=== PATIENT | female | born 1935 | race Caucasian/White ===

== ENCOUNTER 2016-06-26 05:07 | Inpatient (IN) | payer MEDICARE ==
[2016-06-26 06:31] LABS: ABSOLUTE LYMPHOCYTES (AUTO) 1.4 10^3/uL (0.5-4.7); ABSOLUTE MONOCYTES (AUTO) 0.6 10^3/uL (0.1-1.4); ABSOLUTE NEUT (AUTO) 7.1 10^3/uL (1.7-8.2); BASOPHILS % (AUTO) 0.3 % (0-2); EOSINOPHILS % (AUTO) 0.3 % (0-6); HEMATOCRIT 39.5 % (36.0-47.0); HEMOGLOBIN 13.4 g/dL (12.0-15.5); HGB HCT DIFFERENCE 0.7; LYMPHOCYTES % (AUTO) 15.4 % (13-45); MEAN CORPUSCULAR HEMOGLOBIN 29.6 pg (27.0-33.4); MEAN CORPUSCULAR HGB CONC 33.8 g/dL (32.0-36.0); MEAN CORPUSCULAR VOLUME 88 fl (80-97); MONOCYTES % (AUTO) 6.2 % (3-13); RED BLOOD COUNT 4.51 10^6/uL (3.72-5.28); RED CELL DISTRIBUTION WIDTH 13.2 % (11.5-14.0); SEGMENTED NEUTROPHILS % (AUTO) 77.8 % (42-78); WHITE BLOOD COUNT 9.1 10^3/uL (4.0-10.5)
[2016-06-26 06:38] LABS: PROTHROMBIN TIME 13.5 SEC (11.4-15.4)
[2016-06-26 06:50] LABS: ALANINE AMINOTRANSFERASE 193 U/L (9-52); ALBUMIN 4.3 g/dL (3.5-5.0); ALKALINE PHOSPHATASE 138 U/L (38-126); ANION GAP 11 (5-19); ASPARTATE AMINO TRANSFERASE 229 U/L (14-36); BLOOD UREA NITROGEN 19 mg/dL (7-20); CARBON DIOXIDE 26 mmol/L (22-30); CHLORIDE 101 mmol/L (98-107); CREATININE RESULT 0.78 mg/dL (0.52-1.25); GLUCOSE 117 mg/dL (75-110); POTASSIUM 4.9 mmol/L (3.6-5.0); SODIUM 137.5 mmol/L (137-145); TOTAL PROTEIN 7.9 g/dL (6.3-8.2)
--- NOTE | 2016-06-26 07:09 | ER Document Report ---
ED GI/ - General Stated Complaint: ABDOMINAL PAIN Time seen by provider: 07:09 Mode of Arrival: Ambulatory Information source: Patient Notes: 80-year-old female complaining of epigastric right upper quadrant abdominal pain since yesterday afternoon when she was sweeping the garage. Associated with increased number of bowel movements yesterday that were large but not diarrhea, nausea, and intense pain. Denies alcohol. She has had a hysterectomy and appendectomy. She still has her gallbladder. Her liver enzymes are elevated at this time. I'll order a lipase and a abdominal ultrasound. She has a history of LA in 1997 no CHF, cardiomegaly on chest x- ray this morning. White count is normal. She just got back from the bathroom urinalysis will be sent to the lab. TRAVEL OUTSIDE OF THE [place] IN LAST 30 DAYS: No - Related Data Allergies/Adverse Reactions: No Known Allergies Allergy (Unverified 09/20/14 12:59) Home Medications: Current Home Medications Aspirin [Aspirin EC] 81 mg PO DAILY 06/26/16 [History] Atenolol [Tenormin] 25 mg PO BID 06/26/16 [History] Enalapril Maleate [Vasotec 10 mg Tablet] 10 mg PO QAM 06/26/16 [History] Enalapril Maleate [Vasotec 10 mg Tablet] 20 mg PO QPM 06/26/16 [History] Past Medical History - General Information source: Patient - Social History Smoking Status: Never Smoker Frequency of alcohol use: None Drug Abuse: None Lives with: Alone Family History: Reviewed & Not Pertinent - Past Medical History Cardiac Medical History: Reports: Hx Heart Attack - 1997 Past Surgical History: Reports: Hx Appendectomy, Hx Hysterectomy Review of Systems - Review of Systems Constitutional: No symptoms reported EENT: No symptoms reported Cardiovascular: No symptoms reported Respiratory: No symptoms reported Gastrointestinal: See HPI Genitourinary: No symptoms reported Female Genitourinary: No symptoms reported Musculoskeletal: No symptoms reported Skin: No symptoms reported Hematologic/Lymphatic: No symptoms reported Neurological/Psychological: No symptoms reported Physical Exam - Vital signs Vitals: Resp Pulse Ox 15 96 06/26/16 05:30 06/26/16 05:30 Interpretation: Hypertensive - mild, Other - no temperature done in er yet, asked nurse to take it - General General appearance: Appears well, Alert In distress: Mild - HEENT Head: Normocephalic, Atraumatic Eyes: Normal Conjunctiva: Normal Pupils: PERRL Pharynx: Normal Neck: Supple. No: Lymphadenopathy - Respiratory Respiratory status: No respiratory distress Chest status: Nontender Breath sounds: Normal Chest palpation: Normal - Cardiovascular Rhythm: Regular Heart sounds: Normal auscultation Murmur: No - Abdominal Inspection: Normal Distension: No distension Bowel sounds: Normal Tenderness: Tender - epigastric, RUQ Organomegaly: No organomegaly. No: Hepatomegaly, Splenomegaly - Back Back: Normal, Nontender. No: CVA tenderness - Extremities General upper extremity: Normal inspection, Nontender, Normal color, Normal ROM , Normal temperature General lower extremity: Normal inspection, Nontender, Normal color, Normal ROM , Normal temperature, Normal weight bearing. No: Cheo's sign - Neurological Neuro grossly intact: Yes Cognition: Normal Orientation: AAOx4 Williams Coma Scale Eye Opening: Spontaneous [place] Coma Scale Verbal: Oriented [place] Coma Scale Motor: Obeys Commands Williams Coma Scale Total: 15 Speech: Normal Motor strength normal: LUE, RUE, LLE, RLE Sensory: Normal - Psychological Associated symptoms: Normal affect, Normal mood - Skin Skin Temperature: Warm Skin Moisture: Dry Skin Color: Normal Skin irregularity: negative: Rash Course - Re-evaluation Re-evalutation: 06/26/16 08:03 Urinalysis shows 2+ bacteria with 16 wbc's. I added Rocephin 1 g IV and urine culture is pending. 06/26/16 10:49 Ultrasound shows pericholecystic fluid with thickened gallbladder wall, LFTs or elevated lipase is normal. Dr. allan who I notified will come see the patient and consult with hospitalist due to her history of cardiomegaly and LA in 1997. She has not eaten since 2-6.am. 06/26/16 11:04 I have consulted with the supervisory physician per [facility] Guidelines, dr. kendrick. He recommends getting a CPK CPK MB and a troponin I redraw at this time. Dr. Allan is here to see the patient. The EKG showed normal sinus rhythm with abnormal inverted T waves in 1 aVL and V4 5 and 6. 06/26/16 11:29 dr garrett called, wants dr. renee to admit medical with surgical constult. speaking with him now. He will admit to surgical floor. - Vital Signs Vital signs: Temp Pulse Resp BP Pulse Ox 98.8 F 73 16 102/48 L 95 06/27/16 17:48 06/27/16 17:48 06/27/16 17:48 06/27/16 17:48 06/27/16 17:48 - Laboratory Result Diagrams: 06/27/16 07:33 06/27/16 07:33 Laboratory results interpreted by me: 06/26/16 06/26/16 06/26/16 06:10 07:15 11:20 VBG pH 7.29 L Glucose 117 H AST 229 H ALT 193 H Alkaline Phosphatase 138 H Urine Ketones TRACE H Urine Blood SMALL H Urine Nitrite POSITIVE H Ur Leukocyte Esterase MODERATE H Discharge - Discharge Clinical Impression: Cholecystitis Cholelithiasis Qualifiers: Cholelithiasis location: gallbladder Cholecystitis presence: with cholecystitis Cholecystitis acuity: acute Biliary obstruction: without biliary obstruction Qualified Code(s): K80.00 - Calculus of gallbladder with acute cholecystitis without obstruction Urinary tract infection Qualifiers: Urinary tract infection type: site unspecified Hematuria presence: without hematuria Qualified Code(s): N39.0 - Urinary tract infection, site not specified Abdominal pain Qualifiers: Abdominal location: right upper quadrant Qualified Code(s): R10.11 - Right upper quadrant pain Condition: Stable Disposition: ADMITTED INPATIENT Admitting Provider: Hospitalist Unit Admitted: Surgical Floor
[2016-06-26] MEDS ORDERED: NORMAL SALINE 1000 ML 500 ML IV ONE (07:27)
[2016-06-26] MEDS ORDERED: ONDANSETRON HCL INJ/PF 4 MG/2 ML SDV IV ONE (07:28)
[2016-06-26] MEDS ORDERED: MORPHINE SULFATE 10 MG/ML INJ IV ONE (07:28)
[2016-06-26 07:50] LABS: APPEARANCE,URINE SLIGHTLY-CLOUDY; BILIRUBIN,URINE NEGATIVE (NEGATIVE); GLUCOSE, URINE NEGATIVE (NEGATIVE); KETONES,URINE TRACE mg/dL (NEGATIVE); LEUKOCYTE ESTERASE,URINE MODERATE (NEGATIVE); NITRITE,URINE POSITIVE (NEGATIVE); PROTEIN,URINE NEGATIVE (NEGATIVE); URINE SPECIFIC GRAVITY 1.012; UROBILINOGEN,URINE NEGATIVE mg/dL (<2.0)
[2016-06-26] MEDS ORDERED: CEFTRIAXONE 1 GM/D5W RTU 50 ML IV ONE (08:02)
--- NOTE | 2016-06-26 08:03 | EKG REPORT ---
SEVERITY:- ABNORMAL ECG - SINUS RHYTHM ABNORMAL T, CONSIDER ISCHEMIA, ANT-LAT LEADS : Confirmed by: Tino Hughes MD 26-Jun-2016 08:02:39
[2016-06-26] MEDS ORDERED: NORMAL SALINE 1000 ML 1,000 ML IV ONE (10:50)
--- NOTE | 2016-06-26 11:22 | PDOC CONSULTATION ---
Consultation Consult Date: 06/26/16 Attending physician:: emergency Consult reason:: Acute abdominal pain History of Present Illness Admission Date/PCP: KASSIDY PAYTON History of Present Illness: FLORENTINO ZHANG is a 80 year old female who presents emergency department complaining of acute onset epigastric pain yesterday approximately 18 hours ago after eating a meal. Associated with gas, unrelieved by Rolaids or Tums. Last bowel movement was yesterday, loose but not diarrhea. She was seen in the emergency department where she was worked up and found by gallbladder ultrasonography to have gallstones, cystic fluid. There are elevated liver function studies, total bilirubin normal. Past Medical History Cardiac Medical History: Reports: Myocardial Infarction - 1997 Denies: Hypertension Pulmonary Medical History: Denies: Asthma Neurological Medical History: Denies: Seizures GI Medical History: Denies: Hepatitis, Hiatal Hernia Hematology: Denies: Anemia, Sickle Cell Disease Past Surgical History Past Surgical History: Reports: Appendectomy, Hysterectomy Denies: Amputation, Mastectomy, Pacemaker Social History Lives with: Alone Smoking Status: Unknown if Ever Smoked Family History Family History: Reviewed & Not Pertinent Parental Family History Reviewed: Yes Children Family History Reviewed: Yes Sibling(s) Family History Reviewed.: Yes Medication/Allergy Allergies/Adverse Reactions: No Known Allergies Allergy (Unverified 09/20/14 12:59) Physical Exam Vital Signs: Temp Pulse Resp BP Pulse Ox 98.3 F 14 144/65 H 98 06/26/16 07:53 06/26/16 10:02 06/26/16 10:02 06/26/16 10:02 General appearance: PRESENT: no acute distress, other - Patient received morphine earlier today Head exam: PRESENT: normocephalic Eye exam: PRESENT: EOMI Mouth exam: PRESENT: moist Neck exam: PRESENT: full ROM Respiratory exam: PRESENT: clear to auscultation jessy Pulses: PRESENT: normal carotid pulses, normal radial pulses GI/Abdominal exam: PRESENT: other - The abdomen is diffusely tender particularly right Rectal exam: PRESENT: deferred Extremities exam: PRESENT: full ROM Musculoskeletal exam: PRESENT: full ROM Results Laboratory Results: 06/26/16 06:10 06/26/16 06:10 06/26/16 06/26/16 06/26/16 06:10 06:10 06:10 WBC 9.1 RBC 4.51 Hgb 13.4 Hct 39.5 MCV 88 MCH 29.6 MCHC 33.8 RDW 13.2 Plt Count 239 Seg Neutrophils % 77.8 Lymphocytes % 15.4 Monocytes % 6.2 Eosinophils % 0.3 Basophils % 0.3 Absolute Neutrophils 7.1 Absolute Lymphocytes 1.4 Absolute Monocytes 0.6 Absolute Eosinophils 0.0 Absolute Basophils 0.0 Sodium 137.5 Potassium 4.9 Chloride 101 Carbon Dioxide 26 Anion Gap 11 BUN 19 Creatinine 0.78 Est GFR ( Amer) > 60 Est GFR (Non-Af Amer) > 60 Glucose 117 H Lactic Acid 1.2 Calcium 10.0 Total Bilirubin 1.0 AST 229 H ALT 193 H Alkaline Phosphatase 138 H Total Protein 7.9 Albumin 4.3 Lipase Urine Color Urine Appearance Urine pH Ur Specific [place] Urine Protein Urine Glucose (UA) Urine Ketones Urine Blood Urine Nitrite Ur Leukocyte Esterase Urine WBC (Auto) Urine RBC (Auto) 06/26/16 06/26/16 06:10 07:15 WBC RBC Hgb Hct MCV MCH MCHC RDW Plt Count Seg Neutrophils % Lymphocytes % Monocytes % Eosinophils % Basophils % Absolute Neutrophils Absolute Lymphocytes Absolute Monocytes Absolute Eosinophils Absolute Basophils Sodium Potassium Chloride Carbon Dioxide Anion Gap BUN Creatinine Est GFR ( Amer) Est GFR (Non-Af Amer) Glucose Lactic Acid Calcium Total Bilirubin AST ALT Alkaline Phosphatase Total Protein Albumin Lipase 169.3 Urine Color YELLOW Urine Appearance SLIGHTLY-CLOUDY Urine pH 5.0 Ur Specific [place] 1.012 Urine Protein NEGATIVE Urine Glucose (UA) NEGATIVE Urine Ketones TRACE H Urine Blood SMALL H Urine Nitrite POSITIVE H Ur Leukocyte Esterase MODERATE H Urine WBC (Auto) 16 Urine RBC (Auto) 2 Impressions: Chest X-Ray 06/26/16 05:12 IMPRESSION: HEART ENLARGED WITHOUT FAILURE. NO OTHER SIGNIFICANT RADIOGRAPHIC FINDING IN THE CHEST. Abdomen Ultrasound 06/26/16 08:03 IMPRESSION: Pericholecystic fluid, gallbladder wall thickening, positive sonographic Mcpherson's sign and multiple small gallstones. Findings worrisome for acute cholecystitis. Assessment & Plan - Diagnosis (1) Cholecystitis Plan: 1. Patient will be admitted Nothing by mouth and on IV fluids on the hospital service with surgery consulting. 2. I believe the patient suffering from acute cholecystitis cholelithiasis, and deserves interval laparoscopic, possible cholecystectomy. Ending operating room availability, this will be performed later today or tomorrow. 3. The patient has a history of myocardial infarction, 1997, with a history of cardiomyopathy. The details of this history are documented. 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 Her current EKG shows flipped T waves in the precordial leads. We will check her cardiac enzymes and have the records reviewed. Wire echocardiography preoperatively. - Time Time Spent: 30 to 50 Minutes - Inpatient Certification Medical Necessity: Need For IV Fluids, Need for IV Antibiotics, Need for Surgery
[2016-06-26 11:43] LABS: VENOUS BLOOD BASE EXCESS -0.1 mmol/L; VENOUS BLOOD HCO3 27.9 mmol/L (20-32); VENOUS BLOOD PCO2 59.8 mmHg (35-63); VENOUS BLOOD PH 7.29 (7.30-7.42)
[2016-06-26] MEDS ORDERED: CEFAZOLIN 1 GM/D5W RTU 50 ML IV SCH (12:00)
[2016-06-26 12:15] LABS: CREATINE KINASE MB 1.57 ng/mL (<4.55)
[2016-06-26 12:17] LABS: TROPONIN I < 0.012 ng/mL
[2016-06-26] MEDS ORDERED: NORMAL SALINE 1000 ML 1,000 ML IV PRN (12:59)
[2016-06-26] MEDS ORDERED: IPRATROPIUM/ALBUTEROL 0.5-2.5 MG/3 ML AMPUL NEB PRN (12:59)
[2016-06-26] MEDS ORDERED: ONDANSETRON HCL INJ/PF 4 MG/2 ML SDV IV PRN (12:59)
--- NOTE | 2016-06-26 13:38 | PDOC CONSULTATION ---
Consultation Consult Date: 06/26/16 Attending physician:: BREA NEWELL Consult reason:: Pre-op clearance History of Present Illness Admission Date/PCP: 06/26/16 11:37 KASSIDY PAYTON Patient complains of: Abdominal pain History of Present Illness: FLORENTINO ZHANG is a 80 year old female who presents emergency department complaining of acute onset epigastric pain yesterday approximately 18 hours ago after eating a meal. Associated with gas, unrelieved by Rolaids or Tums. Last bowel movement was yesterday, loose but not diarrhea. She was seen in the emergency department where she was worked up and found by gallbladder ultrasonography to have gallstones, cystic fluid. There are elevated liver function studies, total bilirubin normal. Patient on questioning describes history of remote myocardial infarction more than 10 years ago. At that time no stents were placed or no balloon angioplasty was performed. Patient claims that she has been in good health without any chest pain, shortness of breath, PND, orthopnea. Patient claims to be physically active. Twelve-lead EKG showed sinus rhythm, some nonspecific ST-T wave changes, most consistent with LVH. No prior EKG available for review. One set of cardiac enzymes is negative. Chest x-ray negative for CHF. Past Medical History Cardiac Medical History: Reports: Myocardial Infarction - 1997 Denies: Hypertension Pulmonary Medical History: Denies: Asthma Neurological Medical History: Denies: Seizures GI Medical History: Denies: Hepatitis, Hiatal Hernia Hematology: Denies: Anemia, Sickle Cell Disease Past Surgical History Past Surgical History: Reports: Appendectomy, Hysterectomy Denies: Amputation, Mastectomy, Pacemaker Social History Information Source: Patient Lives with: Alone Smoking Status: Unknown if Ever Smoked - Advance Directive Resuscitation Status: Full Code Surrogate healthcare decision maker:: Callie Diaz, elder sister Family History Family History: Reviewed & Not Pertinent Parental Family History Reviewed: Yes Children Family History Reviewed: Yes Sibling(s) Family History Reviewed.: Yes - Negative for premature coronary artery disease or sudden cardiac in the family amongst first degree relatives. Medication/Allergy Home Medications: Aspirin [Aspirin EC] 81 mg PO DAILY 06/26/16 Atenolol [Tenormin] 25 mg PO BID 06/26/16 Enalapril Maleate [Vasotec 10 mg Tablet] 10 mg PO QAM 06/26/16 Enalapril Maleate [Vasotec 10 mg Tablet] 20 mg PO QPM 06/26/16 Allergies/Adverse Reactions: No Known Allergies Allergy (Unverified 09/20/14 12:59) Physical Exam Vital Signs: Temp Pulse Resp BP Pulse Ox 98.3 F 14 142/68 H 100 06/26/16 07:53 06/26/16 13:01 06/26/16 13:00 06/26/16 13:01 Exam: GENERAL: well-nourished and in no acute distress. Alert and oriented x3 HEAD: Atraumatic, normocephalic. EYES: Pupils equal round and reactive to light, extraocular movements intact, sclera anicteric, conjunctiva are normal. ENT: TMs normal, nares patent, oropharynx clear without exudates. Moist mucous membranes. No oral ulcerations or bleeding gums noted NECK: supple without lymphadenopathy. Trachea is central. No cervical or axillary lymphadenopathy noted. Carotids are 2+, JVD WNL LUNGS: Respiration seems nonlabored, no significant accessory muscle action noted. Breath sounds clear to auscultation bilaterally and equal. No wheezes rales or rhonchi. No significant dullness noted on percussion. CHEST: Palpation of the chest wall shows no significant chest wall tenderness or abnormalities. HEART: [place] DRILL BIT SHARPENER, No PSH, 1/6 BILL aortic area, 1/6 pearson systolic murmur mitral area, no rubs, no gallops. ABDOMEN: Soft, epigastric significant tenderness appreciated, normoactive bowel sounds. No guarding, no rebound. No rigidity noted . No masses appreciated. EXTREMITIES: Pedal pulses are 1-2+, no calf tenderness noted. No clubbing or cyanosis.trace to 1+ pedal edema noted NEUROLOGICAL: Focused neurological exam showed no significant neurologic deficit. Normal speech, no focal weakness appreciated. PSYCH: Normal mood, normal affect. Judgment and insight within normal limits. SKIN: No significant ecchymosis, rash, ulcerations or signs of pruritus noted. MUSCULOSKELETAL EXAM: No significant joint swelling noted. Results EKG Comments: Sinus rhythm, LVH with secondary ST-T wave changes Impressions: Chest X-Ray 06/26/16 05:12 IMPRESSION: HEART ENLARGED WITHOUT FAILURE. NO OTHER SIGNIFICANT RADIOGRAPHIC FINDING IN THE CHEST. Abdomen Ultrasound 06/26/16 08:03 IMPRESSION: Pericholecystic fluid, gallbladder wall thickening, positive sonographic Mcpherson's sign and multiple small gallstones. Findings worrisome for acute cholecystitis. Assessment & Plan - Diagnosis (1) Coronary artery disease Qualifiers: Coronary Disease-Associated Artery/Lesion type: agdaag[place] artery Associated angina: angina presence unspecified Is this a current diagnosis for this admission?: Yes (2) Abdominal pain Qualifiers: Abdominal location: right upper quadrant Qualified Code(s): R10.11 - Right upper quadrant pain Is this a current diagnosis for this admission?: Yes (3) Cholecystitis Is this a current diagnosis for this admission?: Yes (4) Hypertension Qualifiers: Hypertension type: essential hypertension Qualified Code(s): I10 - Essential (primary) hypertension Is this a current diagnosis for this admission?: Yes - Notes Notes: Preop cardiovascular evaluation: Patient in sinus rhythm. Patient has had no angina or angina equivalent symptoms. Patient not in clinical CHF. Patient cleared for surgery. We'll be happy to take care of any cardiac problem as it arises. Patient felt to be at acceptable risk for her age. CAD: Patient has CAD. Currently stable without any angina or angina equivalent symptoms. Discussed symptoms associated with unstable angina, acute coronary syndrome, myocardial infarction etc. Hypertension Blood pressure goal in this patient is 140/90 or less. This was discussed with the patient. Currently blood pressure under reasonable control. Cholecystitis with cholelithiasis: Agree that patient needs cholecystectomy. Patient cleared for such a surgery. - Time Time Spent: 30 to 50 Minutes - CODE STATUS was discussed, patient remains full code. Surrogate decision-maker unchanged. Multiple medical problems were addressed.More than 50% of the time spent coordinating care, discussing management plans with involved caregivers. Management plans discussed with involved personnels. Medical decision making was of moderate complexity. Medications reviewed and adjusted accordingly: Yes
[2016-06-26] MEDS ORDERED: MORPHINE SULFATE 10 MG/ML INJ ONE (15:01)
[2016-06-26] MEDS ORDERED: METRONIDAZOLE 500 MG/NS RTU 100 ML IV ONE (16:00)
--- NOTE | 2016-06-26 17:42 | PDOC H&P ---
History of Present Illness Admission Date/PCP: 06/26/16 12:59 KASSIDY Jazlyn PAYTON Patient complains of: Epigastric pain and bloating History of Present Illness: Patient reports to the emergency department with increasing epigastric pain that started on Saturday as bloating and quickly developed sharp stabbing pain that radiates throughout the abdomen. She got no relief from aoco-rro-kzcnobv antacids. It began to affect her sleep and she started regurgitating foul tasting bile. She reports 4 stools over the course of the last 24 hours which is an increase for her but denies any change in the character or color of stools. She never had anything quite like this before. She describes the pain as sharp stabbing and radiating throughout the abdomen, worse with eating, improved with narcotics and no associated symptoms of fever, chills, chest pain , palpitations, headache or dizziness. Evaluation in the emergency department including an imaging shows signs and symptoms suggestive of an acute cholecystitis. We were asked to admit the patient due to multiple medical problems, surgery has already Evaluated and anticipates intervention later today. The patient has a prior history of PA with catheter in 1997 and has unusual changes on her EKG with T-wave inversions in V4 through 6. Cardiology is already evaluated and cleared for general anesthesia. Past Medical History Cardiac Medical History: Reports: Myocardial Infarction - 1997 Denies: Hypertension Pulmonary Medical History: Denies: Asthma Neurological Medical History: Denies: Seizures GI Medical History: Denies: Hepatitis, Hiatal Hernia Hematology: Denies: Anemia, Sickle Cell Disease Past Surgical History Past Surgical History: Reports: Appendectomy, Hysterectomy Denies: Amputation, Mastectomy, Pacemaker Social History Lives with: Alone Smoking Status: Unknown if Ever Smoked - Advance Directive Resuscitation Status: Full Code Family History Family History: Reviewed & Not Pertinent Parental Family History Reviewed: Yes Children Family History Reviewed: Yes Sibling(s) Family History Reviewed.: Yes Medication/Allergy Home Medications: Aspirin [Aspirin EC] 81 mg PO DAILY 06/26/16 Atenolol [Tenormin] 25 mg PO BID 06/26/16 Enalapril Maleate [Vasotec 10 mg Tablet] 10 mg PO QAM 06/26/16 Enalapril Maleate [Vasotec 10 mg Tablet] 20 mg PO QPM 06/26/16 Allergies/Adverse Reactions: No Known Allergies Allergy (Unverified 09/20/14 12:59) Review of Systems Constitutional: ABSENT: chills, fever(s), headache(s), weight gain, weight loss Eyes: ABSENT: visual disturbances Ears: ABSENT: hearing changes Cardiovascular: ABSENT: chest pain, dyspnea on exertion, edema, orthropnea, palpitations Respiratory: ABSENT: cough, hemoptysis Gastrointestinal: PRESENT: as per HPI, abdominal pain. ABSENT: constipation, diarrhea, hematemesis, hematochezia, nausea, vomiting Genitourinary: ABSENT: dysuria, hematuria Musculoskeletal: ABSENT: joint swelling Integumentary: ABSENT: rash, wounds Neurological: ABSENT: abnormal gait, abnormal speech, confusion, dizziness, focal weakness, syncope Psychiatric: ABSENT: anxiety, depression, homidical ideation, suicidal ideation Endocrine: ABSENT: cold intolerance, heat intolerance, polydipsia, polyuria Hematologic/Lymphatic: ABSENT: easy bleeding, easy bruising Physical Exam Vital Signs: Temp Pulse Resp BP Pulse Ox 98.3 F 14 142/68 H 100 06/26/16 07:53 06/26/16 13:01 06/26/16 13:00 06/26/16 13:01 PHYSICAL EXAM GENERAL: NAD; well developed, well nourished; no obese; alert and oriented to person, place, time, situation HEENT: normocephalic, atraumatic; EOMI, PERRLA, no conjunctival injection, no scleral icterus; oral mucosa moist, normal dentition; neck supple, no LAD, normal ROM RESPIRATORY: no accessory muscle use, no increased WOB, good air entry bilaterally; no wheezes, rales, rhonchi; no inspiratory crackles CARDIO: no JVD; RRR; no systolic murmur; no tachycardia VASCULAR: no carotid bruit; no abdominal bruit; no pallor; 2+ radial, DP pulse ; normal capillary refill GI: soft; nondistended; normal bowel sounds; no hepato spleno megaly; no rebound, rigidity, guarding; sharp pain to palpation of the epigastrium into the right upper quadrant : normal external genitalia; rectal deferred NEURO: normal patella reflexes; normal sensation; normal motor function; no gait abnls; no dysarthria; no nystagmus; tongue protrudes midline; normal finger to nose; able to cross midline with finger to ear MSK: 5/5 strength; normal ROM hips; ambulatory without assistance; no tenderness EXTREMITIES: no calf tender; no palpable cords in calf; no clubbing, cyanosis , pedal edema PSYCH: normal affect, normal mood SKIN: warm; moist; no petechiae; no telengectasias; no jaundice; no rash Results Laboratory Results: Labs reviewed, her CBC and chemistries are unremarkable aside from elevation of her LFTs with AST and ALT 4 times upper limit of normal and alkaline phosphatase 2 times upper limit of normal. Her initial cardiac enzymes are negative. Her lipase is normal. Interestingly her urinalysis shows trace ketones, small amount of blood, positive nitrite, moderate leukocyte esterase and 2+ bacteria though she is asymptomatic. Blood and urine cultures are pending. Impressions: Chest X-Ray 06/26/16 05:12 IMPRESSION: HEART ENLARGED WITHOUT FAILURE. NO OTHER SIGNIFICANT RADIOGRAPHIC FINDING IN THE CHEST. Abdomen Ultrasound 06/26/16 08:03 IMPRESSION: Pericholecystic fluid, gallbladder wall thickening, positive sonographic Mcpherson's sign and multiple small gallstones. Findings worrisome for acute cholecystitis. Status: Image reviewed by me Assessment & Plan - Diagnosis (1) Acute cholecystitis Is this a current diagnosis for this admission?: YesPlan: Start Cipro and Flagyl anticipating surgical intervention later today. (2) Coronary artery disease Qualifiers: Coronary Disease-Associated Artery/Lesion type: [place] artery Associated angina: angina presence unspecified Is this a current diagnosis for this admission?: YesPlan: Coronary disease is stable, cardiology cleared for general anesthesia. Continue perioperative beta zoe but hold antiplatelet therapy until after surgery. (3) Hypertension Qualifiers: Hypertension type: essential hypertension Qualified Code(s): I10 - Essential (primary) hypertension Is this a current diagnosis for this admission?: YesPlan: Target blood pressure less than 140/90. Hold LUIS inhibitor for now, trend renal function postop. (4) Urinary tract infection Qualifiers: Urinary tract infection type: site unspecified Hematuria presence: without hematuria Qualified Code(s): N39.0 - Urinary tract infection, site not specified Is this a current diagnosis for this admission?: YesPlan: Asymptomatic bacteriuria. Also will be covered by the Cipro until urine culture is available. - Time Time Spent: Greater than 70 Minutes Anticipated discharge: Home Within: within 48 hours - Inpatient Certification Medical Necessity: Need For IV Fluids, Need for IV Antibiotics, Need for Surgery
[2016-06-26] MEDS ORDERED: (PENDING PHARMACY ID) (Atenolol [Tenormin] 25 MG) PO SCH (18:00)
--- NOTE | 2016-06-26 18:56 | XCELERA REPORT ---
[address] [address] Transthoracic Echocardiogram Report Name: FLORENTINO ZHANG Age: 80 yrs Gender: Female : 1935 Patient Status: Inpatient Patient Location: [id number] Study Date: 06/26/2016 03:22 PM Procedure: A complete two-dimensional transthoracic echocardiogram was performed (2D, M-mode, spectral and color flow Doppler). The study was technically adequate with some images being suboptimal in quality. Reason For Study: CAD, Pre op Ordering Physician: PARAM MARK Performed By: Vicky Klein Interpretation Summary The Ejection Fraction estimate is 45-50% Left ventricular systolic function is mildly reduced. There is borderline concentric left ventricular hypertrophy. The left ventricle is grossly normal size. Doppler measurements suggest pseudonormalized left ventricular relaxation, which is associated with grade II/IV or mild to moderate diastolic dysfunction There is basal inferior wall akinesis The right ventricular systolic function is normal. The left atrium is moderately dilated. The right atrium is normal in size There is a mild amount of mitral regurgitation There is no mitral valve stenosis. There is no aortic valve stenosis No aortic regurgitation is present. There is a trace or physiologic amount of tricuspid regurgitation Tricuspid regurgitation jet envelope not well defined to measure RV systolic pressure accurately. The aortic root is not well visualized but is probably normal size. The inferior vena cava appeared normal and decreased > 50% with respiration (RAP 5-10 mmHg) There is no pericardial effusion. MMode/2D Measurements \T\ Calculations RVDd: 2.9 cm LVIDd: 6.4 cm FS: 11.8 % Ao root diam: 2.6 cm IVSd: 1.2 cm LVIDs: 5.6 cm EDV(Teich): 208.0 ml Ao root area: 5.5 cm2 LVPWd: 0.77 cm ESV(Teich): 156.0 ml LA dimension: 4.3 cm EF(Teich): 25.0 % Doppler Measurements \T\ Calculations MV E max von: MV P1/2t max von: Ao V2 max: LV V1 max P.6 cm/sec 146.6 cm/sec 193.1 cm/sec 3.2 mmHg MV A max von: MV P1/2t: 56.3 msec Ao max PG: LV V1 max: 133.3 cm/sec MVA(P1/2t): 3.9 cm2 14.9 mmHg 89.8 cm/sec MV E/A: 1.1 MV dec slope: 763.2 cm/sec2 MV dec time: 0.18 sec PA V2 max: TR max von: 89.3 cm/sec 279.1 cm/sec PA max P.2 mmHgTR max P.2 mmHg Left Ventricle The left ventricle is grossly normal size. There is borderline concentric left ventricular hypertrophy. Left ventricular systolic function is mildly reduced. The Ejection Fraction estimate is 45-50%. Doppler measurements suggest pseudonormalized left ventricular relaxation, which is associated with grade II/IV or mild to moderate diastolic dysfunction. There is basal inferior wall akinesis. Right Ventricle The right ventricle is normal in size, thickness and function. There is normal right ventricular wall thickness. The right ventricular systolic function is normal. Atria The right atrium is normal in size. The left atrium is moderately dilated. Interarterial septum not well visualized and not well dopplered. Cannot comment on ASD/PFO presence. Mitral Valve There is mild mitral leaflet calcification. There is mild mitral annular calcification. There is no mitral valve stenosis. There is a mild amount of mitral regurgitation. Aortic Valve The aortic valve is mildly calcified. There is no aortic valve stenosis. No aortic regurgitation is present. Tricuspid Valve The tricuspid valve is not well visualized, but is grossly normal. There is no tricuspid stenosis. There is a trace or physiologic amount of tricuspid regurgitation. Tricuspid regurgitation jet envelope not well defined to measure RV systolic pressure accurately. Pulmonic Valve The pulmonic valve is not well visualized. Great Vessels The aortic root is not well visualized but is probably normal size. The inferior vena cava appeared normal and decreased > 50% with respiration (RAP 5-10 mmHg). Effusions There is no pericardial effusion. : PARAM MARK > Param Mark
[2016-06-26] MEDS ORDERED: CEFAZOLIN SODIUM 1 GM in DEXTROSE 5%-WATER 50 ML IV ONE (19:00)
[2016-06-26] MEDS: CIPROFLOXACIN 400 MG/D5W RTU 400 MG/200 ML RTUPB IV SCH (20:55)
[2016-06-26] MEDS: METRONIDAZOLE 500 MG/NS RTU 100 ML IV SCH (20:56)
[2016-06-26] MEDS: FAMOTIDINE INJ/PF 20 MG/2 ML SDV IV SCH (21:07)
[2016-06-26] MEDS: ATENOLOL 50 MG TABLET PO SCH (21:08)
[2016-06-27] MEDS: CEFAZOLIN SODIUM 1 GM in DEXTROSE 5%-WATER 50 ML IV SCH ×2 (00:51→05:28)
[2016-06-27] MEDS: METRONIDAZOLE 500 MG/NS RTU 100 ML IV SCH ×4 (02:22→20:25)
[2016-06-27] MEDS ORDERED: LIDOCAINE 1% INJ-PF (10 MG/ML) 30 ML SDV ONE (07:45)
[2016-06-27] MEDS ORDERED: BUPIVACAINE HCL 0.25% /EPINEPHRINE INJ/PF 30 ML SDV ONE (07:46)
[2016-06-27 08:02] LABS: ABSOLUTE BASOPHILS # (AUTO) 0.1 10^3/uL (0.0-0.2); ABSOLUTE LYMPHOCYTES (AUTO) 1.4 10^3/uL (0.5-4.7); ABSOLUTE MONOCYTES (AUTO) 1.3 10^3/uL (0.1-1.4); ABSOLUTE NEUT (AUTO) 7.1 10^3/uL (1.7-8.2); BASOPHILS % (AUTO) 1.2 % (0-2); EOSINOPHILS % (AUTO) 0.1 % (0-6); HEMATOCRIT 37.1 % (36.0-47.0); HEMOGLOBIN 12.4 g/dL (12.0-15.5); HGB HCT DIFFERENCE 0.1; LYMPHOCYTES % (AUTO) 14.2 % (13-45); MEAN CORPUSCULAR HEMOGLOBIN 29.8 pg (27.0-33.4); MEAN CORPUSCULAR HGB CONC 33.5 g/dL (32.0-36.0); MEAN CORPUSCULAR VOLUME 89 fl (80-97); MONOCYTES % (AUTO) 13.1 % (3-13); RED BLOOD COUNT 4.17 10^6/uL (3.72-5.28); RED CELL DISTRIBUTION WIDTH 13.2 % (11.5-14.0); SEGMENTED NEUTROPHILS % (AUTO) 71.4 % (42-78)
[2016-06-27 08:22] LABS: ALANINE AMINOTRANSFERASE 222 U/L (9-52); ALBUMIN 3.1 g/dL (3.5-5.0); ALKALINE PHOSPHATASE 196 U/L (38-126); ANION GAP 9 (5-19); ASPARTATE AMINO TRANSFERASE 294 U/L (14-36); BILIRUBIN,TOTAL 0.9 mg/dL (0.2-1.3); BLOOD UREA NITROGEN 17 mg/dL (7-20); CALCIUM 8.9 mg/dL (8.4-10.2); CARBON DIOXIDE 26 mmol/L (22-30); CHLORIDE 104 mmol/L (98-107); GLUCOSE 96 mg/dL (75-110); POTASSIUM 4.8 mmol/L (3.6-5.0); SODIUM 138.5 mmol/L (137-145); TOTAL PROTEIN 6.8 g/dL (6.3-8.2)
[2016-06-27] MEDS ORDERED: HYDROMORPHONE HCL INJ/PF 2 MG/ML AMPULE ONE (08:39)
[2016-06-27] MEDS ORDERED: PROPOFOL INJ 200 MG/20 ML VIAL IV ONE (08:40)
--- NOTE | 2016-06-27 10:01 | PDOC PROGRESS REPORT ---
Subjective Subjective:: no vomiting. still with RUQ and epigastric pain to palp. no fevers/chills. Physical Exam Vital Signs: Temp Pulse Resp BP Pulse Ox 98.3 F 71 16 112/49 L 95 06/27/16 08:38 06/27/16 08:38 06/27/16 08:38 06/27/16 08:38 06/27/16 08:38 Intake & Output 06/26/16 06/27/16 06/28/16 06:59 06:59 06:59 Intake Total 1300 Balance 1300 Weight 77.2 kg General appearance: PRESENT: no acute distress Head exam: PRESENT: normocephalic Eye exam: PRESENT: EOMI Respiratory exam: PRESENT: clear to auscultation jessy Cardiovascular exam: PRESENT: RRR GI/Abdominal exam: PRESENT: soft, tenderness - RUQ and epigas. ABSENT: distended, guarding, rebound Musculoskeletal exam: PRESENT: ambulatory Neurological exam: PRESENT: alert, oriented to situation Psychiatric exam: PRESENT: appropriate affect, normal mood Skin exam: ABSENT: jaundice Results Laboratory Results: 06/27/16 07:33 06/27/16 07:33 06/27/16 06/27/16 07:33 07:33 WBC 10.0 RBC 4.17 Hgb 12.4 Hct 37.1 MCV 89 MCH 29.8 MCHC 33.5 RDW 13.2 Plt Count 213 Seg Neutrophils % 71.4 Lymphocytes % 14.2 Monocytes % 13.1 H Eosinophils % 0.1 Basophils % 1.2 Absolute Neutrophils 7.1 Absolute Lymphocytes 1.4 Absolute Monocytes 1.3 Absolute Eosinophils 0.0 Absolute Basophils 0.1 Sodium 138.5 Potassium 4.8 Chloride 104 Carbon Dioxide 26 Anion Gap 9 BUN 17 Creatinine 1.00 Est GFR ( Amer) > 60 Est GFR (Non-Af Amer) 53 L Glucose 96 Calcium 8.9 Total Bilirubin 0.9 AST 294 H ALT 222 H Alkaline Phosphatase 196 H Total Protein 6.8 Albumin 3.1 L Impressions: Chest X-Ray 06/26/16 05:12 IMPRESSION: HEART ENLARGED WITHOUT FAILURE. NO OTHER SIGNIFICANT RADIOGRAPHIC FINDING IN THE CHEST. Abdomen Ultrasound 06/26/16 08:03 IMPRESSION: Pericholecystic fluid, gallbladder wall thickening, positive sonographic Mcpherson's sign and multiple small gallstones. Findings worrisome for acute cholecystitis. Assessment & Plan - Diagnosis (1) Acute cholecystitis Is this a current diagnosis for this admission?: YesPlan: We discussed surgery versus a strict no fat diet. We discussed laparoscopic cholecystectomy with cholangiogram in detail. Questions were answered. We discussed the risks, benefits and alternatives including , heart attack, stroke, blood clots in the legs, blood clots in lungs, pneumonia, bleeding, infection, hernia, bile leak, failure of symptoms to resolve, long-term diarrhea , damage to surrounding structures such as bladder, bowels, blood vessels or bile duct resulting in serious long-term health issues. We discussed the possibility of retained stone with need for further procedure such as ERCP. Understands and wishes to proceed. (2) Cholelithiasis Qualifiers: Cholelithiasis location: gallbladder Cholecystitis presence: with cholecystitis Cholecystitis acuity: acute Biliary obstruction: without biliary obstruction Qualified Code(s): K80.00 - Calculus of gallbladder with acute cholecystitis without obstruction (3) Coronary artery disease Qualifiers: Coronary Disease-Associated Artery/Lesion type: [place] artery Associated angina: angina presence unspecified Is this a current diagnosis for this admission?: Yes
[2016-06-27] MEDS: CIPROFLOXACIN 400 MG/D5W RTU 400 MG/200 ML RTUPB IV SCH ×2 (10:07→20:23)
[2016-06-27] MEDS ORDERED: FENTANYL CITRATE INJ/PF 100 MCG/2 ML AMPUL IV PRN ×2 (10:28)
[2016-06-27] MEDS ORDERED: DIPHENHYDRAMINE HCL 50 MG/ML VIAL IV PRN (10:28)
[2016-06-27] MEDS ORDERED: MORPHINE SULFATE 10 MG/ML INJ IV PRN (10:28)
[2016-06-27] MEDS ORDERED: MEPERIDINE HCL/PF INJ 25 MG/1 ML DISP.SYRIN IV PRN (10:28)
--- NOTE | 2016-06-27 12:05 | Operative Report ---
Operative Report DATE OF SURGERY: 06/27/16 PREOPERATIVE DIAGNOSIS: Acute cholecystitis with cholelithiasis POSTOPERATIVE DIAGNOSIS: 1. Acute gangrenous cholecystitis with cholelithiasis. 2. Choledocholithiasis. OPERATION: Laparoscopic cholecystectomy with cholangiogram SURGEON: COLIN LAWLER ANESTHESIA: GA TISSUE REMOVED OR ALTERED: Gallbladder and stones COMPLICATIONS: None noted ESTIMATED BLOOD LOSS: 30 mL INTRAOPERATIVE FINDINGS: Choledocholithiasis with a filling defect noted in the distal common duct on cholangiogram. PROCEDURE: The patient was brought to the operative suite and placed supine on the OR table. Timeout was performed. Antibiotics were administered. Padding and positioning was appropriate. The patient was induced, intubated and maintained on general endotracheal anesthesia throughout the procedure. Patient was prepped and draped in the normal sterile fashion. The skin above the umbilicus was infiltrated with local anesthetic. A 5 mm incision was made. There was some suspicion of intra-abdominal adhesions due to her multiple previous abdominal surgeries. Therefore when the Veress needle was placed, although satisfactory water drop test was performed, the needle did not have mobility after piercing the peritoneum, and adhesions were suspected. A Visiport with camera was carefully advanced through the abdominal wall layers and into a clear space in the perineum. Low flow insufflation was connected and yielded low opening pressure. Insufflation was advanced to high flow and pneumoperitoneum of 15 mmHg was obtained and maintained with procedure. Adhesions inferior to the umbilicus were confirmed, but they've his port advanced through spot superior to the umbilicus without adhesions. Next the 11 mm epigastric and the two 5 mm right subcostal trochars were placed in the normal location and fashion under direct visualization, after infiltration with local anesthetic. Instruments were introduced. The abdominal cavity was surveyed and appeared normal except for the gallbladder. The gallbladder was distended and discolored. There were suppurative fluid pockets and there were no purulent exudate layering and surrounding the gallbladder. There were adhesions to the gallbladder which were carefully taken down with a combination of electrocautery and blunt dissection. The pockets of murky fluid surrounding the gallbladder and over the liver edge were suctioned free of the abdominal cavity. The fundus of the gallbladder was elevated over the liver edge. The gallbladder, which had a poor appearance with discoloration and mottling, immediately broke apart when grasped. Bile and stones were suctioned free of the abdominal cavity and removed with the Semm stone grasper. The dissection the gallbladder began on the lateral aspect. Dissection continued down to the triangle of [place]ot. The cystic artery and the cystic duct were dissected out and seen to be clearly entering the gallbladder with no obscuration. The cystic artery was obscuring the approach to the cystic duct, and was taken first to facilitate exposure to the cystic duct. The artery was clipped twice proximally and once distally against the gallbladder and divided with scissors. Attention was turned to the cystic duct. The cystic duct had obvious stones. The duct was clipped adjacent to the gallbladder. A ductotomy was made and multiple stones were milked out of the cystic duct. A cholangiocatheter was inserted. A cholangiogram was performed showing distal obstruction of the common bile duct. Injectable saline was pushed, but the filling defect did not resolve. A small trace of contrast slowly leaked by the filling defect. The cholangiocatheter was removed. The cystic duct was clipped 3 times proximally and divided between clips. The gallbladder was removed from the gallbladder fossa with hook electrocautery. The gallbladder wall was friable and broke apart. Bile and stones were removed with combination of aspiration and stone grasper. The the operative field was irrigated copiously with 1.5 L of fluid, which was administered in aliquots until clear and suctioned free. Once removed , the gallbladder was placed in an Endo Catch bag and removed through the epigastric trocar site. It was sent to pathology for further analysis. The field was intact with no leakage of bile or blood. Clips were in place. The abdominal cavity was surveyed and and the lower abdominal adhesions were noted inferior to the umbilical trocar. Some additional fluid was irrigated from the pelvis. Trocar sites were infiltrated with more local anesthetic. The epigastric trocar site was closed at the level of the fascia with 0 Vicryl suture using the Endo Close needle. Pneumoperitoneum was released. Trochars were removed. Incisions were closed at the level of the skin with 4-0 Monocryl. The closed incisions were dressed with benzoin tincture, Steri- Strips and Band-Aids. All lap needle sponge counts were correct. The patient tolerated procedure well and was taken recovery in stable condition. I spoke with Dr. Ulloa the rat culturist about the choledocholithiasis. His plan is to conduct an ERCP tomorrow.
[2016-06-27] MEDS ORDERED: DEXAMETHASONE SOD PHOSPHATE INJ 4 MG/1 ML VIAL ONE (12:11)
[2016-06-27] MEDS ORDERED: PHENYLEPHRINE HCL INJ/PF 10 MG/1 ML SDV ONE (12:11)
[2016-06-27] MEDS ORDERED: NEOSTIGMINE METHYLSULFATE 10 MG/10 ML VIAL ONE (12:11)
[2016-06-27] MEDS ORDERED: SUCCINYLCHOLINE CHLORIDE INJ 200 MG/10 ML VIAL ONE (12:11)
[2016-06-27] MEDS ORDERED: VECURONIUM BROMIDE INJ 10 MG VIAL IV ONE (12:11)
[2016-06-27] MEDS ORDERED: ONDANSETRON HCL INJ/PF 4 MG/2 ML SDV ONE (12:11)
[2016-06-27] MEDS ORDERED: GLYCOPYRROLATE INJ 0.4 MG/2 ML VIAL ONE (12:11)
[2016-06-27] MEDS ORDERED: LIDOCAINE 2% INJ-PF (20 MG/ML) 10 ML AMPUL ONE (12:11)
[2016-06-27] MEDS: ATENOLOL 50 MG TABLET PO SCH ×2 (15:55→21:17)
[2016-06-27] MEDS: FAMOTIDINE INJ/PF 20 MG/2 ML SDV IV SCH ×2 (15:55→21:17)
--- NOTE | 2016-06-27 17:18 | PDOC PROGRESS REPORT ---
Subjective Progress Note for:: 06/27/16 Subjective:: History of present illness: Patient reports to the emergency department with increasing epigastric pain that started on Saturday as bloating and quickly developed sharp stabbing pain that radiates throughout the abdomen. She got no relief from [id number] antacids. It began to affect her sleep and she started regurgitating foul tasting bile. She reports 4 stools over the course of the last 24 hours which is an increase for her but denies any change in the character or color of stools. She never had anything quite like this before. She describes the pain as sharp stabbing and radiating throughout the abdomen, worse with eating, improved with narcotics and no associated symptoms of fever, chills, chest pain , palpitations, headache or dizziness. Evaluation in the emergency department including an imaging shows signs and symptoms suggestive of an acute cholecystitis. We were asked to admit the patient due to multiple medical problems, surgery has already Evaluated and anticipates intervention later today. The patient has a prior history of [place] with catheter in 1997 and has unusual changes on her EKG with T-wave inversions in V4 through 6. Cardiology is already evaluated and cleared for general anesthesia. The patient underwent laparoscopic cholecystectomy this morning with intraoperative cholangiogram suggestive of choledocholithiasis. Reason for visit: Follow-up acute cholecystitis. Subjective: The patient has returned from surgery and remains very lethargic as she knew she would, told me early on that she requires a prolonged period of time to awakened from general anesthesia. She is currently too sedated to participate in her exam or provider review of systems. Family is at the bedside. Physical Exam Vital Signs: Temp Pulse Resp BP Pulse Ox 98.7 F 74 16 127/59 H 96 06/27/16 12:30 06/27/16 15:50 06/27/16 15:50 06/27/16 12:30 06/27/16 15:50 Intake & Output 06/26/16 06/27/16 06/28/16 06:59 06:59 06:59 Intake Total 1300 2400 Output Total 1205 Balance 1300 1195 Weight 77.2 kg PHYSICAL EXAM GENERAL: NAD; well developed, well nourished; no obese; lethargic HEENT: normocephalic, atraumatic; EOMI, PERRLA, no conjunctival injection, no scleral icterus; oral mucosa moist, RESPIRATORY: no accessory muscle use, no increased WOB, good air entry bilaterally; no wheezes, rales, rhonchi; no inspiratory crackles; on 2 L of oxygen her saturation is 98% for me at the bedside CARDIO: no JVD; RRR; no systolic murmur; no tachycardia VASCULAR: no carotid bruit; no pallor; 2+ radial, DP pulse; normal capillary refill GI: soft; nondistended; diminished bowel sounds; no rebound, rigidity, guarding ; no grimace to palpation over the epigastrium. Steri-Strips in place over laparoscopic incisions, clean dry and intact NEURO: normal patella reflexes EXTREMITIES:; no palpable cords in calf; no clubbing, cyanosis, pedal edema PSYCH: Sedated SKIN: warm; moist; no petechiae; no telengectasias; no jaundice; no rash Results Laboratory Results: 06/27/16 07:33 06/27/16 07:33 06/27/16 06/27/16 07:33 07:33 WBC 10.0 RBC 4.17 Hgb 12.4 Hct 37.1 MCV 89 MCH 29.8 MCHC 33.5 RDW 13.2 Plt Count 213 Seg Neutrophils % 71.4 Lymphocytes % 14.2 Monocytes % 13.1 H Eosinophils % 0.1 Basophils % 1.2 Absolute Neutrophils 7.1 Absolute Lymphocytes 1.4 Absolute Monocytes 1.3 Absolute Eosinophils 0.0 Absolute Basophils 0.1 Sodium 138.5 Potassium 4.8 Chloride 104 Carbon Dioxide 26 Anion Gap 9 BUN 17 Creatinine 1.00 Est GFR ( Amer) > 60 Est GFR (Non-Af Amer) 53 L Glucose 96 Calcium 8.9 Total Bilirubin 0.9 AST 294 H ALT 222 H Alkaline Phosphatase 196 H Total Protein 6.8 Albumin 3.1 L Labs reviewed. LFTs remain unchanged. CBC unremarkable. Impressions: Chest X-Ray 06/26/16 05:12 IMPRESSION: HEART ENLARGED WITHOUT FAILURE. NO OTHER SIGNIFICANT RADIOGRAPHIC FINDING IN THE CHEST. Abdomen Ultrasound 06/26/16 08:03 IMPRESSION: Pericholecystic fluid, gallbladder wall thickening, positive sonographic Mcpherson's sign and multiple small gallstones. Findings worrisome for acute cholecystitis. Cholangiogram 06/27/16 00:00 IMPRESSION: INTRAOPERATIVE CHOLANGIOGRAM. Status: Imported from PACS - Her ports reviewed Assessment & Plan - Diagnosis (1) Acute cholecystitis Is this a current diagnosis for this admission?: YesPlan: Status post laparoscopic cholecystectomy. Continue Cipro and Flagyl. (2) Coronary artery disease Qualifiers: Coronary Disease-Associated Artery/Lesion type: [place] artery Associated angina: angina presence unspecified Is this a current diagnosis for this admission?: YesPlan: Coronary disease is stable, cardiology cleared for general anesthesia. Continue perioperative beta zoe but hold antiplatelet therapy until after surgery. (3) Hypertension Qualifiers: Hypertension type: essential hypertension Qualified Code(s): I10 - Essential (primary) hypertension Is this a current diagnosis for this admission?: YesPlan: Target blood pressure less than 140/90. Hold LUIS inhibitor for now, trend renal function postop. (4) Urinary tract infection Qualifiers: Urinary tract infection type: site unspecified Hematuria presence: without hematuria Qualified Code(s): N39.0 - Urinary tract infection, site not specified Is this a current diagnosis for this admission?: YesPlan: Asymptomatic bacteriuria. Also will be covered by the Cipro until urine culture is available. Initial urine culture shows gram-negative esperanza of up to 50 ,000 colony-forming units. Awaiting final culture results. (5) Choledocholithiasis Is this a current diagnosis for this admission?: YesPlan: Per radiology, negative cholangiogram. - Time Time Spent with patient: 25-34 minutes
--- NOTE | 2016-06-27 19:56 | PDOC PROGRESS REPORT ---
Subjective Progress Note for:: 06/27/16 Subjective:: Patient seems to be doing better but with continued intermittent upper abdominal discomfort. Pt is denying any chest arm or neck discomfort. Patient denying any PND, orthopnea. Patient denied any sustained palpitations, dizziness, syncope, near syncope. Patient denying any fever chills. Patient denying any other significant discomfort. Patient is maintaining sinus rhythm. Review of systems: Rest review of systems negative. Medications: Medications have been reviewed. Physical Exam Vital Signs: Temp Pulse Resp BP Pulse Ox 98.3 F 71 16 112/49 L 95 06/27/16 08:38 06/27/16 08:38 06/27/16 08:38 06/27/16 08:38 06/27/16 08:38 Intake & Output 06/26/16 06/27/16 06/28/16 06:59 06:59 06:59 Intake Total 1300 0 Balance 1300 0 Weight 77.2 kg Exam: GENERAL: well-nourished and in no acute distress. Alert and oriented x3 HEAD: Atraumatic, normocephalic. EYES: Pupils equal round and reactive to light, extraocular movements intact, sclera anicteric, conjunctiva are normal. ENT: TMs normal, nares patent, oropharynx clear without exudates. Moist mucous membranes. No oral ulcerations or bleeding gums noted NECK: supple without lymphadenopathy. Trachea is central. No cervical or axillary lymphadenopathy noted. Carotids are 2+, JVD WNL LUNGS: Respiration seems nonlabored, no significant accessory muscle action noted. Breath sounds clear to auscultation bilaterally and equal. No wheezes rales or rhonchi. No significant dullness noted on percussion. CHEST: Palpation of the chest wall shows no significant chest wall tenderness or abnormalities. HEART: [place] [employer], No PSH, 1/6 BILL aortic area, 1/6 pearson systolic murmur mitral area, no rubs, no gallops. ABDOMEN: Soft, epigastric and right upper quadrant significant tenderness appreciated, normoactive bowel sounds. No guarding, no rebound. No rigidity noted . No masses appreciated. EXTREMITIES: Pedal pulses are 1-2+, no calf tenderness noted. No clubbing or cyanosis.trace to 1+ pedal edema noted NEUROLOGICAL: Focused neurological exam showed no significant neurologic deficit. Normal speech, no focal weakness appreciated. PSYCH: Normal mood, normal affect. Judgment and insight within normal limits. SKIN: No significant ecchymosis, rash, ulcerations or signs of pruritus noted. MUSCULOSKELETAL EXAM: No significant joint swelling noted. Results Laboratory Results: 06/27/16 07:33 06/27/16 07:33 06/27/16 06/27/16 07:33 07:33 WBC 10.0 RBC 4.17 Hgb 12.4 Hct 37.1 MCV 89 MCH 29.8 MCHC 33.5 RDW 13.2 Plt Count 213 Seg Neutrophils % 71.4 Lymphocytes % 14.2 Monocytes % 13.1 H Eosinophils % 0.1 Basophils % 1.2 Absolute Neutrophils 7.1 Absolute Lymphocytes 1.4 Absolute Monocytes 1.3 Absolute Eosinophils 0.0 Absolute Basophils 0.1 Sodium 138.5 Potassium 4.8 Chloride 104 Carbon Dioxide 26 Anion Gap 9 BUN 17 Creatinine 1.00 Est GFR ( Amer) > 60 Est GFR (Non-Af Amer) 53 L Glucose 96 Calcium 8.9 Total Bilirubin 0.9 AST 294 H ALT 222 H Alkaline Phosphatase 196 H Total Protein 6.8 Albumin 3.1 L Impressions: Chest X-Ray 06/26/16 05:12 IMPRESSION: HEART ENLARGED WITHOUT FAILURE. NO OTHER SIGNIFICANT RADIOGRAPHIC FINDING IN THE CHEST. Abdomen Ultrasound 06/26/16 08:03 IMPRESSION: Pericholecystic fluid, gallbladder wall thickening, positive sonographic Mcpherson's sign and multiple small gallstones. Findings worrisome for acute cholecystitis. Assessment & Plan - Diagnosis (1) Coronary artery disease Qualifiers: Coronary Disease-Associated Artery/Lesion type: [place] artery Associated angina: angina presence unspecified Is this a current diagnosis for this admission?: Yes (2) Abdominal pain Qualifiers: Abdominal location: right upper quadrant Qualified Code(s): R10.11 - Right upper quadrant pain Is this a current diagnosis for this admission?: Yes (3) Cholecystitis Is this a current diagnosis for this admission?: Yes (4) Hypertension Qualifiers: Hypertension type: essential hypertension Qualified Code(s): I10 - Essential (primary) hypertension Is this a current diagnosis for this admission?: Yes - Notes Notes: Patient was seen prior to going to the OR. She seems stable from cardiac standpoint without any chest pain or any shortness of breath. She was noted to be in sinus rhythm. 2-D echocardiogram results showed mildly depressed LVEF, no significant valvular abnormalities noted. It is felt that patient will benefit from cholecystectomy and she was cleared for such a procedure. Her blood pressure remains well controlled. At this point will follow patient postop. Will continue to follow patient with you. - Time Time with patient: 15-25 minutes - CODE STATUS was discussed, patient remains full code. Surrogate decision-maker unchanged. Multiple medical problems were addressed.
[2016-06-28] MEDS: RINGERS SOLUTION,LACTATED 1,000 ML IV PRN ×2 (00:14→18:39)
[2016-06-28] MEDS: METRONIDAZOLE 500 MG/NS RTU 100 ML IV SCH ×4 (03:46→21:49)
[2016-06-28 06:34] LABS: HEMATOCRIT 32.6 % (36.0-47.0); HEMOGLOBIN 10.8 g/dL (12.0-15.5); HGB HCT DIFFERENCE -0.2; MEAN CORPUSCULAR HEMOGLOBIN 29.6 pg (27.0-33.4); MEAN CORPUSCULAR VOLUME 90 fl (80-97); RED BLOOD COUNT 3.64 10^6/uL (3.72-5.28); RED CELL DISTRIBUTION WIDTH 13.6 % (11.5-14.0); WHITE BLOOD COUNT 13.1 10^3/uL (4.0-10.5)
[2016-06-28 06:50] LABS: ALANINE AMINOTRANSFERASE 132 U/L (9-52); ALBUMIN 2.9 g/dL (3.5-5.0); ALKALINE PHOSPHATASE 160 U/L (38-126); ANION GAP 11 (5-19); ASPARTATE AMINO TRANSFERASE 131 U/L (14-36); BILIRUBIN,TOTAL 0.6 mg/dL (0.2-1.3); BLOOD UREA NITROGEN 16 mg/dL (7-20); CALCIUM 8.6 mg/dL (8.4-10.2); CARBON DIOXIDE 24 mmol/L (22-30); CHLORIDE 109 mmol/L (98-107); GLUCOSE 107 mg/dL (75-110); POTASSIUM 3.9 mmol/L (3.6-5.0); TOTAL PROTEIN 6.5 g/dL (6.3-8.2)
[2016-06-28] MEDS: CIPROFLOXACIN 400 MG/D5W RTU 400 MG/200 ML RTUPB IV SCH ×2 (08:21→21:49)
--- NOTE | 2016-06-28 09:21 | PDOC PROGRESS REPORT ---
Subjective Progress Note for:: 06/28/16 Subjective:: Feels much better. Physical Exam Vital Signs: Temp Pulse Resp BP Pulse Ox 98.4 F 69 17 108/48 L 99 06/28/16 05:27 06/28/16 07:00 06/28/16 05:27 06/28/16 05:27 06/28/16 05:27 Intake & Output 06/27/16 06/28/16 06/29/16 06:59 06:59 06:59 Intake Total 1300 4450 Output Total 1335 Balance 1300 3115 Weight 77.2 kg 78.2 kg General appearance: PRESENT: no acute distress Respiratory exam: PRESENT: clear to auscultation jessy Cardiovascular exam: PRESENT: RRR GI/Abdominal exam: PRESENT: other - Soft, nondistended, tender in the right upper quadrant but no peritoneal signs. Extremities exam: PRESENT: other - No swelling and no tenderness Results Laboratory Results: 06/28/16 05:54 06/28/16 05:54 06/28/16 06/28/16 05:54 05:54 WBC 13.1 H RBC 3.64 L Hgb 10.8 L Hct 32.6 L MCV 90 MCH 29.6 MCHC 33.0 RDW 13.6 Plt Count 183 Sodium 144.0 Potassium 3.9 Chloride 109 H Carbon Dioxide 24 Anion Gap 11 BUN 16 Creatinine 0.80 Est GFR ( Amer) > 60 Est GFR (Non-Af Amer) > 60 Glucose 107 Calcium 8.6 Total Bilirubin 0.6 AST 131 H ALT 132 H Alkaline Phosphatase 160 H Total Protein 6.5 Albumin 2.9 L Impressions: Chest X-Ray 06/26/16 05:12 IMPRESSION: HEART ENLARGED WITHOUT FAILURE. NO OTHER SIGNIFICANT RADIOGRAPHIC FINDING IN THE CHEST. Abdomen Ultrasound 06/26/16 08:03 IMPRESSION: Pericholecystic fluid, gallbladder wall thickening, positive sonographic Mcpherson's sign and multiple small gallstones. Findings worrisome for acute cholecystitis. Cholangiogram 06/27/16 00:00 IMPRESSION: INTRAOPERATIVE CHOLANGIOGRAM. Assessment & Plan - Diagnosis (1) Cholecystitis Is this a current diagnosis for this admission?: YesPlan: Status post laparoscopic cholecystectomy. Patient has responded well with surgery. Intraoperative cholangiogram suggestive of the common bile duct stone therefore pending GI evaluation for possible ERCP.
[2016-06-28] MEDS: ATENOLOL 50 MG TABLET PO SCH ×2 (09:49→21:49)
[2016-06-28] MEDS: FAMOTIDINE INJ/PF 20 MG/2 ML SDV IV SCH ×2 (09:49→21:49)
--- NOTE | 2016-06-28 10:04 | Physician Advisory Note ---
Physician Advisor ProgressNote .: Pursuant to the plan for [facility], I have reviewed the medical record for this patient. Physician Advisor Statement: Nicely documented overall. All this reviewer could consider asking is whether there is any chance of " Acute Blood Loss Anemia, possibly due to ", given Hgb 13.4 -> 10.8 over 2 days without signif accompanying change in BUN/Cr or documented dehydration/ rehydration. Coders, since the hx so far doesn't indicate a high likelihood of this dx, I wouldn't query for it if attending doesn't document it in this case. CK
[2016-06-28] MEDS ORDERED: LIDOCAINE 0.5% INJ-PF (5 MG/ML) 50 ML SDV ONE (14:40)
--- NOTE | 2016-06-28 16:37 | PDOC PROGRESS REPORT ---
Subjective Progress Note for:: 06/28/16 Subjective:: History of present illness: Patient reports to the emergency department with increasing epigastric pain that started on Saturday as bloating and quickly developed sharp stabbing pain that radiates throughout the abdomen. She got no relief from [id number] antacids. It began to affect her sleep and she started regurgitating foul tasting bile. She reports 4 stools over the course of the last 24 hours which is an increase for her but denies any change in the character or color of stools. She never had anything quite like this before. She describes the pain as sharp stabbing and radiating throughout the abdomen, worse with eating, improved with narcotics and no associated symptoms of fever, chills, chest pain , palpitations, headache or dizziness. Evaluation in the emergency department including an imaging shows signs and symptoms suggestive of an acute cholecystitis. We were asked to admit the patient due to multiple medical problems, surgery has already Evaluated and anticipates intervention later today. The patient has a prior history of [place] with catheter in 1997 and has unusual changes on her EKG with T-wave inversions in V4 through 6. Cardiology is already evaluated and cleared for general anesthesia. The patient underwent laparoscopic cholecystectomy with intraoperative cholangiogram suggestive of choledocholithiasis, scheduled for ERCP. Reason for visit: Follow-up acute cholecystitis and choledocholithiasis. Subjective: She reports no epigastric pain or discomfort, nausea, vomiting, diarrhea or constipation. Overall she feels well and was hopeful she can go home today, a little disappointed to hear she needs an ERCP. She denies chest pain, palpitations, dyspnea, headache, dizziness, syncope or presyncope. ROS: per HPI plus a total of 10 systems reviewed, pertinent positives and negatives noted above, remaining systems negative. Physical Exam Vital Signs: Temp Pulse Resp BP Pulse Ox 97.8 F 63 20 127/69 H 99 06/28/16 16:00 06/28/16 16:00 06/28/16 16:00 06/28/16 16:00 06/28/16 16:00 Intake & Output 06/27/16 06/28/16 06/29/16 06:59 06:59 06:59 Intake Total 1300 4450 Output Total 1335 Balance 1300 3115 Weight 77.2 kg 78.2 kg PHYSICAL EXAM GENERAL: NAD; well developed, well nourished; no obese; alert and oriented to person place and time HEENT: normocephalic, atraumatic; EOMI, PERRLA, no conjunctival injection, no scleral icterus; oral mucosa moist, RESPIRATORY: no accessory muscle use, no increased WOB, good air entry bilaterally; no wheezes, rales, rhonchi; no inspiratory crackles; oxygenating well on room air CARDIO: no JVD; RRR; no systolic murmur; no tachycardia VASCULAR: no carotid bruit; no pallor; 2+ radial, DP pulse; normal capillary refill GI: soft; nondistended; diminished bowel sounds; no rebound, rigidity, guarding ; no grimace to palpation over the epigastrium. Steri-Strips in place over laparoscopic incisions, clean dry and intact NEURO: normal patella reflexes EXTREMITIES:; no palpable cords in calf; no clubbing, cyanosis, pedal edema PSYCH: Sedated SKIN: warm; moist; no petechiae; no telengectasias; no jaundice; no rash Results Laboratory Results: 06/28/16 05:54 06/28/16 05:54 06/28/16 06/28/16 05:54 05:54 WBC 13.1 H RBC 3.64 L Hgb 10.8 L Hct 32.6 L MCV 90 MCH 29.6 MCHC 33.0 RDW 13.6 Plt Count 183 Sodium 144.0 Potassium 3.9 Chloride 109 H Carbon Dioxide 24 Anion Gap 11 BUN 16 Creatinine 0.80 Est GFR ( Amer) > 60 Est GFR (Non-Af Amer) > 60 Glucose 107 Calcium 8.6 Total Bilirubin 0.6 AST 131 H ALT 132 H Alkaline Phosphatase 160 H Total Protein 6.5 Albumin 2.9 L Labs reviewed, downward trend in hemoglobin likely dilutional as there is no evidence for acute blood loss. Flexion lites and renal function stable Assessment & Plan - Diagnosis (1) Acute cholecystitis Is this a current diagnosis for this admission?: YesPlan: Status post laparoscopic cholecystectomy with probable choledocholithiasis. Continue Cipro and Flagyl. Anticipate ERCP this evening, maintain nothing by mouth status. (2) Coronary artery disease Qualifiers: Coronary Disease-Associated Artery/Lesion type: [place] artery Associated angina: angina presence unspecified Is this a current diagnosis for this admission?: YesPlan: Coronary disease is stable, cardiology cleared for general anesthesia. Continue perioperative beta zoe but hold antiplatelet therapy until after all procedures complete. (3) Hypertension Qualifiers: Hypertension type: essential hypertension Qualified Code(s): I10 - Essential (primary) hypertension Is this a current diagnosis for this admission?: YesPlan: Well-controlled. Target blood pressure less than 140/90. Hold LUIS inhibitor for now, trend renal function postop. (4) Urinary tract infection Qualifiers: Urinary tract infection type: site unspecified Hematuria presence: without hematuria Qualified Code(s): N39.0 - Urinary tract infection, site not specified Is this a current diagnosis for this admission?: YesPlan: Asymptomatic bacteriuria, bilateral criteria. Urine culture demonstrates greater than 100,000 colony-forming units of pansensitive Escherichia coli. Continue antibiotics for the above. (5) Choledocholithiasis Is this a current diagnosis for this admission?: YesPlan: As above. - Time Time Spent with patient: 25-34 minutes - Plan Summary Plan Summary: Anticipate discharge home in the morning assuming she tolerates the ERCP without difficulty and then a diet thereafter.
[2016-06-28] MEDS ORDERED: NALOXONE HCL INJ/PF 0.4 MG/1 ML SDV ONE (16:45)
[2016-06-28] MEDS ORDERED: PROMETHAZINE HCL INJ 25 MG/1 ML VIAL ONE (16:45)
[2016-06-28] MEDS ORDERED: MIDAZOLAM 2 MG/2 ML INJ ONE (16:46)
[2016-06-28] MEDS ORDERED: FENTANYL CITRATE INJ/PF 100 MCG/2 ML AMPUL ONE ×2 (16:46→16:47)
[2016-06-28] MEDS ORDERED: GLUCAGON,HUMAN RECOMB 1 MG INJ ONE (16:47)
[2016-06-28] MEDS ORDERED: EPINEPHRINE INJ 1 MG/10 ML DISP.SYRIN ONE (16:47)
[2016-06-28] MEDS ORDERED: FLUMAZENIL INJ 0.5 MG/5 ML VIAL IV ONE (16:47)
[2016-06-28] MEDS: MIDAZOLAM 2 MG/2 ML INJ ONE ×2 (19:00→19:04)
[2016-06-28] MEDS: FENTANYL CITRATE INJ/PF 100 MCG/2 ML AMPUL ONE ×2 (19:02→19:06)
--- NOTE | 2016-06-28 19:34 | PDOC CONSULTATION ---
Consultation Consult Date: 06/27/16 History of Present Illness Admission Date/PCP: 06/26/16 12:59 KASSIDY PAYTON History of Present Illness: This is an 80-year-old patient who was admitted on 06/26/2016 with epigastric pain, gallstones on ultrasound and cholecystitis on ultrasound. She had a laparoscopic cholecystectomy on 06/27/2016 and the intraoperative cholangiogram suggested a distal common bile duct stone. Currently patient is doing fairly well. Her transaminases and alkaline phosphatase were elevated on admission and they remain elevated on the day of surgery. Lipase was normal Past Medical History Cardiac Medical History: Reports: Myocardial Infarction - 1997 Denies: Hypertension Pulmonary Medical History: Denies: Asthma Neurological Medical History: Denies: Seizures GI Medical History: Denies: Hepatitis, Hiatal Hernia Psychiatric Medical History: Denies: Depression Hematology: Denies: Anemia, Sickle Cell Disease Past Surgical History Past Surgical History: Reports: Appendectomy, Hysterectomy Denies: Amputation, Mastectomy, Pacemaker Social History Lives with: Alone Smoking Status: Never Smoker Frequency of Alcohol Use: None Hx Recreational Drug Use: No Drugs: None Hx Prescription Drug Abuse: No - Advance Directive Resuscitation Status: Full Code Family History Family History: Reviewed & Not Pertinent Parental Family History Reviewed: No Children Family History Reviewed: NA Sibling(s) Family History Reviewed.: NA Medication/Allergy Home Medications: Aspirin [Aspirin EC] 81 mg PO DAILY 06/26/16 Atenolol [Tenormin] 25 mg PO BID 06/26/16 Enalapril Maleate [Vasotec 10 mg Tablet] 10 mg PO QAM 06/26/16 Enalapril Maleate [Vasotec 10 mg Tablet] 20 mg PO QPM 06/26/16 Allergies/Adverse Reactions: No Known Allergies Allergy (Unverified 09/20/14 12:59) Review of Systems All systems: reviewed and no additional remarkable complaints except as stated Physical Exam Vital Signs: Temp Pulse Resp BP Pulse Ox 97.8 F 63 20 127/69 H 99 06/28/16 16:08 06/28/16 16:08 06/28/16 16:08 06/28/16 16:08 06/28/16 16:08 Intake & Output 06/27/16 06/28/16 06/29/16 06:59 06:59 06:59 Intake Total 1300 4450 105 Output Total 1335 Balance 1300 3115 105 Weight 77.2 kg 78.2 kg Exam: General: Patient is alert and looks well. She is obese HEENT: There is no pallor or jaundice. PERRLA. Oropharynx normal Respiratory: No chest deformity. No respiratory distress. Chest wall palpitation was unremarkable. Breath sounds were normal Cardiovascular: Heart sounds 1 and 2 normal with no murmurs. Abdominal: Not distended. Soft and mildly tender in the epigastrium probably related to her recent surgery. Liver and spleen not palpable. No ascites demonstrated. Bowel sounds active. Rectal examination was deferred. Extremities: No edema Neurological: Alert and oriented x4. Grossly nonfocal. Normal speech Skin: No significant rash Psychological: Normal affect Results Laboratory Results: 06/28/16 05:54 06/28/16 05:54 06/28/16 06/28/16 05:54 05:54 WBC 13.1 H RBC 3.64 L Hgb 10.8 L Hct 32.6 L MCV 90 MCH 29.6 MCHC 33.0 RDW 13.6 Plt Count 183 Sodium 144.0 Potassium 3.9 Chloride 109 H Carbon Dioxide 24 Anion Gap 11 BUN 16 Creatinine 0.80 Est GFR ( Amer) > 60 Est GFR (Non-Af Amer) > 60 Glucose 107 Calcium 8.6 Total Bilirubin 0.6 AST 131 H ALT 132 H Alkaline Phosphatase 160 H Total Protein 6.5 Albumin 2.9 L Impressions: Chest X-Ray 06/26/16 05:12 IMPRESSION: HEART ENLARGED WITHOUT FAILURE. NO OTHER SIGNIFICANT RADIOGRAPHIC FINDING IN THE CHEST. Abdomen Ultrasound 06/26/16 08:03 IMPRESSION: Pericholecystic fluid, gallbladder wall thickening, positive sonographic Mcpherson's sign and multiple small gallstones. Findings worrisome for acute cholecystitis. Cholangiogram 06/27/16 00:00 IMPRESSION: INTRAOPERATIVE CHOLANGIOGRAM. Assessment & Plan - Diagnosis (1) Abnormal findings on imaging of biliary tract Is this a current diagnosis for this admission?: YesPlan: Her intraoperative cholangiogram does suggest choledocholithiasis. The need for an ERCP was explained to the patient including the risks and benefits and she is in agreement (2) Cholecystitis Is this a current diagnosis for this admission?: Yes (3) Cholelithiasis Qualifiers: Cholelithiasis location: gallbladder Cholecystitis presence: with cholecystitis Cholecystitis acuity: acute Biliary obstruction: without biliary obstruction Qualified Code(s): K80.00 - Calculus of gallbladder with acute cholecystitis without obstruction
--- NOTE | 2016-06-28 19:37 | Operative Report ---
Operative Report DATE OF SURGERY: 06/28/16 Operative Report: Pre-op diagnosis: Gallstones, cholecystitis, and abnormal LFTs Post-op diagnosis: Common bile duct sludge Surgery: ERCP with sphincterotomy and sludge extraction Medications: Versed 2mg Fentanyl 100mcg IV push Tissue removed: None Procedure: After informed consent obtained from patient, the throat was sprayed with Hurricane and conscious sedation was achieved. The ERCP endoscope was then inserted into the esophagus blindly and advanced into the stomach. The duodenum was entered and the ampulla was identified. Using the triple-lumen sphincterotomy catheter the common bile duct was freely cannulated. A cholangiogram was obtained which showed possible filling defect in the distal common bile duct. The common bile duct and intrahepatic ducts did not appear dilated. A good sized sphincterotomy was then performed using the endocut mode. There was small amount of sludge removed after sphincterotomy. Before I could insert the balloon catheter patient became hypoxic and the procedure was terminated. She responded immediately to Narcan and Romazicon. The pancreatic duct was intentionally not cannulated. Patient tolerated procedure well. Findings Common bile duct: Small amount of sludge Intrahepatic ducts: Normal Pancreatic duct: Not cannulated Plan: Follow-up LFTs OPERATION: .
--- NOTE | 2016-06-28 20:43 | PDOC PROGRESS REPORT ---
Subjective Progress Note for:: 06/28/16 Subjective:: Patient seems to be doing better, patient denied any upper abdominal discomfort. Pt is denying any chest arm or neck discomfort. Patient denying any PND, orthopnea. Patient denied any sustained palpitations, dizziness, syncope, near syncope. Patient denying any fever chills. Patient denying any other significant discomfort. Patient is maintaining sinus rhythm. Review of systems: Rest review of systems negative. Medications: Medications have been reviewed. Physical Exam Vital Signs: Temp Pulse Resp BP Pulse Ox 97.8 F 85 16 132/64 H 99 06/28/16 16:08 06/28/16 20:05 06/28/16 20:05 06/28/16 20:05 06/28/16 20:05 Intake & Output 06/27/16 06/28/16 06/29/16 06:59 06:59 06:59 Intake Total 1300 4450 1505 Output Total 1335 Balance 1300 3115 1505 Weight 77.2 kg 78.2 kg Exam: GENERAL: well-nourished and in no acute distress. Alert and oriented x3 HEAD: Atraumatic, normocephalic. EYES: Pupils equal round and reactive to light, extraocular movements intact, sclera anicteric, conjunctiva are normal. ENT: TMs normal, nares patent, oropharynx clear without exudates. Moist mucous membranes. No oral ulcerations or bleeding gums noted NECK: supple without lymphadenopathy. Trachea is central. No cervical or axillary lymphadenopathy noted. Carotids are 2+, JVD WNL LUNGS: Respiration seems nonlabored, no significant accessory muscle action noted. Breath sounds clear to auscultation bilaterally and equal. No wheezes rales or rhonchi. No significant dullness noted on percussion. CHEST: Palpation of the chest wall shows no significant chest wall tenderness or abnormalities. 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 ABDOMEN: Soft, mild surgical site tenderness appreciated, normoactive bowel sounds. No guarding, no rebound. No rigidity noted . No masses appreciated. EXTREMITIES: Pedal pulses are 1-2+, no calf tenderness noted. No clubbing or cyanosis.trace to 1+ pedal edema noted NEUROLOGICAL: Focused neurological exam showed no significant neurologic deficit. Normal speech, no focal weakness appreciated. PSYCH: Normal mood, normal affect. Judgment and insight within normal limits. SKIN: No significant ecchymosis, rash, ulcerations or signs of pruritus noted. MUSCULOSKELETAL EXAM: No significant joint swelling noted. Results Laboratory Results: 06/28/16 05:54 06/28/16 05:54 06/28/16 06/28/16 05:54 05:54 WBC 13.1 H RBC 3.64 L Hgb 10.8 L Hct 32.6 L MCV 90 MCH 29.6 MCHC 33.0 RDW 13.6 Plt Count 183 Sodium 144.0 Potassium 3.9 Chloride 109 H Carbon Dioxide 24 Anion Gap 11 BUN 16 Creatinine 0.80 Est GFR ( Amer) > 60 Est GFR (Non-Af Amer) > 60 Glucose 107 Calcium 8.6 Total Bilirubin 0.6 AST 131 H ALT 132 H Alkaline Phosphatase 160 H Total Protein 6.5 Albumin 2.9 L Impressions: Chest X-Ray 06/26/16 05:12 IMPRESSION: HEART ENLARGED WITHOUT FAILURE. NO OTHER SIGNIFICANT RADIOGRAPHIC FINDING IN THE CHEST. Abdomen Ultrasound 06/26/16 08:03 IMPRESSION: Pericholecystic fluid, gallbladder wall thickening, positive sonographic Mcpherson's sign and multiple small gallstones. Findings worrisome for acute cholecystitis. Cholangiogram 06/27/16 00:00 IMPRESSION: INTRAOPERATIVE CHOLANGIOGRAM. Assessment & Plan - Diagnosis (1) Coronary artery disease Qualifiers: Coronary Disease-Associated Artery/Lesion type: eek artery Associated angina: angina presence unspecified Is this a current diagnosis for this admission?: Yes (2) Abdominal pain Qualifiers: Abdominal location: right upper quadrant Qualified Code(s): R10.11 - Right upper quadrant pain Is this a current diagnosis for this admission?: Yes (3) Cholecystitis Is this a current diagnosis for this admission?: Yes (4) Hypertension Qualifiers: Hypertension type: essential hypertension Qualified Code(s): I10 - Essential (primary) hypertension Is this a current diagnosis for this admission?: Yes - Notes Notes: Patient was seen earlier in the day, she had done well with gallbladder surgery and cholecystectomy. She is due to undergo ERCP. As regards hypertension blood pressure is well controlled. As regards coronary artery disease, patient is stable. Will continue to follow patient tomorrow post ERCP and possible sphincterotomy and gallstone extraction. - Time Time with patient: 15-25 minutes - CODE STATUS was discussed, patient remains full code. Surrogate decision-maker unchanged. Multiple medical problems were addressed.More than 50% of the time spent coordinating care, discussing management plans with involved caregivers. Management plans discussed with involved personnels. Medical decision making was of moderate complexity.
[2016-06-28] MEDS ORDERED: ZOLPIDEM TARTRATE 5 MG TABLET PO ONE (22:30)
[2016-06-29] MEDS: METRONIDAZOLE 500 MG/NS RTU 100 ML IV SCH (02:19)
[2016-06-29 03:26] LABS: ARTERIAL BLOOD BASE EXCESS -6.8 mmol/L; ARTERIAL BLOOD O2 SATURATION 96.2 % (94-98)
[2016-06-29 04:10] LABS: HEMATOCRIT 34.2 % (36.0-47.0); HEMOGLOBIN 11.5 g/dL (12.0-15.5); HGB HCT DIFFERENCE 0.3; MEAN CORPUSCULAR HEMOGLOBIN 30.4 pg (27.0-33.4); MEAN CORPUSCULAR HGB CONC 33.6 g/dL (32.0-36.0); MEAN CORPUSCULAR VOLUME 90 fl (80-97); RED BLOOD COUNT 3.78 10^6/uL (3.72-5.28); RED CELL DISTRIBUTION WIDTH 13.8 % (11.5-14.0); WHITE BLOOD COUNT 17.5 10^3/uL (4.0-10.5)
[2016-06-29] MEDS ORDERED: PROPOFOL 100 ML IV ONE (04:12)
[2016-06-29] MEDS ORDERED: PHARMACY COMMUNICATION ORDER MC NR (04:15)
[2016-06-29] MEDS ORDERED: PROPOFOL INJ 200 MG/20 ML VIAL IV ONE (04:27)
[2016-06-29 05:22] LABS: ALANINE AMINOTRANSFERASE 99 U/L (9-52); ALKALINE PHOSPHATASE 136 U/L (38-126); ANION GAP 8 (5-19); ASPARTATE AMINO TRANSFERASE 70 U/L (14-36); BILIRUBIN,TOTAL 0.7 mg/dL (0.2-1.3); BLOOD UREA NITROGEN 17 mg/dL (7-20); CALCIUM 8.5 mg/dL (8.4-10.2); CARBON DIOXIDE 23 mmol/L (22-30); CHLORIDE 110 mmol/L (98-107); CREATINE KINASE 140 U/L (30-135); CREATININE RESULT 0.92 mg/dL (0.52-1.25); GLUCOSE 148 mg/dL (75-110); POTASSIUM 3.8 mmol/L (3.6-5.0); SODIUM 141.3 mmol/L (137-145)
[2016-06-29] MEDS ORDERED: VANCOMYCIN HCL 0 MG in DEXTROSE 5%-WATER 250 ML IV NR (05:30)
[2016-06-29 05:34] LABS: CREATINE KINASE MB 3.16 ng/mL (<4.55)
[2016-06-29 05:36] LABS: TROPONIN I 0.08 ng/mL
[2016-06-29 05:44] LABS: ARTERIAL BLOOD BASE EXCESS -4.4 mmol/L; ARTERIAL BLOOD O2 SATURATION 91.8 % (94-98)
[2016-06-29] MEDS ORDERED: POTASSI CL 20 MEQ/NS 1L 1,000 ML IV ONE (05:50)
[2016-06-29] MEDS ORDERED: CIPROFLOXACIN 400 MG/D5W RTU 400 MG/200 ML RTUPB IV SCH (06:00)
[2016-06-29 06:09] LABS: BAND NEUTROPHILS % (MANUAL) 1 % (3-5); BASOPHILS % (MANUAL) 1 % (0-2); EOSINOPHILS % (MANUAL) 0 % (0-6); LYMPHOCYTES % (MANUAL) 10 % (13-45); TOTAL CELLS COUNTED 100
[2016-06-29 06:11] LABS: RBC MORPHOLOGY COMMENT NORMO-CYTIC/CHROMIC; TOXIC GRANULATION SLIGHT
[2016-06-29] MEDS ORDERED: NORMAL SALINE 500 ML IV ONE (07:00)
[2016-06-29] MEDS ORDERED: POTASSI CL 20 MEQ/NS 1L 1000 ML IV PRN (07:01)
[2016-06-29] MEDS: PROPOFOL 100 ML IV PRN ×4 (07:39→21:06)
--- NOTE | 2016-06-29 08:19 | EKG REPORT ---
SEVERITY:- ABNORMAL ECG - SINUS TACHYCARDIA NONSPECIFIC T ABNORMALITIES, LATERAL LEADS : Confirmed by: Tino Hughes MD 29-Jun-2016 08:18:11
[2016-06-29] MEDS ORDERED: SUCCINYLCHOLINE CHLORIDE INJ 200 MG/10 ML VIAL ONE (08:53)
[2016-06-29] MEDS ORDERED: ENOXAPARIN SODIUM INJ 40 MG/0.4 ML DISP.SYRIN SUBCUT ONE (09:00)
--- NOTE | 2016-06-29 09:20 | PDOC PROGRESS REPORT ---
Physical Exam Vital Signs: Temp Pulse Resp BP Pulse Ox 99.3 F 67 14 94/48 L 100 06/29/16 08:00 06/29/16 08:00 06/29/16 08:00 06/29/16 08:00 06/29/16 08:00 Intake & Output 06/28/16 06/29/16 06/30/16 06:59 06:59 06:59 Intake Total 4450 2055 Output Total 1335 350 Balance 3115 2055 -350 Weight 78.2 kg 80.1 kg GI/Abdominal exam: PRESENT: ascites, diminished bowel sounds - Abdomen - soft non tender, distended, firm, guarding, hernia, hyperactive bowel sounds, hypoactive bowel sounds, mass, Mcpherson's sign, normal bowel sounds, organolmegaly , rebound, rigid, soft, tenderness, other Results Laboratory Results: 06/29/16 04:00 06/29/16 04:53 06/29/16 06/29/16 06/29/16 03:10 04:00 04:00 WBC 17.5 H RBC 3.78 Hgb 11.5 L Hct 34.2 L MCV 90 MCH 30.4 MCHC 33.6 RDW 13.8 Plt Count 313 Seg Neutrophils % Not Reportable Lymphocytes % Not Reportable Monocytes % Not Reportable Eosinophils % Not Reportable Basophils % Not Reportable Absolute Neutrophils Not Reportable Absolute Lymphocytes Not Reportable Absolute Monocytes Not Reportable Absolute Eosinophils Not Reportable Absolute Basophils Not Reportable Carbonic Acid 2.35 H HCO3/H2CO3 Ratio 10:1 ABG pH 7.11 L* ABG pCO2 78.2 H* ABG pO2 111.8 H ABG HCO3 24.2 ABG O2 Saturation 96.2 ABG Base Excess -6.8 FiO2 100% Sodium Cancelled Potassium Cancelled Chloride Cancelled Carbon Dioxide Cancelled Anion Gap Cancelled BUN Cancelled Creatinine Cancelled Est GFR ( Amer) Cancelled Est GFR (Non-Af Amer) Cancelled Glucose Cancelled Calcium Cancelled Magnesium Total Bilirubin Cancelled AST Cancelled ALT Cancelled Alkaline Phosphatase Cancelled Total Protein Cancelled Albumin Cancelled 06/29/16 06/29/16 06/29/16 04:53 04:53 05:23 WBC RBC Hgb Hct MCV MCH MCHC RDW Plt Count Seg Neutrophils % Lymphocytes % Monocytes % Eosinophils % Basophils % Absolute Neutrophils Absolute Lymphocytes Absolute Monocytes Absolute Eosinophils Absolute Basophils Carbonic Acid 1.52 H HCO3/H2CO3 Ratio 14:1 ABG pH 7.27 L ABG pCO2 50.5 H ABG pO2 70.6 L ABG HCO3 22.7 ABG O2 Saturation 91.8 L ABG Base Excess -4.4 FiO2 50% Sodium 141.3 Cancelled Potassium 3.8 Cancelled Chloride 110 H Cancelled Carbon Dioxide 23 Cancelled Anion Gap 8 Cancelled BUN 17 Cancelled Creatinine 0.92 Cancelled Est GFR ( Amer) > 60 Cancelled Est GFR (Non-Af Amer) 59 L Cancelled Glucose 148 H Cancelled Calcium 8.5 Cancelled Magnesium 1.5 L Total Bilirubin 0.7 Cancelled AST 70 H Cancelled ALT 99 H Cancelled Alkaline Phosphatase 136 H Cancelled Total Protein 6.0 L Cancelled Albumin 3.0 L Cancelled 06/29/16 06/29/16 06/29/16 04:00 04:00 04:53 Creatine Kinase Cancelled CK-MB (CK-2) Cancelled 3.16 Troponin I Cancelled 0.080 NT-Pro-B Natriuret Pep 06/29/16 06/29/16 04:53 04:53 Creatine Kinase 140 H CK-MB (CK-2) Troponin I NT-Pro-B Natriuret Pep 4530 H Impressions: Abdomen Ultrasound 06/26/16 08:03 IMPRESSION: Pericholecystic fluid, gallbladder wall thickening, positive sonographic Mcpherson's sign and multiple small gallstones. Findings worrisome for acute cholecystitis. Cholangiogram 06/27/16 00:00 IMPRESSION: INTRAOPERATIVE CHOLANGIOGRAM. Catheter Placement 06/28/16 00:00 IMPRESSION: IMAGE(S) OBTAINED DURING PROCEDURE. Chest X-Ray 06/29/16 03:11 IMPRESSION: INTERVAL DEVELOPMENT OF PATCHY MULTIFOCAL AIRSPACE DISEASE INVOLVING THE RIGHT GREATER THAN LEFT LUNG. DIFFERENTIAL INCLUDES MULTIFOCAL PNEUMONIA, ARDS, AND ASYMMETRIC PULMONARY EDEMA. Assessment & Plan - Plan Summary Plan Summary: Continue Respiratory care No Acute surgical issue.
[2016-06-29] MEDS: PIPERACILLIN SODIUM/TAZOBACTAM 4.5 GM in NORMAL SALINE 100 ML IV SCH ×2 (11:29→17:53)
[2016-06-29] MEDS: CIPROFLOXACIN 400 MG/D5W RTU 400 MG/200 ML RTUPB IV SCH ×2 (11:32→22:02)
[2016-06-29] MEDS: FAMOTIDINE INJ/PF 20 MG/2 ML SDV IV SCH ×2 (11:34→22:02)
[2016-06-29] MEDS: MAGNESIUM SULFATE/D5W 100 ML IV SCH ×2 (11:36→12:49)
[2016-06-29] MEDS: VANCOMYCIN HCL 500 MG in DEXTROSE 5%-WATER 100 ML IV SCH ×2 (11:36→22:32)
--- NOTE | 2016-06-29 12:13 | OPERATIVE REPORT E ---
Operative Report NAME: FLORENTINO ZHANG : 1935 AGE: 80Y DATE OF SURGERY: 06/29/2016 ROOM: [facility] PREOPERATIVE DIAGNOSIS: Patient is an 80-year-old female. Patient with a history of pancreatitis, status post ERCP, in respiratory failure, poor IV access. Seen for central venous access. She is in the intensive care. POSTOPERATIVE DIAGNOSIS: Patient is an 80-year-old female. Patient with a history of pancreatitis, status post ERCP, in respiratory failure, poor IV access. Seen for central venous access. She is in the intensive care. OPERATION: Insertion of central venous catheter through the right side subclavian vein. SURGEON: STEPHEN SIMONS M.D. PROCEDURE DESCRIPTION: The procedure was done at the bedside after informed consent obtained from the family after explaining the risks, benefits, and complications including, but not limited to pneumothorax or infection. This procedure was done at the bedside. The patient was placed in the Trendelenburg position. The neck and anterior chest wall cleaned with povidone iodine and then the draped with sterile a field. Initially, the right subclavian vein was accessed by using the Seldinger technique and then through the needle a guidewire was inserted into the superior vena cava without any assistance. The track was dilated and then over the guidewire a triple lumen central venous catheter inserted into the superior vena cava with excellent venous flow, which were all flushed with heparinized solution. catheter secured in place. Patient was stable throughout the procedure. DICTATING PHYSICIAN: STEPHEN SIMONS M.D. [id number] [facility]#: [id number] ID: [id number] JOB#: [id number] ACCT: [id number] cc:STEPHEN SIMONS M.D. > MTDD
--- NOTE | 2016-06-29 12:35 | PDOC PROGRESS REPORT ---
Subjective Progress Note for:: 06/29/16 Subjective:: History of present illness: Patient reports to the emergency department with increasing epigastric pain that started on Saturday as bloating and quickly developed sharp stabbing pain that radiates throughout the abdomen. She got no relief from [id number] antacids. It began to affect her sleep and she started regurgitating foul tasting bile. She reports 4 stools over the course of the last 24 hours which is an increase for her but denies any change in the character or color of stools. She never had anything quite like this before. She describes the pain as sharp stabbing and radiating throughout the abdomen, worse with eating, improved with narcotics and no associated symptoms of fever, chills, chest pain , palpitations, headache or dizziness. Evaluation in the emergency department including an imaging shows signs and symptoms suggestive of an acute cholecystitis. We were asked to admit the patient due to multiple medical problems, surgery has already Evaluated and anticipates intervention later today. The patient has a prior history of DE with catheter in 1997 and has unusual changes on her EKG with T-wave inversions in V4 through 6. Cardiology is already evaluated and cleared for general anesthesia. The patient underwent laparoscopic cholecystectomy with intraoperative cholangiogram suggestive of choledocholithiasis on 06/27/2016 and ERCP on 2016. The ERCP was stopped early due to the development of hypoxia, however he was able to perform sphincterotomy and liberate small amount of biliary sludge. Unfortunately within hours of the procedure she rapidly decompensated becoming more hypoxic and less responsive. 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 Follow-up chest x-ray shows bilateral fluffy airspace disease suggestive of a developing pneumonia. Antibiotics were broadened to include Zosyn and vancomycin in addition to the Cipro for presumed HCAP. Reason for visit: Follow-up acute cholecystitis and choledocholithiasis, acute mixed hypercapnic and hypoxic respiratory failure, hospital-acquired pneumonia. Subjective: She is sedated and intubated on mechanical ventilation and unable to provide a review of systems are participate in her exam at this time. ROS: Unobtainable. Physical Exam Vital Signs: Temp Pulse Resp BP Pulse Ox 99.3 F 67 14 120/60 100 06/29/16 08:00 06/29/16 08:00 06/29/16 09:46 06/29/16 09:46 06/29/16 09:46 Intake & Output 06/28/16 06/29/16 06/30/16 06:59 06:59 06:59 Intake Total 4450 2054 Output Total 1335 350 Balance 3115 2054 -350 Weight 78.2 kg 80.1 kg PHYSICAL EXAM GENERAL: NAD; well developed, well nourished; no obese; sedated HEENT: normocephalic, atraumatic; EOMI, PERRLA, no conjunctival injection, no scleral icterus; oral mucosa moist, ETT in good position, trachea midline RESPIRATORY: no accessory muscle use, no increased WOB, good air entry bilaterally; no wheezes but bilateral rales and rhonchi; currently on a PRVC of 14 with a tidal volume of 500, pressure support of 10, PEEP of 5, FiO2 45% CARDIO: no JVD; RRR; no systolic murmur; no tachycardia VASCULAR: no carotid bruit; no pallor; 2+ radial, DP pulse; normal capillary refill GI: soft; nondistended; diminished bowel sounds; no rigidity, involuntary guarding; no grimace to palpation over the epigastrium. Steri-Strips in place over laparoscopic incisions, clean dry and intact NEURO: normal patella reflexes EXTREMITIES:; no palpable cords in calf; no clubbing, cyanosis, pedal edema PSYCH: Sedated SKIN: warm; moist; no petechiae; no telengectasias; no jaundice; no rash Results Laboratory Results: 06/29/16 04:00 06/29/16 04:53 06/29/16 06/29/16 06/29/16 03:10 04:00 04:00 WBC 17.5 H RBC 3.78 Hgb 11.5 L Hct 34.2 L MCV 90 MCH 30.4 MCHC 33.6 RDW 13.8 Plt Count 313 Seg Neutrophils % Not Reportable Lymphocytes % Not Reportable Monocytes % Not Reportable Eosinophils % Not Reportable Basophils % Not Reportable Absolute Neutrophils Not Reportable Absolute Lymphocytes Not Reportable Absolute Monocytes Not Reportable Absolute Eosinophils Not Reportable Absolute Basophils Not Reportable Carbonic Acid 2.35 H HCO3/H2CO3 Ratio 10:1 ABG pH 7.11 L* ABG pCO2 78.2 H* ABG pO2 111.8 H ABG HCO3 24.2 ABG O2 Saturation 96.2 ABG Base Excess -6.8 FiO2 100% Sodium Cancelled Potassium Cancelled Chloride Cancelled Carbon Dioxide Cancelled Anion Gap Cancelled BUN Cancelled Creatinine Cancelled Est GFR ( Amer) Cancelled Est GFR (Non-Af Amer) Cancelled Glucose Cancelled Calcium Cancelled Magnesium Total Bilirubin Cancelled AST Cancelled ALT Cancelled Alkaline Phosphatase Cancelled Total Protein Cancelled Albumin Cancelled 06/29/16 06/29/16 06/29/16 04:53 04:53 05:23 WBC RBC Hgb Hct MCV MCH MCHC RDW Plt Count Seg Neutrophils % Lymphocytes % Monocytes % Eosinophils % Basophils % Absolute Neutrophils Absolute Lymphocytes Absolute Monocytes Absolute Eosinophils Absolute Basophils Carbonic Acid 1.52 H HCO3/H2CO3 Ratio 14:1 ABG pH 7.27 L ABG pCO2 50.5 H ABG pO2 70.6 L ABG HCO3 22.7 ABG O2 Saturation 91.8 L ABG Base Excess -4.4 FiO2 50% Sodium 141.3 Cancelled Potassium 3.8 Cancelled Chloride 110 H Cancelled Carbon Dioxide 23 Cancelled Anion Gap 8 Cancelled BUN 17 Cancelled Creatinine 0.92 Cancelled Est GFR ( Amer) > 60 Cancelled Est GFR (Non-Af Amer) 59 L Cancelled Glucose 148 H Cancelled Calcium 8.5 Cancelled Magnesium 1.5 L Total Bilirubin 0.7 Cancelled AST 70 H Cancelled ALT 99 H Cancelled Alkaline Phosphatase 136 H Cancelled Total Protein 6.0 L Cancelled Albumin 3.0 L Cancelled 06/29/16 06/29/16 06/29/16 04:00 04:00 04:53 Creatine Kinase Cancelled CK-MB (CK-2) Cancelled 3.16 Troponin I Cancelled 0.080 NT-Pro-B Natriuret Pep 06/29/16 06/29/16 04:53 04:53 Creatine Kinase 140 H CK-MB (CK-2) Troponin I NT-Pro-B Natriuret Pep 4530 H Labs reviewed, ABG shows hypercapnic respiratory failure with respiratory acidosis, CBC shows worsening leukocytosis, left lites are all within normal limits including renal function and her LFTs are relatively unchanged. BNP is elevated. Impressions: Abdomen Ultrasound 06/26/16 08:03 IMPRESSION: Pericholecystic fluid, gallbladder wall thickening, positive sonographic Mcpherson's sign and multiple small gallstones. Findings worrisome for acute cholecystitis. Cholangiogram 06/27/16 00:00 IMPRESSION: INTRAOPERATIVE CHOLANGIOGRAM. Catheter Placement 06/28/16 00:00 IMPRESSION: IMAGE(S) OBTAINED DURING PROCEDURE. Chest X-Ray 06/29/16 10:37 IMPRESSION: Improvement in pulmonary edema pattern Trace right pleural effusion Left retrocardiac consolidation Tubes and lines in good positioning Status: Image reviewed by me - Today's chest x-ray shows interval development of significant airspace disease bilaterally right greater than left with fluffy alveolar infiltrates just above pneumonia and engorgement of the pulmonary vascular suggestive of early heart failure and possible component of pulmonary edema Assessment & Plan - Diagnosis (1) Acute respiratory failure with hypoxia and hypercapnia Is this a current diagnosis for this admission?: YesPlan: No prior history of lung disease or significant tobacco use. Continue mechanical ventilation and adjust settings to compensate for the respiratory acidosis. Daily weaning trial. (2) Acute cholecystitis Is this a current diagnosis for this admission?: YesPlan: Status post laparoscopic cholecystectomy with possible choledocholithiasis status post ERCP with sphincterotomy but no stone identified. (3) Urinary tract infection Qualifiers: Urinary tract infection type: site unspecified Hematuria presence: without hematuria Qualified Code(s): N39.0 - Urinary tract infection, site not specified Is this a current diagnosis for this admission?: YesPlan: Asymptomatic bacteriuria, bilateral criteria. Urine culture demonstrates greater than 100,000 colony-forming units of pansensitive Escherichia coli. Continue antibiotics for the above. (4) Choledocholithiasis Is this a current diagnosis for this admission?: Yes (5) Acute encephalopathy Is this a current diagnosis for this admission?: YesPlan: Secondary to hypoxia and developing sepsis. Continue sedation for now while treating the underlying source. (6) Pneumonia Qualifiers: Pneumonia type: due to unspecified organism Laterality: bilateral Lung location: unspecified part of lung Qualified Code(s): J18.9 - Pneumonia, unspecified organism Is this a current diagnosis for this admission?: YesPlan: Agree with change to broaden antibiotic coverage. Send tracheal aspirate for culture. Screening for influenza. (7) Coronary artery disease Qualifiers: Coronary Disease-Associated Artery/Lesion type: gambell artery Associated angina: angina presence unspecified Is this a current diagnosis for this admission?: YesPlan: Cardiology following, postoperative troponin within normal limits and EKG shows no ischemic changes. (8) Hypertension Qualifiers: Hypertension type: essential hypertension Qualified Code(s): I10 - Essential (primary) hypertension Is this a current diagnosis for this admission?: YesPlan: Well-controlled prior to this acute event, we'll need to trend based on her response to treatment of her new insult. Target blood pressure less than 140/ 90. Holding LUIS inhibitor since admission. (9) Ischemic cardiomyopathy Is this a current diagnosis for this admission?: YesPlan: Chronic. (10) Acute systolic heart failure Is this a current diagnosis for this admission?: YesPlan: There is likely a component of systolic heart failure, getting her respiratory status, however her hematologic status remains rather tenuous will hold on diuretics at this time and lower the dose of IV fluids being given currently. Monitor her volume status carefully. Cardiology following available as needed. Trend BNP. - Time Time Spent with patient: 35 or more minutes Critical Time spent with patient: Less than 15 minutes - Managing the ventilator Medications reviewed and adjusted accordingly: Yes - Plan Summary Plan Summary: Once we get her stabilized today we'll need to consider nutrition, surgery and previously cleared her for diet so preference would be for enteral feedings perhaps early as tomorrow.
[2016-06-29 12:43] LABS: ARTERIAL BLOOD BASE EXCESS -1.9 mmol/L; ARTERIAL BLOOD O2 SATURATION 84.9 % (94-98)
[2016-06-29] MEDS: POTASSI CL 20 MEQ/NS 1L 1,000 ML IV PRN (17:05)
[2016-06-29 17:11] LABS: ARTERIAL BLOOD O2 SATURATION 95.8 % (94-98)
--- NOTE | 2016-06-29 20:21 | PDOC PROGRESS REPORT ---
Subjective Progress Note for:: 06/29/16 Subjective:: The patient underwent laparoscopic cholecystectomy with intraoperative cholangiogram suggestive of choledocholithiasis on 06/27/2016 and ERCP on 2016 with papillotomy. The ERCP was stopped early due to the development of hypoxia, however he was able to perform sphincterotomy and liberate small amount of biliary sludge. Unfortunately within hours of the procedure she rapidly decompensated becoming more hypoxic and less responsive. She was urgently transferred to the ICU, intubated by AIRCRAFT DELIVERY CHECKER and now resides on mechanical ventilation. Follow-up chest x-ray shows bilateral fluffy airspace disease suggestive of a developing pneumonia. Antibiotics were broadened to include Zosyn and vancomycin in addition to the Cipro for presumed HCAP. Patient currently is sedated and intubated on mechanical ventilation and unable to provide a review of systems are participate in her exam at this time. Patient is maintaining sinus rhythm. Review of systems: Rest review of systems negative. Medications: Medications have been reviewed. Physical Exam Vital Signs: Temp Pulse Resp BP Pulse Ox 98.2 F 56 L 15 107/61 100 06/29/16 19:57 06/29/16 19:57 06/29/16 19:57 06/29/16 19:57 06/29/16 19:57 Intake & Output 06/28/16 06/29/16 06/30/16 06:59 06:59 06:59 Intake Total 4450 2055 1727 Output Total 1335 685 Balance 3115 2055 1042 Weight 78.2 kg 80.1 kg Exam: GENERAL: well-nourished and in no acute distress. Patient is intubated and sedated. Orientation cannot be checked HEAD: Atraumatic, normocephalic. EYES: Pupils equal round and reactive to light, extraocular movements could not be checked, sclera anicteric, conjunctiva are normal. ENT: TMs normal, nares patent, oropharynx clear without exudates. Moist mucous membranes. No oral ulcerations or bleeding gums noted NECK: supple without lymphadenopathy or JVD. Trachea is central. No cervical or axillary lymphadenopathy noted. Carotids are 2+ LUNGS: Breath sounds mostly clear to auscultation patient is noted to have bibasal crackles at the extreme bases. Right midzone crackles noted CHEST: Palpation of the chest wall shows no significant chest wall tenderness or abnormalities. 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 ABDOMEN: Soft, no significant tenderness appreciated, normoactive bowel sounds. No guarding, no rebound. No rigidity noted . No masses appreciated. EXTREMITIES: Pedal pulses are 1-2+, no calf tenderness noted, 1+ pedal edema noted. No clubbing or cyanosis. NEUROLOGICAL: The patient cannot participate in the neurological exam but no facial asymmetry noted. Extremities slightly hypotonic PSYCH: This cannot be evaluated. Patient cannot participate. SKIN: No significant ecchymosis, rash, or signs of pruritus noted. MUSCULOSKELETAL EXAM: No significant joint swelling noted. Patient cannot participate in musculoskeletal exam Results Laboratory Results: 06/29/16 04:00 06/29/16 04:53 06/29/16 06/29/16 06/29/16 03:10 04:00 04:00 WBC 17.5 H RBC 3.78 Hgb 11.5 L Hct 34.2 L MCV 90 MCH 30.4 MCHC 33.6 RDW 13.8 Plt Count 313 Seg Neutrophils % Not Reportable Lymphocytes % Not Reportable Monocytes % Not Reportable Eosinophils % Not Reportable Basophils % Not Reportable Absolute Neutrophils Not Reportable Absolute Lymphocytes Not Reportable Absolute Monocytes Not Reportable Absolute Eosinophils Not Reportable Absolute Basophils Not Reportable Carbonic Acid 2.35 H HCO3/H2CO3 Ratio 10:1 ABG pH 7.11 L* ABG pCO2 78.2 H* ABG pO2 111.8 H ABG HCO3 24.2 ABG O2 Saturation 96.2 ABG Base Excess -6.8 FiO2 100% Sodium Cancelled Potassium Cancelled Chloride Cancelled Carbon Dioxide Cancelled Anion Gap Cancelled BUN Cancelled Creatinine Cancelled Est GFR ( Amer) Cancelled Est GFR (Non-Af Amer) Cancelled Glucose Cancelled Calcium Cancelled Magnesium Total Bilirubin Cancelled AST Cancelled ALT Cancelled Alkaline Phosphatase Cancelled Total Protein Cancelled Albumin Cancelled 06/29/16 06/29/16 06/29/16 04:53 04:53 05:23 WBC RBC Hgb Hct MCV MCH MCHC RDW Plt Count Seg Neutrophils % Lymphocytes % Monocytes % Eosinophils % Basophils % Absolute Neutrophils Absolute Lymphocytes Absolute Monocytes Absolute Eosinophils Absolute Basophils Carbonic Acid 1.52 H HCO3/H2CO3 Ratio 14:1 ABG pH 7.27 L ABG pCO2 50.5 H ABG pO2 70.6 L ABG HCO3 22.7 ABG O2 Saturation 91.8 L ABG Base Excess -4.4 FiO2 50% Sodium 141.3 Cancelled Potassium 3.8 Cancelled Chloride 110 H Cancelled Carbon Dioxide 23 Cancelled Anion Gap 8 Cancelled BUN 17 Cancelled Creatinine 0.92 Cancelled Est GFR ( Amer) > 60 Cancelled Est GFR (Non-Af Amer) 59 L Cancelled Glucose 148 H Cancelled Calcium 8.5 Cancelled Magnesium 1.5 L Total Bilirubin 0.7 Cancelled AST 70 H Cancelled ALT 99 H Cancelled Alkaline Phosphatase 136 H Cancelled Total Protein 6.0 L Cancelled Albumin 3.0 L Cancelled 06/29/16 06/29/16 12:17 16:53 WBC RBC Hgb Hct MCV MCH MCHC RDW Plt Count Seg Neutrophils % Lymphocytes % Monocytes % Eosinophils % Basophils % Absolute Neutrophils Absolute Lymphocytes Absolute Monocytes Absolute Eosinophils Absolute Basophils Carbonic Acid 0.86 L 1.06 HCO3/H2CO3 Ratio 24:1 21:1 ABG pH 7.48 H 7.43 ABG pCO2 28.7 L 35.2 ABG pO2 45.0 L 76.7 L ABG HCO3 20.8 22.9 ABG O2 Saturation 84.9 L 95.8 ABG Base Excess -1.9 -1.0 FiO2 45% 40% Sodium Potassium Chloride Carbon Dioxide Anion Gap BUN Creatinine Est GFR ( Amer) Est GFR (Non-Af Amer) Glucose Calcium Magnesium Total Bilirubin AST ALT Alkaline Phosphatase Total Protein Albumin 06/29/16 06/29/16 06/29/16 04:00 04:00 04:53 Creatine Kinase Cancelled CK-MB (CK-2) Cancelled 3.16 Troponin I Cancelled 0.080 NT-Pro-B Natriuret Pep 06/29/16 06/29/16 04:53 04:53 Creatine Kinase 140 H CK-MB (CK-2) Troponin I NT-Pro-B Natriuret Pep 4530 H Impressions: Abdomen Ultrasound 06/26/16 08:03 IMPRESSION: Pericholecystic fluid, gallbladder wall thickening, positive sonographic Mcpherson's sign and multiple small gallstones. Findings worrisome for acute cholecystitis. Cholangiogram 06/27/16 00:00 IMPRESSION: INTRAOPERATIVE CHOLANGIOGRAM. Catheter Placement 06/28/16 00:00 IMPRESSION: IMAGE(S) OBTAINED DURING PROCEDURE. Chest X-Ray 06/29/16 10:37 IMPRESSION: Improvement in pulmonary edema pattern Trace right pleural effusion Left retrocardiac consolidation Tubes and lines in good positioning Assessment & Plan - Diagnosis (1) Coronary artery disease Qualifiers: Coronary Disease-Associated Artery/Lesion type: [place] artery Associated angina: angina presence unspecified Is this a current diagnosis for this admission?: Yes (2) Abdominal pain Qualifiers: Abdominal location: right upper quadrant Qualified Code(s): R10.11 - Right upper quadrant pain Is this a current diagnosis for this admission?: Yes (3) Cholecystitis Is this a current diagnosis for this admission?: Yes (4) Hypertension Qualifiers: Hypertension type: essential hypertension Qualified Code(s): I10 - Essential (primary) hypertension Is this a current diagnosis for this admission?: Yes - Notes Notes: Patient developed acute respiratory failure most likely related to aspiration pneumonia. Possibility of asymmetric pulmonary edema exist but chest x-ray more in favor of aspiration pneumonia. At this point agree with broad-spectrum antibiotic and maintenance of oxygenation and ventilation. Coronary artery disease: Twelve-lead EKG obtained showed sinus tachycardia without any acute ST-T wave changes. Acute cholecystitis: Patient status post removal of gallbladder. Patient may have residual gallstone in the bile duct but currently no evidence of cholangitis. Hypertension: blood pressure on the low side. Continue to observe. Pulmonary edema: Acute. Most likely infectious but in view of history of depressed LVEF, may consider a small dose of IV Lasix intermittently. Discussed with Dr. Ramirez. - Time Time with patient: Greater than 35 minutes - CODE STATUS was discussed, patient remains full code. Surrogate decision-maker unchanged. Multiple medical problems were addressed.More than 50% of the time spent coordinating care, discussing management plans with involved caregivers. Management plans discussed with involved personnels. Medical decision making was of moderate complexity.
[2016-06-30] MEDS: PIPERACILLIN SODIUM/TAZOBACTAM 4.5 GM in NORMAL SALINE 100 ML IV SCH ×4 (00:23→17:13)
[2016-06-30] MEDS: PROPOFOL 100 ML IV PRN ×4 (01:38→23:43)
--- NOTE | 2016-06-30 03:55 | Progress Note ---
Provider Note Provider Note: 06/29/2016: In the supervisor dock hours, I was contacted by the patient's floor nurse. Nurse stated the patient was quite agitated, which was a sharp departure from her previous behavior. Quite confused, trying to get out of bed, and was becoming hypoxic with increasing respiratory distress. Rapid response was called. I went to the bedside shortly thereafter and patient appeared to be in [id number] respiratory distress which was lessened somewhat with application of BiPAP. Mildly coarse breath sounds. Requiring increased oxygen. She gradually became less agitated, but at the same time appeared to be coming more and more fatigued, particularly from a respiratory standpoint. Decision was made that time to proceed with endotracheal intubation. Patient was transported down to the intensive care unit, and was intubated shortly thereafter by the ORTHOTIC AND PROSTHETIC TECHNICIAN. Attempts were made to contact patient's sister, Callie. Telephone contact was eventually made postintubation. I spoke with her by phone at 4:40 AM, postintubation. Discussed in layperson's terms various reasons for patient's rather rapid worsening in her overall status, including pneumonia versus possible myocardial infarction. She was naturally quite concerned and was appreciative of our efforts. 55 minutes of critical care time spent in evaluation and management of patient, including direct patient evaluation, multiple discussions with nursing and respiratory support services rep, visualization of her postintubation chest x-ray along with reviewing the radiology report, and entering of multiple orders into the electronic health record. Patient was discussed in detail subsequently with the daytime hospitalist team.
[2016-06-30] MEDS ORDERED: NORMAL SALINE 1000 ML 500 ML IV ONE (05:00)
[2016-06-30 05:32] LABS: ABSOLUTE LYMPHOCYTES (AUTO) 1.1 10^3/uL (0.5-4.7); ABSOLUTE NEUT (AUTO) 8.5 10^3/uL (1.7-8.2); BASOPHILS % (AUTO) 0.3 % (0-2); EOSINOPHILS % (AUTO) 0.2 % (0-6); HEMATOCRIT 29.7 % (36.0-47.0); HEMOGLOBIN 9.9 g/dL (12.0-15.5); MEAN CORPUSCULAR HEMOGLOBIN 29.9 pg (27.0-33.4); MEAN CORPUSCULAR HGB CONC 33.4 g/dL (32.0-36.0); MEAN CORPUSCULAR VOLUME 90 fl (80-97); MONOCYTES % (AUTO) 9.4 % (3-13); RED BLOOD COUNT 3.32 10^6/uL (3.72-5.28); RED CELL DISTRIBUTION WIDTH 13.5 % (11.5-14.0); SEGMENTED NEUTROPHILS % (AUTO) 80.1 % (42-78); WHITE BLOOD COUNT 10.6 10^3/uL (4.0-10.5)
[2016-06-30 05:34] LABS: ARTERIAL BLOOD BASE EXCESS -3.5 mmol/L
[2016-06-30] MEDS: POTASSI CL 20 MEQ/NS 1L 1,000 ML IV PRN ×2 (05:40→23:41)
[2016-06-30 05:56] LABS: ALANINE AMINOTRANSFERASE 73 U/L (9-52); ALBUMIN 2.4 g/dL (3.5-5.0); ALKALINE PHOSPHATASE 111 U/L (38-126); ANION GAP 8 (5-19); ASPARTATE AMINO TRANSFERASE 38 U/L (14-36); BILIRUBIN,TOTAL 0.6 mg/dL (0.2-1.3); BLOOD UREA NITROGEN 12 mg/dL (7-20); CALCIUM 7.9 mg/dL (8.4-10.2); CARBON DIOXIDE 21 mmol/L (22-30); CHLORIDE 112 mmol/L (98-107); CREATININE RESULT 0.73 mg/dL (0.52-1.25); GLUCOSE 106 mg/dL (75-110); PHOSPHORUS 2.3 mg/dL (2.5-4.5); POTASSIUM 3.7 mmol/L (3.6-5.0); TOTAL PROTEIN 5.2 g/dL (6.3-8.2); TRIGLYCERIDES 89 mg/dL (<150)
[2016-06-30] MEDS: ENOXAPARIN SODIUM INJ 40 MG/0.4 ML DISP.SYRIN SUBCUT SCH (08:57)
[2016-06-30] MEDS: CIPROFLOXACIN 400 MG/D5W RTU 400 MG/200 ML RTUPB IV SCH ×2 (09:00→22:27)
[2016-06-30] MEDS: FAMOTIDINE INJ/PF 20 MG/2 ML SDV IV SCH ×2 (09:00→22:27)
[2016-06-30] MEDS: VANCOMYCIN HCL 500 MG in DEXTROSE 5%-WATER 100 ML IV SCH ×2 (10:32→23:40)
--- NOTE | 2016-06-30 11:26 | PDOC PROGRESS REPORT ---
Subjective Progress Note for:: 06/30/16 Subjective:: History of present illness: Patient reports to the emergency department with increasing epigastric pain that started on Saturday as bloating and quickly developed sharp stabbing pain that radiates throughout the abdomen. She got no relief from uqwg-ghm-chzrbop antacids. It began to affect her sleep and she started regurgitating foul tasting bile. She reports 4 stools over the course of the last 24 hours which is an increase for her but denies any change in the character or color of stools. She never had anything quite like this before. She describes the pain as sharp stabbing and radiating throughout the abdomen, worse with eating, improved with narcotics and no associated symptoms of fever, chills, chest pain , palpitations, headache or dizziness. Evaluation in the emergency department including an imaging shows signs and symptoms suggestive of an acute cholecystitis. We were asked to admit the patient due to multiple medical problems, surgery has already Evaluated and anticipates intervention later today. The patient has a prior history of AK with catheter in 1997 and has unusual changes on her EKG with T-wave inversions in V4 through 6. Cardiology is already evaluated and cleared for general anesthesia. The patient underwent laparoscopic cholecystectomy with intraoperative cholangiogram suggestive of choledocholithiasis on 06/27/2016 and ERCP on 2016. The ERCP was stopped early due to the development of hypoxia, however he was able to perform sphincterotomy and liberate small amount of biliary sludge. Unfortunately within hours of the procedure she rapidly decompensated becoming more hypoxic, agitated and then rapidly less responsive. She was urgently transferred to the ICU, intubated by DISHWASHER BUSSER and now resides on mechanical ventilation. Follow-up chest x-ray shows bilateral fluffy airspace disease suggestive of a developing pneumonia. Antibiotics were broadened to include Zosyn and vancomycin in addition to the Cipro for presumed HCAP. Reason for visit: Follow-up acute cholecystitis and choledocholithiasis, acute mixed hypercapnic and hypoxic respiratory failure, hospital-acquired pneumonia. Subjective: She is sedated and intubated on mechanical ventilation and unable to provide a review of systems are participate in her exam at this time. ROS: Unobtainable. Physical Exam Vital Signs: Temp Pulse Resp BP Pulse Ox 99.0 F 59 L 15 122/58 L 100 06/30/16 05:58 06/30/16 08:00 06/30/16 10:45 06/30/16 10:39 06/30/16 10:45 Intake & Output 06/29/16 06/30/16 07/01/16 06:59 06:59 06:59 Intake Total 2054 3975 Output Total 1275 220 Balance 2054 2700 -220 Weight 80.1 kg 84.1 kg PHYSICAL EXAM GENERAL: NAD; well developed, well nourished; no obese; sedated and seems to be tolerating the vent without difficulty HEENT: normocephalic, atraumatic; PERRLA, no conjunctival injection, no scleral icterus; oral mucosa moist, ETT in good position, trachea midline RESPIRATORY: no accessory muscle use, no increased WOB seems to be tolerating weaning trial so far this morning of at least 1 hour, good air entry bilaterally ; no wheezes but bilateral rales and no rhonchi; CARDIO: no JVD; RRR; no systolic murmur; no tachycardia VASCULAR: no carotid bruit; no pallor; 2+ radial, DP pulse; normal capillary refill GI: soft; nondistended; diminished bowel sounds; no rigidity, involuntary guarding; no grimace to palpation over the epigastrium. Steri-Strips in place over laparoscopic incisions, clean dry and intact; tube feeds running NEURO: normal patella reflexes EXTREMITIES: no palpable cords in calf; no clubbing, cyanosis, pedal edema PSYCH: Sedated, some agitation with attempts to wean sedation SKIN: warm; moist; no petechiae; no telengectasias; no jaundice; no rash Results Laboratory Results: 06/30/16 05:13 06/30/16 05:13 06/29/16 06/29/16 06/30/16 12:17 16:53 05:13 WBC 10.6 H RBC 3.32 L Hgb 9.9 L Hct 29.7 L MCV 90 MCH 29.9 MCHC 33.4 RDW 13.5 Plt Count 174 Seg Neutrophils % 80.1 H Lymphocytes % 10.0 L Monocytes % 9.4 Eosinophils % 0.2 Basophils % 0.3 Absolute Neutrophils 8.5 H Absolute Lymphocytes 1.1 Absolute Monocytes 1.0 Absolute Eosinophils 0.0 Absolute Basophils 0.0 Carbonic Acid 0.86 L 1.06 HCO3/H2CO3 Ratio 24:1 21:1 ABG pH 7.48 H 7.43 ABG pCO2 28.7 L 35.2 ABG pO2 45.0 L 76.7 L ABG HCO3 20.8 22.9 ABG O2 Saturation 84.9 L 95.8 ABG Base Excess -1.9 -1.0 FiO2 45% 40% Sodium Potassium Chloride Carbon Dioxide Anion Gap BUN Creatinine Est GFR ( Amer) Est GFR (Non-Af Amer) Glucose Calcium Phosphorus Magnesium Total Bilirubin AST ALT Alkaline Phosphatase Total Protein Albumin Triglycerides 06/30/16 06/30/16 05:13 05:13 WBC RBC Hgb Hct MCV MCH MCHC RDW Plt Count Seg Neutrophils % Lymphocytes % Monocytes % Eosinophils % Basophils % Absolute Neutrophils Absolute Lymphocytes Absolute Monocytes Absolute Eosinophils Absolute Basophils Carbonic Acid 1.06 HCO3/H2CO3 Ratio 19:1 ABG pH 7.39 ABG pCO2 35.1 ABG pO2 81.0 ABG HCO3 20.8 ABG O2 Saturation 96.0 ABG Base Excess -3.5 FiO2 40% Sodium 141.0 Potassium 3.7 Chloride 112 H Carbon Dioxide 21 L Anion Gap 8 BUN 12 Creatinine 0.73 Est GFR ( Amer) > 60 Est GFR (Non-Af Amer) > 60 Glucose 106 Calcium 7.9 L Phosphorus 2.3 L Magnesium 2.0 Total Bilirubin 0.6 AST 38 H ALT 73 H Alkaline Phosphatase 111 Total Protein 5.2 L Albumin 2.4 L Triglycerides 89 06/29/16 06/29/16 06/29/16 04:00 04:00 04:53 Creatine Kinase Cancelled CK-MB (CK-2) Cancelled 3.16 Troponin I Cancelled 0.080 NT-Pro-B Natriuret Pep 06/29/16 06/29/16 06/30/16 04:53 04:53 05:13 Creatine Kinase 140 H CK-MB (CK-2) Troponin I NT-Pro-B Natriuret Pep 4530 H 2570 H Labs reviewed, BNP shows improving trend, mild elevation of the LFTs, lateral lites otherwise unremarkable, arterial blood gas shows good response to the current ventilator settings, CBC shows stability Impressions: Abdomen Ultrasound 06/26/16 08:03 IMPRESSION: Pericholecystic fluid, gallbladder wall thickening, positive sonographic Mcphersno's sign and multiple small gallstones. Findings worrisome for acute cholecystitis. Cholangiogram 06/27/16 00:00 IMPRESSION: INTRAOPERATIVE CHOLANGIOGRAM. Catheter Placement 06/28/16 00:00 IMPRESSION: IMAGE(S) OBTAINED DURING PROCEDURE. Chest X-Ray 06/30/16 06:00 IMPRESSION: 1. Support tubes and lines as above. 2. Persistent retrocardiac opacity likely representing pneumonia versus atelectasis. Pulmonary vascular congestion and interstitial thickening slightly improved in comparison the prior study. Status: Image reviewed by ky - Chest x-ray reviewed and shows improving airspace disease. Assessment & Plan - Diagnosis (1) Acute respiratory failure with hypoxia and hypercapnia Is this a current diagnosis for this admission?: YesPlan: No prior history of lung disease or significant tobacco use. Continue mechanical ventilation and continue daily weaning trial, she is showing good improvement and will likely extubate in the next 24 hours. (2) Acute cholecystitis Is this a current diagnosis for this admission?: YesPlan: Status post laparoscopic cholecystectomy with possible choledocholithiasis status post ERCP with sphincterotomy but no stone identified. (3) Urinary tract infection Qualifiers: Urinary tract infection type: site unspecified Hematuria presence: without hematuria Qualified Code(s): N39.0 - Urinary tract infection, site not specified Is this a current diagnosis for this admission?: YesPlan: Asymptomatic bacteriuria, by lab criteria. Urine culture demonstrates greater than 100,000 colony-forming units of pansensitive Escherichia coli. Continue antibiotics for the above. (4) Choledocholithiasis Is this a current diagnosis for this admission?: Yes (5) Acute encephalopathy Is this a current diagnosis for this admission?: YesPlan: Secondary to hypoxia and developing sepsis. Continue sedation for now while treating the underlying source. (6) Pneumonia Qualifiers: Pneumonia type: due to unspecified organism Laterality: bilateral Lung location: unspecified part of lung Qualified Code(s): J18.9 - Pneumonia, unspecified organism Is this a current diagnosis for this admission?: YesPlan: Continue broad antibiotic coverage. tracheal aspirate for culture shows no growth including no normal respiratory hood. (7) Coronary artery disease Qualifiers: Coronary Disease-Associated Artery/Lesion type: [place] artery Associated angina: angina presence unspecified Is this a current diagnosis for this admission?: Yes (8) Hypertension Qualifiers: Hypertension type: essential hypertension Qualified Code(s): I10 - Essential (primary) hypertension Is this a current diagnosis for this admission?: Yes (9) Ischemic cardiomyopathy Is this a current diagnosis for this admission?: YesPlan: Chronic. (10) Acute systolic heart failure Is this a current diagnosis for this admission?: YesPlan: There is likely a component of systolic heart failure, complicating her respiratory status, however her hemodynamic status remains rather tenuous so will hold on diuretics at this time and titrate the dose of IV fluids attempting to maintain euvolemia. Monitor her volume status carefully. Cardiology following available as needed. Trend BNP. (11) Nutrition disorder Is this a current diagnosis for this admission?: YesPlan: Continue tube feeds while intubated - Time Time Spent with patient: 25-34 minutes
--- NOTE | 2016-06-30 15:44 | PDOC PROGRESS REPORT ---
Subjective Progress Note for:: 06/30/16 Subjective:: Patient about the same and has made very little progress. There is no significant change in general condition. Patient remains intubated, sedated, patient however looks comfortable and in acute distress. Medications reviewed. Chest x-ray shows improvement. Patient is maintaining sinus rhythm. One set of cardiac enzyme was negative for VT. BNP level has come down. Review of systems: Rest review of systems negative. Medications: Medications have been reviewed. Physical Exam Vital Signs: Temp Pulse Resp BP Pulse Ox 99.0 F 59 L 14 117/82 100 06/30/16 05:58 06/30/16 08:00 06/30/16 14:00 06/30/16 13:39 06/30/16 14:00 Intake & Output 06/29/16 06/30/16 07/01/16 06:59 06:59 06:59 Intake Total 2055 3975 Output Total 1275 880 Balance 5 2700 -880 Weight 80.1 kg 84.1 kg Exam: GENERAL: well-nourished and in no acute distress. Patient is intubated and sedated. Orientation cannot be checked HEAD: Atraumatic, normocephalic. EYES: Pupils equal round and reactive to light, extraocular movements could not be checked, sclera anicteric, conjunctiva are normal. ENT: TMs normal, nares patent, oropharynx clear without exudates. Moist mucous membranes. No oral ulcerations or bleeding gums noted NECK: supple without lymphadenopathy or JVD. Trachea is central. No cervical or axillary lymphadenopathy noted. Carotids are 2+ LUNGS: Breath sounds mostly clear to auscultation patient is noted to have bibasal crackles at the extreme bases CHEST: Palpation of the chest wall shows no significant chest wall tenderness or abnormalities. HEART: [employer], No PSH, 2/6 BILL aortic area, 1/6 pearson systolic murmur mitral area , no rubs or gallops. ABDOMEN: Soft, no significant tenderness appreciated, normoactive bowel sounds. No guarding, no rebound. No rigidity noted . No masses appreciated. EXTREMITIES: Pedal pulses are 1-2+, no calf tenderness noted, 1+ pedal edema noted. No clubbing or cyanosis. NEUROLOGICAL: The patient cannot participate in the neurological exam but no facial asymmetry noted. Extremities slightly hypotonic PSYCH: This cannot be evaluated. Patient cannot participate. SKIN: No significant ecchymosis, rash, or signs of pruritus noted. MUSCULOSKELETAL EXAM: No significant joint swelling noted. Patient cannot participate in musculoskeletal exam Results Laboratory Results: 06/30/16 05:13 06/30/16 05:13 06/29/16 06/30/16 06/30/16 16:53 05:13 05:13 WBC 10.6 H RBC 3.32 L Hgb 9.9 L Hct 29.7 L MCV 90 MCH 29.9 MCHC 33.4 RDW 13.5 Plt Count 174 Seg Neutrophils % 80.1 H Lymphocytes % 10.0 L Monocytes % 9.4 Eosinophils % 0.2 Basophils % 0.3 Absolute Neutrophils 8.5 H Absolute Lymphocytes 1.1 Absolute Monocytes 1.0 Absolute Eosinophils 0.0 Absolute Basophils 0.0 Carbonic Acid 1.06 HCO3/H2CO3 Ratio 21:1 ABG pH 7.43 ABG pCO2 35.2 ABG pO2 76.7 L ABG HCO3 22.9 ABG O2 Saturation 95.8 ABG Base Excess -1.0 FiO2 40% Sodium 141.0 Potassium 3.7 Chloride 112 H Carbon Dioxide 21 L Anion Gap 8 BUN 12 Creatinine 0.73 Est GFR ( Amer) > 60 Est GFR (Non-Af Amer) > 60 Glucose 106 Calcium 7.9 L Phosphorus 2.3 L Magnesium 2.0 Total Bilirubin 0.6 AST 38 H ALT 73 H Alkaline Phosphatase 111 Total Protein 5.2 L Albumin 2.4 L Triglycerides 89 06/30/16 05:13 WBC RBC Hgb Hct MCV MCH MCHC RDW Plt Count Seg Neutrophils % Lymphocytes % Monocytes % Eosinophils % Basophils % Absolute Neutrophils Absolute Lymphocytes Absolute Monocytes Absolute Eosinophils Absolute Basophils Carbonic Acid 1.06 HCO3/H2CO3 Ratio 19:1 ABG pH 7.39 ABG pCO2 35.1 ABG pO2 81.0 ABG HCO3 20.8 ABG O2 Saturation 96.0 ABG Base Excess -3.5 FiO2 40% Sodium Potassium Chloride Carbon Dioxide Anion Gap BUN Creatinine Est GFR ( Amer) Est GFR (Non-Af Amer) Glucose Calcium Phosphorus Magnesium Total Bilirubin AST ALT Alkaline Phosphatase Total Protein Albumin Triglycerides 06/29/16 06/29/16 06/29/16 04:00 04:00 04:53 Creatine Kinase Cancelled CK-MB (CK-2) Cancelled 3.16 Troponin I Cancelled 0.080 NT-Pro-B Natriuret Pep 06/29/16 06/29/16 06/30/16 04:53 04:53 05:13 Creatine Kinase 140 H CK-MB (CK-2) Troponin I NT-Pro-B Natriuret Pep 4530 H 2570 H Impressions: Abdomen Ultrasound 06/26/16 08:03 IMPRESSION: Pericholecystic fluid, gallbladder wall thickening, positive sonographic Mcpherson's sign and multiple small gallstones. Findings worrisome for acute cholecystitis. Cholangiogram 06/27/16 00:00 IMPRESSION: INTRAOPERATIVE CHOLANGIOGRAM. Catheter Placement 06/28/16 00:00 IMPRESSION: IMAGE(S) OBTAINED DURING PROCEDURE. Chest X-Ray 06/30/16 06:00 IMPRESSION: 1. Support tubes and lines as above. 2. Persistent retrocardiac opacity likely representing pneumonia versus atelectasis. Pulmonary vascular congestion and interstitial thickening slightly improved in comparison the prior study. Assessment & Plan - Diagnosis (1) Coronary artery disease Qualifiers: Coronary Disease-Associated Artery/Lesion type: [place] artery Associated angina: angina presence unspecified Is this a current diagnosis for this admission?: YesPlan: Currently stable. (2) Abdominal pain Qualifiers: Abdominal location: right upper quadrant Qualified Code(s): R10.11 - Right upper quadrant pain Is this a current diagnosis for this admission?: YesPlan: Resolved (3) Cholecystitis Is this a current diagnosis for this admission?: YesPlan: Status post cholecystectomy (4) Hypertension Qualifiers: Hypertension type: essential hypertension Qualified Code(s): I10 - Essential (primary) hypertension Is this a current diagnosis for this admission?: YesPlan: Currently not on any antihypertensive. Blood pressure being on the low side. (5) Pulmonary edema Qualifiers: Chronicity: acute Qualified Code(s): J81.0 - Acute pulmonary edema Is this a current diagnosis for this admission?: YesPlan: It is felt to be combination of both CHF and aspiration pneumonitis. Patient currently improved based on chest x-ray reviewed. Patient however still needing ventilation and oxygenation. (6) CHF (congestive heart failure) Qualifiers: Congestive heart failure type: combined Congestive heart failure chronicity: acute on chronic Qualified Code(s): I50.43 - Acute on chronic combined systolic (congestive) and diastolic (congestive) heart failure Is this a current diagnosis for this admission?: YesPlan: Patient is noted to have depressed LVEF. Believe CHF related to acute on chronic systolic plus diastolic dysfunction. BNP is coming down. Clinically patient seems euvolemic.. However at this point not on diuretics, will assess need for diuretics on a daily basis. (7) Acute respiratory failure with hypoxia and hypercapnia Is this a current diagnosis for this admission?: YesPlan: Most likely related to aspiration pneumonia, CHF but stabilized. Continue with ventilation and oxygenation. (8) Hypotension (arterial) Qualifiers: Hypotension type: unspecified hypotension type Qualified Code(s): I95.9 - Hypotension, unspecified Is this a current diagnosis for this admission?: YesPlan: Patient noted to have intermittently low blood pressure. Nurse tell me they think it's most likely due to sedation. At this point we are holding off on any antihypertensives and diuretics. Hopefully this will normalize once patient off sedation and extubated. - Notes Notes: CODE STATUS was discussed, patient remains full code. Surrogate decision-maker elevation sister. Multiple medical problems were addressed. - Time Time with patient: Greater than 35 minutes - More than 50% of the time spent coordinating care, discussing management plans with involved caregivers. Management plans discussed with involved personnels. Medical decision making was of high complexity.
--- NOTE | 2016-06-30 15:54 | PDOC PROGRESS REPORT ---
Physical Exam Vital Signs: Temp Pulse Resp BP Pulse Ox 99.0 F 59 L 14 117/82 100 06/30/16 05:58 06/30/16 08:00 06/30/16 14:00 06/30/16 13:39 06/30/16 14:00 Intake & Output 06/29/16 06/30/16 07/01/16 06:59 06:59 06:59 Intake Total 5 3975 Output Total 1275 880 Balance 2054 2700 -880 Weight 80.1 kg 84.1 kg GI/Abdominal exam: PRESENT: ascites, diminished bowel sounds - Abdomen - soft , nontender., distended, firm, guarding, hernia, hyperactive bowel sounds, hypoactive bowel sounds, mass, Mcpherson's sign, normal bowel sounds, organolmegaly , rebound, rigid, soft, tenderness, other Results Laboratory Results: 06/30/16 05:13 06/30/16 05:13 06/29/16 06/30/16 06/30/16 16:53 05:13 05:13 WBC 10.6 H RBC 3.32 L Hgb 9.9 L Hct 29.7 L MCV 90 MCH 29.9 MCHC 33.4 RDW 13.5 Plt Count 174 Seg Neutrophils % 80.1 H Lymphocytes % 10.0 L Monocytes % 9.4 Eosinophils % 0.2 Basophils % 0.3 Absolute Neutrophils 8.5 H Absolute Lymphocytes 1.1 Absolute Monocytes 1.0 Absolute Eosinophils 0.0 Absolute Basophils 0.0 Carbonic Acid 1.06 HCO3/H2CO3 Ratio 21:1 ABG pH 7.43 ABG pCO2 35.2 ABG pO2 76.7 L ABG HCO3 22.9 ABG O2 Saturation 95.8 ABG Base Excess -1.0 FiO2 40% Sodium 141.0 Potassium 3.7 Chloride 112 H Carbon Dioxide 21 L Anion Gap 8 BUN 12 Creatinine 0.73 Est GFR ( Amer) > 60 Est GFR (Non-Af Amer) > 60 Glucose 106 Calcium 7.9 L Phosphorus 2.3 L Magnesium 2.0 Total Bilirubin 0.6 AST 38 H ALT 73 H Alkaline Phosphatase 111 Total Protein 5.2 L Albumin 2.4 L Triglycerides 89 06/30/16 05:13 WBC RBC Hgb Hct MCV MCH MCHC RDW Plt Count Seg Neutrophils % Lymphocytes % Monocytes % Eosinophils % Basophils % Absolute Neutrophils Absolute Lymphocytes Absolute Monocytes Absolute Eosinophils Absolute Basophils Carbonic Acid 1.06 HCO3/H2CO3 Ratio 19:1 ABG pH 7.39 ABG pCO2 35.1 ABG pO2 81.0 ABG HCO3 20.8 ABG O2 Saturation 96.0 ABG Base Excess -3.5 FiO2 40% Sodium Potassium Chloride Carbon Dioxide Anion Gap BUN Creatinine Est GFR ( Amer) Est GFR (Non-Af Amer) Glucose Calcium Phosphorus Magnesium Total Bilirubin AST ALT Alkaline Phosphatase Total Protein Albumin Triglycerides 06/29/16 06/29/16 06/29/16 04:00 04:00 04:53 Creatine Kinase Cancelled CK-MB (CK-2) Cancelled 3.16 Troponin I Cancelled 0.080 NT-Pro-B Natriuret Pep 06/29/16 06/29/16 06/30/16 04:53 04:53 05:13 Creatine Kinase 140 H CK-MB (CK-2) Troponin I NT-Pro-B Natriuret Pep 4530 H 2570 H Impressions: Abdomen Ultrasound 06/26/16 08:03 IMPRESSION: Pericholecystic fluid, gallbladder wall thickening, positive sonographic Mcpherson's sign and multiple small gallstones. Findings worrisome for acute cholecystitis. Cholangiogram 06/27/16 00:00 IMPRESSION: INTRAOPERATIVE CHOLANGIOGRAM. Catheter Placement 06/28/16 00:00 IMPRESSION: IMAGE(S) OBTAINED DURING PROCEDURE. Chest X-Ray 06/30/16 06:00 IMPRESSION: 1. Support tubes and lines as above. 2. Persistent retrocardiac opacity likely representing pneumonia versus atelectasis. Pulmonary vascular congestion and interstitial thickening slightly improved in comparison the prior study. Assessment & Plan - Plan Summary Plan Summary: On vent No surgical issue Ventilatory care
[2016-07-01] MEDS: PIPERACILLIN SODIUM/TAZOBACTAM 4.5 GM in NORMAL SALINE 100 ML IV SCH ×4 (00:20→17:01)
[2016-07-01 05:37] LABS: ABSOLUTE EOSINOPHILS # (AUTO) 0.1 10^3/uL (0.0-0.6); ABSOLUTE LYMPHOCYTES (AUTO) 1.4 10^3/uL (0.5-4.7); ABSOLUTE MONOCYTES (AUTO) 0.8 10^3/uL (0.1-1.4); BASOPHILS % (AUTO) 0.4 % (0-2); EOSINOPHILS % (AUTO) 1.7 % (0-6); HEMATOCRIT 30.6 % (36.0-47.0); HEMOGLOBIN 10.2 g/dL (12.0-15.5); LYMPHOCYTES % (AUTO) 16.6 % (13-45); MEAN CORPUSCULAR HEMOGLOBIN 29.8 pg (27.0-33.4); MEAN CORPUSCULAR HGB CONC 33.3 g/dL (32.0-36.0); MEAN CORPUSCULAR VOLUME 90 fl (80-97); MONOCYTES % (AUTO) 9.8 % (3-13); RED BLOOD COUNT 3.42 10^6/uL (3.72-5.28); RED CELL DISTRIBUTION WIDTH 13.7 % (11.5-14.0); SEGMENTED NEUTROPHILS % (AUTO) 71.5 % (42-78); WHITE BLOOD COUNT 8.4 10^3/uL (4.0-10.5)
[2016-07-01 05:58] LABS: ALANINE AMINOTRANSFERASE 55 U/L (9-52); ALKALINE PHOSPHATASE 102 U/L (38-126); ANION GAP 7 (5-19); ASPARTATE AMINO TRANSFERASE 26 U/L (14-36); BILIRUBIN,TOTAL 0.4 mg/dL (0.2-1.3); BLOOD UREA NITROGEN 10 mg/dL (7-20); CALCIUM 7.9 mg/dL (8.4-10.2); CARBON DIOXIDE 23 mmol/L (22-30); CHLORIDE 114 mmol/L (98-107); CREATININE RESULT 0.73 mg/dL (0.52-1.25); GLUCOSE 104 mg/dL (75-110); MAGNESIUM 1.9 mg/dL (1.6-2.3); PHOSPHORUS 2.1 mg/dL (2.5-4.5); POTASSIUM 3.7 mmol/L (3.6-5.0); SODIUM 143.6 mmol/L (137-145); TOTAL PROTEIN 5.2 g/dL (6.3-8.2)
[2016-07-01] MEDS: PROPOFOL 100 ML IV PRN (08:07)
[2016-07-01] MEDS: ENOXAPARIN SODIUM INJ 40 MG/0.4 ML DISP.SYRIN SUBCUT SCH (09:23)
[2016-07-01] MEDS: CIPROFLOXACIN 400 MG/D5W RTU 400 MG/200 ML RTUPB IV SCH ×2 (09:24→21:23)
[2016-07-01] MEDS: FAMOTIDINE INJ/PF 20 MG/2 ML SDV IV SCH ×2 (09:24→21:24)
--- NOTE | 2016-07-01 10:24 | PDOC PROGRESS REPORT ---
Subjective Progress Note for:: 07/01/16 Subjective:: History of present illness: Patient reports to the emergency department with increasing epigastric pain that started on Saturday as bloating and quickly developed sharp stabbing pain that radiates throughout the abdomen. She got no relief from [id number] antacids. It began to affect her sleep and she started regurgitating foul tasting bile. She reports 4 stools over the course of the last 24 hours which is an increase for her but denies any change in the character or color of stools. She never had anything quite like this before. She describes the pain as sharp stabbing and radiating throughout the abdomen, worse with eating, improved with narcotics and no associated symptoms of fever, chills, chest pain , palpitations, headache or dizziness. Evaluation in the emergency department including an imaging shows signs and symptoms suggestive of an acute cholecystitis. We were asked to admit the patient due to multiple medical problems, surgery has already Evaluated and anticipates intervention later today. The patient has a prior history of MD with catheter in 1997 and has unusual changes on her EKG with T-wave inversions in V4 through 6. Cardiology is already evaluated and cleared for general anesthesia. The patient underwent laparoscopic cholecystectomy with intraoperative cholangiogram suggestive of choledocholithiasis on 06/27/2016 and ERCP on 2016. The ERCP was stopped early due to the development of hypoxia, however he was able to perform sphincterotomy and liberate small amount of biliary sludge. Unfortunately within hours of the procedure she rapidly decompensated becoming more hypoxic, agitated and then rapidly less responsive. She was urgently transferred to the ICU, intubated by GE[employer] SET UP OPERATOR and now resides on mechanical ventilation. Follow-up chest x-ray shows bilateral fluffy airspace disease suggestive of a developing pneumonia. Antibiotics were broadened to include Zosyn and vancomycin in addition to the Cipro for presumed HCAP. She underwent weaning trial yesterday and lasted a few hours before becoming too tachypneic to tolerate further. Reason for visit: Follow-up acute cholecystitis and choledocholithiasis, acute mixed hypercapnic and hypoxic respiratory failure, hospital-acquired pneumonia. Subjective: She is sedated and intubated on mechanical ventilation and unable to provide a review of systems are participate in her exam at this time. Nursing reports no new events overnight. ROS: Unobtainable. Physical Exam Vital Signs: Temp Pulse Resp BP Pulse Ox 98.2 F 66 14 128/70 H 97 07/01/16 04:00 06/30/16 20:00 07/01/16 09:00 07/01/16 08:40 07/01/16 09:00 Intake & Output 06/30/16 07/01/16 07/02/16 06:59 06:59 06:59 Intake Total 3975 2793 Output Total 1275 1755 175 Balance 2700 1038 -175 Weight 84.1 kg 86.5 kg PHYSICAL EXAM GENERAL: NAD; well developed, well nourished; no obese; sedated and seems to be tolerating the vent without difficulty HEENT: normocephalic, atraumatic; PERRLA, no conjunctival injection, no scleral icterus; oral mucosa moist, ETT in good position, trachea midline, OG tube in place tolerating tube feeds RESPIRATORY: no accessory muscle use, no increased WOB seems to be tolerating weaning trial so far this morning of less than 1 hour so far, good air entry bilaterally; no wheezes but bilateral rales and no rhonchi, improved; CARDIO: no JVD; RRR; no systolic murmur; no tachycardia VASCULAR: no carotid bruit; no pallor; 2+ radial, DP pulse; normal capillary refill GI: soft; nondistended; diminished bowel sounds; no rigidity, involuntary guarding; no grimace to palpation over the epigastrium. Steri-Strips in place over laparoscopic incisions, clean dry and intact; tube feeds running at goal NEURO: normal patella reflexes EXTREMITIES: no palpable cords in calf; no clubbing, cyanosis, pedal edema PSYCH: Sedated, some agitation again with attempts to wean sedation SKIN: warm; moist; no petechiae; no telengectasias; no jaundice; no rash Results Laboratory Results: 07/01/16 05:25 07/01/16 05:25 07/01/16 07/01/16 05:25 05:25 WBC 8.4 RBC 3.42 L Hgb 10.2 L Hct 30.6 L MCV 90 MCH 29.8 MCHC 33.3 RDW 13.7 Plt Count 201 Seg Neutrophils % 71.5 Lymphocytes % 16.6 Monocytes % 9.8 Eosinophils % 1.7 Basophils % 0.4 Absolute Neutrophils 6.0 Absolute Lymphocytes 1.4 Absolute Monocytes 0.8 Absolute Eosinophils 0.1 Absolute Basophils 0.0 Sodium 143.6 Potassium 3.7 Chloride 114 H Carbon Dioxide 23 Anion Gap 7 BUN 10 Creatinine 0.73 Est GFR ( Amer) > 60 Est GFR (Non-Af Amer) > 60 Glucose 104 Calcium 7.9 L Phosphorus 2.1 L Magnesium 1.9 Total Bilirubin 0.4 AST 26 ALT 55 H Alkaline Phosphatase 102 Total Protein 5.2 L Albumin 2.0 L 06/29/16 06/29/16 06/29/16 04:00 04:00 04:53 Creatine Kinase Cancelled CK-MB (CK-2) Cancelled 3.16 Troponin I Cancelled 0.080 NT-Pro-B Natriuret Pep 06/29/16 06/29/16 06/30/16 04:53 04:53 05:13 Creatine Kinase 140 H CK-MB (CK-2) Troponin I NT-Pro-B Natriuret Pep 4530 H 2570 H 07/01/16 05:25 Creatine Kinase CK-MB (CK-2) Troponin I NT-Pro-B Natriuret Pep 2570 H Labs reviewed, CBC electrolytes all reassuring, LFTs including bilirubin reassuring, BNP unchanged Impressions: Abdomen Ultrasound 06/26/16 08:03 IMPRESSION: Pericholecystic fluid, gallbladder wall thickening, positive sonographic Mcpherson's sign and multiple small gallstones. Findings worrisome for acute cholecystitis. Cholangiogram 06/27/16 00:00 IMPRESSION: INTRAOPERATIVE CHOLANGIOGRAM. Catheter Placement 06/28/16 00:00 IMPRESSION: IMAGE(S) OBTAINED DURING PROCEDURE. Chest X-Ray 06/30/16 06:00 IMPRESSION: 1. Support tubes and lines as above. 2. Persistent retrocardiac opacity likely representing pneumonia versus atelectasis. Pulmonary vascular congestion and interstitial thickening slightly improved in comparison the prior study. Assessment & Plan - Diagnosis (1) Acute respiratory failure with hypoxia and hypercapnia Is this a current diagnosis for this admission?: YesPlan: No prior history of lung disease or significant tobacco use. Continue attempts to wean mechanical ventilation, hoping to extubate this afternoon. (2) Acute cholecystitis Is this a current diagnosis for this admission?: YesPlan: Stable. Status post laparoscopic cholecystectomy with possible choledocholithiasis status post ERCP with sphincterotomy but no stone identified. (3) Urinary tract infection Qualifiers: Urinary tract infection type: site unspecified Hematuria presence: without hematuria Qualified Code(s): N39.0 - Urinary tract infection, site not specified Is this a current diagnosis for this admission?: YesPlan: Asymptomatic bacteriuria, by lab criteria. Urine culture demonstrates greater than 100,000 colony-forming units of pansensitive Escherichia coli. Continue antibiotics for the above. (4) Choledocholithiasis Is this a current diagnosis for this admission?: YesPlan: As above. No change (5) Acute encephalopathy Is this a current diagnosis for this admission?: YesPlan: Multifactorial, Secondary to hypoxia and developing sepsis. Continue sedation for now while treating the underlying source, at least until extubation. (6) Pneumonia Qualifiers: Pneumonia type: due to unspecified organism Laterality: bilateral Lung location: unspecified part of lung Qualified Code(s): J18.9 - Pneumonia, unspecified organism Is this a current diagnosis for this admission?: YesPlan: Continue broad antibiotic coverage. tracheal aspirate for culture shows no growth including no normal respiratory hood. (7) Acute systolic heart failure Is this a current diagnosis for this admission?: YesPlan: There is likely a component of systolic heart failure, complicating her respiratory status, however appears euvolemic this morning. Monitor her volume status carefully. Cardiology following available as needed. Trend BNP. (8) Coronary artery disease Qualifiers: Coronary Disease-Associated Artery/Lesion type: [place] artery Associated angina: angina presence unspecified Is this a current diagnosis for this admission?: Yes (9) Hypertension Qualifiers: Hypertension type: essential hypertension Qualified Code(s): I10 - Essential (primary) hypertension Is this a current diagnosis for this admission?: Yes (10) Ischemic cardiomyopathy Is this a current diagnosis for this admission?: Yes (11) Nutrition disorder Is this a current diagnosis for this admission?: YesPlan: Continue tube feeds while intubated - Time Time Spent with patient: 35 or more minutes - Plan Summary Plan Summary: Anticipated patient later today she seems to be doing very well.
[2016-07-01] MEDS: VANCOMYCIN HCL 500 MG in DEXTROSE 5%-WATER 100 ML IV SCH (12:34)
[2016-07-01] MEDS ORDERED: FUROSEMIDE INJ/PF 40 MG/4 ML SDV IV ONE (13:00)
[2016-07-01] MEDS: LORAZEPAM INJ 2 MG/1 ML VIAL IV PRN (13:41)
--- NOTE | 2016-07-01 13:59 | PDOC PROGRESS REPORT ---
Subjective Subjective:: minimal pain Physical Exam Vital Signs: Temp Pulse Resp BP Pulse Ox 98.2 F 103 H 20 137/60 H 96 07/01/16 04:00 07/01/16 12:17 07/01/16 11:00 07/01/16 10:40 07/01/16 11:00 Intake & Output 06/30/16 07/01/16 07/02/16 06:59 06:59 06:59 Intake Total 3975 2793 Output Total 1275 1755 1610 Balance 2700 1038 -1610 Weight 84.1 kg 86.5 kg GI/Abdominal exam: PRESENT: ascites, diminished bowel sounds - Abdomen - soft, non tender, distended, firm, guarding, hernia, hyperactive bowel sounds, hypoactive bowel sounds, mass, Mcpherson's sign, normal bowel sounds, organolmegaly , rebound, rigid, soft, tenderness, other Results Laboratory Results: 07/01/16 05:25 07/01/16 05:25 07/01/16 07/01/16 05:25 05:25 WBC 8.4 RBC 3.42 L Hgb 10.2 L Hct 30.6 L MCV 90 MCH 29.8 MCHC 33.3 RDW 13.7 Plt Count 201 Seg Neutrophils % 71.5 Lymphocytes % 16.6 Monocytes % 9.8 Eosinophils % 1.7 Basophils % 0.4 Absolute Neutrophils 6.0 Absolute Lymphocytes 1.4 Absolute Monocytes 0.8 Absolute Eosinophils 0.1 Absolute Basophils 0.0 Sodium 143.6 Potassium 3.7 Chloride 114 H Carbon Dioxide 23 Anion Gap 7 BUN 10 Creatinine 0.73 Est GFR ( Amer) > 60 Est GFR (Non-Af Amer) > 60 Glucose 104 Calcium 7.9 L Phosphorus 2.1 L Magnesium 1.9 Total Bilirubin 0.4 AST 26 ALT 55 H Alkaline Phosphatase 102 Total Protein 5.2 L Albumin 2.0 L 06/29/16 06:51 Tracheal Aspirate Gram Stain - Final 06/29/16 06:51 Tracheal Aspirate Sputum Culture - Final GREATLY REDUCED NORMAL GLADYS 06/29/16 06/29/16 06/29/16 04:00 04:00 04:53 Creatine Kinase Cancelled CK-MB (CK-2) Cancelled 3.16 Troponin I Cancelled 0.080 NT-Pro-B Natriuret Pep 06/29/16 06/29/16 06/30/16 04:53 04:53 05:13 Creatine Kinase 140 H CK-MB (CK-2) Troponin I NT-Pro-B Natriuret Pep 4530 H 2570 H 07/01/16 05:25 Creatine Kinase CK-MB (CK-2) Troponin I NT-Pro-B Natriuret Pep 2570 H Impressions: Abdomen Ultrasound 06/26/16 08:03 IMPRESSION: Pericholecystic fluid, gallbladder wall thickening, positive sonographic Mcpherson's sign and multiple small gallstones. Findings worrisome for acute cholecystitis. Cholangiogram 06/27/16 00:00 IMPRESSION: INTRAOPERATIVE CHOLANGIOGRAM. Catheter Placement 06/28/16 00:00 IMPRESSION: IMAGE(S) OBTAINED DURING PROCEDURE. Chest X-Ray 06/30/16 06:00 IMPRESSION: 1. Support tubes and lines as above. 2. Persistent retrocardiac opacity likely representing pneumonia versus atelectasis. Pulmonary vascular congestion and interstitial thickening slightly improved in comparison the prior study. Assessment & Plan - Plan Summary Plan Summary: Diet as tolerated Will follow as needed PRN
--- NOTE | 2016-07-01 14:10 | PDOC PROGRESS REPORT ---
Subjective Progress Note for:: 07/01/16 Subjective:: Patient extubated today. Patient now noted to be in mild respiratory distress with increased respiratory rate and also somewhat tachycardic. Patient being closely observed in the unit. There is no other significant change in general condition. Medications reviewed. Patient is maintaining sinus rhythm with sinus tachycardia. Review of systems: Rest review of systems negative. Medications: Medications have been reviewed. Physical Exam Vital Signs: Temp Pulse Resp BP Pulse Ox 98.2 F 103 H 20 137/60 H 96 07/01/16 04:00 07/01/16 12:17 07/01/16 11:00 07/01/16 10:40 07/01/16 11:00 Intake & Output 06/30/16 07/01/16 07/02/16 06:59 06:59 06:59 Intake Total 3975 2793 Output Total 1275 1755 1610 Balance 2700 1038 -1610 Weight 84.1 kg 86.5 kg Exam: GENERAL: well-nourished and in no acute distress. Patient is alert but not oriented to place time or person. HEAD: Atraumatic, normocephalic. EYES: Pupils equal round and reactive to light, extraocular movements intact, sclera anicteric, conjunctiva are normal. ENT: TMs normal, nares patent, oropharynx clear without exudates. Moist mucous membranes. No oral ulcerations or bleeding gums noted NECK: supple without lymphadenopathy or JVD. Trachea is central. No cervical or axillary lymphadenopathy noted. Carotids are 2+ LUNGS: Mild tachypnea noted Breath sounds bibasilar fine crackles at bases. No significant dullness noted. CHEST: Palpation of chest wall shows no significant chest wall tenderness. 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 ABDOMEN: Soft, no significant tenderness appreciated, normoactive bowel sounds. No guarding, no rebound. No rigidity noted . No masses appreciated. EXTREMITIES: Pedal pulses are 1-2+, no calf tenderness noted, Trace + pedal edema noted. No clubbing or cyanosis. NEUROLOGICAL: Patient is alert but is not able to participate in neurological exam because of patient's current mental status PSYCH: Patient cannot participate in a neurologic and psych exam because of the patient's current mental status SKIN: No significant ecchymosis, rash, ulcerations or signs of pruritus noted. MUSCULOSKELETAL EXAM: No significant joint swelling noted. Results Laboratory Results: 07/01/16 05:25 07/01/16 05:25 07/01/16 07/01/16 05:25 05:25 WBC 8.4 RBC 3.42 L Hgb 10.2 L Hct 30.6 L MCV 90 MCH 29.8 MCHC 33.3 RDW 13.7 Plt Count 201 Seg Neutrophils % 71.5 Lymphocytes % 16.6 Monocytes % 9.8 Eosinophils % 1.7 Basophils % 0.4 Absolute Neutrophils 6.0 Absolute Lymphocytes 1.4 Absolute Monocytes 0.8 Absolute Eosinophils 0.1 Absolute Basophils 0.0 Sodium 143.6 Potassium 3.7 Chloride 114 H Carbon Dioxide 23 Anion Gap 7 BUN 10 Creatinine 0.73 Est GFR ( Amer) > 60 Est GFR (Non-Af Amer) > 60 Glucose 104 Calcium 7.9 L Phosphorus 2.1 L Magnesium 1.9 Total Bilirubin 0.4 AST 26 ALT 55 H Alkaline Phosphatase 102 Total Protein 5.2 L Albumin 2.0 L 06/29/16 06:51 Tracheal Aspirate Gram Stain - Final 06/29/16 06:51 Tracheal Aspirate Sputum Culture - Final GREATLY REDUCED NORMAL GLADYS 06/29/16 06/29/16 06/29/16 04:00 04:00 04:53 Creatine Kinase Cancelled CK-MB (CK-2) Cancelled 3.16 Troponin I Cancelled 0.080 NT-Pro-B Natriuret Pep 06/29/16 06/29/16 06/30/16 04:53 04:53 05:13 Creatine Kinase 140 H CK-MB (CK-2) Troponin I NT-Pro-B Natriuret Pep 4530 H 2570 H 07/01/16 05:25 Creatine Kinase CK-MB (CK-2) Troponin I NT-Pro-B Natriuret Pep 2570 H Impressions: Abdomen Ultrasound 06/26/16 08:03 IMPRESSION: Pericholecystic fluid, gallbladder wall thickening, positive sonographic Mcpherson's sign and multiple small gallstones. Findings worrisome for acute cholecystitis. Cholangiogram 06/27/16 00:00 IMPRESSION: INTRAOPERATIVE CHOLANGIOGRAM. Catheter Placement 06/28/16 00:00 IMPRESSION: IMAGE(S) OBTAINED DURING PROCEDURE. Chest X-Ray 06/30/16 06:00 IMPRESSION: 1. Support tubes and lines as above. 2. Persistent retrocardiac opacity likely representing pneumonia versus atelectasis. Pulmonary vascular congestion and interstitial thickening slightly improved in comparison the prior study. Assessment & Plan - Diagnosis (1) Coronary artery disease Qualifiers: Coronary Disease-Associated Artery/Lesion type: [place] artery Associated angina: angina presence unspecified Is this a current diagnosis for this admission?: Yes (2) Abdominal pain Qualifiers: Abdominal location: right upper quadrant Qualified Code(s): R10.11 - Right upper quadrant pain Is this a current diagnosis for this admission?: Yes (3) Cholecystitis Is this a current diagnosis for this admission?: Yes (4) Hypertension Qualifiers: Hypertension type: essential hypertension Qualified Code(s): I10 - Essential (primary) hypertension Is this a current diagnosis for this admission?: Yes (5) Pulmonary edema Qualifiers: Chronicity: acute Qualified Code(s): J81.0 - Acute pulmonary edema Is this a current diagnosis for this admission?: Yes (6) CHF (congestive heart failure) Qualifiers: Congestive heart failure type: combined Congestive heart failure chronicity: acute on chronic Qualified Code(s): I50.43 - Acute on chronic combined systolic (congestive) and diastolic (congestive) heart failure Is this a current diagnosis for this admission?: Yes (7) Acute respiratory failure with hypoxia and hypercapnia Is this a current diagnosis for this admission?: Yes (8) Hypotension (arterial) Qualifiers: Hypotension type: unspecified hypotension type Qualified Code(s): I95.9 - Hypotension, unspecified Is this a current diagnosis for this admission?: Yes - Notes Notes: Acute respiratory failure: Patient currently extubated. She still needing oxygen supplementation. Patient noted to be slightly tachycardic and tachypneic. Patient given IV Lasix. Hopefully this will improve patient's situation. Patient being monitored very closely to make sure that her respiratory status is taken care of. Congestive heart failure: Clinically seems to be somewhat worse. Have added IV Lasix. Status post cholecystectomy for acute cholecystitis: Currently stable. Patient may have residual common bile duct stone. May need further follow-up testing. Coronary artery disease: No evidence of ongoing ischemia. Hypotension: Blood pressure now towards higher side. Will gradually add beta blockers and niki inhibitors as tolerated. Overall prognosis is guarded. Patient remains critically ill. - Time Time with patient: Greater than 35 minutes - CODE STATUS was discussed, patient remains full code. Surrogate decision-maker unchanged. Multiple medical problems were addressed.More than 50% of the time spent coordinating care, discussing management plans with involved caregivers. Management plans discussed with involved personnels. Medical decision making was of high complexity.
[2016-07-01] MEDS: MORPHINE SULFATE 10 MG/ML INJ IV PRN (14:46)
[2016-07-01] MEDS: POTASSI CL 20 MEQ/NS 1L 1,000 ML IV PRN (17:01)
[2016-07-01] MEDS: VANCOMYCIN HCL 1,250 MG in DEXTROSE 5%-WATER 250 ML IV SCH (21:24)
[2016-07-02] MEDS: PIPERACILLIN SODIUM/TAZOBACTAM 4.5 GM in NORMAL SALINE 100 ML IV SCH ×4 (00:47→17:13)
[2016-07-02] MEDS: MORPHINE SULFATE 10 MG/ML INJ IV PRN (00:48)
[2016-07-02] MEDS: LORAZEPAM INJ 2 MG/1 ML VIAL IV PRN ×2 (00:48→05:58)
[2016-07-02 06:19] LABS: ABSOLUTE EOSINOPHILS # (AUTO) 0.2 10^3/uL (0.0-0.6); ABSOLUTE LYMPHOCYTES (AUTO) 1.4 10^3/uL (0.5-4.7); ABSOLUTE MONOCYTES (AUTO) 1.1 10^3/uL (0.1-1.4); ABSOLUTE NEUT (AUTO) 8.3 10^3/uL (1.7-8.2); BASOPHILS % (AUTO) 0.3 % (0-2); EOSINOPHILS % (AUTO) 1.9 % (0-6); HEMATOCRIT 32.2 % (36.0-47.0); HGB HCT DIFFERENCE 0.8; LYMPHOCYTES % (AUTO) 12.8 % (13-45); MEAN CORPUSCULAR HEMOGLOBIN 30.2 pg (27.0-33.4); MEAN CORPUSCULAR HGB CONC 34.1 g/dL (32.0-36.0); MEAN CORPUSCULAR VOLUME 89 fl (80-97); MONOCYTES % (AUTO) 9.8 % (3-13); RED BLOOD COUNT 3.63 10^6/uL (3.72-5.28); RED CELL DISTRIBUTION WIDTH 13.5 % (11.5-14.0); SEGMENTED NEUTROPHILS % (AUTO) 75.2 % (42-78)
[2016-07-02 06:38] LABS: ALANINE AMINOTRANSFERASE 52 U/L (9-52); ALBUMIN 2.9 g/dL (3.5-5.0); ALKALINE PHOSPHATASE 102 U/L (38-126); ANION GAP 8 (5-19); ASPARTATE AMINO TRANSFERASE 32 U/L (14-36); BILIRUBIN,TOTAL 0.8 mg/dL (0.2-1.3); BLOOD UREA NITROGEN 9 mg/dL (7-20); CALCIUM 8.5 mg/dL (8.4-10.2); CARBON DIOXIDE 26 mmol/L (22-30); CHLORIDE 110 mmol/L (98-107); CREATININE RESULT 0.66 mg/dL (0.52-1.25); GLUCOSE 106 mg/dL (75-110); MAGNESIUM 1.7 mg/dL (1.6-2.3); PHOSPHORUS 3.4 mg/dL (2.5-4.5); POTASSIUM 3.8 mmol/L (3.6-5.0); SODIUM 143.7 mmol/L (137-145)
[2016-07-02 07:14] LABS: BILIRUBIN,URINE NEGATIVE (NEGATIVE); GLUCOSE, URINE NEGATIVE (NEGATIVE); KETONES,URINE 100 mg/dL (NEGATIVE); LEUKOCYTE ESTERASE,URINE NEGATIVE (NEGATIVE); NITRITE,URINE NEGATIVE (NEGATIVE); PROTEIN,URINE NEGATIVE (NEGATIVE); UROBILINOGEN,URINE NEGATIVE mg/dL (<2.0)
[2016-07-02 07:17] LABS: APPEARANCE,URINE CLEAR; URINE SPECIFIC GRAVITY 1.016
--- NOTE | 2016-07-02 08:21 | EKG REPORT ---
SEVERITY:- ABNORMAL ECG - SINUS TACHYCARDIA NONSPECIFIC T ABNORMALITIES, LATERAL LEADS BORDERLINE PROLONGED QT INTERVAL : Confirmed by: Param Alberto 02-Jul-2016 08:20:42
[2016-07-02] MEDS: ENOXAPARIN SODIUM INJ 40 MG/0.4 ML DISP.SYRIN SUBCUT SCH (08:31)
[2016-07-02] MEDS: FAMOTIDINE INJ/PF 20 MG/2 ML SDV IV SCH ×2 (09:21→22:32)
[2016-07-02] MEDS: VANCOMYCIN HCL 1,250 MG in DEXTROSE 5%-WATER 250 ML IV SCH ×2 (09:22→22:30)
[2016-07-02] MEDS: CIPROFLOXACIN 400 MG/D5W RTU 400 MG/200 ML RTUPB IV SCH ×2 (09:22→22:31)
[2016-07-02] MEDS: LACTOBACILLUS ACIDOPHILUS 250 MG TAB PO SCH ×2 (09:23→17:13)
[2016-07-02] MEDS: ATENOLOL 50 MG TABLET PO SCH (09:23)
[2016-07-02] MEDS ORDERED: FUROSEMIDE INJ/PF 20 MG/2 ML SDV IV ONE (09:30)
--- NOTE | 2016-07-02 11:53 | PDOC PROGRESS REPORT ---
Subjective Progress Note for:: 07/02/16 Subjective:: Reason for visit: Follow-up acute cholecystitis and choledocholithiasis, acute mixed hypercapnic and hypoxic respiratory failure, hospital-acquired pneumonia. Hospital course: Patient reported to the emergency department with increasing epigastric pain that started on Saturday as bloating and quickly developed sharp stabbing pain that radiates throughout the abdomen. She got no relief from [id number] antacids. It began to affect her sleep and she started regurgitating foul tasting bile. She reports 4 stools over the course of the last 24 hours which is an increase for her but denies any change in the character or color of stools. She never had anything quite like this before. She describes the pain as sharp stabbing and radiating throughout the abdomen, worse with eating, improved with narcotics and no associated symptoms of fever, chills, chest pain, palpitations, headache or dizziness. Evaluation in the emergency department including imaging shows signs and symptoms suggestive of an acute cholecystitis. We were asked to admit the patient due to multiple medical problems, surgery has already Evaluated and anticipates intervention later today. The patient has a prior history of MN with catheter in 1997 and has unusual changes on her EKG with T-wave inversions in V4 through 6. Cardiology is already evaluated and cleared for general anesthesia. The patient underwent laparoscopic cholecystectomy with intraoperative cholangiogram suggestive of choledocholithiasis on 06/27/2016 and ERCP on 2016. The ERCP was stopped early due to the development of hypoxia, however he was able to perform sphincterotomy and liberate small amount of biliary sludge. Unfortunately within hours of the procedure she rapidly decompensated becoming more hypoxic, agitated and then rapidly less responsive. She was urgently transferred to the ICU, intubated by [employer] and spent the next couple days on mechanical ventilation until successful extubation on 07/01/2016. chest x-ray showed bilateral fluffy airspace disease suggestive of a developing pneumonia. Antibiotics were broadened to include Zosyn and vancomycin, in addition to the Cipro, for presumed HCAP. She remains intermittently confused and easily agitated with high anxiety requiring soft restraints to prevent her from pulling out lifelines and interventions as well as as needed dosing of Ativan to keep her calm, heart rate and respiratory rate down. Subjective: She is sedated after dose of Ativan this morning and is minimally cooperative with my exam, I cannot keep her awake long enough for review of systems either. She is currently hemodynamically stable, sleeping and snoring with her mouth open, nasal cannula at 2 L/m but oxygen saturations greater than 97% which is encouraging. Nursing reports a difficult night with anxiety and confusion requiring a dose of Ativan and reinitiation of soft wrist restraints. ROS: Unobtainable. Physical Exam Vital Signs: Temp Pulse Resp BP Pulse Ox 97.7 F 109 H 13 146/88 H 99 07/02/16 08:00 07/02/16 08:00 07/02/16 10:40 07/02/16 10:40 07/02/16 10:40 Intake & Output 07/01/16 07/02/16 07/03/16 06:59 06:59 06:59 Intake Total 2793 1373 Output Total 1755 5260 45 Balance 1038 -3887 -45 Weight 86.5 kg 84.1 kg PHYSICAL EXAM GENERAL: NAD, in fact lethargic and difficult to keep awake for long; well developed, well nourished; no obese; sedated HEENT: normocephalic, atraumatic; no conjunctival injection, no scleral icterus ; oral mucosa moist, supplemental O2 in place RESPIRATORY: no accessory muscle use, no increased WOB, snoring, good air entry bilaterally; no wheezes but bilateral rales particularly at the bases and no rhonchi CARDIO: no JVD; RRR; no systolic murmur; mild sinus tachycardia on the monitor VASCULAR: no carotid bruit; no pallor; 2+ radial, DP pulse; normal capillary refill GI: soft; nondistended; diminished bowel sounds; no rigidity or involuntary guarding; no grimace to palpation over the epigastrium. Steri-Strips in place over laparoscopic incisions, clean dry and intact; NEURO: normal patella reflexes EXTREMITIES: no palpable cords in calf; no clubbing, cyanosis, pedal edema PSYCH: Sedated, lethargic SKIN: warm; moist; no petechiae; no telengectasias; no jaundice; no rash Results Laboratory Results: 07/02/16 06:03 07/02/16 06:03 07/02/16 07/02/16 07/02/16 06:03 06:03 06:52 WBC 11.0 H RBC 3.63 L Hgb 11.0 L Hct 32.2 L MCV 89 MCH 30.2 MCHC 34.1 RDW 13.5 Plt Count 248 Seg Neutrophils % 75.2 Lymphocytes % 12.8 L Monocytes % 9.8 Eosinophils % 1.9 Basophils % 0.3 Absolute Neutrophils 8.3 H Absolute Lymphocytes 1.4 Absolute Monocytes 1.1 Absolute Eosinophils 0.2 Absolute Basophils 0.0 Sodium 143.7 Potassium 3.8 Chloride 110 H Carbon Dioxide 26 Anion Gap 8 BUN 9 Creatinine 0.66 Est GFR ( Amer) > 60 Est GFR (Non-Af Amer) > 60 Glucose 106 Calcium 8.5 Phosphorus 3.4 Magnesium 1.7 Total Bilirubin 0.8 AST 32 ALT 52 Alkaline Phosphatase 102 Total Protein 6.0 L Albumin 2.9 L Urine Color STRAW Urine Appearance CLEAR Urine pH 5.0 Ur Specific [place] 1.016 Urine Protein NEGATIVE Urine Glucose (UA) NEGATIVE Urine Ketones 100 H Urine Blood SMALL H Urine Nitrite NEGATIVE Ur Leukocyte Esterase NEGATIVE Urine WBC (Auto) 1 Urine RBC (Auto) 3 06/29/16 06:51 Tracheal Aspirate Gram Stain - Final 06/29/16 06:51 Tracheal Aspirate Sputum Culture - Final GREATLY REDUCED NORMAL HOOD 06/29/16 06/29/16 06/29/16 04:00 04:00 04:53 Creatine Kinase Cancelled CK-MB (CK-2) Cancelled 3.16 Troponin I Cancelled 0.080 NT-Pro-B Natriuret Pep 06/29/16 06/29/16 06/30/16 04:53 04:53 05:13 Creatine Kinase 140 H CK-MB (CK-2) Troponin I NT-Pro-B Natriuret Pep 4530 H 2570 H 07/01/16 07/02/16 05:25 06:03 Creatine Kinase CK-MB (CK-2) Troponin I NT-Pro-B Natriuret Pep 2570 H 5080 H Labs reviewed, CBC shows a fluctuating leukocytosis, stable H&H and platelet count; unfortunately her BNP is increasing, urine culture shows pansensitive Escherichia coli. Impressions: Chest X-Ray 07/01/16 00:00 IMPRESSION: Stable chest status post extubation. Assessment & Plan - Diagnosis (1) Acute respiratory failure with hypoxia and hypercapnia Is this a current diagnosis for this admission?: YesPlan: Continue supplemental O2, nebulized therapy. Successfully extubated on 2016. No prior history of lung disease or significant tobacco use. (2) Acute cholecystitis Is this a current diagnosis for this admission?: YesPlan: Stable. Status post laparoscopic cholecystectomy with possible choledocholithiasis status post ERCP with sphincterotomy but no stone identified. (3) Urinary tract infection Qualifiers: Urinary tract infection type: site unspecified Hematuria presence: without hematuria Qualified Code(s): N39.0 - Urinary tract infection, site not specified Is this a current diagnosis for this admission?: YesPlan: Asymptomatic bacteriuria, by lab criteria. Urine culture demonstrates greater than 100,000 colony-forming units of pansensitive Escherichia coli. Continue antibiotics for the above. (4) Choledocholithiasis Is this a current diagnosis for this admission?: YesPlan: As above. No change (5) Acute encephalopathy Is this a current diagnosis for this admission?: YesPlan: Multifactorial, Secondary to hypoxia and developing sepsis with a waxing and waning course. Try to wean centrally acting agents as possible. Soft wrist restraints as needed for her own protection. (6) Pneumonia Qualifiers: Pneumonia type: due to unspecified organism Laterality: bilateral Lung location: unspecified part of lung Qualified Code(s): J18.9 - Pneumonia, unspecified organism Is this a current diagnosis for this admission?: YesPlan: Continue broad antibiotic coverage for HCAP. tracheal aspirate for culture shows no growth including no normal respiratory hood. (7) Acute systolic heart failure Is this a current diagnosis for this admission?: YesPlan: There is likely a component of systolic heart failure, complicating her respiratory status, daily dosing of diuretics. Monitor her volume status carefully. Cardiology following available as needed. Trend BNP. (8) Coronary artery disease Qualifiers: Coronary Disease-Associated Artery/Lesion type: [place] artery Associated angina: angina presence unspecified Is this a current diagnosis for this admission?: YesPlan: Cardiology following, postoperative troponin within normal limits and EKG shows no ischemic changes. (9) Hypertension Qualifiers: Hypertension type: essential hypertension Qualified Code(s): I10 - Essential (primary) hypertension Is this a current diagnosis for this admission?: YesPlan: Well-controlled prior to this acute event, we'll need to trend based on her response to treatment of her new insult. Target blood pressure less than 140/ 90. Holding LUIS inhibitor since admission. (10) Ischemic cardiomyopathy Is this a current diagnosis for this admission?: YesPlan: Chronic. (11) Nutrition disorder Is this a current diagnosis for this admission?: YesPlan: Tolerated tube feeds while intubated, advance diet as tolerated now that she is extubated. - Time Time Spent with patient: 25-34 minutes Anticipated discharge: Home Within: within 72 hours - Plan Summary Plan Summary: Anticipate she will need at least a couple of more days in the hospital given the degree of encephalopathy and her waxing and waning course. The pneumonia is an unfortunate turn of events and will need an appropriate course of antibiotics.
--- NOTE | 2016-07-02 19:22 | PDOC PROGRESS REPORT ---
Subjective Progress Note for:: 07/02/16 Subjective:: Patient extubated yesterday. She has remained stable as regards respiratory status. In fact today looks much less short of breath. She is maintaining sinus rhythm. Tachycardia is less. Respirations easier. There is no other significant change in general condition. Patient however remains intermittently agitated and confused. Medications reviewed. Patient is maintaining sinus rhythm. Review of systems: Rest review of systems negative. Medications: Medications have been reviewed. Physical Exam Vital Signs: Temp Pulse Resp BP Pulse Ox 98.8 F 93 16 129/66 H 99 07/02/16 15:20 07/02/16 15:20 07/02/16 15:20 07/02/16 15:20 07/02/16 16:10 Intake & Output 07/01/16 07/02/16 07/03/16 06:59 06:59 06:59 Intake Total 2793 1373 208 Output Total 1755 5260 1999 Balance 2768 -7220 -1229 Weight 86.5 kg 84.1 kg 83.3 kg Exam: GENERAL: well-nourished and in no acute distress. Patient is alert but not oriented to place time or person. HEAD: Atraumatic, normocephalic. EYES: Pupils equal round and reactive to light, extraocular movements intact, sclera anicteric, conjunctiva are normal. ENT: TMs normal, nares patent, oropharynx clear without exudates. Moist mucous membranes. No oral ulcerations or bleeding gums noted NECK: supple without lymphadenopathy or JVD. Trachea is central. No cervical or axillary lymphadenopathy noted. Carotids are 2+ LUNGS: Breath sounds bibasilar fine crackles at bases. No significant dullness noted. CHEST: Palpation of chest wall shows no significant chest wall tenderness. 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 ABDOMEN: Soft, no significant tenderness appreciated, normoactive bowel sounds. No guarding, no rebound. No rigidity noted . No masses appreciated. EXTREMITIES: Pedal pulses are 1-2+, no calf tenderness noted, Trace + pedal edema noted. No clubbing or cyanosis. NEUROLOGICAL: Patient is alert but is not able to participate in neurological exam because of patient's current mental status PSYCH: Patient cannot participate in a neurologic and psych exam because of the patient's current mental status SKIN: No significant ecchymosis, rash, ulcerations or signs of pruritus noted. MUSCULOSKELETAL EXAM: No significant joint swelling noted. Results Laboratory Results: 07/02/16 06:03 07/02/16 06:03 07/02/16 07/02/16 07/02/16 06:03 06:03 06:52 WBC 11.0 H RBC 3.63 L Hgb 11.0 L Hct 32.2 L MCV 89 MCH 30.2 MCHC 34.1 RDW 13.5 Plt Count 248 Seg Neutrophils % 75.2 Lymphocytes % 12.8 L Monocytes % 9.8 Eosinophils % 1.9 Basophils % 0.3 Absolute Neutrophils 8.3 H Absolute Lymphocytes 1.4 Absolute Monocytes 1.1 Absolute Eosinophils 0.2 Absolute Basophils 0.0 Sodium 143.7 Potassium 3.8 Chloride 110 H Carbon Dioxide 26 Anion Gap 8 BUN 9 Creatinine 0.66 Est GFR ( Amer) > 60 Est GFR (Non-Af Amer) > 60 Glucose 106 Calcium 8.5 Phosphorus 3.4 Magnesium 1.7 Total Bilirubin 0.8 AST 32 ALT 52 Alkaline Phosphatase 102 Total Protein 6.0 L Albumin 2.9 L Urine Color STRAW Urine Appearance CLEAR Urine pH 5.0 Ur Specific [place] 1.016 Urine Protein NEGATIVE Urine Glucose (UA) NEGATIVE Urine Ketones 100 H Urine Blood SMALL H Urine Nitrite NEGATIVE Ur Leukocyte Esterase NEGATIVE Urine WBC (Auto) 1 Urine RBC (Auto) 3 06/29/16 06/29/16 06/29/16 04:00 04:00 04:53 Creatine Kinase Cancelled CK-MB (CK-2) Cancelled 3.16 Troponin I Cancelled 0.080 NT-Pro-B Natriuret Pep 06/29/16 06/29/16 06/30/16 04:53 04:53 05:13 Creatine Kinase 140 H CK-MB (CK-2) Troponin I NT-Pro-B Natriuret Pep 4530 H 2570 H 07/01/16 07/02/16 05:25 06:03 Creatine Kinase CK-MB (CK-2) Troponin I NT-Pro-B Natriuret Pep 2570 H 5080 H Impressions: Abdomen Ultrasound 06/26/16 08:03 IMPRESSION: Pericholecystic fluid, gallbladder wall thickening, positive sonographic Mcpherson's sign and multiple small gallstones. Findings worrisome for acute cholecystitis. Cholangiogram 06/27/16 00:00 IMPRESSION: INTRAOPERATIVE CHOLANGIOGRAM. Catheter Placement 06/28/16 00:00 IMPRESSION: IMAGE(S) OBTAINED DURING PROCEDURE. Chest X-Ray 07/01/16 00:00 IMPRESSION: Stable chest status post extubation. Assessment & Plan - Diagnosis (1) Coronary artery disease Qualifiers: Coronary Disease-Associated Artery/Lesion type: [place] artery Associated angina: angina presence unspecified Is this a current diagnosis for this admission?: Yes (2) Abdominal pain Qualifiers: Abdominal location: right upper quadrant Qualified Code(s): R10.11 - Right upper quadrant pain Is this a current diagnosis for this admission?: Yes (3) Cholecystitis Is this a current diagnosis for this admission?: Yes (4) Hypertension Qualifiers: Hypertension type: essential hypertension Qualified Code(s): I10 - Essential (primary) hypertension Is this a current diagnosis for this admission?: Yes (5) Pulmonary edema Qualifiers: Chronicity: acute Qualified Code(s): J81.0 - Acute pulmonary edema Is this a current diagnosis for this admission?: Yes (6) CHF (congestive heart failure) Qualifiers: Congestive heart failure type: combined Congestive heart failure chronicity: acute on chronic Qualified Code(s): I50.43 - Acute on chronic combined systolic (congestive) and diastolic (congestive) heart failure Is this a current diagnosis for this admission?: Yes (7) Acute respiratory failure with hypoxia and hypercapnia Is this a current diagnosis for this admission?: Yes (8) Hypotension (arterial) Qualifiers: Hypotension type: unspecified hypotension type Qualified Code(s): I95.9 - Hypotension, unspecified Is this a current diagnosis for this admission?: Yes - Notes Notes: Acute respiratory failure: Patient currently maintaining good respiration and oxygenation. She still needing oxygen supplementation. Patient noted to be Patient being monitored very closely to make sure that her respiratory status is taken care of. Congestive heart failure: Clinically seems to be stable. Recommend maintenance diuretic therapy. Status post cholecystectomy for acute cholecystitis: Currently stable. Patient may have residual common bile duct stone. May need further follow-up testing. Coronary artery disease: No evidence of ongoing ischemia. Hypotension: Blood pressure now stable. Will gradually add beta blockers and niki inhibitors as tolerated. Overall prognosis is guarded. General condition improved and is being transferred out of the unit. - Time Time with patient: 15-25 minutes - CODE STATUS was discussed, patient remains full code. Surrogate decision-maker unchanged. Multiple medical problems were addressed.More than 50% of the time spent coordinating care, discussing management plans with involved caregivers. Management plans discussed with involved personnels. Medical decision making was of moderate complexity.
[2016-07-03] MEDS: ATENOLOL 50 MG TABLET PO SCH ×3 (00:42→22:59)
[2016-07-03] MEDS: PIPERACILLIN SODIUM/TAZOBACTAM 4.5 GM in NORMAL SALINE 100 ML IV SCH ×4 (00:49→17:49)
[2016-07-03] MEDS: LORAZEPAM INJ 2 MG/1 ML VIAL IV PRN (04:01)
[2016-07-03 06:42] LABS: ALANINE AMINOTRANSFERASE 58 U/L (9-52); ALBUMIN 3.2 g/dL (3.5-5.0); ALKALINE PHOSPHATASE 101 U/L (38-126); ANION GAP 9 (5-19); ASPARTATE AMINO TRANSFERASE 45 U/L (14-36); BILIRUBIN,TOTAL 0.9 mg/dL (0.2-1.3); BLOOD UREA NITROGEN 10 mg/dL (7-20); CALCIUM 9.1 mg/dL (8.4-10.2); CARBON DIOXIDE 31 mmol/L (22-30); CHLORIDE 102 mmol/L (98-107); CREATININE RESULT 0.66 mg/dL (0.52-1.25); GLUCOSE 96 mg/dL (75-110); POTASSIUM 3.7 mmol/L (3.6-5.0); SODIUM 142.3 mmol/L (137-145); TOTAL PROTEIN 6.4 g/dL (6.3-8.2); TRIGLYCERIDES 136 mg/dL (<150)
[2016-07-03] MEDS ORDERED: FUROSEMIDE 40 MG TABLET PO SCH (10:00)
[2016-07-03 10:53] LABS: CREATININE RESULT 0.67 mg/dL (0.52-1.25)
[2016-07-03] MEDS: LACTOBACILLUS ACIDOPHILUS 250 MG TAB PO SCH ×2 (11:10→17:57)
[2016-07-03] MEDS: CIPROFLOXACIN 400 MG/D5W RTU 400 MG/200 ML RTUPB IV SCH ×2 (11:12→22:59)
[2016-07-03] MEDS: FAMOTIDINE INJ/PF 20 MG/2 ML SDV IV SCH ×2 (11:12→22:59)
[2016-07-03] MEDS: ENOXAPARIN SODIUM INJ 40 MG/0.4 ML DISP.SYRIN SUBCUT SCH (11:15)
[2016-07-03] MEDS ORDERED: RISPERIDONE 0.5 MG TAB.RAPDIS PO ONE (12:00)
--- NOTE | 2016-07-03 15:17 | PDOC PROGRESS REPORT ---
Subjective Progress Note for:: 07/03/16 Subjective:: improved SOB , but very confused delirium started yesterday with agitation , confusion no fever or chills family at bedside Physical Exam Vital Signs: Temp Pulse Resp BP Pulse Ox 98.5 F 112 H 20 147/96 H 100 07/03/16 07:58 07/03/16 07:58 07/03/16 07:58 07/03/16 07:58 07/03/16 07:58 Intake & Output 07/02/16 07/03/16 07/04/16 00:59 00:59 00:59 Intake Total 2776 362 840 Output Total 4685 3925 1625 Balance -1909 -3563 -785 Weight 86.5 kg 83.3 kg 81 kg General appearance: PRESENT: mild distress, thin Head exam: PRESENT: atraumatic, normocephalic Eye exam: PRESENT: conjunctiva pink, EOMI, PERRLA. ABSENT: scleral icterus Neck exam: ABSENT: carotid bruit, JVD, lymphadenopathy, thyromegaly Respiratory exam: PRESENT: clear to auscultation jessy. ABSENT: rales, rhonchi, wheezes Cardiovascular exam: PRESENT: RRR. ABSENT: diastolic murmur, rubs, systolic murmur GI/Abdominal exam: PRESENT: normal bowel sounds, soft. ABSENT: distended, guarding, mass, organolmegaly, rebound, tenderness Extremities exam: PRESENT: calf tenderness Neurological exam: PRESENT: altered, other - confused Psychiatric exam: PRESENT: anxious Results Laboratory Results: 07/02/16 06:03 07/03/16 10:20 07/03/16 07/03/16 05:15 10:20 Sodium 142.3 Potassium 3.7 Chloride 102 Carbon Dioxide 31 H Anion Gap 9 BUN 10 Creatinine 0.66 0.67 Est GFR ( Amer) > 60 > 60 Est GFR (Non-Af Amer) > 60 > 60 Glucose 96 Calcium 9.1 Total Bilirubin 0.9 AST 45 H ALT 58 H Alkaline Phosphatase 101 Total Protein 6.4 Albumin 3.2 L Triglycerides 136 06/29/16 06/29/16 06/29/16 04:00 04:00 04:53 Creatine Kinase Cancelled CK-MB (CK-2) Cancelled 3.16 Troponin I Cancelled 0.080 NT-Pro-B Natriuret Pep 06/29/16 06/29/16 06/30/16 04:53 04:53 05:13 Creatine Kinase 140 H CK-MB (CK-2) Troponin I NT-Pro-B Natriuret Pep 4530 H 2570 H 07/01/16 07/02/16 07/03/16 05:25 06:03 05:15 Creatine Kinase CK-MB (CK-2) Troponin I NT-Pro-B Natriuret Pep 2570 H 5080 H 6320 H Impressions: Abdomen Ultrasound 06/26/16 08:03 IMPRESSION: Pericholecystic fluid, gallbladder wall thickening, positive sonographic Mcpherson's sign and multiple small gallstones. Findings worrisome for acute cholecystitis. Cholangiogram 06/27/16 00:00 IMPRESSION: INTRAOPERATIVE CHOLANGIOGRAM. Catheter Placement 06/28/16 00:00 IMPRESSION: IMAGE(S) OBTAINED DURING PROCEDURE. Chest X-Ray 07/03/16 06:00 IMPRESSION: Improved aeration left lower lobe. Assessment & Plan - Diagnosis (1) Acute encephalopathy Is this a current diagnosis for this admission?: YesPlan: will start risperdal sitter was requested (2) Acute respiratory failure with hypoxia and hypercapnia Is this a current diagnosis for this admission?: YesPlan: improved continue nasal O2 (3) Acute cholecystitis Is this a current diagnosis for this admission?: Yes (4) CHF (congestive heart failure) Qualifiers: Congestive heart failure type: combined Congestive heart failure chronicity: acute on chronic Qualified Code(s): I50.43 - Acute on chronic combined systolic (congestive) and diastolic (congestive) heart failure Is this a current diagnosis for this admission?: YesPlan: continue present management - Time Time Spent with patient: patient passed swallow eval will initiate diet PT evaluation may be transfered to medical unit in am if remains stable Time Spent with patient: 15-24 minutes
[2016-07-03] MEDS ORDERED: RISPERIDONE 0.5 MG TAB.RAPDIS PO SCH (22:00)
--- NOTE | 2016-07-03 22:38 | PDOC PROGRESS REPORT ---
Subjective Progress Note for:: 07/03/16 Subjective:: Patient extubated yesterday. She has remained stable as regards respiratory status. In fact today looks much less short of breath. She is maintaining sinus rhythm. Tachycardia is less. Respirations easier. There is no other significant change in general condition. Patient however remains intermittently agitated and confused. Patient is more verbal today but is confused. Medications reviewed. Patient is maintaining sinus rhythm. Review of systems: Rest review of systems negative. Medications: Medications have been reviewed. Physical Exam Vital Signs: Temp Pulse Resp BP Pulse Ox 97.5 F 88 17 132/70 H 100 07/03/16 16:19 07/03/16 16:19 07/03/16 16:19 07/03/16 16:19 07/03/16 18:26 Intake & Output 07/02/16 07/03/16 07/04/16 06:59 06:59 06:59 Intake Total 1373 928 790 Output Total 5260 3925 1500 Balance -3887 -2997 -710 Weight 84.1 kg 81 kg Exam: GENERAL: well-nourished and in no acute distress. Alert and oriented 1 HEAD: Atraumatic, normocephalic. EYES: Pupils equal round and reactive to light, extraocular movements intact, sclera anicteric, conjunctiva are normal. ENT: TMs normal, nares patent, oropharynx clear without exudates. Moist mucous membranes. No oral ulcerations or bleeding gums noted NECK: supple without lymphadenopathy. Trachea is central. No cervical or axillary lymphadenopathy noted. Carotids are 2+, JVD WNL LUNGS: Respiration seems nonlabored, no significant accessory muscle action noted. Bibasal a fine crackles are noted. No significant dullness noted on percussion. CHEST: Palpation of the chest wall shows no significant chest wall tenderness. No other significant abnormalities noted. HEART: [place] [employer], No PSH, 1/6 BILL aortic area, 1/6 pearson systolic murmur mitral area, no rubs, no gallops. ABDOMEN: Soft, no significant tenderness appreciated, normoactive bowel sounds. No guarding, no rebound. No rigidity noted . No masses appreciated. EXTREMITIES: Pedal pulses are 1-2+, no calf tenderness noted. No clubbing or cyanosis.trace to 1+ pedal edema noted NEUROLOGICAL: Focused neurological exam showed no significant neurologic deficit. Normal speech, no focal weakness appreciated. Patient is however confused and has agitation PSYCH: This could not be evaluated because of infusion.. SKIN: No significant ecchymosis, rash, ulcerations or signs of pruritus noted. MUSCULOSKELETAL EXAM: No significant joint swelling noted. Results Laboratory Results: 07/02/16 06:03 07/03/16 10:20 07/03/16 07/03/16 05:15 10:20 Sodium 142.3 Potassium 3.7 Chloride 102 Carbon Dioxide 31 H Anion Gap 9 BUN 10 Creatinine 0.66 0.67 Est GFR ( Amer) > 60 > 60 Est GFR (Non-Af Amer) > 60 > 60 Glucose 96 Calcium 9.1 Total Bilirubin 0.9 AST 45 H ALT 58 H Alkaline Phosphatase 101 Total Protein 6.4 Albumin 3.2 L Triglycerides 136 06/29/16 06/29/16 06/29/16 04:00 04:00 04:53 Creatine Kinase Cancelled CK-MB (CK-2) Cancelled 3.16 Troponin I Cancelled 0.080 NT-Pro-B Natriuret Pep 06/29/16 06/29/16 06/30/16 04:53 04:53 05:13 Creatine Kinase 140 H CK-MB (CK-2) Troponin I NT-Pro-B Natriuret Pep 4530 H 2570 H 07/01/16 07/02/16 07/03/16 05:25 06:03 05:15 Creatine Kinase CK-MB (CK-2) Troponin I NT-Pro-B Natriuret Pep 2570 H 5080 H 6320 H Impressions: Abdomen Ultrasound 06/26/16 08:03 IMPRESSION: Pericholecystic fluid, gallbladder wall thickening, positive sonographic Mcpherson's sign and multiple small gallstones. Findings worrisome for acute cholecystitis. Cholangiogram 06/27/16 00:00 IMPRESSION: INTRAOPERATIVE CHOLANGIOGRAM. Catheter Placement 06/28/16 00:00 IMPRESSION: IMAGE(S) OBTAINED DURING PROCEDURE. Chest X-Ray 07/03/16 06:00 IMPRESSION: Improved aeration left lower lobe. Assessment & Plan - Diagnosis (1) Coronary artery disease Qualifiers: Coronary Disease-Associated Artery/Lesion type: [place] artery Associated angina: angina presence unspecified Is this a current diagnosis for this admission?: Yes (2) Abdominal pain Qualifiers: Abdominal location: right upper quadrant Qualified Code(s): R10.11 - Right upper quadrant pain Is this a current diagnosis for this admission?: Yes (3) Cholecystitis Is this a current diagnosis for this admission?: Yes (4) Hypertension Qualifiers: Hypertension type: essential hypertension Qualified Code(s): I10 - Essential (primary) hypertension Is this a current diagnosis for this admission?: Yes (5) Pulmonary edema Qualifiers: Chronicity: acute Qualified Code(s): J81.0 - Acute pulmonary edema Is this a current diagnosis for this admission?: Yes (6) CHF (congestive heart failure) Qualifiers: Congestive heart failure type: combined Congestive heart failure chronicity: acute on chronic Qualified Code(s): I50.43 - Acute on chronic combined systolic (congestive) and diastolic (congestive) heart failure Is this a current diagnosis for this admission?: Yes (7) Acute respiratory failure with hypoxia and hypercapnia Is this a current diagnosis for this admission?: Yes (8) Hypotension (arterial) Qualifiers: Hypotension type: unspecified hypotension type Qualified Code(s): I95.9 - Hypotension, unspecified Is this a current diagnosis for this admission?: Yes - Notes Notes: Acute respiratory failure: Resolved. Hypotension: Resolved. CHF: Seems compensated clinically. Pulmonary edema: Resolved based on chest x-ray. Hypertension: Relatively well controlled. Status post cholecystectomy: There is question of residual common bile duct stone. CAD: Patient stable. Telemetry strips shows sinus rhythm. At this point will sign off. Patient has been stable. Please reconsult if needed. - Time Time with patient: 15-25 minutes - CODE STATUS was discussed, patient remains full code. Surrogate decision-maker unchanged. Multiple medical problems were addressed.More than 50% of the time spent coordinating care, discussing management plans with involved caregivers. Management plans discussed with involved personnels. Medical decision making was of moderate complexity.
[2016-07-04] MEDS: PIPERACILLIN SODIUM/TAZOBACTAM 4.5 GM in NORMAL SALINE 100 ML IV SCH ×2 (00:36→05:27)
[2016-07-04 05:53] LABS: APPEARANCE,URINE CLEAR; BILIRUBIN,URINE NEGATIVE (NEGATIVE); GLUCOSE, URINE NEGATIVE (NEGATIVE); KETONES,URINE 20 mg/dL (NEGATIVE); LEUKOCYTE ESTERASE,URINE TRACE (NEGATIVE); NITRITE,URINE NEGATIVE (NEGATIVE); PROTEIN,URINE 30 mg/dL (NEGATIVE); URINE SPECIFIC GRAVITY 1.014; UROBILINOGEN,URINE NEGATIVE mg/dL (<2.0)
[2016-07-04 06:10] LABS: HEMOGLOBIN 11.4 g/dL (12.0-15.5); HGB HCT DIFFERENCE 0.2; MEAN CORPUSCULAR HEMOGLOBIN 29.2 pg (27.0-33.4); MEAN CORPUSCULAR HGB CONC 33.4 g/dL (32.0-36.0); MEAN CORPUSCULAR VOLUME 88 fl (80-97); RED BLOOD COUNT 3.88 10^6/uL (3.72-5.28); RED CELL DISTRIBUTION WIDTH 12.7 % (11.5-14.0); WHITE BLOOD COUNT 11.8 10^3/uL (4.0-10.5)
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
[2016-07-04] MEDS: FAMOTIDINE INJ/PF 20 MG/2 ML SDV IV SCH ×2 (09:30→22:03)
[2016-07-04] MEDS: ATENOLOL 50 MG TABLET PO SCH ×2 (09:31→22:01)
[2016-07-04] MEDS: ENOXAPARIN SODIUM INJ 40 MG/0.4 ML DISP.SYRIN SUBCUT SCH (09:33)
[2016-07-04] MEDS: LACTOBACILLUS ACIDOPHILUS 250 MG TAB PO SCH ×2 (09:43→17:28)
[2016-07-04] MEDS ORDERED: RISPERIDONE 0.5 MG TAB.RAPDIS PO SCH ×2 (10:00→22:30)
[2016-07-04] MEDS ORDERED: FUROSEMIDE INJ/PF 20 MG/2 ML SDV IV ONE (10:00)
[2016-07-04] MEDS: CIPROFLOXACIN HCL 500 MG TABLET PO SCH ×2 (11:54→22:01)
[2016-07-04] MEDS: POTASSIUM CHLORIDE 20 MEQ/15 ML UDCUP PO SCH (11:55)
[2016-07-04] MEDS: LISINOPRIL 10 MG TABLET PO SCH (11:55)
[2016-07-04] MEDS ORDERED: RISPERIDONE 1 MG TAB.RAPDIS PO SCH (22:00)
[2016-07-05] MEDS ORDERED: LORAZEPAM INJ 2 MG/1 ML VIAL IV ONE (02:09)
[2016-07-05 06:46] LABS: ANION GAP 7 (5-19); BLOOD UREA NITROGEN 27 mg/dL (7-20); CALCIUM 8.7 mg/dL (8.4-10.2); CARBON DIOXIDE 36 mmol/L (22-30); CHLORIDE 100 mmol/L (98-107); CREATININE RESULT 1.13 mg/dL (0.52-1.25); GLUCOSE 114 mg/dL (75-110); POTASSIUM 3.4 mmol/L (3.6-5.0)
[2016-07-05] MEDS ORDERED: HALOPERIDOL LACTATE INJ 5 MG/1 ML VIAL ONE (13:15)
[2016-07-05] MEDS ORDERED: HALOPERIDOL LACTATE INJ 5 MG/1 ML VIAL IV ONE (13:20)
--- NOTE | 2016-07-05 13:21 | PDOC PROGRESS REPORT ---
Subjective Progress Note for:: 07/05/16 Subjective:: Patient is clinically stable but still extremely confused in the evening with "sundowning " had to be sedated last night and soft restraints had to be applied Sister is at bedside , wants to sign patient AMA Patient navigator was called to facilitate We feel strongly that patient cannot be discharged home as she is confused and debilitated Physical Exam Vital Signs: Temp Pulse Resp BP Pulse Ox 98.5 F 77 19 126/71 H 92 07/05/16 11:51 07/05/16 11:51 07/05/16 11:51 07/05/16 11:51 07/05/16 11:51 Intake & Output 07/04/16 07/05/16 07/06/16 00:59 00:59 00:59 Intake Total 1660 851 290 Output Total 4225 2295 325 Balance -2565 -1444 -35 Weight 81 kg 77.4 kg 77.1 kg General appearance: PRESENT: mild distress, thin, other - pale Respiratory exam: PRESENT: clear to auscultation jessy. ABSENT: rales, rhonchi, wheezes Cardiovascular exam: PRESENT: RRR. ABSENT: diastolic murmur, rubs, systolic murmur GI/Abdominal exam: PRESENT: normal bowel sounds, soft. ABSENT: distended, guarding, mass, organolmegaly, rebound, tenderness Neurological exam: PRESENT: awake, CN II-XII grossly intact Psychiatric exam: PRESENT: agitated Results Laboratory Results: 07/04/16 05:35 07/05/16 05:50 07/05/16 07/05/16 07/05/16 05:50 05:50 05:50 Sodium 143.0 Potassium 3.4 L Chloride 100 Carbon Dioxide 36 H Anion Gap 7 BUN 27 H Creatinine 1.13 Est GFR ( Amer) 56 L Est GFR (Non-Af Amer) 46 L Glucose 114 H Calcium 8.7 Vitamin B12 801.0 TSH 2.54 06/29/16 06:51 Tracheal Aspirate Gram Stain - Final 06/29/16 06:51 Tracheal Aspirate Sputum Culture - Final GREATLY REDUCED NORMAL GLADYS 06/29/16 08:25 Blood Blood Culture - Final NO GROWTH IN 5 DAYS 06/29/16 06/29/16 06/29/16 04:00 04:00 04:53 Creatine Kinase Cancelled CK-MB (CK-2) Cancelled 3.16 Troponin I Cancelled 0.080 NT-Pro-B Natriuret Pep 06/29/16 06/29/16 06/30/16 04:53 04:53 05:13 Creatine Kinase 140 H CK-MB (CK-2) Troponin I NT-Pro-B Natriuret Pep 4530 H 2570 H 07/01/16 07/02/16 07/03/16 05:25 06:03 05:15 Creatine Kinase CK-MB (CK-2) Troponin I NT-Pro-B Natriuret Pep 2570 H 5080 H 6320 H Impressions: Abdomen Ultrasound 06/26/16 08:03 IMPRESSION: Pericholecystic fluid, gallbladder wall thickening, positive sonographic Mcpherson's sign and multiple small gallstones. Findings worrisome for acute cholecystitis. Cholangiogram 06/27/16 00:00 IMPRESSION: INTRAOPERATIVE CHOLANGIOGRAM. Catheter Placement 06/28/16 00:00 IMPRESSION: IMAGE(S) OBTAINED DURING PROCEDURE. Chest X-Ray 07/03/16 06:00 IMPRESSION: Improved aeration left lower lobe. Head CT 07/05/16 08:41 IMPRESSION: No acute findings. Limited study. Motion artifact. Assessment & Plan - Diagnosis (1) Acute encephalopathy Is this a current diagnosis for this admission?: YesPlan: not improving yet patient's condition is worse in the evening will start Zyprexa q12 CT head was negative vitamin B12, TSH normal (2) Acute respiratory failure with hypoxia and hypercapnia Is this a current diagnosis for this admission?: YesPlan: improved resolved (3) Acute cholecystitis Is this a current diagnosis for this admission?: YesPlan: S/P surgery no fever or leukocytosis (4) CHF (congestive heart failure) Qualifiers: Congestive heart failure type: combined Congestive heart failure chronicity: acute on chronic Qualified Code(s): I50.43 - Acute on chronic combined systolic (congestive) and diastolic (congestive) heart failure Is this a current diagnosis for this admission?: Yes - Time Time Spent with patient: Delirium is unfortunately still persistent ; the patient is not very much improved Patient will be treated today was Haldol IV ; we will initiate Zyprexa IM every 12 hours Patient will be transferred to medical unit The patient's sister did realize that she could not take home when she witnessed her aggressive behavior Time Spent with patient: 15-24 minutes
[2016-07-05] MEDS ORDERED: OLANZAPINE 5 MG TABLET PO ONE (14:00)
[2016-07-05] MEDS: CIPROFLOXACIN HCL 500 MG TABLET PO SCH ×2 (15:10→21:57)
[2016-07-05] MEDS: FUROSEMIDE 40 MG TABLET PO SCH (15:10)
[2016-07-05] MEDS: ENOXAPARIN SODIUM INJ 40 MG/0.4 ML DISP.SYRIN SUBCUT SCH (15:10)
[2016-07-05] MEDS: FAMOTIDINE INJ/PF 20 MG/2 ML SDV IV SCH ×2 (15:10→22:05)
[2016-07-05] MEDS: LISINOPRIL 10 MG TABLET PO SCH (15:10)
[2016-07-05] MEDS: LACTOBACILLUS ACIDOPHILUS 250 MG TAB PO SCH ×2 (15:10→18:00)
[2016-07-05] MEDS: ATENOLOL 50 MG TABLET PO SCH ×2 (15:10→22:05)
[2016-07-05] MEDS: POTASSIUM CHLORIDE 20 MEQ/15 ML UDCUP PO SCH (15:10)
[2016-07-05] MEDS ORDERED: OLANZAPINE 5 MG TABLET PO SCH (22:00)
[2016-07-05] MEDS: OLANZAPINE INJ/PF 10 MG SDV IM SCH (22:06)
[2016-07-06 08:29] LABS: ANION GAP 7 (5-19); BLOOD UREA NITROGEN 31 mg/dL (7-20); CALCIUM 9.1 mg/dL (8.4-10.2); CARBON DIOXIDE 34 mmol/L (22-30); CHLORIDE 103 mmol/L (98-107); CREATININE RESULT 1.05 mg/dL (0.52-1.25); GLUCOSE 92 mg/dL (75-110); POTASSIUM 3.6 mmol/L (3.6-5.0); TRIGLYCERIDES 126 mg/dL (<150)
[2016-07-06 08:41] LABS: HEMATOCRIT 34.4 % (36.0-47.0); HEMOGLOBIN 11.4 g/dL (12.0-15.5); HGB HCT DIFFERENCE -0.2; MEAN CORPUSCULAR HEMOGLOBIN 29.1 pg (27.0-33.4); MEAN CORPUSCULAR HGB CONC 33.3 g/dL (32.0-36.0); MEAN CORPUSCULAR VOLUME 88 fl (80-97); RED BLOOD COUNT 3.93 10^6/uL (3.72-5.28); RED CELL DISTRIBUTION WIDTH 13.2 % (11.5-14.0); WHITE BLOOD COUNT 14.2 10^3/uL (4.0-10.5)
[2016-07-06] MEDS: FUROSEMIDE 40 MG TABLET PO SCH (09:21)
[2016-07-06] MEDS: FAMOTIDINE INJ/PF 20 MG/2 ML SDV IV SCH ×2 (09:21→21:53)
[2016-07-06] MEDS: LISINOPRIL 10 MG TABLET PO SCH (09:22)
[2016-07-06] MEDS: ATENOLOL 50 MG TABLET PO SCH (09:22)
[2016-07-06] MEDS: LACTOBACILLUS ACIDOPHILUS 250 MG TAB PO SCH ×2 (09:22→16:29)
[2016-07-06] MEDS: CIPROFLOXACIN HCL 500 MG TABLET PO SCH (09:22)
[2016-07-06] MEDS: POTASSIUM CHLORIDE 20 MEQ/15 ML UDCUP PO SCH (09:23)
[2016-07-06] MEDS: ENOXAPARIN SODIUM INJ 40 MG/0.4 ML DISP.SYRIN SUBCUT SCH (09:27)
[2016-07-06] MEDS ORDERED: OLANZAPINE 5 MG TABLET PO SCH (10:00)
[2016-07-06] MEDS ORDERED: OLANZAPINE 2.5 MG TABLET PO SCH (10:00)
--- NOTE | 2016-07-06 11:28 | PDOC PROGRESS REPORT ---
Subjective Progress Note for:: 07/06/16 Subjective:: Patient is less agitated this morning, off restrains alert awake answering some questions appropriately sitter at bedside Physical Exam Vital Signs: Temp Pulse Resp BP Pulse Ox 98.7 F 87 16 130/62 H 91 L 07/06/16 07:41 07/06/16 07:41 07/06/16 07:41 07/06/16 07:41 07/06/16 07:41 Intake & Output 07/05/16 07/06/16 07/07/16 00:59 00:59 00:59 Intake Total 851 587 140 Output Total 2295 800 450 Balance -1444 -213 -310 Weight 77.4 kg 77.1 kg 77.4 kg General appearance: PRESENT: other - looks ill Head exam: PRESENT: atraumatic, normocephalic Eye exam: PRESENT: conjunctiva pink, EOMI, PERRLA. ABSENT: scleral icterus Ear exam: PRESENT: normal external ear exam Mouth exam: PRESENT: moist, tongue midline Neck exam: ABSENT: carotid bruit, JVD, lymphadenopathy, thyromegaly Respiratory exam: PRESENT: clear to auscultation jessy. ABSENT: rales, rhonchi, wheezes Cardiovascular exam: PRESENT: RRR. ABSENT: diastolic murmur, rubs, systolic murmur Pulses: PRESENT: normal dorsalis pedis pul Vascular exam: PRESENT: normal capillary refill GI/Abdominal exam: PRESENT: normal bowel sounds, soft. ABSENT: distended, guarding, mass, organolmegaly, rebound, tenderness Rectal exam: PRESENT: deferred Extremities exam: PRESENT: full ROM. ABSENT: calf tenderness, clubbing, pedal edema Neurological exam: PRESENT: awake, CN II-XII grossly intact. ABSENT: motor sensory deficit Psychiatric exam: PRESENT: flat affect Skin exam: PRESENT: dry, intact, warm. ABSENT: cyanosis, rash Results Laboratory Results: 07/06/16 06:55 07/06/16 06:55 07/06/16 07/06/16 06:55 06:55 WBC 14.2 H RBC 3.93 Hgb 11.4 L Hct 34.4 L MCV 88 MCH 29.1 MCHC 33.3 RDW 13.2 Plt Count 319 Sodium 144.0 Potassium 3.6 Chloride 103 Carbon Dioxide 34 H Anion Gap 7 BUN 31 H Creatinine 1.05 Est GFR ( Amer) > 60 Est GFR (Non-Af Amer) 50 L Glucose 92 Calcium 9.1 Triglycerides 126 06/29/16 06/29/16 06/29/16 04:00 04:00 04:53 Creatine Kinase Cancelled CK-MB (CK-2) Cancelled 3.16 Troponin I Cancelled 0.080 NT-Pro-B Natriuret Pep 06/29/16 06/29/16 06/30/16 04:53 04:53 05:13 Creatine Kinase 140 H CK-MB (CK-2) Troponin I NT-Pro-B Natriuret Pep 4530 H 2570 H 07/01/16 07/02/16 07/03/16 05:25 06:03 05:15 Creatine Kinase CK-MB (CK-2) Troponin I NT-Pro-B Natriuret Pep 2570 H 5080 H 6320 H 07/06/16 06:55 Creatine Kinase CK-MB (CK-2) Troponin I NT-Pro-B Natriuret Pep 2020 H Impressions: Abdomen Ultrasound 06/26/16 08:03 IMPRESSION: Pericholecystic fluid, gallbladder wall thickening, positive sonographic Mcpherson's sign and multiple small gallstones. Findings worrisome for acute cholecystitis. Cholangiogram 06/27/16 00:00 IMPRESSION: INTRAOPERATIVE CHOLANGIOGRAM. Catheter Placement 06/28/16 00:00 IMPRESSION: IMAGE(S) OBTAINED DURING PROCEDURE. Chest X-Ray 07/03/16 06:00 IMPRESSION: Improved aeration left lower lobe. Head CT 07/05/16 08:41 IMPRESSION: No acute findings. Limited study. Motion artifact. Assessment & Plan - Diagnosis (1) Acute encephalopathy Is this a current diagnosis for this admission?: YesPlan: still persistent will continue small doses of zyprexa transfer to SNF next week when clinically stable (2) Acute respiratory failure with hypoxia and hypercapnia Is this a current diagnosis for this admission?: Yes (3) Acute cholecystitis Is this a current diagnosis for this admission?: Yes (4) CHF (congestive heart failure) Qualifiers: Congestive heart failure type: combined Congestive heart failure chronicity: acute on chronic Qualified Code(s): I50.43 - Acute on chronic combined systolic (congestive) and diastolic (congestive) heart failure Is this a current diagnosis for this admission?: Yes - Time Time Spent with patient: noted leukocytosis 14.000 no fever or vomiting will repeat labs in am Time Spent with patient: 25-34 minutes
[2016-07-06 13:59] LABS: APPEARANCE,URINE CLEAR; BILIRUBIN,URINE NEGATIVE (NEGATIVE); GLUCOSE, URINE NEGATIVE (NEGATIVE); KETONES,URINE 20 mg/dL (NEGATIVE); LEUKOCYTE ESTERASE,URINE NEGATIVE (NEGATIVE); NITRITE,URINE NEGATIVE (NEGATIVE); PROTEIN,URINE NEGATIVE (NEGATIVE); URINE SPECIFIC GRAVITY 1.016; UROBILINOGEN,URINE NEGATIVE mg/dL (<2.0)
[2016-07-06] MEDS: OLANZAPINE INJ/PF 10 MG SDV IM SCH ×2 (14:28→21:41)
[2016-07-07] MEDS: ATENOLOL 50 MG TABLET PO SCH ×3 (00:03→21:05)
[2016-07-07 06:37] LABS: ABSOLUTE BASOPHILS # (AUTO) 0.1 10^3/uL (0.0-0.2); ABSOLUTE EOSINOPHILS # (AUTO) 0.5 10^3/uL (0.0-0.6); ABSOLUTE LYMPHOCYTES (AUTO) 1.8 10^3/uL (0.5-4.7); ABSOLUTE MONOCYTES (AUTO) 1.3 10^3/uL (0.1-1.4); ABSOLUTE NEUT (AUTO) 8.3 10^3/uL (1.7-8.2); BASOPHILS % (AUTO) 0.6 % (0-2); EOSINOPHILS % (AUTO) 3.9 % (0-6); HEMATOCRIT 35.7 % (36.0-47.0); HEMOGLOBIN 11.8 g/dL (12.0-15.5); HGB HCT DIFFERENCE -0.3; LYMPHOCYTES % (AUTO) 15.4 % (13-45); MEAN CORPUSCULAR HGB CONC 33.1 g/dL (32.0-36.0); MEAN CORPUSCULAR VOLUME 88 fl (80-97); MONOCYTES % (AUTO) 10.8 % (3-13); RED BLOOD COUNT 4.07 10^6/uL (3.72-5.28); RED CELL DISTRIBUTION WIDTH 13.2 % (11.5-14.0); SEGMENTED NEUTROPHILS % (AUTO) 69.3 % (42-78)
[2016-07-07 06:56] LABS: ALANINE AMINOTRANSFERASE 41 U/L (9-52); ALBUMIN 3.4 g/dL (3.5-5.0); ALKALINE PHOSPHATASE 90 U/L (38-126); ANION GAP 11 (5-19); ASPARTATE AMINO TRANSFERASE 28 U/L (14-36); BILIRUBIN,TOTAL 0.7 mg/dL (0.2-1.3); BLOOD UREA NITROGEN 32 mg/dL (7-20); CALCIUM 9.2 mg/dL (8.4-10.2); CARBON DIOXIDE 30 mmol/L (22-30); CHLORIDE 103 mmol/L (98-107); CREATININE RESULT 1.38 mg/dL (0.52-1.25); GLUCOSE 114 mg/dL (75-110); POTASSIUM 3.7 mmol/L (3.6-5.0); SODIUM 144.3 mmol/L (137-145); TOTAL PROTEIN 6.5 g/dL (6.3-8.2)
[2016-07-07] MEDS ORDERED: LORAZEPAM INJ 2 MG/1 ML VIAL IV ONE (08:24)
[2016-07-07] MEDS ORDERED: HALOPERIDOL LACTATE INJ 5 MG/1 ML VIAL IV ONE (08:24)
[2016-07-07] MEDS: ENOXAPARIN SODIUM INJ 40 MG/0.4 ML DISP.SYRIN SUBCUT SCH (08:47)
[2016-07-07] MEDS: OLANZAPINE INJ/PF 10 MG SDV IM SCH (09:22)
[2016-07-07] MEDS: FAMOTIDINE INJ/PF 20 MG/2 ML SDV IV SCH ×2 (10:09→21:10)
[2016-07-07] MEDS: FUROSEMIDE 40 MG TABLET PO SCH (10:36)
[2016-07-07] MEDS: POTASSIUM CHLORIDE 20 MEQ/15 ML UDCUP PO SCH (10:36)
[2016-07-07] MEDS: LACTOBACILLUS ACIDOPHILUS 250 MG TAB PO SCH ×2 (10:36→17:06)
[2016-07-07] MEDS: LISINOPRIL 10 MG TABLET PO SCH (10:36)
[2016-07-07] MEDS ORDERED: NORMAL SALINE 1000 ML 1,000 ML IV PRN (14:42)
--- NOTE | 2016-07-07 15:56 | PDOC PROGRESS REPORT ---
Subjective Progress Note for:: 07/07/16 Subjective:: Still extremely confused and combative in the evening and during the night She sedated now She appears ill dehydrated No respiratory distress Physical Exam Vital Signs: Temp Pulse Resp BP Pulse Ox 97.7 F 67 20 117/62 96 07/07/16 11:22 07/07/16 11:22 07/07/16 11:22 07/07/16 11:22 07/07/16 11:22 Intake & Output 07/06/16 07/07/16 07/08/16 00:59 00:59 00:59 Intake Total 587 1100 220 Output Total 800 1300 400 Balance -213 -200 -180 Weight 77.1 kg 77.4 kg 77.6 kg General appearance: PRESENT: mild distress, thin, other - Looks ill Head exam: PRESENT: atraumatic, normocephalic Eye exam: PRESENT: conjunctiva pink, EOMI, PERRLA. ABSENT: scleral icterus Mouth exam: PRESENT: dry mucosa Neck exam: ABSENT: carotid bruit, JVD, lymphadenopathy, thyromegaly Respiratory exam: PRESENT: clear to auscultation jessy. ABSENT: rales, rhonchi, wheezes Pulses: PRESENT: normal dorsalis pedis pul GI/Abdominal exam: PRESENT: normal bowel sounds, soft. ABSENT: distended, guarding, mass, organolmegaly, rebound, tenderness Neurological exam: PRESENT: altered Results Laboratory Results: 07/07/16 06:00 07/07/16 06:00 07/07/16 07/07/16 07/07/16 01:41 06:00 06:00 WBC 12.0 H RBC 4.07 Hgb 11.8 L Hct 35.7 L MCV 88 MCH 29.0 MCHC 33.1 RDW 13.2 Plt Count 341 Seg Neutrophils % 69.3 Lymphocytes % 15.4 Monocytes % 10.8 Eosinophils % 3.9 Basophils % 0.6 Absolute Neutrophils 8.3 H Absolute Lymphocytes 1.8 Absolute Monocytes 1.3 Absolute Eosinophils 0.5 Absolute Basophils 0.1 Sodium 144.3 Potassium 3.7 Chloride 103 Carbon Dioxide 30 Anion Gap 11 BUN 32 H Creatinine 1.38 H Est GFR ( Amer) 44 L Est GFR (Non-Af Amer) 37 L Glucose 114 H Calcium 9.2 Total Bilirubin 0.7 AST 28 ALT 41 Alkaline Phosphatase 90 Total Protein 6.5 Albumin 3.4 L Stool Occult Blood NEGATIVE 06/29/16 06/29/16 06/29/16 04:00 04:00 04:53 Creatine Kinase Cancelled CK-MB (CK-2) Cancelled 3.16 Troponin I Cancelled 0.080 NT-Pro-B Natriuret Pep 06/29/16 06/29/16 06/30/16 04:53 04:53 05:13 Creatine Kinase 140 H CK-MB (CK-2) Troponin I NT-Pro-B Natriuret Pep 4530 H 2570 H 07/01/16 07/02/16 07/03/16 05:25 06:03 05:15 Creatine Kinase CK-MB (CK-2) Troponin I NT-Pro-B Natriuret Pep 2570 H 5080 H 6320 H 07/06/16 06:55 Creatine Kinase CK-MB (CK-2) Troponin I NT-Pro-B Natriuret Pep 2020 H Impressions: Abdomen Ultrasound 06/26/16 08:03 IMPRESSION: Pericholecystic fluid, gallbladder wall thickening, positive sonographic Mcpherson's sign and multiple small gallstones. Findings worrisome for acute cholecystitis. Cholangiogram 06/27/16 00:00 IMPRESSION: INTRAOPERATIVE CHOLANGIOGRAM. Catheter Placement 06/28/16 00:00 IMPRESSION: IMAGE(S) OBTAINED DURING PROCEDURE. Chest X-Ray 07/03/16 06:00 IMPRESSION: Improved aeration left lower lobe. Head CT 07/05/16 08:41 IMPRESSION: No acute findings. Limited study. Motion artifact. Assessment & Plan - Diagnosis (1) Acute encephalopathy Is this a current diagnosis for this admission?: YesPlan: Is persistent We will continue Zyprexa Patient has no focus of infection at this time LFTs were normal yesterday CT of the head vitamin B-12 TSH are normal (2) Acute respiratory failure with hypoxia and hypercapnia Is this a current diagnosis for this admission?: YesPlan: Has resolved patient's oxygenation is adequate (3) Acute cholecystitis Is this a current diagnosis for this admission?: YesPlan: Resolved (4) CHF (congestive heart failure) Qualifiers: Congestive heart failure type: combined Congestive heart failure chronicity: acute on chronic Qualified Code(s): I50.43 - Acute on chronic combined systolic (congestive) and diastolic (congestive) heart failure Is this a current diagnosis for this admission?: YesPlan: Well compensated - Time Time Spent with patient: Continue present management Initiated IV fluids as the patient dry and her creatinine did rise to 1.3 Increase Zyprexa to 5 mg every 12 Reevaluate in a.m. Time Spent with patient: 25-34 minutes
[2016-07-07] MEDS ORDERED: HALOPERIDOL LACTATE INJ 5 MG/1 ML VIAL ONE (18:16)
[2016-07-07] MEDS ORDERED: LORAZEPAM INJ 2 MG/1 ML VIAL ONE (18:17)
[2016-07-07] MEDS: OLANZAPINE 5 MG TABLET PO SCH (21:05)
[2016-07-07] MEDS: HALOPERIDOL LACTATE INJ 5 MG/1 ML VIAL IV PRN (23:28)
[2016-07-07] MEDS: LORAZEPAM INJ 2 MG/1 ML VIAL IV PRN (23:28)
[2016-07-08] MEDS: FAMOTIDINE INJ/PF 20 MG/2 ML SDV IV SCH ×2 (09:13→22:00)
[2016-07-08] MEDS: LACTOBACILLUS ACIDOPHILUS 250 MG TAB PO SCH ×2 (09:13→18:04)
[2016-07-08] MEDS: POTASSIUM CHLORIDE 20 MEQ/15 ML UDCUP PO SCH (09:14)
[2016-07-08] MEDS: LISINOPRIL 10 MG TABLET PO SCH (09:14)
[2016-07-08] MEDS: OLANZAPINE 5 MG TABLET PO SCH ×2 (09:14→21:59)
[2016-07-08] MEDS: ATENOLOL 50 MG TABLET PO SCH ×2 (09:14→21:59)
[2016-07-08] MEDS: ENOXAPARIN SODIUM INJ 40 MG/0.4 ML DISP.SYRIN SUBCUT SCH (09:15)
[2016-07-08] MEDS: NORMAL SALINE 1000 ML 1,000 ML IV PRN (12:24)
--- NOTE | 2016-07-08 17:11 | PDOC PROGRESS REPORT ---
Subjective Progress Note for:: 07/08/16 Subjective:: was still agitated last night no fever no chills resting comfortably now Physical Exam Vital Signs: Temp Pulse Resp BP Pulse Ox 98.5 F 72 16 114/53 L 99 07/08/16 15:40 07/08/16 15:40 07/08/16 15:40 07/08/16 15:40 07/08/16 15:40 Intake & Output 07/07/16 07/08/16 07/09/16 00:59 00:59 00:59 Intake Total 6916 358 1514 Output Total 1300 1400 1300 Balance -200 -430 1959 Weight 77.4 kg 77.6 kg 75.7 kg General appearance: PRESENT: no acute distress, well-nourished Head exam: PRESENT: atraumatic, normocephalic Eye exam: PRESENT: conjunctiva pink, EOMI, PERRLA. ABSENT: scleral icterus Ear exam: PRESENT: normal external ear exam Mouth exam: PRESENT: moist, tongue midline Neck exam: ABSENT: carotid bruit, JVD, lymphadenopathy, thyromegaly Respiratory exam: PRESENT: decreased breath sounds. ABSENT: rales, rhonchi, wheezes Cardiovascular exam: PRESENT: RRR. ABSENT: diastolic murmur, rubs, systolic murmur Pulses: PRESENT: normal dorsalis pedis pul Vascular exam: PRESENT: normal capillary refill GI/Abdominal exam: PRESENT: normal bowel sounds, soft. ABSENT: distended, guarding, mass, organolmegaly, rebound, tenderness Rectal exam: PRESENT: deferred Extremities exam: PRESENT: full ROM. ABSENT: calf tenderness, clubbing, pedal edema Skin exam: PRESENT: dry, intact, warm. ABSENT: cyanosis, rash Results Laboratory Results: 07/07/16 06:00 07/07/16 06:00 06/29/16 06/29/16 06/29/16 04:00 04:00 04:53 Creatine Kinase Cancelled CK-MB (CK-2) Cancelled 3.16 Troponin I Cancelled 0.080 NT-Pro-B Natriuret Pep 06/29/16 06/29/16 06/30/16 04:53 04:53 05:13 Creatine Kinase 140 H CK-MB (CK-2) Troponin I NT-Pro-B Natriuret Pep 4530 H 2570 H 07/01/16 07/02/16 07/03/16 05:25 06:03 05:15 Creatine Kinase CK-MB (CK-2) Troponin I NT-Pro-B Natriuret Pep 2570 H 5080 H 6320 H 07/06/16 06:55 Creatine Kinase CK-MB (CK-2) Troponin I NT-Pro-B Natriuret Pep 2020 H Impressions: Abdomen Ultrasound 06/26/16 08:03 IMPRESSION: Pericholecystic fluid, gallbladder wall thickening, positive sonographic Mcpherson's sign and multiple small gallstones. Findings worrisome for acute cholecystitis. Cholangiogram 06/27/16 00:00 IMPRESSION: INTRAOPERATIVE CHOLANGIOGRAM. Catheter Placement 06/28/16 00:00 IMPRESSION: IMAGE(S) OBTAINED DURING PROCEDURE. Chest X-Ray 07/03/16 06:00 IMPRESSION: Improved aeration left lower lobe. Head CT 07/05/16 08:41 IMPRESSION: No acute findings. Limited study. Motion artifact. Assessment & Plan - Diagnosis (1) Acute encephalopathy Is this a current diagnosis for this admission?: Yes (2) Acute respiratory failure with hypoxia and hypercapnia Is this a current diagnosis for this admission?: Yes (3) Acute cholecystitis Is this a current diagnosis for this admission?: Yes (4) CHF (congestive heart failure) Qualifiers: Congestive heart failure type: combined Congestive heart failure chronicity: acute on chronic Qualified Code(s): I50.43 - Acute on chronic combined systolic (congestive) and diastolic (congestive) heart failure Is this a current diagnosis for this admission?: Yes - Time Time Spent with patient: encephalopathy still persistent continue sedation as needed will repeat labs in am continue iV fluids Time Spent with patient: 25-34 minutes
[2016-07-08] MEDS: LORAZEPAM INJ 2 MG/1 ML VIAL IV PRN (23:17)
[2016-07-09] MEDS: HALOPERIDOL LACTATE INJ 5 MG/1 ML VIAL IV PRN ×2 (00:09→08:00)
[2016-07-09] MEDS ORDERED: RISPERIDONE 0.25 MG TABLET PO PRN (03:32)
[2016-07-09] MEDS ORDERED: RISPERIDONE 0.25 MG TABLET PO ONE (04:00)
[2016-07-09] MEDS ORDERED: RISPERIDONE 0.5 MG TAB.RAPDIS ONE (04:45)
[2016-07-09 06:31] LABS: HEMATOCRIT 33.4 % (36.0-47.0); HEMOGLOBIN 10.8 g/dL (12.0-15.5); MEAN CORPUSCULAR HEMOGLOBIN 28.7 pg (27.0-33.4); MEAN CORPUSCULAR HGB CONC 32.3 g/dL (32.0-36.0); MEAN CORPUSCULAR VOLUME 89 fl (80-97); RED BLOOD COUNT 3.76 10^6/uL (3.72-5.28); RED CELL DISTRIBUTION WIDTH 13.2 % (11.5-14.0)
[2016-07-09 06:42] LABS: ANION GAP 10 (5-19); BLOOD UREA NITROGEN 19 mg/dL (7-20); CALCIUM 9.1 mg/dL (8.4-10.2); CARBON DIOXIDE 25 mmol/L (22-30); CHLORIDE 110 mmol/L (98-107); CREATININE RESULT 1.01 mg/dL (0.52-1.25); GLUCOSE 113 mg/dL (75-110); POTASSIUM 3.8 mmol/L (3.6-5.0); SODIUM 144.9 mmol/L (137-145); TRIGLYCERIDES 94 mg/dL (<150)
[2016-07-09] MEDS: LORAZEPAM INJ 2 MG/1 ML VIAL IV PRN (07:26)
--- NOTE | 2016-07-09 08:52 | PDOC PROGRESS REPORT ---
Subjective Progress Note for:: 07/09/16 Subjective:: 80 yo female who had a complicated course after she suffered from acute cholecystitis, sepsis, respiratory failure Patient recovered from sepsis, mentation has been altered since then She suffers from delirium; she has uncontrollable agitation, aggressive behavior , disorientation These episodes recur in the evening with severe sundowning She has been maintained on Zyprexa and small doses of Ativan without much improvement Patient still has a white blood count of 12,000 without any source of infection Physical Exam Vital Signs: Temp Pulse Resp BP Pulse Ox 98.5 F 75 21 H 142/67 H 100 07/08/16 20:24 07/08/16 20:24 07/08/16 20:24 07/08/16 20:24 07/08/16 20:24 Intake & Output 07/08/16 07/09/16 07/10/16 00:59 00:59 00:59 Intake Total 970 3504 2860 Output Total 1400 1300 900 Balance -430 2204 1960 Weight 77.6 kg 75.7 kg 73.4 kg General appearance: PRESENT: mild distress Head exam: PRESENT: atraumatic, normocephalic Eye exam: PRESENT: conjunctiva pink, EOMI, PERRLA. ABSENT: scleral icterus Respiratory exam: PRESENT: clear to auscultation jessy. ABSENT: rales, rhonchi, wheezes Cardiovascular exam: PRESENT: RRR. ABSENT: diastolic murmur, rubs, systolic murmur GI/Abdominal exam: PRESENT: normal bowel sounds, soft. ABSENT: distended, guarding, mass, organolmegaly, rebound, tenderness Extremities exam: PRESENT: full ROM. ABSENT: calf tenderness, clubbing, pedal edema Results Laboratory Results: 07/09/16 06:00 07/09/16 06:00 07/09/16 07/09/16 06:00 06:00 WBC 12.0 H RBC 3.76 Hgb 10.8 L Hct 33.4 L MCV 89 MCH 28.7 MCHC 32.3 RDW 13.2 Plt Count 312 Sodium 144.9 Potassium 3.8 Chloride 110 H Carbon Dioxide 25 Anion Gap 10 BUN 19 Creatinine 1.01 Est GFR ( Amer) > 60 Est GFR (Non-Af Amer) 53 L Glucose 113 H Calcium 9.1 Triglycerides 94 06/29/16 06/29/1606/29/17 04:00 04:00 04:53 Creatine Kinase Cancelled CK-MB (CK-2) Cancelled 3.16 Troponin I Cancelled 0.080 NT-Pro-B Natriuret Pep 06/29/16 06/29/16 06/30/16 04:53 04:53 05:13 Creatine Kinase 140 H CK-MB (CK-2) Troponin I NT-Pro-B Natriuret Pep 4530 H 2570 H 07/01/16 07/02/16 07/03/16 05:25 06:03 05:15 Creatine Kinase CK-MB (CK-2) Troponin I NT-Pro-B Natriuret Pep 2570 H 5080 H 6320 H 07/06/16 06:55 Creatine Kinase CK-MB (CK-2) Troponin I NT-Pro-B Natriuret Pep 2020 H EKG Comments: SINUS TACHYCARDIA [T1LA] . NONSPECIFIC T ABNORMALITIES, LATERAL LEADS [LQTB] . BORDERLINE PROLONGED QT INTERVAL Impressions: Abdomen Ultrasound 06/26/16 08:03 IMPRESSION: Pericholecystic fluid, gallbladder wall thickening, positive sonographic Mcpherson's sign and multiple small gallstones. Findings worrisome for acute cholecystitis. Cholangiogram 06/27/16 00:00 IMPRESSION: INTRAOPERATIVE CHOLANGIOGRAM. Catheter Placement 06/28/16 00:00 IMPRESSION: IMAGE(S) OBTAINED DURING PROCEDURE. Chest X-Ray 07/03/16 06:00 IMPRESSION: Improved aeration left lower lobe. Head CT 07/05/16 08:41 IMPRESSION: No acute findings. Limited study. Motion artifact. Assessment & Plan - Diagnosis (1) Acute encephalopathy Is this a current diagnosis for this admission?: YesPlan: Still persistent Extremely difficult to control We will ask Dr. Lee to consult and advise medications (2) Acute respiratory failure with hypoxia and hypercapnia Is this a current diagnosis for this admission?: YesPlan: Respiratory status has been stable (3) Acute cholecystitis Is this a current diagnosis for this admission?: Yes (4) CHF (congestive heart failure) Qualifiers: Congestive heart failure type: combined Congestive heart failure chronicity: acute on chronic Qualified Code(s): I50.43 - Acute on chronic combined systolic (congestive) and diastolic (congestive) heart failure Is this a current diagnosis for this admission?: YesPlan: Is compensated at this time Repeat chest x-ray will be ordered and BNP added We also will repeat an EKG and cardiac enzymes (5) Leukocytosis Qualifiers: Leukocytosis type: unspecified Qualified Code(s): D72.829 - Elevated white blood cell count, unspecified Is this a current diagnosis for this admission?: YesPlan: Persistent leukocytosis Etiology is unclear ? The patient had still a focus of infection that would trigger the delirium We will obtain blood cultures urine culture CT abdomen and pelvis was contrast looking for an occult abscess - Time Time Spent with patient: 35 or more minutes
[2016-07-09] MEDS ORDERED: LORAZEPAM INJ 2 MG/1 ML VIAL ONE (09:54)
[2016-07-09 10:07] LABS: TROPONIN I 0.319 ng/mL
[2016-07-09] MEDS: NORMAL SALINE 1000 ML 1,000 ML IV PRN (12:20)
[2016-07-09] MEDS: POTASSIUM CHLORIDE 20 MEQ/15 ML UDCUP PO SCH (12:52)
[2016-07-09] MEDS: LISINOPRIL 10 MG TABLET PO SCH (12:52)
[2016-07-09] MEDS: OLANZAPINE 5 MG TABLET PO SCH ×2 (12:52→21:44)
[2016-07-09] MEDS: ENOXAPARIN SODIUM INJ 40 MG/0.4 ML DISP.SYRIN SUBCUT SCH (12:52)
[2016-07-09] MEDS: LACTOBACILLUS ACIDOPHILUS 250 MG TAB PO SCH ×2 (12:52→17:49)
[2016-07-09] MEDS: ATENOLOL 50 MG TABLET PO SCH ×2 (12:52→21:44)
[2016-07-09] MEDS: FAMOTIDINE INJ/PF 20 MG/2 ML SDV IV SCH ×2 (12:52→21:44)
--- NOTE | 2016-07-09 18:01 | Progress Note ---
Provider Note Provider Note: 07/09 1800 07/09/16 07/09/16 06:00 09:20 WBC 12.0 H Hgb 10.8 L Hct 33.4 L Troponin I 0.319 NT-Pro-B Natriuret Pep 6090 H SINUS RHYTHM [VPC] . VENTRICULAR PREMATURE COMPLEX [IMI3] . BORDERLINE INFERIOR Q WAVES [T0LA] . BORDERLINE T ABNORMALITIES, LATERAL LEADS Chest x-ray suggests bilateral pleural effusion and infiltrates CT abdomen and pelvis no significant abnormalities 2 blood cultures are pending Impression: 1 hospital-acquired pneumonia We will initiate treatment with Zosyn and linezolid 2 elevated troponins Patient may have an acute non-STEMI; we will reevaluate meds, and add aspirin suppository, Lipitor if patient's mental status permits She is not a candidate for full anticoagulation 3 elevated BNP Echocardiogram on 06/26 showed reduced left ventricular function; we will diurese Overall patient's condition is guarded because of her advanced age and comorbidities
[2016-07-09] MEDS ORDERED: NORMAL SALINE 1000 ML 1,000 ML IV PRN (18:03)
--- NOTE | 2016-07-09 20:03 | EKG REPORT ---
SEVERITY:- BORDERLINE ECG - SINUS RHYTHM VENTRICULAR PREMATURE COMPLEX BORDERLINE INFERIOR Q WAVES BORDERLINE T ABNORMALITIES, LATERAL LEADS : Confirmed by: Param Alberto 09-Jul-2016 20:02:55
[2016-07-09] MEDS ORDERED: FUROSEMIDE INJ/PF 20 MG/2 ML SDV IV ONE (21:30)
[2016-07-09] MEDS ORDERED: ASPIRIN 325 MG TABLET, ENT COATED PO ONE (21:30)
[2016-07-09] MEDS: LINEZOLID 300 ML IV SCH (22:50)
[2016-07-09] MEDS: ATORVASTATIN CALCIUM 20 MG TABLET PO SCH (22:51)
[2016-07-10] MEDS: PIPERACILLIN SODIUM/TAZOBACTAM 3.375 GM in NORMAL SALINE 100 ML IV SCH ×5 (00:01→23:31)
[2016-07-10] MEDS: LORAZEPAM INJ 2 MG/1 ML VIAL IV PRN (01:56)
[2016-07-10] MEDS: FUROSEMIDE INJ/PF 20 MG/2 ML SDV IV SCH ×2 (05:17→18:52)
[2016-07-10 06:48] LABS: ABSOLUTE EOSINOPHILS # (AUTO) 0.2 10^3/uL (0.0-0.6); ABSOLUTE MONOCYTES (AUTO) 0.9 10^3/uL (0.1-1.4); ABSOLUTE NEUT (AUTO) 11.1 10^3/uL (1.7-8.2); BASOPHILS % (AUTO) 0.1 % (0-2); EOSINOPHILS % (AUTO) 1.4 % (0-6); HEMATOCRIT 31.9 % (36.0-47.0); HEMOGLOBIN 10.4 g/dL (12.0-15.5); HGB HCT DIFFERENCE -0.7; LYMPHOCYTES % (AUTO) 7.9 % (13-45); MEAN CORPUSCULAR HEMOGLOBIN 29.4 pg (27.0-33.4); MEAN CORPUSCULAR HGB CONC 32.8 g/dL (32.0-36.0); MEAN CORPUSCULAR VOLUME 90 fl (80-97); MONOCYTES % (AUTO) 7.1 % (3-13); RED BLOOD COUNT 3.56 10^6/uL (3.72-5.28); RED CELL DISTRIBUTION WIDTH 13.4 % (11.5-14.0); SEGMENTED NEUTROPHILS % (AUTO) 83.5 % (42-78); WHITE BLOOD COUNT 13.2 10^3/uL (4.0-10.5)
[2016-07-10 07:02] LABS: ALANINE AMINOTRANSFERASE 32 U/L (9-52); ALBUMIN 2.5 g/dL (3.5-5.0); ALKALINE PHOSPHATASE 75 U/L (38-126); ANION GAP 9 (5-19); ASPARTATE AMINO TRANSFERASE 23 U/L (14-36); BILIRUBIN,TOTAL 0.7 mg/dL (0.2-1.3); BLOOD UREA NITROGEN 17 mg/dL (7-20); CALCIUM 8.9 mg/dL (8.4-10.2); CARBON DIOXIDE 28 mmol/L (22-30); CHLORIDE 106 mmol/L (98-107); GLUCOSE 104 mg/dL (75-110); POTASSIUM 4.1 mmol/L (3.6-5.0); SODIUM 143.3 mmol/L (137-145); TOTAL PROTEIN 6.2 g/dL (6.3-8.2)
[2016-07-10] MEDS ORDERED: BISACODYL 5 MG TABEC PO PRN (11:16)
[2016-07-10] MEDS: LINEZOLID 300 ML IV SCH ×2 (11:31→22:25)
[2016-07-10] MEDS: DOCUSATE SODIUM 100 MG CAPSULE PO SCH (11:38)
[2016-07-10] MEDS: ATENOLOL 50 MG TABLET PO SCH ×2 (11:38→22:25)
[2016-07-10] MEDS: POTASSIUM CHLORIDE 20 MEQ/15 ML UDCUP PO SCH (11:38)
[2016-07-10] MEDS: LACTOBACILLUS ACIDOPHILUS 250 MG TAB PO SCH ×2 (11:39→18:52)
[2016-07-10] MEDS: LISINOPRIL 10 MG TABLET PO SCH (11:40)
[2016-07-10] MEDS: ASPIRIN 325 MG TABLET, ENT COATED PO SCH (11:40)
[2016-07-10] MEDS: FAMOTIDINE INJ/PF 20 MG/2 ML SDV IV SCH ×2 (11:40→22:26)
[2016-07-10] MEDS: ENOXAPARIN SODIUM INJ 40 MG/0.4 ML DISP.SYRIN SUBCUT SCH (11:40)
--- NOTE | 2016-07-10 17:45 | PDOC PROGRESS REPORT ---
Subjective Progress Note for:: 07/10/16 Subjective:: Reason for visit: Follow-up pneumonia, encephalopathy, acute cholecystitis Hospital course:: Patient reported to the emergency department with increasing epigastric pain that started on Saturday as bloating and quickly developed sharp stabbing pain that radiates throughout the abdomen. She got no relief from [id number] antacids. It began to affect her sleep and she started regurgitating foul tasting bile. She reports 4 stools over the course of the last 24 hours which is an increase for her but denies any change in the character or color of stools. She never had anything quite like this before. She describes the pain as sharp stabbing and radiating throughout the abdomen, worse with eating, improved with narcotics and no associated symptoms of fever, chills, chest pain, palpitations, headache or dizziness. Evaluation in the emergency department including imaging shows signs and symptoms suggestive of an acute cholecystitis. We were asked to admit the patient due to multiple medical problems, surgery has already Evaluated and anticipates intervention later today. The patient has a prior history of [place] with catheter in 1997 and has unusual changes on her EKG with T-wave inversions in V4 through 6. Cardiology is already evaluated and cleared for general anesthesia. The patient underwent laparoscopic cholecystectomy with intraoperative cholangiogram suggestive of choledocholithiasis on 06/27/2016 and ERCP on 2016. The ERCP was stopped early due to the development of hypoxia, however he was able to perform sphincterotomy and liberate small amount of biliary sludge. Unfortunately within hours of the procedure she rapidly decompensated becoming more hypoxic, agitated and then rapidly less responsive. She was urgently transferred to the ICU, intubated by [facility] and spent the next couple days on mechanical ventilation until successful extubation on 07/01/2016. chest x-ray showed bilateral fluffy airspace disease suggestive of a developing pneumonia. Antibiotics were broadened to include Zosyn and vancomycin, in addition to the Cipro, for presumed HCAP. Her course has been further complicated by what appears to be a recurrent pneumonia, pulmonary edema from acute systolic heart failure, persistent hypoxic respiratory failure and persistent delirium. The family reports she cleared somewhat this past Saturday but by that evening was aggressive and violent with staff requiring pharmaceutical and physical restraints and she has not cleared since. Subjective: She remains in soft wrist restraints, received a dose of Ativan earlier this morning and is now too lethargic to participate in her exam. ROS: Unobtainable due to mental state Physical Exam Vital Signs: Temp Pulse Resp BP Pulse Ox 97.7 F 74 18 123/66 100 07/10/16 15:40 07/10/16 15:40 07/10/16 15:40 07/10/16 15:40 07/10/16 15:40 Intake & Output 07/09/16 07/10/16 07/11/16 06:59 06:59 06:59 Intake Total 4185 1000 150 Output Total 1600 2125 2200 Balance 540 Weight 73.4 kg 78.8 kg EXAM GENERAL: NAD; well developed, well nourished; no obese; lethargic, minimally responsive HEENT: normocephalic, atraumatic; no conjunctival injection, no scleral icterus ; oral mucosa moist; RESPIRATORY: no accessory muscle use, no increased WOB, good air entry bilaterally; no wheezes, rales, rhonchi; bibasilar right greater than left inspiratory crackles CARDIO: no JVD; RRR; no systolic murmur; no tachycardia GI: soft; nondistended; normal bowel sounds; no hepato spleno megaly; no rebound, rigidity, guarding; no grimace to palpation VASCULAR: no carotid bruit; no abdominal bruit; no pallor; 2+ radial, DP pulse ; normal capillary refill EXTREMITIES: no calf tender; no palpable cords in calf; no clubbing, cyanosis , trace bilateral pedal edema PSYCH: obtunded SKIN: warm; moist; no petechiae; no telengectasias; no jaundice; no rash Results Laboratory Results: 07/10/16 05:55 07/10/16 05:55 07/10/16 07/10/16 05:55 05:55 WBC 13.2 H RBC 3.56 L Hgb 10.4 L Hct 31.9 L MCV 90 MCH 29.4 MCHC 32.8 RDW 13.4 Plt Count 319 Seg Neutrophils % 83.5 H Lymphocytes % 7.9 L Monocytes % 7.1 Eosinophils % 1.4 Basophils % 0.1 Absolute Neutrophils 11.1 H Absolute Lymphocytes 1.0 Absolute Monocytes 0.9 Absolute Eosinophils 0.2 Absolute Basophils 0.0 Sodium 143.3 Potassium 4.1 Chloride 106 Carbon Dioxide 28 Anion Gap 9 BUN 17 Creatinine 1.00 Est GFR ( Amer) > 60 Est GFR (Non-Af Amer) 53 L Glucose 104 Calcium 8.9 Total Bilirubin 0.7 AST 23 ALT 32 Alkaline Phosphatase 75 Total Protein 6.2 L Albumin 2.5 L 07/09/16 20:00 Catheterized Urine Urine Culture - Final C.albicans/C.dubliniensis 06/29/16 06/29/16 06/29/16 04:00 04:00 04:53 Creatine Kinase Cancelled CK-MB (CK-2) Cancelled 3.16 Troponin I Cancelled 0.080 NT-Pro-B Natriuret Pep 06/29/16 06/29/16 06/30/16 04:53 04:53 05:13 Creatine Kinase 140 H CK-MB (CK-2) Troponin I NT-Pro-B Natriuret Pep 4530 H 2570 H 07/01/16 07/02/16 07/03/16 05:25 06:03 05:15 Creatine Kinase CK-MB (CK-2) Troponin I NT-Pro-B Natriuret Pep 2570 H 5080 H 6320 H 07/06/16 07/09/16 06:55 09:20 Creatine Kinase CK-MB (CK-2) Troponin I 0.319 NT-Pro-B Natriuret Pep 2020 H 6090 H Labs reviewed, catheterized urine showed Jennie, leukocytosis unchanged, BNP shows worrisome trend upward Impressions: Abdomen Ultrasound 06/26/16 08:03 IMPRESSION: Pericholecystic fluid, gallbladder wall thickening, positive sonographic Mcpherson's sign and multiple small gallstones. Findings worrisome for acute cholecystitis. Cholangiogram 06/27/16 00:00 IMPRESSION: INTRAOPERATIVE CHOLANGIOGRAM. Catheter Placement 06/28/16 00:00 IMPRESSION: IMAGE(S) OBTAINED DURING PROCEDURE. Head CT 07/05/16 08:41 IMPRESSION: No acute findings. Limited study. Motion artifact. Abdomen/Pelvis CT 07/09/16 08:54 IMPRESSION: NO SIGNIFICANT OR ACUTE FINDING IN THE ABDOMEN OR PELVIS ON CT SCAN WITH IV CONTRAST. Ryan catheter is identified in the bladder and there is air in the bladder presumably related to the bladder catheter. Other findings as noted above Chest X-Ray 07/09/16 08:54 IMPRESSION: Increasing bilateral airspace disease most likely vascular congestion. Status: Imported from PACS - Report reviewed Assessment & Plan - Diagnosis (1) Acute respiratory failure with hypoxia and hypercapnia Is this a current diagnosis for this admission?: YesPlan: Remains O2 dependent, imaging shows bilateral pleural effusions with compressive atelectasis and likely airspace disease. Continue to wean O2 as tolerated. Continue treatment of the underlying presumed pneumonia. (2) Pneumonia Qualifiers: Pneumonia type: due to unspecified organism Laterality: bilateral Lung location: unspecified part of lung Qualified Code(s): J18.9 - Pneumonia, unspecified organism Is this a current diagnosis for this admission?: YesPlan: Seems to be a recurrent problem for her complicated by the likely sympathetic, possibly parapneumonic bilateral pleural effusions. Zosyn and Zyvox started on 07/09/2016, will continue a typical five-day course and then wean antibiotics quickly as I fear they may be contributing to some of her encephalopathy. Continue C. difficile prophylaxis with lactobacillus. (3) Urinary tract infection Qualifiers: Urinary tract infection type: site unspecified Hematuria presence: without hematuria Qualified Code(s): N39.0 - Urinary tract infection, site not specified Is this a current diagnosis for this admission?: YesPlan: Now secondary to Jennie. Remove her Ryan catheter as the tubing is likely now colonized. Start empiric Diflucan. (4) Acute encephalopathy Is this a current diagnosis for this admission?: YesPlan: Multifactorial, Secondary to hypoxia, sepsis, sedative effect, possible ICU psychosis with a waxing and waning course. Try to wean centrally acting agents as possible. Soft wrist restraints as needed for her own protection. Change Zyprexa to daily at bedtime only. Instructed staff to try to minimize the use of centrally acting agents as they have a prolonged effect in this patient. (5) Acute systolic heart failure Is this a current diagnosis for this admission?: YesPlan: There is likely a component of systolic heart failure, complicating her respiratory status, continue diuretics. Monitor her volume status carefully. Cardiology following available as needed. Trend BNP. Stop IV fluids. Adjust diuretics daily especially in light of little to no oral intake. (6) Coronary artery disease Qualifiers: Coronary Disease-Associated Artery/Lesion type: [place] artery Associated angina: angina presence unspecified Is this a current diagnosis for this admission?: YesPlan: Trend troponin again morning. The patient was seen by cardiology prior to surgery, may need to reenlist their assistance. (7) Hypertension Qualifiers: Hypertension type: essential hypertension Qualified Code(s): I10 - Essential (primary) hypertension Is this a current diagnosis for this admission?: YesPlan: Titrate to effect (8) Ischemic cardiomyopathy Is this a current diagnosis for this admission?: YesPlan: As above (9) Nutrition disorder Is this a current diagnosis for this admission?: YesPlan: Advance diet as her encephalopathy will allow. (10) Acute cholecystitis Is this a current diagnosis for this admission?: YesPlan: Status post cholecystectomy and ERCP with sphincterotomy for choledocholithiasis. Repeat CT scan of the abdomen and pelvis shows no intra- abdominal source for persistent leukocytosis and encephalopathy. (11) Choledocholithiasis Is this a current diagnosis for this admission?: YesPlan: As above - Time Time Spent with patient: 35 or more minutes Medications reviewed and adjusted accordingly: Yes Anticipated discharge: Acute Rehab Within: Other - Plan Summary Plan Summary: Case was discussed with the patient's sisters at the bedside for over 40 minutes attempting to review her clinical course, answering their questions to the best of my ability. They stated grave concern for her survival of this event and expressed doubt as to culpability, wondering if something went wrong during her surgery or ERCP or during her time on the ventilator in the ICU.
[2016-07-10] MEDS: FLUCONAZOLE 200 MG/NS RTU 100 ML IV SCH (19:59)
[2016-07-10] MEDS: OLANZAPINE 5 MG TABLET PO SCH (22:25)
[2016-07-10] MEDS: ATORVASTATIN CALCIUM 20 MG TABLET PO SCH (22:25)
[2016-07-11] MEDS: LORAZEPAM INJ 2 MG/1 ML VIAL IV PRN ×2 (02:12→15:15)
[2016-07-11] MEDS: FUROSEMIDE INJ/PF 20 MG/2 ML SDV IV SCH (05:35)
[2016-07-11] MEDS: PIPERACILLIN SODIUM/TAZOBACTAM 3.375 GM in NORMAL SALINE 100 ML IV SCH ×3 (05:35→18:24)
[2016-07-11 06:12] LABS: HEMATOCRIT 34.3 % (36.0-47.0); HEMOGLOBIN 11.4 g/dL (12.0-15.5); HGB HCT DIFFERENCE -0.1; MEAN CORPUSCULAR HEMOGLOBIN 29.2 pg (27.0-33.4); MEAN CORPUSCULAR HGB CONC 33.3 g/dL (32.0-36.0); MEAN CORPUSCULAR VOLUME 88 fl (80-97); RED BLOOD COUNT 3.92 10^6/uL (3.72-5.28); RED CELL DISTRIBUTION WIDTH 13.1 % (11.5-14.0); WHITE BLOOD COUNT 13.1 10^3/uL (4.0-10.5)
[2016-07-11 06:37] LABS: ANION GAP 10 (5-19); BLOOD UREA NITROGEN 16 mg/dL (7-20); CALCIUM 9.4 mg/dL (8.4-10.2); CARBON DIOXIDE 31 mmol/L (22-30); CHLORIDE 102 mmol/L (98-107); CREATININE RESULT 1.11 mg/dL (0.52-1.25); GLUCOSE 115 mg/dL (75-110); MAGNESIUM 1.7 mg/dL (1.6-2.3); PHOSPHORUS 3.6 mg/dL (2.5-4.5); SODIUM 143.3 mmol/L (137-145)
[2016-07-11 06:38] LABS: POTASSIUM 3.4 mmol/L (3.6-5.0)
[2016-07-11 07:32] LABS: TROPONIN I 0.202 ng/mL
[2016-07-11] MEDS: ENOXAPARIN SODIUM INJ 40 MG/0.4 ML DISP.SYRIN SUBCUT SCH (11:04)
[2016-07-11] MEDS: LACTOBACILLUS ACIDOPHILUS 250 MG TAB PO SCH ×2 (11:05→18:24)
[2016-07-11] MEDS: POTASSIUM CHLORIDE 20 MEQ/15 ML UDCUP PO SCH (11:05)
[2016-07-11] MEDS: ATENOLOL 50 MG TABLET PO SCH ×2 (11:06→21:45)
[2016-07-11] MEDS: FAMOTIDINE INJ/PF 20 MG/2 ML SDV IV SCH ×2 (11:07→21:45)
[2016-07-11] MEDS: ASPIRIN 325 MG TABLET, ENT COATED PO SCH (11:07)
[2016-07-11] MEDS: LISINOPRIL 10 MG TABLET PO SCH (11:07)
[2016-07-11] MEDS: LINEZOLID 300 ML IV SCH (11:09)
[2016-07-11] MEDS: DOCUSATE SODIUM 100 MG CAPSULE PO SCH (14:22)
[2016-07-11] MEDS: ACETAMINOPHEN 325 MG TABLET PO PRN (14:34)
--- NOTE | 2016-07-11 14:52 | PDOC PROGRESS REPORT ---
Subjective Progress Note for:: 07/11/16 Subjective:: Reason for visit: Follow-up pneumonia, encephalopathy, acute cholecystitis Hospital course:: Patient reported to the emergency department with increasing epigastric pain that started on Saturday as bloating and quickly developed sharp stabbing pain that radiates throughout the abdomen. She got no relief from [id number] antacids. It began to affect her sleep and she started regurgitating foul tasting bile. She reports 4 stools over the course of the last 24 hours which is an increase for her but denies any change in the character or color of stools. She never had anything quite like this before. She describes the pain as sharp stabbing and radiating throughout the abdomen, worse with eating, improved with narcotics and no associated symptoms of fever, chills, chest pain, palpitations, headache or dizziness. Evaluation in the emergency department including imaging shows signs and symptoms suggestive of an acute cholecystitis. We were asked to admit the patient due to multiple medical problems, surgery has already Evaluated and anticipates intervention later today. The patient has a prior history of [place] with catheter in 1997 and has unusual changes on her EKG with T-wave inversions in V4 through 6. Cardiology is already evaluated and cleared for general anesthesia. The patient underwent laparoscopic cholecystectomy with intraoperative cholangiogram suggestive of choledocholithiasis on 06/27/2016 and ERCP on 2016. The ERCP was stopped early due to the development of hypoxia, however he was able to perform sphincterotomy and liberate small amount of biliary sludge. Unfortunately within hours of the procedure she rapidly decompensated becoming more hypoxic, agitated and then rapidly less responsive. She was urgently transferred to the ICU, intubated by RICE DRIER OPERATOR and spent the next couple days on mechanical ventilation until successful extubation on 07/01/2016. chest x-ray showed bilateral fluffy airspace disease suggestive of a developing pneumonia. Antibiotics were broadened to include Zosyn and vancomycin, in addition to the Cipro, for presumed HCAP. Her course has been further complicated by what appears to be a recurrent pneumonia, pulmonary edema from acute systolic heart failure, persistent hypoxic respiratory failure and persistent delirium. The family reports she cleared somewhat this past Saturday but by that evening was aggressive and violent with staff requiring pharmaceutical and physical restraints and she has not cleared since. Subjective: This morning she is more awake and interactive with me, she claims to recognize me as her physician from before and she knows she is in the hospital because "problem with my stomach that required surgery" but she is a little fuzzy on the details. She received a one-time dose of Ativan during the night and has not required any since. Ryan catheter was removed on 07/10/2016 and nursing reports she is incontinent of urine. Mental state continues to wax and wane nursing reports intermittent periods of confusion and hallucinations. ROS: Unreliable due to mental state Physical Exam Vital Signs: Temp Pulse Resp BP Pulse Ox 98.1 F 79 16 107/51 L 100 07/11/16 11:54 07/11/16 11:54 07/11/16 11:54 07/11/16 11:54 07/11/16 11:54 Intake & Output 07/10/16 07/11/16 07/12/16 06:59 06:59 06:59 Intake Total 1000 1370 Output Total 2125 2200 Balance -1125 -830 Weight 78.8 kg 78.6 kg EXAM GENERAL: NAD; well developed, well nourished; no obese; awake and alert, will follow commands, speech is a bit thickened about her oral mucosa is extremely dry HEENT: normocephalic, atraumatic; no conjunctival injection, no scleral icterus ; RESPIRATORY: no accessory muscle use, no increased WOB, good air entry bilaterally; no wheezes, rales, rhonchi; persistent bibasilar right greater than left inspiratory crackles CARDIO: no JVD; RRR; no systolic murmur; no tachycardia GI: soft; nondistended; normal bowel sounds; no hepato spleno megaly; no rebound, rigidity, guarding; no grimace to palpation VASCULAR: no carotid bruit; no abdominal bruit; no pallor; 2+ radial, DP pulse ; normal capillary refill EXTREMITIES: no calf tender; no palpable cords in calf; no clubbing, cyanosis , trace bilateral pedal edema PSYCH: Calm and cooperative at present SKIN: warm; moist; no petechiae; no telengectasias; no jaundice; no rash Results Laboratory Results: 07/11/16 05:30 07/11/16 05:30 07/11/16 07/11/16 07/11/16 05:30 05:30 05:30 WBC 13.1 H RBC 3.92 Hgb 11.4 L Hct 34.3 L MCV 88 MCH 29.2 MCHC 33.3 RDW 13.1 Plt Count 365 Sodium 143.3 Potassium 3.4 L Chloride 102 Carbon Dioxide 31 H Anion Gap 10 BUN 16 Creatinine 1.11 Est GFR ( Amer) 57 L Est GFR (Non-Af Amer) 47 L Glucose 115 H Calcium 9.4 Phosphorus 3.6 Magnesium 1.7 Ammonia < 8.7 L 07/09/16 20:00 Catheterized Urine Urine Culture - Final C.albicans/C.dubliniensis 06/29/16 06/29/16 06/29/16 04:00 04:00 04:53 Creatine Kinase Cancelled CK-MB (CK-2) Cancelled 3.16 Troponin I Cancelled 0.080 NT-Pro-B Natriuret Pep 06/29/16 06/29/16 06/30/16 04:53 04:53 05:13 Creatine Kinase 140 H CK-MB (CK-2) Troponin I NT-Pro-B Natriuret Pep 4530 H 2570 H 07/01/16 07/02/16 07/03/16 05:25 06:03 05:15 Creatine Kinase CK-MB (CK-2) Troponin I NT-Pro-B Natriuret Pep 2570 H 5080 H 6320 H 07/06/16 07/09/16 07/11/16 06:55 09:20 05:30 Creatine Kinase CK-MB (CK-2) Troponin I 0.319 0.202 NT-Pro-B Natriuret Pep 2020 H 6090 H 3660 H Labs reviewed in troponin trending down, leukocytosis persist, H&H stable, Assessment & Plan - Diagnosis (1) Acute respiratory failure with hypoxia and hypercapnia Is this a current diagnosis for this admission?: YesPlan: Remains O2 dependent, imaging shows bilateral pleural effusions with compressive atelectasis and likely airspace disease. Continue to wean O2 as tolerated. Continue treatment of the underlying presumed pneumonia for 5d then off and allow any residual infectious process to more clearly identify itself. (2) Pneumonia Qualifiers: Pneumonia type: due to unspecified organism Laterality: bilateral Lung location: unspecified part of lung Qualified Code(s): J18.9 - Pneumonia, unspecified organism Is this a current diagnosis for this admission?: YesPlan: Seems to be a recurrent problem for her complicated by the likely sympathetic, possibly parapneumonic bilateral pleural effusions. Zosyn and Zyvox started on 07/09/2016, will continue a typical five-day course and then wean antibiotics quickly as I fear they may be contributing to some of her encephalopathy. Continue C. difficile prophylaxis with lactobacillus. (3) Urinary tract infection Qualifiers: Urinary tract infection type: site unspecified Hematuria presence: without hematuria Qualified Code(s): N39.0 - Urinary tract infection, site not specified Is this a current diagnosis for this admission?: YesPlan: Now secondary to Jennie. Removed her Ryan catheter as the tubing is likely now colonized. Started empiric Diflucan 07/10/2016. (4) Acute encephalopathy Is this a current diagnosis for this admission?: YesPlan: Multifactorial, Secondary to hypoxia, sepsis, sedative effect, possible ICU psychosis with a waxing and waning course. Try to wean centrally acting agents as possible. Soft wrist restraints as needed for her own protection. Changed Zyprexa to daily at bedtime only. Instructed staff to try to minimize the use of centrally acting agents as they have a prolonged effect in this patient. (5) Acute systolic heart failure Is this a current diagnosis for this admission?: YesPlan: There is likely a component of systolic heart failure, complicating her respiratory status, continue diuretics. Monitor her volume status carefully. Cardiology following available as needed. Trend BNP. Stop IV fluids. Adjust diuretics daily especially in light of little to no oral intake and now she seems a bit on the dry side. (6) Coronary artery disease Qualifiers: Coronary Disease-Associated Artery/Lesion type: samish artery Associated angina: angina presence unspecified Is this a current diagnosis for this admission?: YesPlan: Probable mild type II NSTEMI related to demand ischemia from the above. troponin trending down, continue medical management only at this point. The patient was seen by cardiology prior to surgery, may need to reenlist their assistance. (7) Hypertension Qualifiers: Hypertension type: essential hypertension Qualified Code(s): I10 - Essential (primary) hypertension Is this a current diagnosis for this admission?: YesPlan: Good control. Titrate to effect (8) Ischemic cardiomyopathy Is this a current diagnosis for this admission?: Yes (9) Nutrition disorder Is this a current diagnosis for this admission?: Yes (10) Acute cholecystitis Is this a current diagnosis for this admission?: Yes (11) Choledocholithiasis Is this a current diagnosis for this admission?: Yes - Time Time Spent with patient: 25-34 minutes - Plan Summary Plan Summary: Her greatest stomach block to recovery at this point appears to be the persistent delirium, however given his multifactorial cause difficult to get her clear. Continue current level of care and treatment for infectious processes hoping to wean medications over the next several days in an effort to clear her mentation. Given the prolonged nature of her hospitalization and poor nutrition during this time she will likely need placement in a rehabilitation facility for short course before attempting to return to independent living at home.
[2016-07-11] MEDS: FLUCONAZOLE 200 MG/NS RTU 100 ML IV SCH (20:35)
[2016-07-11] MEDS: OLANZAPINE 5 MG TABLET PO SCH (21:45)
[2016-07-11] MEDS: LINEZOLID 600 MG TABLET PO SCH (21:45)
[2016-07-11] MEDS: ATORVASTATIN CALCIUM 20 MG TABLET PO SCH (21:45)
[2016-07-12] MEDS: LORAZEPAM INJ 2 MG/1 ML VIAL IV PRN (02:07)
[2016-07-12] MEDS: PIPERACILLIN SODIUM/TAZOBACTAM 3.375 GM in NORMAL SALINE 100 ML IV SCH ×5 (05:08→18:11)
[2016-07-12] MEDS: ENOXAPARIN SODIUM INJ 40 MG/0.4 ML DISP.SYRIN SUBCUT SCH (10:30)
[2016-07-12] MEDS: LACTOBACILLUS ACIDOPHILUS 250 MG TAB PO SCH ×2 (10:33→18:19)
[2016-07-12] MEDS: ATENOLOL 50 MG TABLET PO SCH ×2 (10:33→21:20)
[2016-07-12] MEDS: POTASSIUM CHLORIDE 20 MEQ/15 ML UDCUP PO SCH (10:35)
[2016-07-12] MEDS: LISINOPRIL 10 MG TABLET PO SCH (10:35)
[2016-07-12] MEDS: FAMOTIDINE INJ/PF 20 MG/2 ML SDV IV SCH ×2 (10:35→21:21)
[2016-07-12] MEDS: ASPIRIN 325 MG TABLET, ENT COATED PO SCH (10:35)
[2016-07-12] MEDS: LINEZOLID 600 MG TABLET PO SCH ×2 (10:37→21:21)
[2016-07-12] MEDS: DOCUSATE SODIUM 100 MG CAPSULE PO SCH (15:06)
--- NOTE | 2016-07-12 17:44 | PDOC PROGRESS REPORT ---
Subjective Progress Note for:: 07/12/16 Subjective:: Reason for visit: Follow-up pneumonia, encephalopathy, acute cholecystitis Hospital course:: Patient reported to the emergency department with increasing epigastric pain that started on Saturday as bloating and quickly developed sharp stabbing pain that radiates throughout the abdomen. She got no relief from [id number] antacids. It began to affect her sleep and she started regurgitating foul tasting bile. She reports 4 stools over the course of the last 24 hours which is an increase for her but denies any change in the character or color of stools. She never had anything quite like this before. She describes the pain as sharp stabbing and radiating throughout the abdomen, worse with eating, improved with narcotics and no associated symptoms of fever, chills, chest pain, palpitations, headache or dizziness. Evaluation in the emergency department including imaging shows signs and symptoms suggestive of an acute cholecystitis. We were asked to admit the patient due to multiple medical problems, surgery has already Evaluated and anticipates intervention later today. The patient has a prior history of [place] with catheter in 1997 and has unusual changes on her EKG with T-wave inversions in V4 through 6. Cardiology is already evaluated and cleared for general anesthesia. The patient underwent laparoscopic cholecystectomy with intraoperative cholangiogram suggestive of choledocholithiasis on 06/27/2016 and ERCP on 2016. The ERCP was stopped early due to the development of hypoxia, however he was able to perform sphincterotomy and liberate small amount of biliary sludge. Unfortunately within hours of the procedure she rapidly decompensated becoming more hypoxic, agitated and then rapidly less responsive. She was urgently transferred to the ICU, intubated by AUTOMOTIVE SERVICE PROFESSIONAL and spent the next couple days on mechanical ventilation until successful extubation on 07/01/2016. chest x-ray showed bilateral fluffy airspace disease suggestive of a developing pneumonia. Antibiotics were broadened to include Zosyn and vancomycin, in addition to the Cipro, for presumed HCAP. Her course has been further complicated by what appears to be a recurrent pneumonia, pulmonary edema from acute systolic heart failure, persistent hypoxic respiratory failure and persistent delirium. The family reports she cleared somewhat this past Saturday but by that evening was aggressive and violent with staff requiring pharmaceutical and physical restraints and she has not cleared since. Subjective: Mental state continues to wax and wane nursing reports intermittent periods of confusion and hallucinations. ROS: Unreliable due to mental state Physical Exam Vital Signs: Temp Pulse Resp BP Pulse Ox 98.0 F 71 16 100/50 L 100 07/12/16 16:00 07/12/16 16:00 07/12/16 16:00 07/12/16 16:00 07/12/16 16:00 Intake & Output 07/11/16 07/12/16 07/13/16 06:59 06:59 06:59 Intake Total 1370 1130 100 Output Total 2200 Balance -830 1130 100 Weight 78.6 kg 80.2 kg EXAM GENERAL: NAD, lethargic; well developed, well nourished; no obese; will not follow commands, speech is a bit thickened about her oral mucosa is extremely dry HEENT: normocephalic, atraumatic; no conjunctival injection, no scleral icterus ; RESPIRATORY: no accessory muscle use, no increased WOB, good air entry bilaterally; no wheezes, rales, rhonchi; persistent bibasilar right greater than left inspiratory crackles CARDIO: no JVD; RRR; no systolic murmur; no tachycardia GI: soft; nondistended; normal bowel sounds; no hepato spleno megaly; no rebound, rigidity, guarding; no grimace to palpation VASCULAR: no carotid bruit; no abdominal bruit; no pallor; 2+ radial, pulse; normal capillary refill EXTREMITIES: no calf tender; no palpable cords in calf; no clubbing, cyanosis , trace bilateral pedal edema PSYCH: Obtunded SKIN: warm; moist; no petechiae; no telengectasias; no jaundice; no rash Assessment & Plan - Diagnosis (1) Acute respiratory failure with hypoxia and hypercapnia Is this a current diagnosis for this admission?: YesPlan: Remains O2 dependent, imaging shows bilateral pleural effusions with compressive atelectasis and likely airspace disease. Continue to wean O2 as tolerated. Continue treatment of the underlying presumed pneumonia for 5d then off and allow any residual infectious process to more clearly identify itself. (2) Pneumonia Qualifiers: Pneumonia type: due to unspecified organism Laterality: bilateral Lung location: unspecified part of lung Qualified Code(s): J18.9 - Pneumonia, unspecified organism Is this a current diagnosis for this admission?: YesPlan: Seems to be a recurrent problem for her complicated by the likely sympathetic, possibly parapneumonic bilateral pleural effusions. Zosyn and Zyvox started on 07/09/2016, will continue a typical five-day course and then wean antibiotics quickly as I fear they may be contributing to some of her encephalopathy. Continue C. difficile prophylaxis with lactobacillus. (3) Urinary tract infection Qualifiers: Urinary tract infection type: site unspecified Hematuria presence: without hematuria Qualified Code(s): N39.0 - Urinary tract infection, site not specified Is this a current diagnosis for this admission?: Yes (4) Acute encephalopathy Is this a current diagnosis for this admission?: YesPlan: Multifactorial, Secondary to hypoxia, sepsis, sedative effect, possible ICU psychosis with a waxing and waning course. Try to wean centrally acting agents as possible. Soft wrist restraints as needed for her own protection. Changed Zyprexa to daily at bedtime only. Instructed staff to try to minimize the use of centrally acting agents as they have a prolonged effect in this patient. (5) Acute systolic heart failure Is this a current diagnosis for this admission?: YesPlan: There is likely a component of systolic heart failure, complicating her respiratory status, continue diuretics. Monitor her volume status carefully. Cardiology following available as needed. Trend BNP. Stop IV fluids. Adjust diuretics daily especially in light of little to no oral intake and now she seems a bit on the dry side. (6) Coronary artery disease Qualifiers: Coronary Disease-Associated Artery/Lesion type: [place] artery Associated angina: angina presence unspecified Is this a current diagnosis for this admission?: Yes (7) Hypertension Qualifiers: Hypertension type: essential hypertension Qualified Code(s): I10 - Essential (primary) hypertension Is this a current diagnosis for this admission?: Yes (8) Ischemic cardiomyopathy Is this a current diagnosis for this admission?: YesPlan: As above (9) Nutrition disorder Is this a current diagnosis for this admission?: Yes (10) Acute cholecystitis Is this a current diagnosis for this admission?: Yes (11) Choledocholithiasis Is this a current diagnosis for this admission?: Yes - Time Time Spent with patient: 25-34 minutes Medications reviewed and adjusted accordingly: Yes - Plan Summary Plan Summary: Her encephalopathy remains a serious barrier to her recovery and discharge and disposition
[2016-07-12] MEDS ORDERED: FLUCONAZOLE 100 MG TABLET PO SCH (18:00)
[2016-07-12] MEDS: OLANZAPINE 5 MG TABLET PO SCH (21:21)
[2016-07-12] MEDS: ATORVASTATIN CALCIUM 20 MG TABLET PO SCH (21:21)
[2016-07-13] MEDS: PIPERACILLIN SODIUM/TAZOBACTAM 3.375 GM in NORMAL SALINE 100 ML IV SCH ×3 (00:22→10:41)
[2016-07-13] MEDS: LORAZEPAM INJ 2 MG/1 ML VIAL IV PRN (01:08)
[2016-07-13] MEDS: LISINOPRIL 10 MG TABLET PO SCH (10:39)
[2016-07-13] MEDS: POTASSIUM CHLORIDE 20 MEQ/15 ML UDCUP PO SCH (10:39)
[2016-07-13] MEDS: ATENOLOL 50 MG TABLET PO SCH ×2 (10:39→23:48)
[2016-07-13] MEDS: LACTOBACILLUS ACIDOPHILUS 250 MG TAB PO SCH ×2 (10:39→18:38)
[2016-07-13] MEDS: ASPIRIN 325 MG TABLET, ENT COATED PO SCH (10:39)
[2016-07-13] MEDS: ENOXAPARIN SODIUM INJ 40 MG/0.4 ML DISP.SYRIN SUBCUT SCH (10:40)
[2016-07-13] MEDS: FAMOTIDINE INJ/PF 20 MG/2 ML SDV IV SCH ×2 (10:43→23:48)
[2016-07-13] MEDS: DOCUSATE SODIUM 100 MG CAPSULE PO SCH (14:25)
[2016-07-13] MEDS: LINEZOLID 600 MG TABLET PO SCH (14:25)
--- NOTE | 2016-07-13 16:19 | PDOC PROGRESS REPORT ---
Subjective Progress Note for:: 07/13/16 Subjective:: Reason for visit: Follow-up pneumonia, encephalopathy, acute cholecystitis Hospital course:: Patient reported to the emergency department with increasing epigastric pain that started on Saturday as bloating and quickly developed sharp stabbing pain that radiates throughout the abdomen. She got no relief from [id number] antacids. It began to affect her sleep and she started regurgitating foul tasting bile. She reports 4 stools over the course of the last 24 hours which is an increase for her but denies any change in the character or color of stools. She never had anything quite like this before. She describes the pain as sharp stabbing and radiating throughout the abdomen, worse with eating, improved with narcotics and no associated symptoms of fever, chills, chest pain, palpitations, headache or dizziness. Evaluation in the emergency department including imaging shows signs and symptoms suggestive of an acute cholecystitis. We were asked to admit the patient due to multiple medical problems, surgery has already Evaluated and anticipates intervention later today. The patient has a prior history of ND with catheter in 1997 and has unusual changes on her EKG with T-wave inversions in V4 through 6. Cardiology is already evaluated and cleared for general anesthesia. The patient underwent laparoscopic cholecystectomy with intraoperative cholangiogram suggestive of choledocholithiasis on 06/27/2016 and ERCP on 2016. The ERCP was stopped early due to the development of hypoxia, however he was able to perform sphincterotomy and liberate small amount of biliary sludge. Unfortunately within hours of the procedure she rapidly decompensated becoming more hypoxic, agitated and then rapidly less responsive. She was urgently transferred to the ICU, intubated by [facility] and spent the next couple days on mechanical ventilation until successful extubation on 07/01/2016. chest x-ray showed bilateral fluffy airspace disease suggestive of a developing pneumonia. Antibiotics were broadened to include Zosyn and vancomycin, in addition to the Cipro, for presumed HCAP. Her course has been further complicated by what appears to be a recurrent pneumonia, pulmonary edema from acute systolic heart failure, persistent hypoxic respiratory failure and persistent delirium. The family reports she cleared somewhat this past Saturday but by that evening was aggressive and violent with staff requiring pharmaceutical and physical restraints and she has not cleared since. Subjective: Mental state continues to wax and wane nursing reports intermittent periods of confusion, paranoia and hallucinations. Overall she seems a bit more improved to me this morning and seems to remember me but can't quite put it all together and make it makes sense. ROS: Unreliable due to mental state Physical Exam Vital Signs: Temp Pulse Resp BP Pulse Ox 97.6 F 72 18 139/55 H 100 07/13/16 11:09 07/13/16 11:09 07/13/16 11:09 07/13/16 11:09 07/13/16 11:09 Intake & Output 07/12/16 07/13/16 07/14/16 06:59 06:59 06:59 Intake Total 1130 820 400 Balance 1130 820 400 Weight 80.2 kg 81.4 kg EXAM GENERAL: NAD, lethargic; well developed, no obese; will follow commands, speech is a bit thickened but her oral mucosa remains extremely dry; nursing reports very poor oral intake HEENT: normocephalic, atraumatic; no conjunctival injection, no scleral icterus ; RESPIRATORY: no accessory muscle use, no increased WOB, good air entry bilaterally; no wheezes, rales, rhonchi; persistent bibasilar right greater than left inspiratory crackles but improved CARDIO: no JVD; RRR; no systolic murmur; no tachycardia GI: soft; nondistended; normal bowel sounds; no rebound, rigidity, guarding; no grimace to palpation VASCULAR: no carotid bruit; no abdominal bruit; no pallor; 2+ radial, pulse; normal capillary refill EXTREMITIES: no calf tender; no palpable cords in calf; no clubbing, cyanosis , no pedal edema PSYCH: Calm and cooperative at present however sitter reports intermittent agitation and paranoia persist SKIN: warm; moist; no petechiae; no telengectasias; no jaundice; no rash Assessment & Plan - Diagnosis (1) Acute respiratory failure with hypoxia and hypercapnia Is this a current diagnosis for this admission?: YesPlan: Unchanged, Remains O2 dependent, imaging previously shows bilateral pleural effusions with compressive atelectasis and likely airspace disease. Continue to wean O2 as tolerated. It's time to stop the antibiotics and monitor for recurrence. (2) Pneumonia Qualifiers: Pneumonia type: due to unspecified organism Laterality: bilateral Lung location: unspecified part of lung Qualified Code(s): J18.9 - Pneumonia, unspecified organism Is this a current diagnosis for this admission?: YesPlan: Seems to be a recurrent problem for her complicated by the likely sympathetic, possibly parapneumonic bilateral pleural effusions. Zosyn and Zyvox started on 07/09/2016, will continue a typical five-day course which ends today so we'll discontinue antibiotics as I fear they may be contributing to some of her encephalopathy. Continue C. difficile prophylaxis with lactobacillus. (3) Urinary tract infection Qualifiers: Urinary tract infection type: site unspecified Hematuria presence: without hematuria Qualified Code(s): N39.0 - Urinary tract infection, site not specified Is this a current diagnosis for this admission?: YesPlan: Now secondary to [place]ie. Removed her Ryan catheter as the tubing is likely now colonized. Started empiric Diflucan 07/10/2016. And we'll discontinue today, monitoring for recurrence (4) Acute encephalopathy Is this a current diagnosis for this admission?: YesPlan: Multifactorial, Secondary to hypoxia, sepsis, sedative effect, possible ICU psychosis with a waxing and waning course. Try to wean centrally acting agents as possible. Soft wrist restraints as needed for her own protection. Changed Zyprexa to daily at bedtime only and we'll decrease the dose again this evening hoping to eliminate altogether by with the weekend. Instructed staff to try to minimize the use of centrally acting agents as they have a prolonged effect in this patient. (5) Acute systolic heart failure Is this a current diagnosis for this admission?: YesPlan: There is likely a component of systolic heart failure, complicating her respiratory status, diuretics currently on hold. Monitor her volume status carefully. Cardiology following available as needed. Trend BNP. Stopped IV fluids. (6) Coronary artery disease Qualifiers: Coronary Disease-Associated Artery/Lesion type: [place] artery Associated angina: angina presence unspecified Is this a current diagnosis for this admission?: YesPlan: Probable mild type II NSTEMI related to demand ischemia from the above. troponin trending down, continue medical management only at this point. The patient was seen by cardiology prior to surgery, may need to reenlist their assistance if she decompensates. (7) Hypertension Qualifiers: Hypertension type: essential hypertension Qualified Code(s): I10 - Essential (primary) hypertension Is this a current diagnosis for this admission?: YesPlan: Good control. Titrate to effect (8) Ischemic cardiomyopathy Is this a current diagnosis for this admission?: Yes (9) Nutrition disorder Is this a current diagnosis for this admission?: Yes (10) Acute cholecystitis Is this a current diagnosis for this admission?: Yes (11) Choledocholithiasis Is this a current diagnosis for this admission?: Yes - Time Time Spent with patient: 25-34 minutes - Plan Summary Plan Summary: Disposition decisions on hold pending resolution of her delirium
[2016-07-13] MEDS ORDERED: OLANZAPINE 5 MG TABLET PO SCH (22:00)
[2016-07-13] MEDS: ATORVASTATIN CALCIUM 20 MG TABLET PO SCH (23:49)
[2016-07-13] MEDS: ACETAMINOPHEN 325 MG TABLET PO PRN (23:57)
[2016-07-14] MEDS: ENOXAPARIN SODIUM INJ 40 MG/0.4 ML DISP.SYRIN SUBCUT SCH (08:59)
[2016-07-14 09:26] LABS: ABSOLUTE LYMPHOCYTES (AUTO) 1.6 10^3/uL (0.5-4.7); ABSOLUTE MONOCYTES (AUTO) 1.1 10^3/uL (0.1-1.4); ABSOLUTE NEUT (AUTO) 8.9 10^3/uL (1.7-8.2); BASOPHILS % (AUTO) 0.3 % (0-2); EOSINOPHILS % (AUTO) 0.4 % (0-6); HEMATOCRIT 31.8 % (36.0-47.0); HEMOGLOBIN 10.6 g/dL (12.0-15.5); LYMPHOCYTES % (AUTO) 13.5 % (13-45); MEAN CORPUSCULAR HEMOGLOBIN 29.5 pg (27.0-33.4); MEAN CORPUSCULAR HGB CONC 33.4 g/dL (32.0-36.0); MEAN CORPUSCULAR VOLUME 88 fl (80-97); MONOCYTES % (AUTO) 9.2 % (3-13); SEGMENTED NEUTROPHILS % (AUTO) 76.6 % (42-78); WHITE BLOOD COUNT 11.6 10^3/uL (4.0-10.5)
[2016-07-14 09:49] LABS: ALANINE AMINOTRANSFERASE 54 U/L (9-52); ALBUMIN 3.2 g/dL (3.5-5.0); ALKALINE PHOSPHATASE 74 U/L (38-126); ANION GAP 10 (5-19); ASPARTATE AMINO TRANSFERASE 63 U/L (14-36); BILIRUBIN,TOTAL 0.5 mg/dL (0.2-1.3); BLOOD UREA NITROGEN 16 mg/dL (7-20); CALCIUM 9.1 mg/dL (8.4-10.2); CARBON DIOXIDE 31 mmol/L (22-30); CHLORIDE 103 mmol/L (98-107); CREATININE RESULT 0.98 mg/dL (0.52-1.25); GLUCOSE 100 mg/dL (75-110); MAGNESIUM 1.9 mg/dL (1.6-2.3); POTASSIUM 3.7 mmol/L (3.6-5.0); SODIUM 144.2 mmol/L (137-145); TOTAL PROTEIN 6.9 g/dL (6.3-8.2)
[2016-07-14] MEDS: FAMOTIDINE INJ/PF 20 MG/2 ML SDV IV SCH ×2 (10:42→21:58)
[2016-07-14] MEDS: LACTOBACILLUS ACIDOPHILUS 250 MG TAB PO SCH ×2 (10:43→17:53)
[2016-07-14] MEDS: POTASSIUM CHLORIDE 20 MEQ/15 ML UDCUP PO SCH (10:43)
[2016-07-14] MEDS: LISINOPRIL 10 MG TABLET PO SCH (10:44)
[2016-07-14] MEDS: ATENOLOL 50 MG TABLET PO SCH ×2 (10:44→21:59)
[2016-07-14] MEDS: ASPIRIN 325 MG TABLET, ENT COATED PO SCH (10:45)
[2016-07-14] MEDS: DOCUSATE SODIUM 100 MG CAPSULE PO SCH (11:51)
[2016-07-14] MEDS: ACETAMINOPHEN 325 MG TABLET PO PRN (11:52)
--- NOTE | 2016-07-14 14:08 | PDOC PROGRESS REPORT ---
Subjective Progress Note for:: 07/14/16 Subjective:: Reason for visit: Follow-up pneumonia, encephalopathy, acute cholecystitis Hospital course:: Patient reported to the emergency department with increasing epigastric pain that started on Saturday as bloating and quickly developed sharp stabbing pain that radiates throughout the abdomen. She got no relief from dzot-rks-[id number] antacids. It began to affect her sleep and she started regurgitating foul tasting bile. She reports 4 stools over the course of the last 24 hours which is an increase for her but denies any change in the character or color of stools. She never had anything quite like this before. She describes the pain as sharp stabbing and radiating throughout the abdomen, worse with eating, improved with narcotics and no associated symptoms of fever, chills, chest pain, palpitations, headache or dizziness. Evaluation in the emergency department including imaging shows signs and symptoms suggestive of an acute cholecystitis. We were asked to admit the patient due to multiple medical problems, surgery has already Evaluated and anticipates intervention later today. The patient has a prior history of AL with catheter in 1997 and has unusual changes on her EKG with T-wave inversions in V4 through 6. Cardiology is already evaluated and cleared for general anesthesia. The patient underwent laparoscopic cholecystectomy with intraoperative cholangiogram suggestive of choledocholithiasis on 06/27/2016 and ERCP on 2016. The ERCP was stopped early due to the development of hypoxia, however he was able to perform sphincterotomy and liberate small amount of biliary sludge. Unfortunately within hours of the procedure she rapidly decompensated becoming more hypoxic, agitated and then rapidly less responsive. 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 chest x-ray showed bilateral fluffy airspace disease suggestive of a developing pneumonia. Antibiotics were broadened to include Zosyn and vancomycin, in addition to the Cipro, for presumed HCAP. Her course has been further complicated by what appears to be a recurrent pneumonia, pulmonary edema from acute systolic heart failure, persistent hypoxic respiratory failure and persistent delirium. The family reports she cleared somewhat this past Saturday but by that evening was aggressive and violent with staff requiring pharmaceutical and physical restraints and she has not cleared since. Subjective: Mental state continues to wax and wane nursing reports intermittent periods of confusion, paranoia and hallucinations. Overall she seems a bit more improved to me this morning and seems to remember me but can't quite put it all together and make it makes sense. ROS: Unreliable due to mental state Physical Exam Vital Signs: Temp Pulse Resp BP Pulse Ox 98.6 F 75 16 145/63 H 90 L 07/14/16 11:23 07/14/16 11:23 07/14/16 11:23 07/14/16 11:23 07/14/16 11:23 Intake & Output 07/13/16 07/14/16 07/15/16 06:59 06:59 06:59 Intake Total 820 1090 120 Balance 820 1090 120 Weight 81.4 kg 79.5 kg EXAM GENERAL: NAD, very weak and lethargic but will open her eyes and follow simple commands; well developed, no obese; nursing reports very poor oral intake HEENT: normocephalic; no conjunctival injection, no scleral icterus; RESPIRATORY: no accessory muscle use, no increased WOB, good air entry bilaterally; no wheezes, rales, rhonchi; persistent bibasilar right greater than left inspiratory crackles but improved CARDIO: no JVD; RRR; no systolic murmur; no tachycardia GI: soft; nondistended; normal bowel sounds; no rebound, rigidity, guarding; no grimace to palpation; laparoscopic wounds clean dry and intact VASCULAR: no carotid bruit; no abdominal bruit; no pallor; 2+ radial, pulse; normal capillary refill EXTREMITIES: no calf tender; no palpable cords in calf; no clubbing, cyanosis , no pedal edema PSYCH: Calm and cooperative at present however staff reports intermittent agitation and paranoia persist, she did receive a small dose of Ativan last night SKIN: warm; moist; no petechiae; no telengectasias; no jaundice; Results Laboratory Results: 07/14/16 09:10 07/14/16 09:10 07/14/16 07/14/16 07/14/16 09:10 09:10 09:10 WBC 11.6 H RBC 3.60 L Hgb 10.6 L Hct 31.8 L MCV 88 MCH 29.5 MCHC 33.4 RDW 13.0 Plt Count 426 Seg Neutrophils % 76.6 Lymphocytes % 13.5 Monocytes % 9.2 Eosinophils % 0.4 Basophils % 0.3 Absolute Neutrophils 8.9 H Absolute Lymphocytes 1.6 Absolute Monocytes 1.1 Absolute Eosinophils 0.0 Absolute Basophils 0.0 Sodium 144.2 Potassium 3.7 Chloride 103 Carbon Dioxide 31 H Anion Gap 10 BUN 16 Creatinine 0.98 Est GFR ( Amer) > 60 Est GFR (Non-Af Amer) 54 L Glucose 100 Lactic Acid 0.7 Calcium 9.1 Phosphorus 4.0 Magnesium 1.9 Total Bilirubin 0.5 AST 63 H ALT 54 H Alkaline Phosphatase 74 Ammonia C-Reactive Protein Total Protein 6.9 Albumin 3.2 L 07/14/16 07/14/16 09:10 09:10 WBC RBC Hgb Hct MCV MCH MCHC RDW Plt Count Seg Neutrophils % Lymphocytes % Monocytes % Eosinophils % Basophils % Absolute Neutrophils Absolute Lymphocytes Absolute Monocytes Absolute Eosinophils Absolute Basophils Sodium Potassium Chloride Carbon Dioxide Anion Gap BUN Creatinine Est GFR ( Amer) Est GFR (Non-Af Amer) Glucose Lactic Acid Calcium Phosphorus Magnesium Total Bilirubin AST ALT Alkaline Phosphatase Ammonia < 8.7 L C-Reactive Protein 123.7 H Total Protein Albumin 07/09/16 11:11 Blood Blood Culture - Final NO GROWTH IN 5 DAYS 07/09/16 09:20 Blood Blood Culture - Final NO GROWTH IN 5 DAYS 06/29/16 06/29/16 06/29/16 04:00 04:00 04:53 Creatine Kinase Cancelled CK-MB (CK-2) Cancelled 3.16 Troponin I Cancelled 0.080 NT-Pro-B Natriuret Pep 06/29/16 06/29/16 06/30/16 04:53 04:53 05:13 Creatine Kinase 140 H CK-MB (CK-2) Troponin I NT-Pro-B Natriuret Pep 4530 H 2570 H 07/01/16 07/02/16 07/03/16 05:25 06:03 05:15 Creatine Kinase CK-MB (CK-2) Troponin I NT-Pro-B Natriuret Pep 2570 H 5080 H 6320 H 07/06/16 07/09/16 07/11/16 06:55 09:20 05:30 Creatine Kinase CK-MB (CK-2) Troponin I 0.319 0.202 NT-Pro-B Natriuret Pep 2020 H 6090 H 3660 H Labs reviewed and show an encouraging trend especially in her leukocytosis Assessment & Plan - Diagnosis (1) Acute respiratory failure with hypoxia and hypercapnia Is this a current diagnosis for this admission?: YesPlan: Unchanged, Remains O2 dependent, imaging previously shows bilateral pleural effusions with compressive atelectasis and likely airspace disease. Continue to wean O2 as tolerated. Stopped antibiotics to 07/13/16 and monitor for recurrence. (2) Pneumonia Qualifiers: Pneumonia type: due to unspecified organism Laterality: bilateral Lung location: unspecified part of lung Qualified Code(s): J18.9 - Pneumonia, unspecified organism Is this a current diagnosis for this admission?: YesPlan: Seems to be a recurrent problem for her complicated by the likely sympathetic, possibly parapneumonic bilateral pleural effusions. Zosyn and Zyvox discontinued 07/13/16 after a 5d course; I fear the antibiotics may have contributed to some of her encephalopathy. Continue C. difficile prophylaxis with lactobacillus. (3) Urinary tract infection Qualifiers: Urinary tract infection type: site unspecified Hematuria presence: without hematuria Qualified Code(s): N39.0 - Urinary tract infection, site not specified Is this a current diagnosis for this admission?: YesPlan: Now secondary to Jennie. Removed her Ryan catheter as the tubing is likely now colonized. d/c'd empiric Diflucan 07/13/2016 after 3d course. monitoring for recurrence (4) Acute encephalopathy Is this a current diagnosis for this admission?: YesPlan: Seems improved to me this morning. Multifactorial, Secondary to hypoxia, sepsis , sedative effect, possible ICU psychosis with a waxing and waning course. Continue to wean centrally acting agents as possible. Soft wrist restraints as needed for her own protection. Instructed staff again to minimize the use of centrally acting agents as they have a prolonged effect in this patient. (5) Acute systolic heart failure Is this a current diagnosis for this admission?: YesPlan: There is likely a component of systolic heart failure, complicating her respiratory status, diuretics currently on hold. Monitor her volume status carefully. Cardiology following available as needed. Trend BNP. Stopped IV fluids 07/12/16. (6) Coronary artery disease Qualifiers: Coronary Disease-Associated Artery/Lesion type: [place] artery Associated angina: angina presence unspecified Is this a current diagnosis for this admission?: YesPlan: Probable mild type II NSTEMI related to demand ischemia from the above. troponin trended down, continue medical management only at this point. The patient was seen by cardiology prior to surgery, may need to reenlist their assistance if she decompensates. (7) Hypertension Qualifiers: Hypertension type: essential hypertension Qualified Code(s): I10 - Essential (primary) hypertension Is this a current diagnosis for this admission?: Yes (8) Ischemic cardiomyopathy Is this a current diagnosis for this admission?: Yes (9) Nutrition disorder Is this a current diagnosis for this admission?: YesPlan: add banana bag daily and Advance diet with nutritional supplement as her encephalopathy will allow. (10) Acute cholecystitis Is this a current diagnosis for this admission?: Yes (11) Choledocholithiasis Is this a current diagnosis for this admission?: Yes - Time Time Spent with patient: 25-34 minutes Medications reviewed and adjusted accordingly: Yes
[2016-07-14] MEDS ORDERED: NORMAL SALINE 1000 ML 1,000 ML with POTASSIUM CHLORIDE 20 MEQ, MAGNESIUM SULFATE 8 MEQ,... IV PRN ×5 (14:09)
[2016-07-14] MEDS ORDERED: NORMAL SALINE 1000 ML 500 ML IV ONE (15:29)
[2016-07-14] MEDS: DEXTROSE 5%-NORMAL SALINE 1,000 ML IV PRN ×2 (17:52→17:57)
[2016-07-14] MEDS: ATORVASTATIN CALCIUM 20 MG TABLET PO SCH (21:59)
[2016-07-14] MEDS: HALOPERIDOL LACTATE INJ 5 MG/1 ML VIAL IV PRN (23:25)
[2016-07-15] MEDS: ENOXAPARIN SODIUM INJ 40 MG/0.4 ML DISP.SYRIN SUBCUT SCH (09:00)
[2016-07-15] MEDS ORDERED: NORMAL SALINE 1000 ML 1,000 ML with POTASSIUM CHLORIDE 20 MEQ, MAGNESIUM SULFATE 8 MEQ,... IV PRN ×5 (10:00)
[2016-07-15] MEDS: POTASSIUM CHLORIDE 20 MEQ/15 ML UDCUP PO SCH (10:53)
[2016-07-15] MEDS: LACTOBACILLUS ACIDOPHILUS 250 MG TAB PO SCH ×2 (10:53→18:09)
[2016-07-15] MEDS: ASPIRIN 325 MG TABLET, ENT COATED PO SCH (10:54)
[2016-07-15] MEDS: LISINOPRIL 10 MG TABLET PO SCH (10:54)
[2016-07-15] MEDS: ATENOLOL 50 MG TABLET PO SCH ×2 (10:54→22:30)
[2016-07-15] MEDS: DOCUSATE SODIUM 100 MG CAPSULE PO SCH (11:02)
[2016-07-15] MEDS: FAMOTIDINE INJ/PF 20 MG/2 ML SDV IV SCH ×2 (11:04→22:29)
--- NOTE | 2016-07-15 14:05 | PDOC PROGRESS REPORT ---
Subjective Progress Note for:: 07/15/16 Subjective:: Reason for visit: Follow-up pneumonia, encephalopathy, acute cholecystitis Hospital course:: Patient reported to the emergency department with increasing epigastric pain that started on Saturday as bloating and quickly developed sharp stabbing pain that radiates throughout the abdomen. She got no relief from [id number] antacids. It began to affect her sleep and she started regurgitating foul tasting bile. She reports 4 stools over the course of the last 24 hours which is an increase for her but denies any change in the character or color of stools. She never had anything quite like this before. She describes the pain as sharp stabbing and radiating throughout the abdomen, worse with eating, improved with narcotics and no associated symptoms of fever, chills, chest pain, palpitations, headache or dizziness. Evaluation in the emergency department including imaging shows signs and symptoms suggestive of an acute cholecystitis. We were asked to admit the patient due to multiple medical problems, surgery has already Evaluated and anticipates intervention later today. The patient has a prior history of [place] with catheter in 1997 and has unusual changes on her EKG with T-wave inversions in V4 through 6. Cardiology is already evaluated and cleared for general anesthesia. The patient underwent laparoscopic cholecystectomy with intraoperative cholangiogram suggestive of choledocholithiasis on 06/27/2016 and ERCP on 2016. The ERCP was stopped early due to the development of hypoxia, however he was able to perform sphincterotomy and liberate small amount of biliary sludge. Unfortunately within hours of the procedure she rapidly decompensated becoming more hypoxic, agitated and then rapidly less responsive. She was urgently transferred to the ICU, intubated by [employer] and spent the next couple days on mechanical ventilation until successful extubation on 07/01/2016. chest x-ray showed bilateral fluffy airspace disease suggestive of a developing pneumonia. Antibiotics were broadened to include Zosyn and vancomycin, in addition to the Cipro, for presumed HCAP. Her course has been further complicated by what appears to be a recurrent pneumonia, pulmonary edema from acute systolic heart failure, persistent hypoxic respiratory failure and persistent delirium. The family reports she cleared somewhat about a week ago but then became aggressive and violent with staff requiring pharmaceutical and physical restraints and she has not cleared since. Subjective: Mental state continues to wax and wane nursing reports intermittent periods of confusion, paranoia and hallucinations, occurred again last night and required as needed dosing. ROS: Unreliable due to mental state Physical Exam Vital Signs: Temp Pulse Resp BP Pulse Ox 98.3 F 74 20 138/59 H 99 07/15/16 07:47 07/15/16 07:47 07/15/16 07:47 07/15/16 07:47 07/15/16 07:47 Intake & Output 07/14/16 07/15/16 07/16/16 06:59 06:59 06:59 Intake Total 1090 1350 Balance 1090 1350 Weight 79.5 kg 79.5 kg EXAM GENERAL: NAD, very weak and lethargic but will open her eyes and follow simple commands; well developed, no obese; nursing reports very poor oral intake and had another episode of confusion during the night requiring dose Haldol HEENT: normocephalic; no conjunctival injection, no scleral icterus; RESPIRATORY: no accessory muscle use, no increased WOB, good air entry bilaterally; no wheezes, rales, rhonchi; persistent bibasilar right greater than left inspiratory crackles but improved CARDIO: no JVD; RRR; no systolic murmur; no tachycardia GI: soft; nondistended; normal bowel sounds; no rebound, rigidity, guarding; no grimace to palpation; laparoscopic wounds clean dry and intact VASCULAR: no carotid bruit; no abdominal bruit; no pallor; 2+ radial, pulse; normal capillary refill EXTREMITIES: no calf tender; no palpable cords in calf; no clubbing, cyanosis , no pedal edema PSYCH: Calm and cooperative SKIN: warm; moist; no petechiae; no telengectasias; no jaundice; Results Laboratory Results: 07/14/16 09:10 07/14/16 09:10 07/09/16 11:11 Blood Blood Culture - Final NO GROWTH IN 5 DAYS 07/09/16 09:20 Blood Blood Culture - Final NO GROWTH IN 5 DAYS 06/29/16 06/29/16 06/29/16 04:00 04:00 04:53 Creatine Kinase Cancelled CK-MB (CK-2) Cancelled 3.16 Troponin I Cancelled 0.080 NT-Pro-B Natriuret Pep 06/29/16 06/29/16 06/30/16 04:53 04:53 05:13 Creatine Kinase 140 H CK-MB (CK-2) Troponin I NT-Pro-B Natriuret Pep 4530 H 2570 H 07/01/16 07/02/16 07/03/16 05:25 06:03 05:15 Creatine Kinase CK-MB (CK-2) Troponin I NT-Pro-B Natriuret Pep 2570 H 5080 H 6320 H 07/06/16 07/09/16 07/11/16 06:55 09:20 05:30 Creatine Kinase CK-MB (CK-2) Troponin I 0.319 0.202 NT-Pro-B Natriuret Pep 2020 H 6090 H 3660 H Impressions: Abdomen Ultrasound 06/26/16 08:03 IMPRESSION: Pericholecystic fluid, gallbladder wall thickening, positive sonographic Mcpherson's sign and multiple small gallstones. Findings worrisome for acute cholecystitis. Cholangiogram 06/27/16 00:00 IMPRESSION: INTRAOPERATIVE CHOLANGIOGRAM. Catheter Placement 06/28/16 00:00 IMPRESSION: IMAGE(S) OBTAINED DURING PROCEDURE. Head CT 07/05/16 08:41 IMPRESSION: No acute findings. Limited study. Motion artifact. Abdomen/Pelvis CT 07/09/16 08:54 IMPRESSION: NO SIGNIFICANT OR ACUTE FINDING IN THE ABDOMEN OR PELVIS ON CT SCAN WITH IV CONTRAST. Ryan catheter is identified in the bladder and there is air in the bladder presumably related to the bladder catheter. Other findings as noted above Chest X-Ray 07/09/16 08:54 IMPRESSION: Increasing bilateral airspace disease most likely vascular congestion. Assessment & Plan - Diagnosis (1) Acute respiratory failure with hypoxia and hypercapnia Is this a current diagnosis for this admission?: YesPlan: Unchanged, Remains O2 dependent, imaging previously shows bilateral pleural effusions with compressive atelectasis and likely airspace disease. Continue to wean O2 as tolerated. Stopped antibiotics to 07/13/16 and monitor for recurrence. (2) Pneumonia Qualifiers: Pneumonia type: due to unspecified organism Laterality: bilateral Lung location: unspecified part of lung Qualified Code(s): J18.9 - Pneumonia, unspecified organism Is this a current diagnosis for this admission?: YesPlan: Seems to be a recurrent problem for her complicated by the likely sympathetic, possibly parapneumonic bilateral pleural effusions. Zosyn and Zyvox discontinued 07/13/16 after a 5d course; I fear the antibiotics may have contributed to some of her encephalopathy. Continue C. difficile prophylaxis with lactobacillus. (3) Urinary tract infection Qualifiers: Urinary tract infection type: site unspecified Hematuria presence: without hematuria Qualified Code(s): N39.0 - Urinary tract infection, site not specified Is this a current diagnosis for this admission?: YesPlan: secondary to Jennie. Removed her Ryan catheter as the tubing is likely now colonized. d/c'd empiric Diflucan 07/13/2016 after 3d course. monitoring for recurrence (4) Acute encephalopathy Is this a current diagnosis for this admission?: YesPlan: Waxing and waning. Multifactorial, Secondary to hypoxia, sepsis, sedative effect, possible ICU psychosis with a waxing and waning course. Continue to wean centrally acting agents as possible. Soft wrist restraints as needed for her own protection. Instructed staff again to minimize the use of centrally acting agents as they have a prolonged effect in this patient. (5) Acute systolic heart failure Is this a current diagnosis for this admission?: YesPlan: Appears intravascularly dry. There is likely a component of systolic heart failure, complicating her respiratory status, diuretics remain on hold. Monitor her volume status carefully. Cardiology following available as needed. Trend BNP. (6) Coronary artery disease Qualifiers: Coronary Disease-Associated Artery/Lesion type: [place] artery Associated angina: angina presence unspecified Is this a current diagnosis for this admission?: Yes (7) Hypertension Qualifiers: Hypertension type: essential hypertension Qualified Code(s): I10 - Essential (primary) hypertension Is this a current diagnosis for this admission?: Yes (8) Ischemic cardiomyopathy Is this a current diagnosis for this admission?: Yes (9) Nutrition disorder Is this a current diagnosis for this admission?: Yes (10) Acute cholecystitis Is this a current diagnosis for this admission?: Yes (11) Choledocholithiasis Is this a current diagnosis for this admission?: Yes - Time Time Spent with patient: 25-34 minutes
[2016-07-15] MEDS: ATORVASTATIN CALCIUM 20 MG TABLET PO SCH (22:29)
[2016-07-16 07:54] LABS: HEMATOCRIT 31.2 % (36.0-47.0); HEMOGLOBIN 10.3 g/dL (12.0-15.5); HGB HCT DIFFERENCE -0.3; MEAN CORPUSCULAR HEMOGLOBIN 29.3 pg (27.0-33.4); MEAN CORPUSCULAR VOLUME 89 fl (80-97); RED BLOOD COUNT 3.51 10^6/uL (3.72-5.28); RED CELL DISTRIBUTION WIDTH 13.3 % (11.5-14.0); WHITE BLOOD COUNT 9.8 10^3/uL (4.0-10.5)
[2016-07-16] MEDS: ENOXAPARIN SODIUM INJ 40 MG/0.4 ML DISP.SYRIN SUBCUT SCH (09:21)
[2016-07-16] MEDS: POTASSIUM CHLORIDE 20 MEQ/15 ML UDCUP PO SCH (09:26)
[2016-07-16] MEDS: ATENOLOL 50 MG TABLET PO SCH ×2 (09:26→22:25)
[2016-07-16] MEDS: LISINOPRIL 10 MG TABLET PO SCH (09:27)
[2016-07-16] MEDS: LACTOBACILLUS ACIDOPHILUS 250 MG TAB PO SCH ×2 (09:27→17:04)
[2016-07-16] MEDS: ASPIRIN 325 MG TABLET, ENT COATED PO SCH (09:27)
[2016-07-16] MEDS: FAMOTIDINE INJ/PF 20 MG/2 ML SDV IV SCH ×2 (09:27→22:25)
[2016-07-16] MEDS: DOCUSATE SODIUM 100 MG CAPSULE PO SCH (11:04)
--- NOTE | 2016-07-16 15:36 | PDOC PROGRESS REPORT ---
Subjective Progress Note for:: 07/16/16 Subjective:: Reason for visit: Follow-up pneumonia, encephalopathy, acute cholecystitis Hospital course:: Patient reported to the emergency department with increasing epigastric pain that started on Saturday as bloating and quickly developed sharp stabbing pain that radiates throughout the abdomen. She got no relief from flzz-qsz-jwxqjqo antacids. It began to affect her sleep and she started regurgitating foul tasting bile. She reports 4 stools over the course of the last 24 hours which is an increase for her but denies any change in the character or color of stools. She never had anything quite like this before. She describes the pain as sharp stabbing and radiating throughout the abdomen, worse with eating, improved with narcotics and no associated symptoms of fever, chills, chest pain, palpitations, headache or dizziness. Evaluation in the emergency department including imaging shows signs and symptoms suggestive of an acute cholecystitis. We were asked to admit the patient due to multiple medical problems, surgery has already Evaluated and anticipates intervention later today. The patient has a prior history of [place] with catheter in 1997 and has unusual changes on her EKG with T-wave inversions in V4 through 6. Cardiology is already evaluated and cleared for general anesthesia. The patient underwent laparoscopic cholecystectomy with intraoperative cholangiogram suggestive of choledocholithiasis on 06/27/2016 and ERCP on 2016. The ERCP was stopped early due to the development of hypoxia, however he was able to perform sphincterotomy and liberate small amount of biliary sludge. Unfortunately within hours of the procedure she rapidly decompensated becoming more hypoxic, agitated and then rapidly less responsive. She was urgently transferred to the ICU, intubated by EXECUT[employer] and spent the next couple days on mechanical ventilation until successful extubation on 07/01/2016. chest x-ray showed bilateral fluffy airspace disease suggestive of a developing pneumonia. Antibiotics were broadened to include Zosyn and vancomycin, in addition to the Cipro, for presumed HCAP. Her course has been further complicated by what appears to be a recurrent pneumonia, pulmonary edema from acute systolic heart failure, persistent hypoxic respiratory failure and persistent delirium. The family reports she cleared somewhat about a week ago but then became aggressive and violent with staff requiring pharmaceutical and physical restraints and she did not clear again until yesterday (Saturday). She still waxes and wanes a bit, always worse at night but overall steems to be markedly improved and showing no signs of persistent infection. Subjective: No overnight, nursing reports she's been out of soft restraints for 24 hours. She received single dose of Haldol during the night to help with some agitation with good results and no lingering effects. ROS: She denies chest pain, palpitations, nausea, vomiting, diarrhea, fever, chills, headache, vision changes, numbness or tingling Physical Exam Vital Signs: Temp Pulse Resp BP Pulse Ox 98.2 F 74 16 139/55 H 95 07/16/16 11:59 07/16/16 14:00 07/16/16 11:59 07/16/16 11:59 07/16/16 11:59 Intake & Output 07/15/16 07/16/16 07/17/16 06:59 06:59 06:59 Intake Total 1350 1600 Balance 1350 1600 Weight 79.5 kg 79.5 kg EXAM GENERAL: NAD, still weak and lethargic but will open her eyes and follow simple commands; well developed, no obese; nursing reports poor oral intake but was able to feed herself yesterday and had another episode of confusion during the night requiring dose Haldol HEENT: normocephalic; no conjunctival injection, no scleral icterus; RESPIRATORY: no accessory muscle use, no increased WOB, good air entry bilaterally; no wheezes, rales, rhonchi; persistent bibasilar right greater than left inspiratory crackles but improved CARDIO: no JVD; RRR; no systolic murmur; no tachycardia GI: soft; nondistended; normal bowel sounds; no rebound, rigidity, guarding; no grimace to palpation; laparoscopic wounds clean dry and intact VASCULAR: no carotid bruit; no abdominal bruit; no pallor; 2+ radial, pulse; normal capillary refill EXTREMITIES: no calf tender; no palpable cords in calf; no clubbing, cyanosis , no pedal edema PSYCH: Calm and cooperative SKIN: warm; moist; no petechiae; no telengectasias; no jaundice; Results Laboratory Results: 07/16/16 07:28 07/14/16 09:10 07/16/16 07:28 WBC 9.8 RBC 3.51 L Hgb 10.3 L Hct 31.2 L MCV 89 MCH 29.3 MCHC 33.0 RDW 13.3 Plt Count 364 06/29/16 06/29/16 06/29/16 04:00 04:00 04:53 Creatine Kinase Cancelled CK-MB (CK-2) Cancelled 3.16 Troponin I Cancelled 0.080 NT-Pro-B Natriuret Pep 06/29/16 06/29/16 06/30/16 04:53 04:53 05:13 Creatine Kinase 140 H CK-MB (CK-2) Troponin I NT-Pro-B Natriuret Pep 4530 H 2570 H 07/01/16 07/02/16 07/03/16 05:25 06:03 05:15 Creatine Kinase CK-MB (CK-2) Troponin I NT-Pro-B Natriuret Pep 2570 H 5080 H 6320 H 07/06/16 07/09/16 07/11/16 06:55 09:20 05:30 Creatine Kinase CK-MB (CK-2) Troponin I 0.319 0.202 NT-Pro-B Natriuret Pep 2020 H 6090 H 3660 H Impressions: Abdomen Ultrasound 06/26/16 08:03 IMPRESSION: Pericholecystic fluid, gallbladder wall thickening, positive sonographic Mcpherson's sign and multiple small gallstones. Findings worrisome for acute cholecystitis. Cholangiogram 06/27/16 00:00 IMPRESSION: INTRAOPERATIVE CHOLANGIOGRAM. Catheter Placement 06/28/16 00:00 IMPRESSION: IMAGE(S) OBTAINED DURING PROCEDURE. Head CT 07/05/16 08:41 IMPRESSION: No acute findings. Limited study. Motion artifact. Abdomen/Pelvis CT 07/09/16 08:54 IMPRESSION: NO SIGNIFICANT OR ACUTE FINDING IN THE ABDOMEN OR PELVIS ON CT SCAN WITH IV CONTRAST. Ryan catheter is identified in the bladder and there is air in the bladder presumably related to the bladder catheter. Other findings as noted above Chest X-Ray 07/09/16 08:54 IMPRESSION: Increasing bilateral airspace disease most likely vascular congestion. Assessment & Plan - Diagnosis (1) Acute respiratory failure with hypoxia and hypercapnia Is this a current diagnosis for this admission?: YesPlan: Unchanged, Remains O2 dependent, imaging previously shows bilateral pleural effusions with compressive atelectasis and likely airspace disease. Continue to wean O2 as tolerated. Stopped antibiotics to 07/13/16 and so far no evidence of recurrence. (2) Pneumonia Qualifiers: Pneumonia type: due to unspecified organism Laterality: bilateral Lung location: unspecified part of lung Qualified Code(s): J18.9 - Pneumonia, unspecified organism Is this a current diagnosis for this admission?: YesPlan: Seems to be a recurrent problem for her complicated by the likely sympathetic, possibly parapneumonic bilateral pleural effusions. Zosyn and Zyvox discontinued 07/13/16 after a 5d course; I fear the antibiotics may have contributed to some of her encephalopathy. Continue C. difficile prophylaxis with lactobacillus. No evidence of recurrence. (3) Urinary tract infection Qualifiers: Urinary tract infection type: site unspecified Hematuria presence: without hematuria Qualified Code(s): N39.0 - Urinary tract infection, site not specified Is this a current diagnosis for this admission?: YesPlan: secondary to Jennie. Removed her Ryan catheter over the weekend as the tubing is likely now colonized. d/c'd empiric Diflucan 07/13/2016 after 3d course. monitoring for recurrence (4) Acute encephalopathy Is this a current diagnosis for this admission?: YesPlan: Waxing and waning. Multifactorial, Secondary to hypoxia, sepsis, sedative effect, possible ICU psychosis. Continue to wean centrally acting agents as possible. Soft wrist restraints as needed for her own protection. Instructed staff again to minimize the use of centrally acting agents as they have a prolonged effect in this patient. (5) Acute systolic heart failure Is this a current diagnosis for this admission?: YesPlan: Appears intravascularly dry. There is likely a component of systolic heart failure, complicating her respiratory status, diuretics remain on hold. Monitor her volume status carefully. Cardiology following available as needed. (6) Coronary artery disease Qualifiers: Coronary Disease-Associated Artery/Lesion type: [place] artery Associated angina: angina presence unspecified Is this a current diagnosis for this admission?: YesPlan: Probable mild type II NSTEMI related to demand ischemia from the above. troponin trended down, continue medical management only at this point. The patient was seen by cardiology prior to surgery, may need to reenlist their assistance if she decompensates. (7) Hypertension Qualifiers: Hypertension type: essential hypertension Qualified Code(s): I10 - Essential (primary) hypertension Is this a current diagnosis for this admission?: Yes (8) Ischemic cardiomyopathy Is this a current diagnosis for this admission?: Yes (9) Nutrition disorder Is this a current diagnosis for this admission?: Yes (10) Acute cholecystitis Is this a current diagnosis for this admission?: Yes (11) Choledocholithiasis Is this a current diagnosis for this admission?: Yes - Time Time Spent with patient: 25-34 minutes Anticipated discharge: Acute Rehab Within: within 48 hours - Plan Summary Plan Summary: Illness physical therapy's assistance now that she is more alert and cooperative. Out of bed to chair for all meals.
[2016-07-16] MEDS: HALOPERIDOL LACTATE INJ 5 MG/1 ML VIAL IV PRN ×2 (17:51→22:26)
[2016-07-16] MEDS ORDERED: LORAZEPAM INJ 2 MG/1 ML VIAL ONE (18:50)
[2016-07-16] MEDS ORDERED: LORAZEPAM INJ 2 MG/1 ML VIAL IV ONE (19:30)
[2016-07-16] MEDS: ATORVASTATIN CALCIUM 20 MG TABLET PO SCH (22:26)
[2016-07-17] MEDS: ASPIRIN 325 MG TABLET, ENT COATED PO SCH (10:31)
[2016-07-17] MEDS: LACTOBACILLUS ACIDOPHILUS 250 MG TAB PO SCH ×2 (10:31→17:39)
[2016-07-17] MEDS: POTASSIUM CHLORIDE 20 MEQ/15 ML UDCUP PO SCH (10:31)
[2016-07-17] MEDS: LISINOPRIL 10 MG TABLET PO SCH (10:31)
[2016-07-17] MEDS: ENOXAPARIN SODIUM INJ 40 MG/0.4 ML DISP.SYRIN SUBCUT SCH (10:32)
[2016-07-17] MEDS: HALOPERIDOL LACTATE INJ 5 MG/1 ML VIAL IV PRN (10:34)
[2016-07-17] MEDS: FAMOTIDINE INJ/PF 20 MG/2 ML SDV IV SCH ×2 (10:34→22:00)
[2016-07-17] MEDS: ATENOLOL 50 MG TABLET PO SCH ×2 (10:35→22:00)
[2016-07-17] MEDS: DOCUSATE SODIUM 100 MG CAPSULE PO SCH (11:58)
--- NOTE | 2016-07-17 17:54 | PDOC PROGRESS REPORT ---
Subjective Progress Note for:: 07/17/16 Subjective:: Patient had to be sedated again last night as she became extremely combative She is now resting comfortably sedated Physical Exam Vital Signs: Temp Pulse Resp BP Pulse Ox 97.5 F 74 16 148/76 H 100 07/17/16 15:08 07/17/16 15:08 07/17/16 15:08 07/17/16 15:08 07/17/16 15:08 Intake & Output 07/16/16 07/17/16 07/18/16 00:59 00:59 00:59 Intake Total 1560 620 200 Balance 1560 620 200 Weight 79.5 kg 79.5 kg 79.3 kg General appearance: PRESENT: no acute distress, thin Head exam: PRESENT: atraumatic, normocephalic Eye exam: PRESENT: conjunctiva pink, EOMI, PERRLA. ABSENT: scleral icterus Mouth exam: PRESENT: dry mucosa Neck exam: ABSENT: carotid bruit, JVD, lymphadenopathy, thyromegaly Respiratory exam: PRESENT: clear to auscultation jessy. ABSENT: rales, rhonchi, wheezes Cardiovascular exam: PRESENT: RRR. ABSENT: diastolic murmur, rubs, systolic murmur Results Laboratory Results: 07/16/16 07:28 07/14/16 09:10 06/29/16 06/29/16 06/29/16 04:00 04:00 04:53 Creatine Kinase Cancelled CK-MB (CK-2) Cancelled 3.16 Troponin I Cancelled 0.080 NT-Pro-B Natriuret Pep 06/29/16 06/29/16 06/30/16 04:53 04:53 05:13 Creatine Kinase 140 H CK-MB (CK-2) Troponin I NT-Pro-B Natriuret Pep 4530 H 2570 H 07/01/16 07/02/16 07/03/16 05:25 06:03 05:15 Creatine Kinase CK-MB (CK-2) Troponin I NT-Pro-B Natriuret Pep 2570 H 5080 H 6320 H 07/06/16 07/09/16 07/11/16 06:55 09:20 05:30 Creatine Kinase CK-MB (CK-2) Troponin I 0.319 0.202 NT-Pro-B Natriuret Pep 2020 H 6090 H 3660 H Impressions: Abdomen Ultrasound 06/26/16 08:03 IMPRESSION: Pericholecystic fluid, gallbladder wall thickening, positive sonographic Mcpherson's sign and multiple small gallstones. Findings worrisome for acute cholecystitis. Cholangiogram 06/27/16 00:00 IMPRESSION: INTRAOPERATIVE CHOLANGIOGRAM. Catheter Placement 06/28/16 00:00 IMPRESSION: IMAGE(S) OBTAINED DURING PROCEDURE. Head CT 07/05/16 08:41 IMPRESSION: No acute findings. Limited study. Motion artifact. Abdomen/Pelvis CT 07/09/16 08:54 IMPRESSION: NO SIGNIFICANT OR ACUTE FINDING IN THE ABDOMEN OR PELVIS ON CT SCAN WITH IV CONTRAST. Ryan catheter is identified in the bladder and there is air in the bladder presumably related to the bladder catheter. Other findings as noted above Chest X-Ray 07/09/16 08:54 IMPRESSION: Increasing bilateral airspace disease most likely vascular congestion. Assessment & Plan - Diagnosis (1) Acute encephalopathy Is this a current diagnosis for this admission?: YesPlan: Intermittent persistent With agitation and aggressive behavior We will continue the present management (2) Acute respiratory failure with hypoxia and hypercapnia Is this a current diagnosis for this admission?: Yes (3) Acute cholecystitis Is this a current diagnosis for this admission?: Yes (4) CHF (congestive heart failure) Qualifiers: Congestive heart failure type: combined Congestive heart failure chronicity: acute on chronic Qualified Code(s): I50.43 - Acute on chronic combined systolic (congestive) and diastolic (congestive) heart failure Is this a current diagnosis for this admission?: YesPlan: Patient is on the dry side now now; we will start IV fluids at 75 mL/h (5) Leukocytosis Qualifiers: Leukocytosis type: unspecified Qualified Code(s): D72.829 - Elevated white blood cell count, unspecified Is this a current diagnosis for this admission?: YesPlan: Is improving - Time Time Spent with patient: Patient's medical issues are resolving at this time The delirium is still persistent at times Patient is awaiting transfer to short-term rehabilitation when her condition permits Time Spent with patient: 25-34 minutes
[2016-07-17] MEDS: NORMAL SALINE 1000 ML 1,000 ML IV PRN (18:43)
[2016-07-17] MEDS: ATORVASTATIN CALCIUM 20 MG TABLET PO SCH (22:00)
[2016-07-17] MEDS ORDERED: RISPERIDONE 0.25 MG TABLET PO SCH (23:00)
[2016-07-17] MEDS ORDERED: RISPERIDONE 0.25 MG TABLET PO ONE (23:30)
[2016-07-18] MEDS ORDERED: RISPERIDONE 0.25 MG TABLET PO ONE (00:15)
[2016-07-18] MEDS ORDERED: RISPERIDONE 0.25 MG TABLET ONE (00:20)
[2016-07-18 06:22] LABS: HEMATOCRIT 37.4 % (36.0-47.0); HEMOGLOBIN 12.3 g/dL (12.0-15.5); HGB HCT DIFFERENCE -0.5; MEAN CORPUSCULAR HEMOGLOBIN 29.1 pg (27.0-33.4); MEAN CORPUSCULAR HGB CONC 32.9 g/dL (32.0-36.0); MEAN CORPUSCULAR VOLUME 89 fl (80-97); RED BLOOD COUNT 4.22 10^6/uL (3.72-5.28); RED CELL DISTRIBUTION WIDTH 12.8 % (11.5-14.0); WHITE BLOOD COUNT 11.3 10^3/uL (4.0-10.5)
[2016-07-18] MEDS: ENOXAPARIN SODIUM INJ 40 MG/0.4 ML DISP.SYRIN SUBCUT SCH (08:50)
[2016-07-18] MEDS: FAMOTIDINE INJ/PF 20 MG/2 ML SDV IV SCH ×2 (10:22→22:40)
[2016-07-18] MEDS: ASPIRIN 325 MG TABLET, ENT COATED PO SCH (10:23)
[2016-07-18] MEDS: LISINOPRIL 10 MG TABLET PO SCH (10:24)
[2016-07-18] MEDS: ATENOLOL 50 MG TABLET PO SCH ×2 (10:24→22:40)
[2016-07-18] MEDS: POTASSIUM CHLORIDE 20 MEQ/15 ML UDCUP PO SCH (10:24)
[2016-07-18] MEDS: LACTOBACILLUS ACIDOPHILUS 250 MG TAB PO SCH ×2 (10:24→17:36)
[2016-07-18] MEDS: DOCUSATE SODIUM 100 MG CAPSULE PO SCH (11:53)
[2016-07-18] MEDS ORDERED: RISPERIDONE 0.25 MG TABLET PO SCH (14:00)
[2016-07-18] MEDS: HALOPERIDOL LACTATE INJ 5 MG/1 ML VIAL IV PRN ×2 (16:25→22:39)
--- NOTE | 2016-07-18 16:42 | PDOC PROGRESS REPORT ---
Subjective Progress Note for:: 07/18/16 Subjective:: Patient was extremely agitated last night and had to be sedated She has been resting extremely lethargic most of the day taking very little by mouth Unfortunately patient's still has delirium almost every day; with sundowning in the evening and extreme agitation behavior later Next she sleeps most of the day after being sedated There are times when she is awake cooperative and communicates well with her sister She has no fever no chills Physical Exam Vital Signs: Temp Pulse Resp BP Pulse Ox 98.5 F 69 14 116/55 L 100 07/18/16 11:14 07/18/16 11:14 07/18/16 11:14 07/18/16 11:14 07/18/16 11:14 Intake & Output 07/17/16 07/18/16 07/19/16 00:59 00:59 00:59 Intake Total 620 370 150 Balance 620 370 150 Weight 79.5 kg 79.3 kg 79.2 kg General appearance: PRESENT: mild distress, thin, other - Looks ill. Pale Head exam: PRESENT: atraumatic, normocephalic Eye exam: PRESENT: conjunctiva pale Ear exam: PRESENT: normal external ear exam Mouth exam: PRESENT: dry mucosa Neck exam: ABSENT: carotid bruit, JVD, lymphadenopathy, thyromegaly Respiratory exam: PRESENT: clear to auscultation jessy. ABSENT: rales, rhonchi, wheezes Pulses: PRESENT: normal dorsalis pedis pul GI/Abdominal exam: PRESENT: normal bowel sounds, soft. ABSENT: distended, guarding, mass, organolmegaly, rebound, tenderness Neurological exam: PRESENT: altered, other - Very lethargic Results Laboratory Results: 07/18/16 05:34 07/14/16 09:10 07/18/16 05:34 WBC 11.3 H RBC 4.22 Hgb 12.3 Hct 37.4 MCV 89 MCH 29.1 MCHC 32.9 RDW 12.8 Plt Count 457 H 06/29/16 06/29/16 06/29/16 04:00 04:00 04:53 Creatine Kinase Cancelled CK-MB (CK-2) Cancelled 3.16 Troponin I Cancelled 0.080 NT-Pro-B Natriuret Pep 06/29/16 06/29/16 06/30/16 04:53 04:53 05:13 Creatine Kinase 140 H CK-MB (CK-2) Troponin I NT-Pro-B Natriuret Pep 4530 H 2570 H 07/01/16 07/02/16 07/03/16 05:25 06:03 05:15 Creatine Kinase CK-MB (CK-2) Troponin I NT-Pro-B Natriuret Pep 2570 H 5080 H 6320 H 07/06/16 07/09/16 07/11/16 06:55 09:20 05:30 Creatine Kinase CK-MB (CK-2) Troponin I 0.319 0.202 NT-Pro-B Natriuret Pep 2020 H 6090 H 3660 H Impressions: Abdomen Ultrasound 06/26/16 08:03 IMPRESSION: Pericholecystic fluid, gallbladder wall thickening, positive sonographic Mcpherson's sign and multiple small gallstones. Findings worrisome for acute cholecystitis. Cholangiogram 06/27/16 00:00 IMPRESSION: INTRAOPERATIVE CHOLANGIOGRAM. Catheter Placement 06/28/16 00:00 IMPRESSION: IMAGE(S) OBTAINED DURING PROCEDURE. Head CT 07/05/16 08:41 IMPRESSION: No acute findings. Limited study. Motion artifact. Abdomen/Pelvis CT 07/09/16 08:54 IMPRESSION: NO SIGNIFICANT OR ACUTE FINDING IN THE ABDOMEN OR PELVIS ON CT SCAN WITH IV CONTRAST. Ryan catheter is identified in the bladder and there is air in the bladder presumably related to the bladder catheter. Other findings as noted above Chest X-Ray 07/09/16 08:54 IMPRESSION: Increasing bilateral airspace disease most likely vascular congestion. Assessment & Plan - Diagnosis (1) Acute encephalopathy Is this a current diagnosis for this admission?: YesPlan: Delirium Patient likely had underlying dementia 07/05/16 07/05/16 07/14/16 05:50 05:50 09:10 Sodium 144.2 BUN 16 Creatinine 0.98 Glucose 100 AST 63 H ALT 54 H Ammonia C-Reactive Protein Vitamin B12 801.0 TSH 2.54 07/14/16 07/14/16 09:10 09:10 Sodium BUN Creatinine Glucose AST ALT Ammonia < 8.7 L C-Reactive Protein 123.7 H Vitamin B12 TSH Patient did have a workup including CT of the head which was negative LFTs B-12 TSH ammonia were unremarkable The delirium his somewhat better than 2 weeks ago as patient has some times during which her mentation is improved We will ask Dr. Lee to consult and advise on further management (2) Acute respiratory failure with hypoxia and hypercapnia Is this a current diagnosis for this admission?: Yes (3) Acute cholecystitis Is this a current diagnosis for this admission?: Yes (4) CHF (congestive heart failure) Qualifiers: Congestive heart failure type: combined Congestive heart failure chronicity: acute on chronic Qualified Code(s): I50.43 - Acute on chronic combined systolic (congestive) and diastolic (congestive) heart failure Is this a current diagnosis for this admission?: YesPlan: Chronic diastolic and systolic CHF Echocardiogram showed an EF of 40-45% Patient appears dehydrated at this time We will repeat chest x-ray and obtain VBGs in a.m. (5) Leukocytosis Qualifiers: Leukocytosis type: unspecified Qualified Code(s): D72.829 - Elevated white blood cell count, unspecified Is this a current diagnosis for this admission?: YesPlan: Is resolving white blood count is 11.3 07/16/16 07/18/16 07:28 05:34 WBC 9.8 11.3 H - Time Time Spent with patient: Patient still needs to be on soft restraints. She certainly is not stable for transfer to short-term rehabilitation Time Spent with patient: 25-34 minutes
[2016-07-18] MEDS ORDERED: RISPERIDONE 1 MG TABLET PO SCH (22:00)
[2016-07-18] MEDS: ATORVASTATIN CALCIUM 20 MG TABLET PO SCH (22:40)
[2016-07-19 07:03] LABS: VENOUS BLOOD BASE EXCESS 1.2 mmol/L; VENOUS BLOOD HCO3 29.8 mmol/L (20-32); VENOUS BLOOD PH 7.24 (7.30-7.42)
[2016-07-19 07:06] LABS: ABSOLUTE EOSINOPHILS # (AUTO) 0.2 10^3/uL (0.0-0.6); ABSOLUTE LYMPHOCYTES (AUTO) 1.3 10^3/uL (0.5-4.7); ABSOLUTE MONOCYTES (AUTO) 0.9 10^3/uL (0.1-1.4); ABSOLUTE NEUT (AUTO) 6.6 10^3/uL (1.7-8.2); BASOPHILS % (AUTO) 0.3 % (0-2); EOSINOPHILS % (AUTO) 2.1 % (0-6); HEMATOCRIT 29.8 % (36.0-47.0); HGB HCT DIFFERENCE -0.1; LYMPHOCYTES % (AUTO) 14.8 % (13-45); MEAN CORPUSCULAR HEMOGLOBIN 29.3 pg (27.0-33.4); MEAN CORPUSCULAR HGB CONC 33.3 g/dL (32.0-36.0); MEAN CORPUSCULAR VOLUME 88 fl (80-97); MONOCYTES % (AUTO) 10.4 % (3-13); RED BLOOD COUNT 3.39 10^6/uL (3.72-5.28); RED CELL DISTRIBUTION WIDTH 13.1 % (11.5-14.0); SEGMENTED NEUTROPHILS % (AUTO) 72.4 % (42-78); WHITE BLOOD COUNT 9.1 10^3/uL (4.0-10.5)
[2016-07-19 07:08] LABS: VENOUS BLOOD PCO2 70.6 mmHg (35-63)
[2016-07-19 07:24] LABS: ALANINE AMINOTRANSFERASE 33 U/L (9-52); ALBUMIN 2.8 g/dL (3.5-5.0); ALKALINE PHOSPHATASE 70 U/L (38-126); ANION GAP 9 (5-19); ASPARTATE AMINO TRANSFERASE 23 U/L (14-36); BILIRUBIN,TOTAL 0.5 mg/dL (0.2-1.3); BLOOD UREA NITROGEN 18 mg/dL (7-20); CALCIUM 9.1 mg/dL (8.4-10.2); CARBON DIOXIDE 31 mmol/L (22-30); CHLORIDE 105 mmol/L (98-107); CREATININE RESULT 0.85 mg/dL (0.52-1.25); GLUCOSE 86 mg/dL (75-110); POTASSIUM 4.4 mmol/L (3.6-5.0); SODIUM 144.8 mmol/L (137-145); TOTAL PROTEIN 6.5 g/dL (6.3-8.2)
[2016-07-19 07:41] LABS: HEMOGLOBIN 9.9 g/dL (12.0-15.5)
[2016-07-19] MEDS: ENOXAPARIN SODIUM INJ 40 MG/0.4 ML DISP.SYRIN SUBCUT SCH (08:28)
--- NOTE | 2016-07-19 08:28 | EKG REPORT ---
SEVERITY:- ABNORMAL ECG - SINUS RHYTHM ABNORMAL T, CONSIDER ISCHEMIA, LATERAL LEADS : Confirmed by: Tino Hughes MD 19-Jul-2016 08:27:51
--- NOTE | 2016-07-19 09:07 | PDOC PROGRESS REPORT ---
Subjective Progress Note for:: 07/19/16 Subjective:: Patient's mental status is slightly improved she is arousable She is answering some questions appropriately She looks pale She is somewhat tachypneic with some use of accessory muscles She has no fever; On the monitor she is in the normal sinus rhythm Physical Exam Vital Signs: Temp Pulse Resp BP Pulse Ox 97.7 F 64 20 112/48 L 100 07/19/16 07:56 07/19/16 07:56 07/19/16 07:56 07/19/16 07:56 07/19/16 07:56 Intake & Output 07/18/16 07/19/16 07/20/16 00:59 00:59 00:59 Intake Total 370 225 0 Balance 370 225 0 Weight 79.3 kg 79.2 kg 79.2 kg General appearance: PRESENT: mild distress, thin Head exam: PRESENT: atraumatic, normocephalic Eye exam: PRESENT: conjunctiva pink, EOMI, PERRLA. ABSENT: scleral icterus Mouth exam: PRESENT: dry mucosa Neck exam: ABSENT: carotid bruit, JVD, lymphadenopathy, thyromegaly Respiratory exam: PRESENT: decreased breath sounds. ABSENT: rhonchi, wheezes Cardiovascular exam: PRESENT: irregular rhythm. ABSENT: gallop, rubs, systolic murmur Pulses: PRESENT: normal dorsalis pedis pul GI/Abdominal exam: PRESENT: normal bowel sounds, soft. ABSENT: distended, guarding, mass, organolmegaly, rebound, tenderness Neurological exam: PRESENT: altered Results Laboratory Results: 07/19/16 06:30 07/19/16 06:30 07/19/16 07/19/16 07/19/16 06:30 06:30 06:30 WBC 9.1 RBC 3.39 L Hgb 9.9 L D Hct 29.8 L MCV 88 MCH 29.3 MCHC 33.3 RDW 13.1 Plt Count 379 Seg Neutrophils % 72.4 Lymphocytes % 14.8 Monocytes % 10.4 Eosinophils % 2.1 Basophils % 0.3 Absolute Neutrophils 6.6 Absolute Lymphocytes 1.3 Absolute Monocytes 0.9 Absolute Eosinophils 0.2 Absolute Basophils 0.0 VBG pH 7.24 L VBG pCO2 70.6 H* VBG HCO3 29.8 VBG Base Excess 1.2 Sodium 144.8 Potassium 4.4 Chloride 105 Carbon Dioxide 31 H Anion Gap 9 BUN 18 Creatinine 0.85 Est GFR ( Amer) > 60 Est GFR (Non-Af Amer) > 60 Glucose 86 Calcium 9.1 Total Bilirubin 0.5 AST 23 ALT 33 Alkaline Phosphatase 70 Total Protein 6.5 Albumin 2.8 L 06/29/16 06/29/16 06/29/16 04:00 04:00 04:53 Creatine Kinase Cancelled CK-MB (CK-2) Cancelled 3.16 Troponin I Cancelled 0.080 NT-Pro-B Natriuret Pep 06/29/16 06/29/16 06/30/16 04:53 04:53 05:13 Creatine Kinase 140 H CK-MB (CK-2) Troponin I NT-Pro-B Natriuret Pep 4530 H 2570 H 07/01/16 07/02/16 07/03/16 05:25 06:03 05:15 Creatine Kinase CK-MB (CK-2) Troponin I NT-Pro-B Natriuret Pep 2570 H 5080 H 6320 H 07/06/16 07/09/16 07/11/16 06:55 09:20 05:30 Creatine Kinase CK-MB (CK-2) Troponin I 0.319 0.202 NT-Pro-B Natriuret Pep 2020 H 6090 H 3660 H 07/19/16 07:10 Creatine Kinase CK-MB (CK-2) Troponin I NT-Pro-B Natriuret Pep 3520 H 07/19/16 06:30 VBG pH 7.24 L VBG pCO2 70.6 H* VBG HCO3 29.8 Impressions: Abdomen Ultrasound 06/26/16 08:03 IMPRESSION: Pericholecystic fluid, gallbladder wall thickening, positive sonographic Mcpherson's sign and multiple small gallstones. Findings worrisome for acute cholecystitis. Cholangiogram 06/27/16 00:00 IMPRESSION: INTRAOPERATIVE CHOLANGIOGRAM. Catheter Placement 06/28/16 00:00 IMPRESSION: IMAGE(S) OBTAINED DURING PROCEDURE. Head CT 07/05/16 08:41 IMPRESSION: No acute findings. Limited study. Motion artifact. Abdomen/Pelvis CT 07/09/16 08:54 IMPRESSION: NO SIGNIFICANT OR ACUTE FINDING IN THE ABDOMEN OR PELVIS ON CT SCAN WITH IV CONTRAST. Ryan catheter is identified in the bladder and there is air in the bladder presumably related to the bladder catheter. Other findings as noted above Chest X-Ray 07/19/16 08:00 IMPRESSION: Pulmonary vascular distention and interstitial prominence slightly improved in comparison the prior study. The airspace opacity seen on the prior study have improved in comparison the prior study. Cardiomegaly. Assessment & Plan - Diagnosis (1) Acute encephalopathy Is this a current diagnosis for this admission?: YesPlan: Acute encephalopathy likely secondary to hypoxemia and hypercarbia We'll try to optimize patient's respiratory respiratory status and hope that her mentation will improve Patient will be prescribed Risperdal at 4 PM daily to prevent sundowning (2) Acute respiratory failure with hypoxia and hypercapnia Is this a current diagnosis for this admission?: YesPlan: Patient's ABGs are consistent with acute on chronic hypercarbic respiratory failure Likely secondary underlying CHF, and hypoventilation secondary to altered mental status We will place the patient on BiPAP support 20 mg IV Lasix was ordered We will resume nebs And reevaluate patient's respiratory status Chest x-ray was performed and it showed some mild CHF and improvement of pneumonia An EKG was consistent with normal sinus rhythm , with some ST-T changes on lateral leads which were present on prior EKGs Chronic respiratory acidosis is contributing to the altered mental status and delirium (3) Acute cholecystitis Is this a current diagnosis for this admission?: Yes (4) CHF (congestive heart failure) Qualifiers: Congestive heart failure type: combined Congestive heart failure chronicity: acute on chronic Qualified Code(s): I50.43 - Acute on chronic combined systolic (congestive) and diastolic (congestive) heart failure Is this a current diagnosis for this admission?: YesPlan: Acute on chronic combined systolic and diastolic CHF We will resume Lasix 20 mg IV daily and reevaluate patient's meds CHF is contributing to the chronic respiratory failure (5) Leukocytosis Qualifiers: Leukocytosis type: unspecified Qualified Code(s): D72.829 - Elevated white blood cell count, unspecified Is this a current diagnosis for this admission?: Yes - Time Time Spent with patient: 35 or more minutes
[2016-07-19] MEDS: LISINOPRIL 10 MG TABLET PO SCH (09:44)
[2016-07-19] MEDS: ATENOLOL 50 MG TABLET PO SCH ×2 (09:44→21:40)
[2016-07-19] MEDS: POTASSIUM CHLORIDE 20 MEQ/15 ML UDCUP PO SCH (09:49)
[2016-07-19] MEDS: FAMOTIDINE INJ/PF 20 MG/2 ML SDV IV SCH (09:49)
[2016-07-19] MEDS: LACTOBACILLUS ACIDOPHILUS 250 MG TAB PO SCH ×2 (09:52→17:38)
[2016-07-19] MEDS: ASPIRIN 325 MG TABLET, ENT COATED PO SCH (09:52)
[2016-07-19] MEDS ORDERED: FUROSEMIDE INJ/PF 20 MG/2 ML SDV IV SCH (10:00)
[2016-07-19] MEDS: DOCUSATE SODIUM 100 MG CAPSULE PO SCH (11:56)
[2016-07-19] MEDS: NORMAL SALINE 1000 ML 1,000 ML IV PRN (11:56)
--- NOTE | 2016-07-19 13:53 | PSYCHOLOGICAL NOTE ---
Psych Note - Psych Note Psych Note: Patient is an 80 year old female who presented to the ED on 06/26/2016 for increased abdominal pain. She was subsequently admitted due to acute cholecystitis, coronary artery disease, hypertension, and UTI. A capacity evaluation was requested. Conducted thorough chart review today from [id number]. Review[address] Dr. Lee. Head CT dated 07/05/16 noted findings of moderate small vessel ischemic change in bi-frontal and bi-parietal regions. This suggests vascular degeneration processes though a neurology referral should be made for further determination. Will conduct in person capacity screening measures later today around 1600. Recommendation to repeat Ammonia levels. The general anesthesia used for operative surgery may have had an impact on patient's irritable and aggressive presentation. She also had a UTI initially and in the elderly population, especially with possible vascular issues, can create or exacerbate aggression ( as well as hallucinations, delusions, paranoia). 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 Change Risperdal to 0.25MG QAM and Q3P Add Keppra 250MG BID Add Buspar 10MG QHS
[2016-07-19] MEDS ORDERED: RISPERIDONE 0.25 MG TABLET PO SCH (16:00)
[2016-07-19] MEDS ORDERED: RISPERIDONE 1 MG TABLET PO SCH (16:00)
[2016-07-19] MEDS: RISPERIDONE 0.25 MG TABLET PO PRN (21:40)
[2016-07-19] MEDS: FAMOTIDINE 20 MG TABLET PO SCH (21:42)
[2016-07-19] MEDS: ATORVASTATIN CALCIUM 20 MG TABLET PO SCH (21:43)
[2016-07-20] MEDS: RISPERIDONE 0.25 MG TABLET PO PRN ×2 (00:34→08:35)
[2016-07-20] MEDS ORDERED: RISPERIDONE 0.25 MG TABLET PO ONE (01:00)
[2016-07-20] MEDS: NORMAL SALINE 1000 ML 1,000 ML IV PRN (01:23)
[2016-07-20 08:39] LABS: HEMATOCRIT 29.4 % (36.0-47.0); HEMOGLOBIN 9.7 g/dL (12.0-15.5); HGB HCT DIFFERENCE -0.3; MEAN CORPUSCULAR HEMOGLOBIN 29.2 pg (27.0-33.4); MEAN CORPUSCULAR HGB CONC 33.2 g/dL (32.0-36.0); MEAN CORPUSCULAR VOLUME 88 fl (80-97); RED BLOOD COUNT 3.34 10^6/uL (3.72-5.28); RED CELL DISTRIBUTION WIDTH 12.8 % (11.5-14.0); WHITE BLOOD COUNT 8.8 10^3/uL (4.0-10.5)
[2016-07-20] MEDS: ENOXAPARIN SODIUM INJ 40 MG/0.4 ML DISP.SYRIN SUBCUT SCH (08:47)
[2016-07-20] MEDS: LACTOBACILLUS ACIDOPHILUS 250 MG TAB PO SCH ×2 (10:45→19:23)
[2016-07-20] MEDS: FUROSEMIDE 20 MG TABLET PO SCH (11:01)
[2016-07-20] MEDS: ATENOLOL 50 MG TABLET PO SCH ×2 (11:01→21:47)
[2016-07-20] MEDS: LISINOPRIL 10 MG TABLET PO SCH (11:01)
[2016-07-20] MEDS: FAMOTIDINE 20 MG TABLET PO SCH ×2 (11:01→21:47)
[2016-07-20] MEDS: POTASSIUM CHLORIDE 20 MEQ/15 ML UDCUP PO SCH (11:01)
[2016-07-20] MEDS: ASPIRIN 325 MG TABLET, ENT COATED PO SCH (11:01)
[2016-07-20] MEDS: DOCUSATE SODIUM 100 MG CAPSULE PO SCH (11:01)
[2016-07-20] MEDS ORDERED: RISPERIDONE 0.25 MG TABLET PO PRN (11:29)
[2016-07-20] MEDS ORDERED: HALOPERIDOL LACTATE INJ 5 MG/1 ML VIAL ONE (15:17)
[2016-07-20] MEDS ORDERED: HALOPERIDOL LACTATE INJ 5 MG/1 ML VIAL IV PRN (15:35)
[2016-07-20] MEDS ORDERED: RISPERIDONE 0.25 MG TABLET PO SCH (16:00)
--- NOTE | 2016-07-20 18:12 | PDOC PROGRESS REPORT ---
Subjective Progress Note for:: 07/20/16 Subjective:: Patient remains still confused ; she still very agitated time and very delirious but in general somewhat improved clinically stable Physical Exam Vital Signs: Temp Pulse Resp BP Pulse Ox 97.7 F 87 19 171/52 H 93 07/20/16 15:22 07/20/16 15:22 07/20/16 15:22 07/20/16 15:22 07/20/16 15:22 Intake & Output 07/19/16 07/20/16 07/21/16 00:59 00:59 00:59 Intake Total 225 2543 1220 Balance 225 2543 1220 Weight 79.2 kg 79.2 kg 79.5 kg General appearance: PRESENT: mild distress, thin Head exam: PRESENT: atraumatic, normocephalic Eye exam: PRESENT: conjunctiva pink, EOMI, PERRLA. ABSENT: scleral icterus Neck exam: ABSENT: carotid bruit, JVD, lymphadenopathy, thyromegaly Respiratory exam: PRESENT: clear to auscultation jessy. ABSENT: rales, rhonchi, wheezes Cardiovascular exam: PRESENT: RRR. ABSENT: diastolic murmur, rubs, systolic murmur GI/Abdominal exam: PRESENT: normal bowel sounds, soft. ABSENT: distended, guarding, mass, organolmegaly, rebound, tenderness Neurological exam: PRESENT: altered Psychiatric exam: PRESENT: agitated Skin exam: PRESENT: dry, intact, warm. ABSENT: cyanosis, rash Results Laboratory Results: 07/20/16 08:19 07/19/16 06:30 07/20/16 08:19 WBC 8.8 RBC 3.34 L Hgb 9.7 L Hct 29.4 L MCV 88 MCH 29.2 MCHC 33.2 RDW 12.8 Plt Count 350 06/29/16 06/29/16 06/29/16 04:00 04:00 04:53 Creatine Kinase Cancelled CK-MB (CK-2) Cancelled 3.16 Troponin I Cancelled 0.080 NT-Pro-B Natriuret Pep 06/29/16 06/29/16 06/30/16 04:53 04:53 05:13 Creatine Kinase 140 H CK-MB (CK-2) Troponin I NT-Pro-B Natriuret Pep 4530 H 2570 H 07/01/16 07/02/16 07/03/16 05:25 06:03 05:15 Creatine Kinase CK-MB (CK-2) Troponin I NT-Pro-B Natriuret Pep 2570 H 5080 H 6320 H 07/06/16 07/09/16 07/11/16 06:55 09:20 05:30 Creatine Kinase CK-MB (CK-2) Troponin I 0.319 0.202 NT-Pro-B Natriuret Pep 2020 H 6090 H 3660 H 07/19/16 07:10 Creatine Kinase CK-MB (CK-2) Troponin I NT-Pro-B Natriuret Pep 3520 H Impressions: Abdomen Ultrasound 06/26/16 08:03 IMPRESSION: Pericholecystic fluid, gallbladder wall thickening, positive sonographic Mcpherson's sign and multiple small gallstones. Findings worrisome for acute cholecystitis. Cholangiogram 06/27/16 00:00 IMPRESSION: INTRAOPERATIVE CHOLANGIOGRAM. Catheter Placement 06/28/16 00:00 IMPRESSION: IMAGE(S) OBTAINED DURING PROCEDURE. Head CT 07/05/16 08:41 IMPRESSION: No acute findings. Limited study. Motion artifact. Abdomen/Pelvis CT 07/09/16 08:54 IMPRESSION: NO SIGNIFICANT OR ACUTE FINDING IN THE ABDOMEN OR PELVIS ON CT SCAN WITH IV CONTRAST. Ryan catheter is identified in the bladder and there is air in the bladder presumably related to the bladder catheter. Other findings as noted above Chest X-Ray 07/19/16 08:00 IMPRESSION: Pulmonary vascular distention and interstitial prominence slightly improved in comparison the prior study. The airspace opacity seen on the prior study have improved in comparison the prior study. Cardiomegaly. Assessment & Plan - Diagnosis (1) Acute encephalopathy Is this a current diagnosis for this admission?: Yes (2) Acute respiratory failure with hypoxia and hypercapnia Is this a current diagnosis for this admission?: Yes (3) Acute cholecystitis Is this a current diagnosis for this admission?: Yes (4) CHF (congestive heart failure) Qualifiers: Congestive heart failure type: combined Congestive heart failure chronicity: acute on chronic Qualified Code(s): I50.43 - Acute on chronic combined systolic (congestive) and diastolic (congestive) heart failure Is this a current diagnosis for this admission?: Yes (5) Leukocytosis Qualifiers: Leukocytosis type: unspecified Qualified Code(s): D72.829 - Elevated white blood cell count, unspecified Is this a current diagnosis for this admission?: Yes - Time Time Spent with patient: continue present management increased risperdal to 0.5 mg as patient is still too agitated will reevaluate her needs in am Patient likely will be ready for transfer to SNF on saturday Time Spent with patient: 15-24 minutes
[2016-07-20] MEDS: ATORVASTATIN CALCIUM 20 MG TABLET PO SCH (21:47)
[2016-07-21] MEDS: FAMOTIDINE 20 MG TABLET PO SCH ×2 (10:16→21:31)
[2016-07-21] MEDS: FUROSEMIDE 20 MG TABLET PO SCH (10:16)
[2016-07-21] MEDS: ENOXAPARIN SODIUM INJ 40 MG/0.4 ML DISP.SYRIN SUBCUT SCH (10:16)
[2016-07-21] MEDS: ATENOLOL 50 MG TABLET PO SCH ×2 (10:16→21:31)
[2016-07-21] MEDS: ASPIRIN 325 MG TABLET, ENT COATED PO SCH (10:16)
[2016-07-21] MEDS: POTASSIUM CHLORIDE 20 MEQ/15 ML UDCUP PO SCH (10:17)
[2016-07-21] MEDS: LACTOBACILLUS ACIDOPHILUS 250 MG TAB PO SCH ×2 (10:17→18:04)
[2016-07-21] MEDS: LISINOPRIL 10 MG TABLET PO SCH (10:17)
[2016-07-21] MEDS: DOCUSATE SODIUM 100 MG CAPSULE PO SCH (12:24)
--- NOTE | 2016-07-21 17:33 | PDOC PROGRESS REPORT ---
Subjective Progress Note for:: 07/21/16 Subjective:: Patient is doing a little better she still extremely confused with sundowning at night ; she had to be again sedated last night \In general she is improved And she is off restraints Physical Exam Vital Signs: Temp Pulse Resp BP Pulse Ox 97.6 F 70 18 150/73 H 93 07/21/16 03:37 07/21/16 03:37 07/21/16 03:37 07/21/16 03:37 07/21/16 03:37 Intake & Output 07/20/16 07/21/16 07/22/16 00:59 00:59 00:59 Intake Total 2543 1430 0 Balance 2543 1430 0 Weight 79.2 kg 79.5 kg 77.6 kg General appearance: PRESENT: mild distress Head exam: PRESENT: atraumatic, normocephalic Eye exam: PRESENT: conjunctiva pink, EOMI, PERRLA. ABSENT: scleral icterus Neck exam: ABSENT: carotid bruit, JVD, lymphadenopathy, thyromegaly Respiratory exam: PRESENT: clear to auscultation jessy. ABSENT: rales, rhonchi, wheezes Cardiovascular exam: PRESENT: RRR. ABSENT: diastolic murmur, rubs, systolic murmur GI/Abdominal exam: PRESENT: normal bowel sounds, soft. ABSENT: distended, guarding, mass, organolmegaly, rebound, tenderness Neurological exam: PRESENT: altered Results Laboratory Results: 07/20/16 08:19 07/19/16 06:30 06/29/16 06/29/16 06/29/16 04:00 04:00 04:53 Creatine Kinase Cancelled CK-MB (CK-2) Cancelled 3.16 Troponin I Cancelled 0.080 NT-Pro-B Natriuret Pep 06/29/16 06/29/16 06/30/16 04:53 04:53 05:13 Creatine Kinase 140 H CK-MB (CK-2) Troponin I NT-Pro-B Natriuret Pep 4530 H 2570 H 07/01/16 07/02/16 07/03/16 05:25 06:03 05:15 Creatine Kinase CK-MB (CK-2) Troponin I NT-Pro-B Natriuret Pep 2570 H 5080 H 6320 H 07/06/16 07/09/1617 06:55 09:20 05:30 Creatine Kinase CK-MB (CK-2) Troponin I 0.319 0.202 NT-Pro-B Natriuret Pep 2020 H 6090 H 3660 H 07/19/16 07:10 Creatine Kinase CK-MB (CK-2) Troponin I NT-Pro-B Natriuret Pep 3520 H Impressions: Abdomen Ultrasound 06/26/16 08:03 IMPRESSION: Pericholecystic fluid, gallbladder wall thickening, positive sonographic Mcpherson's sign and multiple small gallstones. Findings worrisome for acute cholecystitis. Cholangiogram 06/27/16 00:00 IMPRESSION: INTRAOPERATIVE CHOLANGIOGRAM. Catheter Placement 06/28/16 00:00 IMPRESSION: IMAGE(S) OBTAINED DURING PROCEDURE. Head CT 07/05/16 08:41 IMPRESSION: No acute findings. Limited study. Motion artifact. Abdomen/Pelvis CT 07/09/16 08:54 IMPRESSION: NO SIGNIFICANT OR ACUTE FINDING IN THE ABDOMEN OR PELVIS ON CT SCAN WITH IV CONTRAST. Ryan catheter is identified in the bladder and there is air in the bladder presumably related to the bladder catheter. Other findings as noted above Chest X-Ray 07/19/16 08:00 IMPRESSION: Pulmonary vascular distention and interstitial prominence slightly improved in comparison the prior study. The airspace opacity seen on the prior study have improved in comparison the prior study. Cardiomegaly. Assessment & Plan - Diagnosis (1) Acute encephalopathy Is this a current diagnosis for this admission?: Yes (2) Acute respiratory failure with hypoxia and hypercapnia Is this a current diagnosis for this admission?: Yes (3) Acute cholecystitis Is this a current diagnosis for this admission?: Yes (4) CHF (congestive heart failure) Qualifiers: Congestive heart failure type: combined Congestive heart failure chronicity: acute on chronic Qualified Code(s): I50.43 - Acute on chronic combined systolic (congestive) and diastolic (congestive) heart failure Is this a current diagnosis for this admission?: Yes (5) Leukocytosis Qualifiers: Leukocytosis type: unspecified Qualified Code(s): D72.829 - Elevated white blood cell count, unspecified Is this a current diagnosis for this admission?: Yes - Time Time Spent with patient: We will increase his Risperdal in the evening to prevent ing
[2016-07-21] MEDS ORDERED: RISPERIDONE 1 MG TABLET PO ONE (18:15)
[2016-07-21] MEDS: ATORVASTATIN CALCIUM 20 MG TABLET PO SCH (21:31)
[2016-07-22] MEDS ORDERED: RISPERIDONE 0.25 MG TABLET PO PRN (08:24)
--- NOTE | 2016-07-22 08:26 | PDOC PROGRESS REPORT ---
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 but arousable and not on restraints She appears comfortable in no acute distress No fever no chills no shortness of breath Physical Exam Vital Signs: Temp Pulse Resp BP Pulse Ox 97.6 F 82 18 149/81 H 96 07/22/16 07:35 07/22/16 07:35 07/22/16 07:35 07/22/16 07:35 07/22/16 07:35 Intake & Output 07/21/16 07/22/16 07/23/16 00:59 00:59 00:59 Intake Total 1430 0 60 Balance 1430 0 60 Weight 79.5 kg 77.6 kg 77.5 kg General appearance: PRESENT: no acute distress Head exam: PRESENT: atraumatic, normocephalic Eye exam: PRESENT: conjunctiva pale Neck exam: ABSENT: carotid bruit, JVD, lymphadenopathy, thyromegaly Respiratory exam: PRESENT: accessory muscle use Cardiovascular exam: PRESENT: RRR. ABSENT: diastolic murmur, rubs, systolic murmur Extremities exam: PRESENT: full ROM. ABSENT: calf tenderness, clubbing, pedal edema Neurological exam: PRESENT: altered, CN II-XII grossly intact Results Laboratory Results: 07/20/16 08:19 07/19/16 06:30 06/29/16 06/29/16 06/29/16 04:00 04:00 04:53 Creatine Kinase Cancelled CK-MB (CK-2) Cancelled 3.16 Troponin I Cancelled 0.080 NT-Pro-B Natriuret Pep 06/29/16 06/29/16 06/30/16 04:53 04:53 05:13 Creatine Kinase 140 H CK-MB (CK-2) Troponin I NT-Pro-B Natriuret Pep 4530 H 2570 H 07/01/16 07/02/16 07/03/16 05:25 06:03 05:15 Creatine Kinase CK-MB (CK-2) Troponin I NT-Pro-B Natriuret Pep 2570 H 5080 H 6320 H 07/06/16 07/09/16 07/11/16 06:55 09:20 05:30 Creatine Kinase CK-MB (CK-2) Troponin I 0.319 0.202 NT-Pro-B Natriuret Pep 2020 H 6090 H 3660 H 07/19/16 07:10 Creatine Kinase CK-MB (CK-2) Troponin I NT-Pro-B Natriuret Pep 3520 H Impressions: Abdomen Ultrasound 06/26/16 08:03 IMPRESSION: Pericholecystic fluid, gallbladder wall thickening, positive sonographic Mcpherson's sign and multiple small gallstones. Findings worrisome for acute cholecystitis. Cholangiogram 06/27/16 00:00 IMPRESSION: INTRAOPERATIVE CHOLANGIOGRAM. Catheter Placement 06/28/16 00:00 IMPRESSION: IMAGE(S) OBTAINED DURING PROCEDURE. Head CT 07/05/16 08:41 IMPRESSION: No acute findings. Limited study. Motion artifact. Abdomen/Pelvis CT 07/09/16 08:54 IMPRESSION: NO SIGNIFICANT OR ACUTE FINDING IN THE ABDOMEN OR PELVIS ON CT SCAN WITH IV CONTRAST. Ryan catheter is identified in the bladder and there is air in the bladder presumably related to the bladder catheter. Other findings as noted above Chest X-Ray 07/19/16 08:00 IMPRESSION: Pulmonary vascular distention and interstitial prominence slightly improved in comparison the prior study. The airspace opacity seen on the prior study have improved in comparison the prior study. Cardiomegaly. Assessment & Plan - Diagnosis (1) Acute encephalopathy Is this a current diagnosis for this admission?: Yes (2) Acute respiratory failure with hypoxia and hypercapnia Is this a current diagnosis for this admission?: Yes (3) Acute cholecystitis Is this a current diagnosis for this admission?: Yes (4) CHF (congestive heart failure) Qualifiers: Congestive heart failure type: combined Congestive heart failure chronicity: acute on chronic Qualified Code(s): I50.43 - Acute on chronic combined systolic (congestive) and diastolic (congestive) heart failure Is this a current diagnosis for this admission?: Yes (5) Leukocytosis Qualifiers: Leukocytosis type: unspecified Qualified Code(s): D72.829 - Elevated white blood cell count, unspecified Is this a current diagnosis for this admission?: Yes
[2016-07-22] MEDS: ENOXAPARIN SODIUM INJ 40 MG/0.4 ML DISP.SYRIN SUBCUT SCH (13:02)
[2016-07-22] MEDS: LACTOBACILLUS ACIDOPHILUS 250 MG TAB PO SCH ×2 (13:04→17:02)
[2016-07-22] MEDS: ATENOLOL 50 MG TABLET PO SCH ×2 (13:04→21:34)
[2016-07-22] MEDS: FUROSEMIDE 20 MG TABLET PO SCH (13:05)
[2016-07-22] MEDS: POTASSIUM CHLORIDE 20 MEQ/15 ML UDCUP PO SCH (13:05)
[2016-07-22] MEDS: ASPIRIN 325 MG TABLET, ENT COATED PO SCH (13:05)
[2016-07-22] MEDS: FAMOTIDINE 20 MG TABLET PO SCH ×2 (13:05→21:34)
[2016-07-22] MEDS: LISINOPRIL 10 MG TABLET PO SCH (13:05)
[2016-07-22] MEDS: DOCUSATE SODIUM 100 MG CAPSULE PO SCH (13:14)
[2016-07-22] MEDS: RISPERIDONE 1 MG TABLET PO SCH (15:55)
[2016-07-22] MEDS: ATORVASTATIN CALCIUM 20 MG TABLET PO SCH (21:34)
[2016-07-23 07:01] LABS: ANION GAP 15 (5-19); BLOOD UREA NITROGEN 22 mg/dL (7-20); CALCIUM 9.5 mg/dL (8.4-10.2); CARBON DIOXIDE 28 mmol/L (22-30); CHLORIDE 98 mmol/L (98-107); CREATININE RESULT 0.82 mg/dL (0.52-1.25); GLUCOSE 87 mg/dL (75-110); MAGNESIUM 1.7 mg/dL (1.6-2.3); POTASSIUM 4.4 mmol/L (3.6-5.0)
[2016-07-23 07:55] LABS: HEMATOCRIT 36.1 % (36.0-47.0); HGB HCT DIFFERENCE -0.7; MEAN CORPUSCULAR HEMOGLOBIN 28.6 pg (27.0-33.4); MEAN CORPUSCULAR HGB CONC 32.6 g/dL (32.0-36.0); MEAN CORPUSCULAR VOLUME 88 fl (80-97); RED BLOOD COUNT 4.11 10^6/uL (3.72-5.28); RED CELL DISTRIBUTION WIDTH 13.1 % (11.5-14.0); WHITE BLOOD COUNT 13.1 10^3/uL (4.0-10.5)
[2016-07-23 07:58] LABS: HEMOGLOBIN 11.8 g/dL (12.0-15.5)
[2016-07-23] MEDS: FUROSEMIDE 20 MG TABLET PO SCH (09:13)
[2016-07-23] MEDS: FAMOTIDINE 20 MG TABLET PO SCH (09:13)
[2016-07-23] MEDS: ATENOLOL 50 MG TABLET PO SCH (09:13)
[2016-07-23] MEDS: ASPIRIN 325 MG TABLET, ENT COATED PO SCH (09:13)
[2016-07-23] MEDS: LACTOBACILLUS ACIDOPHILUS 250 MG TAB PO SCH ×2 (09:13→17:23)
[2016-07-23] MEDS: POTASSIUM CHLORIDE 20 MEQ/15 ML UDCUP PO SCH (09:13)
[2016-07-23] MEDS: LISINOPRIL 10 MG TABLET PO SCH (09:13)
[2016-07-23] MEDS: ENOXAPARIN SODIUM INJ 40 MG/0.4 ML DISP.SYRIN SUBCUT SCH (09:19)
--- NOTE | 2016-07-23 10:44 | PDOC TRANSFER SUMMARY ---
General - Admit/Disc Date/PCP Admission Date/Primary Care Provider: 06/26/16 12:59 KASSIDY PAYTON MD Discharge Date: 07/23/16 - Discharge Diagnosis (1) Acute encephalopathy Is this a current diagnosis for this admission?: Yes (2) Acute respiratory failure with hypoxia and hypercapnia Is this a current diagnosis for this admission?: Yes (3) Acute cholecystitis Is this a current diagnosis for this admission?: Yes (4) CHF (congestive heart failure) Is this a current diagnosis for this admission?: Yes (5) Leukocytosis Is this a current diagnosis for this admission?: Yes - Additional Information Resuscitation Status: Full Code Home Medications: Atenolol [Tenormin] 25 mg PO BID 06/26/16 Aspirin [Ecotrin 81 mg EC Tablet] 81 mg PO DAILY #30 tabec 07/23/16 Atorvastatin Calcium [Lipitor 20 mg Tablet] 20 mg PO QHS #30 tablet 07/23/16 Bisacodyl [Dulcolax 5 mg Tablet] 10 mg PO DAILYP PRN #30 tabec 07/23/16 Docusate Sodium [Colace 100 mg Capsule] 200 mg PO NOON #60 capsule 07/23/16 Levetiracetam [Keppra] 250 mg PO BID #60 tablet 07/23/16 Lisinopril [Prinivil 10 mg Tablet] 10 mg PO DAILY #30 tablet 07/23/16 Potassium Chloride [Kaon-Cl 20 Meq/15 ml Udcup] 20 meq PO DAILY #100 ml Risperidone [Risperdal 1 mg Tablet] 0.5 mg PO DAILY@1600 #30 tablet 07/23/16 History of Present Illness Admission Date/PCP: 06/26/16 12:59 KASSIDY PAYTON MD Patient complains of: abdominal pain History of Present Illness: 80 year old female with increasing epigastric pain that started on Saturday as bloating and quickly developed sharp stabbing pain that radiates throughout the abdomen. She got no relief from [id number] antacids. It began to affect her sleep and she started regurgitating foul tasting bile. She reports 4 stools over the course of the last 24 hours which is an increase for her but denies any change in the character or color of stools. She never had anything quite like this before. She describes the pain as sharp stabbing and radiating throughout the abdomen, worse with eating, improved with narcotics and no associated symptoms of fever, chills, chest pain, palpitations, headache or dizziness. Evaluation in the emergency department including an imaging shows signs and symptoms suggestive of an acute cholecystitis. We were asked to admit the patient due to multiple medical problems, surgery has already Evaluated and anticipates intervention later today. The patient has a prior history of GA with catheter in 1997 and has unusual changes on her EKG with T-wave inversions in V4 through 6. Cardiology is already evaluated and cleared for general anesthesia. Patient was subsequently admitted to Hospitalist Service and a surgical consult was obtained Hospital Course Hospital Course: Hospital course: Patient reported to the emergency department with increasing epigastric pain that started on Saturday as bloating and quickly developed sharp stabbing pain that radiates throughout the abdomen. She got no relief from [id number]-[id number] antacids. It began to affect her sleep and she started regurgitating foul tasting bile. She reports 4 stools over the course of the last 24 hours which is an increase for her but denies any change in the character or color of stools. She never had anything quite like this before. She describes the pain as sharp stabbing and radiating throughout the abdomen, worse with eating, improved with narcotics and no associated symptoms of fever, chills, chest pain, palpitations, headache or dizziness. Evaluation in the emergency department including imaging shows signs and symptoms suggestive of an acute cholecystitis. We were asked to admit the patient due to multiple medical problems, surgery has already Evaluated and anticipates intervention later today. The patient has a prior history of GA with catheter in 1997 and has unusual changes on her EKG with T-wave inversions in V4 through 6. Cardiology is already evaluated and cleared for general anesthesia. The patient underwent laparoscopic cholecystectomy with intraoperative cholangiogram suggestive of choledocholithiasis on 06/27/2016 and ERCP on 2016. The ERCP was stopped early due to the development of hypoxia, however he was able to perform sphincterotomy and liberate small amount of biliary sludge. Unfortunately within hours of the procedure she rapidly decompensated becoming more hypoxic, agitated and then rapidly less responsive. She was urgently transferred to the ICU, intubated by [employer] and spent the next couple days on mechanical ventilation until successful extubation on 07/01/2016. chest x-ray showed bilateral fluffy airspace disease suggestive of a developing pneumonia. Antibiotics were broadened to include Zosyn and vancomycin, in addition to the Cipro, for presumed HCAP. Pneumonia Patient was treated with broad spectrum antibiotics and eventually improved sputum cultures were negative Encephalopathy Patient became extremely confused after transfer to [facility] A CT scan brain was negative Vitamin B12 and TSH were normal Psychiatry Consult was obtained and Pranav Billy were advised Patient is still lethargic at times , but less agitated Acute on chronic systolic and diastolic CHF and respiratory failure Echocardiogram performed on 06/26/16 showed an eF of 45% and diastolic dysfunction Patient improved with lasix, lisinopril and atenolol Acute NonSTEMI with elevated troponins likely secondary to sepsis and hypoxemia patient was discharged on ASA and lipitor She is not a candidate for intervention Physical Exam Vital Signs: Temp Pulse Resp BP Pulse Ox 97.7 F 53 L 18 129/68 H 93 07/23/16 07:20 07/23/16 07:20 07/23/16 07:20 07/23/16 07:20 07/23/16 07:20 Intake & Output 07/22/16 07/23/16 07/24/16 00:59 00:59 00:59 Intake Total 0 60 30 Balance 0 60 30 Weight 77.6 kg 77.5 kg 75.8 kg General appearance: PRESENT: mild distress Head exam: PRESENT: atraumatic, normocephalic Eye exam: PRESENT: conjunctiva pale Ear exam: PRESENT: normal external ear exam Mouth exam: PRESENT: dry mucosa Neck exam: ABSENT: carotid bruit, JVD, lymphadenopathy, thyromegaly Respiratory exam: PRESENT: decreased breath sounds Cardiovascular exam: PRESENT: irregular rhythm GI/Abdominal exam: PRESENT: normal bowel sounds, soft. ABSENT: distended, guarding, mass, organolmegaly, rebound, tenderness Extremities exam: PRESENT: full ROM. ABSENT: calf tenderness, clubbing, pedal edema Neurological exam: PRESENT: CN II-XII grossly intact Results Laboratory Results: 07/23/16 06:30 07/23/16 06:30 07/23/16 07/23/16 06:30 06:30 WBC 13.1 H RBC 4.11 Hgb 11.8 L D Hct 36.1 MCV 88 MCH 28.6 MCHC 32.6 RDW 13.1 Plt Count 403 Sodium 141.0 Potassium 4.4 Chloride 98 Carbon Dioxide 28 Anion Gap 15 BUN 22 H Creatinine 0.82 Est GFR ( Amer) > 60 Est GFR (Non-Af Amer) > 60 Glucose 87 Calcium 9.5 Magnesium 1.7 06/29/16 06/29/16 06/29/16 04:00 04:00 04:53 Creatine Kinase Cancelled CK-MB (CK-2) Cancelled 3.16 Troponin I Cancelled 0.080 NT-Pro-B Natriuret Pep 06/29/16 06/29/16 06/30/16 04:53 04:53 05:13 Creatine Kinase 140 H CK-MB (CK-2) Troponin I NT-Pro-B Natriuret Pep 4530 H 2570 H 07/01/16 07/02/16 07/03/16 05:25 06:03 05:15 Creatine Kinase CK-MB (CK-2) Troponin I NT-Pro-B Natriuret Pep 2570 H 5080 H 6320 H 07/06/16 07/09/16 07/11/16 06:55 09:20 05:30 Creatine Kinase CK-MB (CK-2) Troponin I 0.319 0.202 NT-Pro-B Natriuret Pep 2020 H 6090 H 3660 H 07/19/16 07:10 Creatine Kinase CK-MB (CK-2) Troponin I NT-Pro-B Natriuret Pep 3520 H 07/09/16 20:00 Urine Culture - Final Catheterized Urine C.albicans/C.dubliniensis 07/09/16 11:11 Blood Culture - Final Blood NO GROWTH IN 5 DAYS 07/09/16 09:20 Blood Culture - Final Blood NO GROWTH IN 5 DAYS 06/29/16 08:25 Blood Culture - Final Blood NO GROWTH IN 5 DAYS 06/26/16 07:15 Urine Culture - Final Clean Catch Midstream Escherichia Coli EKG Comments: SINUS RHYTHM [MVSPC] . MULTIPLE PREMATURE COMPLEXES, VENT & SUPRAVEN [T3LA] . ABNORMAL T, CONSIDER ISCHEMIA, LATERAL LEADS Impressions: Abdomen Ultrasound 06/26/16 08:03 IMPRESSION: Pericholecystic fluid, gallbladder wall thickening, positive sonographic Mcpherson's sign and multiple small gallstones. Findings worrisome for acute cholecystitis. Cholangiogram 06/27/16 00:00 IMPRESSION: INTRAOPERATIVE CHOLANGIOGRAM. Catheter Placement 06/28/16 00:00 IMPRESSION: IMAGE(S) OBTAINED DURING PROCEDURE. Head CT 07/05/16 08:41 IMPRESSION: No acute findings. Limited study. Motion artifact. Abdomen/Pelvis CT 07/09/16 08:54 IMPRESSION: NO SIGNIFICANT OR ACUTE FINDING IN THE ABDOMEN OR PELVIS ON CT SCAN WITH IV CONTRAST. Ryan catheter is identified in the bladder and there is air in the bladder presumably related to the bladder catheter. Other findings as noted above Chest X-Ray 07/19/16 08:00 IMPRESSION: Pulmonary vascular distention and interstitial prominence slightly improved in comparison the prior study. The airspace opacity seen on the prior study have improved in comparison the prior study. Cardiomegaly. Transfer Plan - Disposition Transfer Plan: Transfer to SNF facility for short term rehab - Time Spent with Patient Time spent with patient: Greater than 30 Minutes
[2016-07-23] MEDS: DOCUSATE SODIUM 100 MG CAPSULE PO SCH (12:58)
--- NOTE | 2016-07-23 13:37 | PSYCHOLOGICAL NOTE ---
Psych Note - Psych Note Psych Note: Capacity Evaluation Patient is an 80-year-old female who presented to the [facility] emergency department on 06/26/16 due to increased abdominal pain lasting 2 days in duration. Patient was subsequently admitted to the medical unit due to Acute Cholecystitis, Coronary Artery Disease (CAD), Hypertension (HTN), and Urinary Tract Infection ( UTI). She had laparoscopic cholecystectomy with cholangiogram operative surgery on 06/27/2016 secondary to an ultrasound depicting pericholecystic fluid with thickened gallbladder wall. Her healthcare medical insurance is Medicare. She resides alone in a private residence. Family members who provided information to other medical staff included patients sister and [id number]. Patients sister informed Hospital Discharge Planning she could check on patient regularly. The Hospital Discharge Planning team had arranged transfer to [place] for rehabilitative services, however due to patients extreme agitation resulting in the need for medication sedation and soft restraints, patient has not been stable for transfer. They have also encouraged sister to file for temporary guardianship, however sister does not wish to go that route yet. Attending nurse stated the sister reported she is Power of Extension Service Advisor (POA). Review of chart revealed Patients medical history is positive for Myocardial Infarction 1998 (SD) with no Congestive Heart Failure (CHF), senile cataract NEC , hysterectomy, and appendectomy. There are 4 home medications. None are Psychiatric. A Head CT dated 07/05/2016 revealed moderate small vessel ischemic change in bifrontal and biparietal regions. Such language is suggestive of neurodegeneration as seen with dementia. Patients hospital visit history spans from August 2010 to present, with this being her 5th visit. The visits were medically related. Records show Patients sister had noted concern because patient was not acting herself. Documentation and medical staff indicated patient had extreme agitation with delirium almost every day, sun-downing in the evening, and extreme agitation/behaviors following (dates from 07/17/2016 to 07/18/2016). Hospitalist documentation (07/06) noted mental status had slightly improved, patient was arousable, she answered some questions appropriately, skin was pale, and she was somewhat tachypneic. Patient has had to be sedated and soft restraints utilized. The attending hospitalist requested a capacity evaluation given patients level of delirium, age, and since she resides alone. The role of a capacity evaluation is to assess and measure a Patients abstract/ rational level of thinking, executive functioning/planning/sequencing, executive functioning/switching, attention, orientation, safety/problem solving , memory, ability to complete daily living activities, and safety awareness. During the capacity evaluation patient presented calm, cooperative, and pleasant. She talked herself through the various tasks, often repeating task instructions first. She was oriented to situation. Mood was euthymic with congruent affect. There were no statements or gestures made regarding suicidal and homicidal ideations. She appeared to be responding to internal stimuli as evidenced by looking to the other side of the bed as if someone were there or she was expecting someone to be there. Thought processes were tangential. She was easily distracted and required redirection. Conversational speech was within normal limits for rate, tone, and prosody. Intellectual abilities are estimated within average range, however, limited presently. Insight, judgment, and impulse control were poor (took several questions to prompt patient) as evidenced by her knowledge of medical issues and medications, why she initially came to the hospital, and discharge plan to be transferred to [place]. Patient correctly answered 7 of 11 orientation questions. Correct answers include: year, birthday, city, county, state, current [place] president, and last 3 US presidents, after significant prompting. Incorrect answers include: todays date as 07/09/2016, day of week as Saturday, month as July no June, and current location as [facility]. Patient incorrectly answered 2 of 3 higher cortical abstract reasoning questions in which Patient is required to describe how two items are similar. Her results suggest concrete thinking and difficulty employing abstraction skills necessary to navigate the nuances of conversation and activities. When providing answers to the questions, she reported an apple and a banana are fruit. This is the correct answer. A bicycle and train have wheels. The response is concrete in nature as the correct answer is modes of transportation. A ruler and watch have the time. The response is concrete in nature as the correct answer is forms of measurement. Patient could repeat the name of 3-common objects after examiner instruction, however, recalled 0 of 3 ( didnt know and didnt not want to guess) following a 1-minute and after a 5- minute delay (hop, skip, jump answers regarding how close a grocery store was to her home, then said world, spelled world backwards, skip). She seemed to combine two different tasks at the 5-minute recall via referencing later task and more recent answers she provided. She accurately spelled the word world but was unable to spell it backwards. She attempted with the answer d-l , d-l-o-w. Patients problem solving for questions regarding personal safety or the safety of others were considered poor. She stated she would get the mop if she came home and found her bathroom was flooding. She stated she would get a bucket of water if she saw smoke coming from her neighbors house. The Patient was administered the Clock Drawing Test, a standardized and peer reviewed measure of dementia. She waited to start until verbal instructions were completed. She displayed tremulous hands when drawing. She kalie a small [place] in the top left corner of the paper. She began putting san on the [place] of the clock at first going clockwise and then randomly. The san are difficult to make out and there are more than 12. She said 10 after 11 for confirmation of placement of hands. This was correct. There is an area of the [place]/clock in the middle right that has scribbles. She completed this after asking about hand placement. She talked herself through the task. The Patient showed poor executive functioning, planning, visuospatial, fine motor, organizational abilities, attention and sequencing abilities with the clock drawing task, with a failing score. In terms of her ability to complete tasks of everyday living (e.g., mobility, bathing, cooking, grocery shopping, taking medications appropriately, etc.), the Patient reported the ability to stand, walk without assistive devices, dress , bathe, eat, and cook for herself. She could manipulate, though tremulous, a pen for the clock drawing task and thus, likely to do the same with eating utensils to feed self. She showed limited insight and tangential presentation as evidenced by switching topics and appearing not present in the here and now. She noted she cooks things like hamburger (she puts them into deborah form), hotdogs, [place] fries, meatloaf (which she makes), and pork chops. She reported she drives and has a [employer] drivers license. She stated the last time she drove was today no maybe yesterday (note she has been in the hospital since 2016). She identified her residence was a hop, skip, and jump away from the grocery store. Patient could list her medications or what they were treating. She said my Doctor in [place] has been prescribing for 30 years, heart medication, I havent used in a while. She reported recently seeing a Doctor in [place] for the same amount of time who prescribed her medicine, heart medication, half a milligram of aspirin, and Alol (atenolol which she does take). Patient reported she administers her own medication since there are only 3 different kinds. Results of the current evaluation revealed waxing and waning of her mental status, concrete thinking patterns, poor memory, fair sequencing, poor problem solving and safety abilities, poor executive functioning, planning, visuospatial , motor, organizational abilities, attention, and tangential thinking. Impression: The Patient is an 80-year-old female with minimal medical history (SD 1997), with only 5 hospital (medical) visits from 2010 to present. Review of medical records reveal she was admitted for acute cholecystitis, coronary artery disease (CAD), hypertension (HTN), and Urinary Tract Infection (UTI). She had laparoscopic cholecystectomy with cholangiogram in detail operative surgery on 06/27/2016 because of ultrasound that depicted pericholecystic fluid with thickened gallbladder wall. Research reveals a UTI in elderly patients (having dementia like degeneration) can cause or exacerbate signs, symptoms, and behaviors (aggression, paranoia, hallucinations, delusions). The head CT dated 07/04/2016 noted moderate small vessel ischemic change in bifrontal and biparietal regions. Also, general anesthesia used for operative surgery can increase delirium and agitation in elderly patients who have a dementia like processes occurring. Overall, results of the current capacity evaluation, including review of medical records and revealed waxing and waning of mental status, concrete thinking patterns, poor memory, fair sequencing, poor problem solving and safety abilities, poor executive functioning, planning, visuospatial, organizational abilities, attention, and tangential thinking. These types of neurocognitive deficits are generally associated with frontal lobe dysfunction as identified in the Patients CT (bifrontal and biparietal lobes). The frontal lobe is responsible for decision making, problem solving, attention and concentration, abstraction, organization, sequencing, and multi-tasking. The parietal lobe is responsible for integrating sensory information and proprioception. Subsequently, the patients insight, judgment, and impulse control are poor and inhibit her ability to safely navigate her environment or make decisions that are in her best interest. She will likely have difficulty making safe and appropriate decisions for legal, financial, medical and personal concerns. The patients UTI, as well as use of general anesthesia can influence associated symptoms and is considered a part of her recent clinical presentation, and is not completely ruled out as a factor impacting her cognitive issues. However, her head CT findings suggest a neurodegenerative process in the absence of a UTI. Thus, it is more likely than not her neurocognitive deficits are long standing in nature and impact her ability to care for self or live independently. In my clinical opinion, with a reasonable degree of medical and clinical certainty, the Patient would benefit from a responsible and reliable Guardian to manage her medical, financial, legal, and personal affairs. She failed 6 of the 7 areas of cognitive screening conducted indicating significant deficits, likely worsening with age given the degenerative propensity. Her current neurocognitive status is felt to likely impact her overall functioning for the foreseeable future, and without assistance in decision making, she is vulnerable to victimization by others, or vulnerable for acting on information that places her personal safety and the safety of others at high risk. Her current presentation is not felt to reflect a pre-existing or new onset psychiatric disorder given objective findings on CT and review of medical records. The following diagnoses are offered: DIAGNOSES: 1. 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 Acute Cholecystitis 3. 293.0 (F05) Delirium Due to Urinary Tract Infection 4. 293.0 (F05) Delirium Due to Side Effects of General Anesthesia RECOMMENDATIONS: 1. A responsible and reliable Guardian is recommended to oversee the Patients personal, legal, financial, and medical affairs. 2. Referral to a neurologist for oversight of neurodegenerative processes and medication maintenance. 3. Psychiatric consultation with provider to maintain mental health symptoms. 4. Consideration for driving privileges. 5. Patient would benefit from 24-hour care where medical office supervisor provide direct care, structure, routine, and monitoring. Consulted with Dr. Lee regarding this capacity evaluation and she is in agreement with the findings and recommendations.
[2016-07-23] MEDS: RISPERIDONE 1 MG TABLET PO SCH (16:02)
[2016-07-23 17:25] VITALS: BP 119/70
== END 2016-07-23 18:25 | DRG 417 ==
LOC: ER 05:07 → UNDOADMIN 11:37 → EH 11:37 → 4N 14:55 → EH 06-29 03:45 → ICU 06-29 11:25 → 3W 07-02 11:58 → 4S 07-06 17:12
PROVIDERS: ADMIT Internal Medicine; ATTEND Internal Medicine
PROC: 3E0F73Z Introduction of Anti-inflammatory into Respiratory Tract, Via Natural or Artificial Opening (ICD-10-PCS; 2016-06-26)
PROC: BF001ZZ Plain Radiography of Bile Ducts using Low Osmolar Contrast (ICD-10-PCS; 2016-06-27)
PROC: 0FT44ZZ Resection of Gallbladder, Percutaneous Endoscopic Approach (ICD-10-PCS; principal; 2016-06-27 09:45)
PROC: 0F798ZZ Dilation of Common Bile Duct, Via Natural or Artificial Opening Endoscopic (ICD-10-PCS; 2016-06-28)
PROC: BF001ZZ Plain Radiography of Bile Ducts using Low Osmolar Contrast (ICD-10-PCS; 2016-06-28)
PROC: 02HV33Z Insertion of Infusion Device into Superior Vena Cava, Percutaneous Approach (ICD-10-PCS; 2016-06-29)
PROC: 5A1945Z Respiratory Ventilation, 24-96 Consecutive Hours (ICD-10-PCS; 2016-06-29)
PROC: 0BH17EZ Insertion of Endotracheal Airway into Trachea, Via Natural or Artificial Opening (ICD-10-PCS; 2016-06-29)
PROC: 5A09457 Assistance with Respiratory Ventilation, 24-96 Consecutive Hours, Continuous Positive Airway Pressure (ICD-10-PCS; 2016-07-19)
DX: K80.67 Calculus of gallbladder and bile duct with acute and chronic cholecystitis with obstruction (principal); G93.40 Encephalopathy, unspecified; J96.01 Acute respiratory failure with hypoxia; J96.02 Acute respiratory failure with hypercapnia; I50.43 Acute on chronic combined systolic (congestive) and diastolic (congestive) heart failure; I21.4 Non-ST elevation (NSTEMI) myocardial infarction; J69.0 Pneumonitis due to inhalation of food and vomit; A41.9 Sepsis, unspecified organism; R65.20 Severe sepsis without septic shock; N39.0 Urinary tract infection, site not specified; T81.4XXA Infection following a procedure, initial encounter; K82.8 Other specified diseases of gallbladder; I11.0 Hypertensive heart disease with heart failure; I25.10 Atherosclerotic heart disease of native coronary artery without angina pectoris; Y95 Nosocomial condition; I25.5 Ischemic cardiomyopathy; B96.20 Unspecified Escherichia coli [E. coli] as the cause of diseases classified elsewhere; F41.9 Anxiety disorder, unspecified; I95.9 Hypotension, unspecified; I25.2 Old myocardial infarction; Z78.1 Physical restraint status; Z79.899 Other long term (current) drug therapy; Z90.710 Acquired absence of both cervix and uterus; Z60.2 Problems related to living alone; Z79.82 Long term (current) use of aspirin
CPT/HCPCS: 00790; 36415; 36592; 43262; 70450; 71010; 74177; 74300; 74328; 76705; 80048; 80053; 80202; 81001; 82140; 82272; 82550; 82553; 82565; 82607; 82803; 82962; 83605; 83690; 83735; 83880; 84100; 84443; 84478; 84484; 85025; 85027; 85610; 86140; 87040; 87070; 87086; 87088; 87186; 87205; 88304; 93005; 93010; 93306; 94002; 94003; 94660; 94799; 96365; 96375; 99285; G8978-GP; G8979-GP; J0171; J0330; J0690; J0696; J0744; J1100; J1170; J1450; J1610; J1630; J1642; J1650; J1940; J2020; J2060; J2250; J2270; J2310; J2370; J2405; J2543; J2550; J2704; J3010; J3370; J3411; J3475; J3480; J3490; J7030; J7060; J7120; J7620; Q9967; S0028

== ENCOUNTER 2016-07-27 14:36 | Inpatient (IN) | payer MEDICARE ==
[2016-07-27] MEDS ORDERED: NORMAL SALINE 1000 ML 1,000 ML IV ONE (15:06)
[2016-07-27] MEDS ORDERED: CEFTRIAXONE 1 GM/D5W RTU 50 ML IV ONE (15:06)
[2016-07-27] MEDS ORDERED: NORMAL SALINE 1000 ML 1,000 ML IV PRN ×2 (15:07→23:17)
[2016-07-27] MEDS ORDERED: NOREPINEPHRINE BITARTRATE INJ/PF 4 MG/4 ML SDV IV ONE (15:42)
[2016-07-27] MEDS ORDERED: MIDAZOLAM HCL 0 ML IV ONE (15:43)
--- NOTE | 2016-07-27 15:50 | ER Document Report ---
ED General - General Stated Complaint: NON RESPONSIVE Mode of Arrival: Medic Information source: Emergency Med Personnel, [facility] Records Cannot obtain history due to: Unstable vital signs, Altered mental status Notes: 80-year-old female who was recently discharged from the hospital presents unresponsive being bagged by EMS. Patient noted to be hypotensive on arrival Patient coming from care facility where she had a witnessed unresponsiveness TRAVEL OUTSIDE OF THE [place] IN LAST 30 DAYS: No - HPI Onset: Just prior to arrival Onset/Duration: Sudden Quality of pain: No pain Severity: Severe Pain Level: Denies Associated symptoms: Weakness Exacerbated by: Denies Relieved by: Denies Similar symptoms previously: No Recently seen / treated by doctor: No - Related Data Allergies/Adverse Reactions: No Known Allergies Allergy (Unverified 09/20/14 12:59) Home Medications: Current Home Medications Aspirin [Aspirin EC] 81 mg PO DAILY 07/27/16 [History] Atenolol [Tenormin] 25 mg PO Q12 07/27/16 [History] Atorvastatin Calcium [Lipitor 20 mg Tablet] 20 mg PO QHS 07/27/16 [History] Bisacodyl [Dulcolax 5 Mg Tablet] 10 mg PO DAILYP PRN 07/27/16 [History] Docusate Sodium [Colace 100 mg Capsule] 200 mg PO DAILY@1200 07/27/16 [History] Lisinopril [Prinivil 10 mg Tablet] 10 mg PO DAILY 07/27/16 [History] Mirtazapine [Remeron 15 mg Tablet] 7.5 mg PO QHS 07/27/16 [History] Potassium Chloride [K-Sarah] 20 meq PO DAILY 07/27/16 [History] Quetiapine Fumarate [Seroquel] 50 mg PO DAILY@1600 07/27/16 [History] Past Medical History - Social History Smoking Status: Never Smoker Cigarette use (# per day): No Chew tobacco use (# tins/day): No Smoking Education Provided: No Family History: Reviewed & Not Pertinent - Past Medical History Cardiac Medical History: Reports: Hx Heart Attack - 1997 Denies: Hx Hypertension Pulmonary Medical History: Denies: Hx Asthma Neurological Medical History: Denies: Hx Cerebrovascular Accident, Hx Seizures Renal/ Medical History: Denies: Hx Peritoneal Dialysis GI Medical History: Denies: Hx Hepatitis, Hx Hiatal Hernia, Hx Ulcer Psychiatric Medical History: Denies: Hx Depression Infectious Medical History: Denies: Hx Hepatitis Past Surgical History: Reports: Hx Appendectomy, Hx Hysterectomy. Denies: Hx Mastectomy, Hx Open Heart Surgery, Hx Pacemaker Review of Systems - Review of Systems -: Yes ROS unobtainable due to patient's medical condition Physical Exam - Vital signs Vitals: Resp 15 07/27/16 14:33 PHYSICAL EXAMINATION: GENERAL: Elderly frail extremely hypotensive HEAD: Atraumatic, normocephalic. EYES: Pupils equal round and reactive to light, extraocular movements intact, conjunctiva are normal. ENT: Nares patent, oropharynx clear without exudates. Moist mucous membranes. Large secretions NECK: Normal range of motion, supple without lymphadenopathy LUNGS: Coarse breath sounds all throughout HEART: Regular rate and rhythm without murmurs ABDOMEN: Soft, nontender, nondistended abdomen. No guarding, no rebound. No masses appreciated. Female : deferred Musculoskeletal: Patient did not move her extremities NEUROLOGICAL: GCS 3. SKIN: Warm, Dry, normal turgor, no rashes or lesions noted. Course - Re-evaluation Re-evalutation: 07/27/16 16:21 Patient presented hypotensive with a GCS of 3, multiple times for IV access failed, multiple attempts failed. I placed a right femoral central line emergently, patient was given succinylcholine and etomidate and was intubated. Patient's hypotension was treated with IV fluids Levophed and Rocephin were ordered Reevaluation has been performed on the patient. Patient vital signs are noted to be 109/56, rr 22, t 98.9, 100% intubated hr 87 Cardiopulmonary exam noted lungs right upper lobe rhonchi Capillary refill is delayed Peripheral pulses are intact all throughout and bounding Skin Examination notes no tenting - Vital Signs Vital signs: Temp Pulse Resp BP Pulse Ox 97.0 F 12 82/44 L 100 07/27/16 16:01 07/27/16 16:01 07/27/16 16:01 07/27/16 16:01 - Laboratory Result Diagrams: 07/27/16 15:09 07/27/16 15:09 Laboratory results interpreted by me: 07/27/16 07/27/16 07/27/16 15:09 15:09 15:09 WBC 16.4 H Seg Neutrophils % 84.0 H Lymphocytes % 6.3 L Absolute Neutrophils 13.8 H Absolute Monocytes 1.6 H PT 17.5 H Potassium 5.1 H BUN 46 H Creatinine 1.71 H Est GFR ( Amer) 35 L Est GFR (Non-Af Amer) 29 L Glucose 124 H Total Protein 6.0 L Albumin 2.4 L - Diagnostic Test Radiology reviewed: Image reviewed, Reports reviewed Procedures - Central Line Right Femoral Time completed: 15:20 Consent obtained: No - emergent Central line pre-insertion: Sterile PPE donned, Betadine prep applied, Chloraprep applied Central line lumen type: Triple Anesthetic type: 1% Lidocaine mL's of anesthesia: 5 Ultrasound guided: Yes CM at insertion site: 3 Line secured with sutures: Yes Central line post-insertion: Blood return from lumens, Biopatch applied, Sutured , Sterile dressing applied, Other Number of attempts: 1 Complications: No - Intubation Orotracheal Time of Intubation: 15:25 Airway evaluation: Copious secretions Mallampati Classification: Class 4 Medications: Etomidate, Succinylcholine Intubation method: Orotracheal Blade type: Wilner Blade size: 4 Equipment used: Bougie ETT size: 7.0 ETT secured at: Teeth ETT secured at (cm): 19 Breath Sounds after Intubation: Equal End tidal CO2 confirmed: Yes Ventilator settings: SIMV Post Intubation Xray: Yes Intubation Complications: No complications - Additional Procedures 1500 Additional Procedures: IO insertion - right humerus Critical Care Note - Critical Care Note Total time excluding time spent on procedures (mins): 45 Comments: 45 minutes of critical care time spent in direct contact evaluating and reevaluating the patient, treating symptoms, reviewing labs and studies and speaking with family and consultants excluding any procedures Discharge - Discharge Clinical Impression: Respiratory failure requiring intubation, Metabolic encephalopathy Hypotension Qualifiers: Hypotension type: unspecified hypotension type Qualified Code(s): I95.9 - Hypotension, unspecified Pneumonia Qualifiers: Pneumonia type: due to unspecified organism Laterality: right Lung location: upper lobe of lung Qualified Code(s): J18.1 - Lobar pneumonia, unspecified organism Condition: Critical Disposition: ADMITTED INPATIENT Admitting Provider: Hospitalist Unit Admitted: ICU
[2016-07-27 15:56] LABS: ABSOLUTE MONOCYTES (AUTO) 1.6 10^3/uL (0.1-1.4); ABSOLUTE NEUT (AUTO) 13.8 10^3/uL (1.7-8.2); EOSINOPHILS % (AUTO) 0.1 % (0-6); HEMATOCRIT 37.3 % (36.0-47.0); HEMOGLOBIN 12.2 g/dL (12.0-15.5); HGB HCT DIFFERENCE -0.7; LYMPHOCYTES % (AUTO) 6.3 % (13-45); MEAN CORPUSCULAR HEMOGLOBIN 29.2 pg (27.0-33.4); MEAN CORPUSCULAR HGB CONC 32.6 g/dL (32.0-36.0); MEAN CORPUSCULAR VOLUME 89 fl (80-97); MONOCYTES % (AUTO) 9.6 % (3-13); RED BLOOD COUNT 4.17 10^6/uL (3.72-5.28); RED CELL DISTRIBUTION WIDTH 13.8 % (11.5-14.0); WHITE BLOOD COUNT 16.4 10^3/uL (4.0-10.5)
[2016-07-27 16:01] LABS: PROTHROMBIN TIME 17.5 SEC (11.4-15.4)
[2016-07-27 16:15] LABS: ALANINE AMINOTRANSFERASE 30 U/L (9-52); ALBUMIN 2.4 g/dL (3.5-5.0); ALKALINE PHOSPHATASE 69 U/L (38-126); ANION GAP 13 (5-19); ASPARTATE AMINO TRANSFERASE 24 U/L (14-36); BILIRUBIN,TOTAL 0.8 mg/dL (0.2-1.3); BLOOD UREA NITROGEN 46 mg/dL (7-20); CALCIUM 8.7 mg/dL (8.4-10.2); CARBON DIOXIDE 24 mmol/L (22-30); CHLORIDE 101 mmol/L (98-107); CREATININE RESULT 1.71 mg/dL (0.52-1.25); GLUCOSE 124 mg/dL (75-110); POTASSIUM 5.1 mmol/L (3.6-5.0); SODIUM 138.2 mmol/L (137-145)
[2016-07-27 16:37] LABS: APPEARANCE,URINE SLIGHTLY-CLOUDY; BILIRUBIN,URINE NEGATIVE (NEGATIVE); GLUCOSE, URINE NEGATIVE (NEGATIVE); KETONES,URINE TRACE mg/dL (NEGATIVE); LEUKOCYTE ESTERASE,URINE NEGATIVE (NEGATIVE); NITRITE,URINE NEGATIVE (NEGATIVE); PROTEIN,URINE NEGATIVE (NEGATIVE); URINE SPECIFIC GRAVITY 1.013; UROBILINOGEN,URINE NEGATIVE mg/dL (<2.0)
[2016-07-27] MEDS ORDERED: RINGERS SOLUTION,LACTATED 1,000 ML IV PRN (16:43)
[2016-07-27] MEDS ORDERED: ACETAMINOPHEN 650 MG SUPP.RECT PR PRN (16:54)
[2016-07-27] MEDS ORDERED: CEFEPIME 2 GM/D5W RTU 2 GM/50 ML RTUPB IV SCH (17:00)
[2016-07-27] MEDS ORDERED: MIDAZOLAM HCL 100 ML IV PRN (17:04)
[2016-07-27 17:09] LABS: CREATINE KINASE 91 U/L (30-135)
[2016-07-27 17:47] LABS: VENOUS BLOOD BASE EXCESS -2.1 mmol/L; VENOUS BLOOD HCO3 25.5 mmol/L (20-32); VENOUS BLOOD PCO2 56.5 mmHg (35-63); VENOUS BLOOD PH 7.27 (7.30-7.42)
[2016-07-27 18:15] LABS: CREATINE KINASE MB 16.8 ng/mL (<4.55)
[2016-07-27 18:18] LABS: TROPONIN I 0.074 ng/mL
[2016-07-27 19:29] LABS: ARTERIAL BLOOD BASE EXCESS -2.7 mmol/L; ARTERIAL BLOOD O2 SATURATION 98.4 % (94-98)
--- NOTE | 2016-07-27 19:33 | EKG REPORT ---
SEVERITY:- ABNORMAL ECG - SINUS RHYTHM ABNORMAL T, CONSIDER ISCHEMIA, LATERAL LEADS : Confirmed by: Param Alberto 27-Jul-2016 19:33:05
--- NOTE | 2016-07-27 19:46 | PDOC H&P ---
History of Present Illness Admission Date/PCP: 07/27/16 16:44 RAFA VELASCO MD Patient complains of: respiratory arrest History of Present Illness: FLORENTINO ZHANG is a 80 year old female presents from [facility] by EMS with sudden respiratory arrest. She is currently obtunded and intubated and unable to provide a review of systems her medical history. Her sister is at the bedside and tells be she arrived to find her sister sitting in the bedside chair slumped over and unresponsive. She called for help and the nursing staff attempted to assist her back into bed with a noted that she was unresponsive, initial blood pressure was reportedly 82 /50, blood sugar 163 and a room air sat of 85%. EMS arrived to find her blood pressure 60 over palp, respiratory rate greater than 30 and they immediately transported across the street to the emergency department. By the time she arrived here she suddenly became apneic and had to be emergently intubated and placed on mechanical ventilation by the emergency room physician. She has now received a total of 4 L of normal saline and still hypotensive. A femoral central line was placed by the ER physician and she is now running Levophed at 12 mics per minute. Of note EMS attempted to place an I O in the right tibia unsuccessfully and they felt and heard a "crack". Her peak pressures on the ventilator are quite high at greater than 40 on vent settings of SIMV rate of 12, tidal volume of 500, pressure support 10, PEEP of 5 and FiO2 of 60%. I adjusted the rate to 15 and decrease the tidal volume with good response in her peak pressures to less than 35. Initial evaluation in the emergency department is largely still pending, and EKG does show some changes with T-wave inversions in lead 1, aVL, AVR and V3 through 6 when compared to prior. Review the record shows an echocardiogram on June 26 demonstrating an ejection fraction of 40-45% with left ventricular dilatation, 2 over 4 diastolic dysfunction and moderate left atrial enlargement but no significant valvular abnormalities. Her CBC is back and does show a leukocytosis at 16,000, 84% segmented neutrophils and chest x-ray by my interpretation shows a right upper lobe haziness that was not present previously and diffuse haziness to the right hemithorax when compared to the left and when compared to prior chest x-ray. We've been asked to admit the patient to the ICU for ongoing critical care. Past Medical History Cardiac Medical History: Reports: Myocardial Infarction - 1997 Denies: Hypertension Pulmonary Medical History: Denies: Asthma Neurological Medical History: Denies: Seizures GI Medical History: Denies: Hepatitis, Hiatal Hernia Psychiatric Medical History: Denies: Depression Hematology: Denies: Anemia, Sickle Cell Disease Past Surgical History Past Surgical History: Reports: Appendectomy, Hysterectomy Denies: Amputation, Mastectomy, Pacemaker Social History Smoking Status: Never Smoker Frequency of Alcohol Use: None Hx Recreational Drug Use: No Drugs: None Hx Prescription Drug Abuse: No - Advance Directive Resuscitation Status: Full Code Family History Family History: Reviewed & Not Pertinent Parental Family History Reviewed: Yes Children Family History Reviewed: Yes Sibling(s) Family History Reviewed.: Yes Medication/Allergy Home Medications: Aspirin [Aspirin EC] 81 mg PO DAILY 07/27/16 Atenolol [Tenormin] 25 mg PO Q12 07/27/16 Atorvastatin Calcium [Lipitor 20 mg Tablet] 20 mg PO QHS 07/27/16 Bisacodyl [Dulcolax 5 Mg Tablet] 10 mg PO DAILYP PRN 07/27/16 Docusate Sodium [Colace 100 mg Capsule] 200 mg PO DAILY@1200 07/27/16 Lisinopril [Prinivil 10 mg Tablet] 10 mg PO DAILY 07/27/16 Mirtazapine [Remeron 15 mg Tablet] 7.5 mg PO QHS 07/27/16 Potassium Chloride [K-Sarah] 20 meq PO DAILY 07/27/16 Quetiapine Fumarate [Seroquel] 50 mg PO DAILY@1600 07/27/16 Allergies/Adverse Reactions: No Known Allergies Allergy (Unverified 09/20/14 12:59) Review of Systems ROS unobtainable: Due to endotracheal tube, Due to mental status Physical Exam Vital Signs: Temp Pulse Resp BP Pulse Ox 98.6 F 71 15 104/51 L 98 07/27/16 18:52 07/27/16 18:52 07/27/16 18:52 07/27/16 18:52 07/27/16 18:52 Intake & Output 07/26/16 07/27/16 07/28/16 06:59 06:59 06:59 Output Total 640 Balance -640 Weight 73.9 kg PHYSICAL EXAM GENERAL: Obtunded; well developed, well nourished; no obese; very pale HEENT: normocephalic, atraumatic; EOMI, PERRLA though sluggish, no conjunctival injection, no scleral icterus; oral mucosa moist; neck supple, no LAD, normal ROM; ET tube in good position with fog in the tube and trachea midline RESPIRATORY: no accessory muscle use, no increased WOB in fact she is not attempting to breathe over the vent, good air entry bilaterally; no wheezes, rales, rhonchi; right-sided inspiratory crackles with opening squeaks and pops anteriorly at the apex CARDIO: no JVD; RRR; no systolic murmur; no tachycardia VASCULAR: no carotid bruit; no abdominal bruit; no pallor; 2+ radial, DP pulse ; normal capillary refill GI: Firm; mildly distended; absent bowel sounds; no rebound, involuntary guarding: No grimace on palpation : normal external genitalia; rectal deferred NEURO: Decreased patella reflexes; MSK: Limbs are flaccid but she received succinyl choline and etomidate for intubation less than one hour prior EXTREMITIES: no palpable cords in calf; no clubbing, cyanosis; trace bilateral pedal edema PSYCH: Obtunded SKIN: Cool; nap; no petechiae; no telengectasias; no jaundice; Results Laboratory Results: 07/27/16 07/27/16 16:45 17:25 VBG pH 7.27 L VBG pCO2 56.5 VBG HCO3 25.5 VBG Base Excess -2.1 Lactic Acid 2.4 H 07/27/16 17:25 CK-MB (CK-2) 16.80 H Troponin I 0.074 NT-Pro-B Natriuret Pep 3290 H Labs reviewed with worrisome findings noted in history of present illness EKG Comments: (Sinus rhythm with a ventricular rate of 91, corrected QT interval 468 and the T -wave inversions noted in the history of present illness Impressions: KUB X-Ray 07/27/16 00:00 IMPRESSION: GAS DISTENDED STOMACH COULD BE DUE TO AIR SWALLOWING OR GASTRIC OUTLET OBSTRUCTION. CORRELATE WITH SYMPTOMS. NONOBSTRUCTED BOWEL-GAS PATTERN. FREE AIR CANNOT BE EXCLUDED ON THIS SINGLE SUPINE VIEW. IF PERSISTENT CONCERN RECOMMEND UPRIGHT RADIOGRAPH OR LATERAL DECUBITUS VIEW. Chest X-Ray 07/27/16 15:06 IMPRESSION: No acute consolidations. Interval improvement in the interstitial edema. Endotracheal tube with its tip at the level of the thoracic inlet. Other findings as noted above Status: Image reviewed by me - I disagree with radiologist to do believe there is some right upper lobe airspace disease and a diffuse haziness throughout the right hemithorax when compared to prior Assessment & Plan - Diagnosis (1) Acute respiratory failure with hypoxia and hypercapnia Is this a current diagnosis for this admission?: YesPlan: Unclear etiology but with a markedly elevated d-dimer and sudden onset respiratory failure requiring intubation and mechanical ventilation would be very concerned for thromboembolic disease. Admitted to the ICU and continue mechanical ventilation and respiratory support. Start empiric Lovenox therapy for presumed pulmonary embolus. (2) Pneumonia Qualifiers: Pneumonia type: due to unspecified organism Laterality: right Lung location: upper lobe of lung Qualified Code(s): J18.1 - Lobar pneumonia, unspecified organism Is this a current diagnosis for this admission?: YesPlan: Must be considered healthcare acquired and in fact she was treated for pneumonia during her previous hospitalization that was aspiration type. She'll be placed on broad-spectrum antibiotics and treated as above. (3) Septic shock Is this a current diagnosis for this admission?: YesPlan: Surgery consult for central line placement in the subclavian or internal jugular so that we can monitor CVP and adjust her volume resuscitation accordingly. Continue vasopressors and add Yohan-Synephrine if needed. Start empiric stress dose steroids. (4) Acute kidney injury Is this a current diagnosis for this admission?: YesPlan: Unclear etiology possibly prerenal but there are hyaline casts noted on the urinalysis suggested may be an acute tubular necrosis. Hopefully will respond to aggressive fluid resuscitation. Try to avoid any nephrotoxic medications. (5) Elevated d-dimer Is this a current diagnosis for this admission?: YesPlan: See above. Patient is too unstable for CT angiography at this time we'll have to treat empirically. (6) Acute encephalopathy Is this a current diagnosis for this admission?: YesPlan: Secondary to the above. Her hospital course previously was prolonged by several weeks due to an encephalopathy this does not skye well for her recovery. (7) Coronary artery disease Qualifiers: Coronary Disease-Associated Artery/Lesion type: [place] artery Associated angina: angina presence unspecified Is this a current diagnosis for this admission?: YesPlan: She likely has some underlying coronary artery disease having suffered a type II NSTEMI during her last hospitalization a couple of weeks ago. Due to her prolonged illness and slow recovery we were treating medically and she was to follow-up with cardiology for further recommendations and investigations. Clearly she has not had an opportunity to do that. She will be receiving full dose Lovenox for the reasons noted above. We'll also give aspirin per rectum until able to take oral. The septic shock precludes the use of beta zoe at this time. No oral intake precludes the use of statin therapy at this time. (8) Ischemic cardiomyopathy Is this a current diagnosis for this admission?: YesPlan: This will most certainly complicate her recovery and volume status as the septic shock requires aggressive fluid resuscitation. This too does not skye well for her prognosis. - Time Time Spent: Greater than 70 Minutes Critical Time spent with patient: 15-24 minutes Medications reviewed and adjusted accordingly: Yes - Inpatient Certification Medical Necessity: Significant Comorbidiites Make Outpatient Treatment Too Risky , Need For IV Fluids, Need For Continuous Telemetry Monitoring, Need for IV Antibiotics, Risk of Complication if Not Cared For in Hospital - Plan Summary Plan Summary: Overall prognosis is quite poor. She is at great risk for significant morbidity or mortality related to the septic shock alone level on the possibility of thromboembolic disease and recurrent coronary artery disease. I discussed this with her sister at the bedside but I do not believe she fully understands the gravity of the situation nor does she grasp limited we are in treating her due to the multiorgan failure and competing organ failure. For now the patient remains full code
[2016-07-27] MEDS: ASPIRIN 300 MG SUPP, RECTAL PR SCH (19:47)
[2016-07-27] MEDS: ALBUTEROL SULFATE HFA (90 MCG/PUFF) 200 PUFF/8.5 GM MDI IH SCH ×2 (19:47→23:47)
[2016-07-27] MEDS ORDERED: SUCCINYLCHOLINE CHLORIDE INJ 200 MG/10 ML VIAL ONE (20:35)
[2016-07-27] MEDS: DEXTROSE 5%-WATER 250 ML with NOREPINEPHRINE BITARTRATE 4 MG IV PRN ×2 (21:06)
[2016-07-27 21:23] LABS: ANION GAP 8 (5-19); BLOOD UREA NITROGEN 47 mg/dL (7-20); CALCIUM 8.2 mg/dL (8.4-10.2); CARBON DIOXIDE 25 mmol/L (22-30); CHLORIDE 104 mmol/L (98-107); CREATININE RESULT 1.83 mg/dL (0.52-1.25); GLUCOSE 179 mg/dL (75-110); SODIUM 137.2 mmol/L (137-145)
[2016-07-27] MEDS: HYDROCORTISONE SOD SUCCINATE INJ/PF 100 MG/2 ML SDV IV SCH (21:29)
[2016-07-27] MEDS: ENOXAPARIN SODIUM INJ 80 MG/0.8 ML DISP.SYRIN SUBCUT SCH (21:30)
[2016-07-27] MEDS: LEVOFLOXACIN 750 MG/D5W RTU 750 MG/150 ML RTUPB IV SCH (21:30)
[2016-07-27 21:35] LABS: POTASSIUM 3.8 mmol/L (3.6-5.0)
[2016-07-27 23:19] LABS: VENOUS BLOOD BASE EXCESS -3.7 mmol/L; VENOUS BLOOD HCO3 23.5 mmol/L (20-32); VENOUS BLOOD PCO2 52.2 mmHg (35-63); VENOUS BLOOD PH 7.27 (7.30-7.42)
[2016-07-27] MEDS ORDERED: RINGERS SOLUTION,LACTATED 2,000 ML IV ONE (23:30)
[2016-07-28] MEDS: CEFEPIME HCL 2 GM in DEXTROSE 5%-WATER 50 ML IV SCH ×2
[2016-07-28] MEDS ORDERED: PROPOFOL 100 ML IV ONE (01:12)
[2016-07-28] MEDS: PROPOFOL 100 ML IV PRN ×2 (01:19→19:25)
[2016-07-28 06:53] LABS: ABSOLUTE EOSINOPHILS # (AUTO) 0.1 10^3/uL (0.0-0.6); ABSOLUTE LYMPHOCYTES (AUTO) 1.4 10^3/uL (0.5-4.7); ABSOLUTE MONOCYTES (AUTO) 1.3 10^3/uL (0.1-1.4); BASOPHILS % (AUTO) 0.1 % (0-2); EOSINOPHILS % (AUTO) 0.3 % (0-6); HEMATOCRIT 29.6 % (36.0-47.0); HGB HCT DIFFERENCE -0.8; LYMPHOCYTES % (AUTO) 7.7 % (13-45); MEAN CORPUSCULAR HEMOGLOBIN 28.9 pg (27.0-33.4); MEAN CORPUSCULAR HGB CONC 32.6 g/dL (32.0-36.0); MEAN CORPUSCULAR VOLUME 89 fl (80-97); MONOCYTES % (AUTO) 7.6 % (3-13); RED BLOOD COUNT 3.34 10^6/uL (3.72-5.28); RED CELL DISTRIBUTION WIDTH 13.6 % (11.5-14.0); SEGMENTED NEUTROPHILS % (AUTO) 84.3 % (42-78); WHITE BLOOD COUNT 17.8 10^3/uL (4.0-10.5)
[2016-07-28 06:54] LABS: ARTERIAL BLOOD BASE EXCESS -2.9 mmol/L; ARTERIAL BLOOD O2 SATURATION 98.3 % (94-98)
[2016-07-28] MEDS: HYDROCORTISONE SOD SUCCINATE INJ/PF 100 MG/2 ML SDV IV SCH ×3 (06:55→21:44)
[2016-07-28] MEDS: ALBUTEROL SULFATE HFA (90 MCG/PUFF) 200 PUFF/8.5 GM MDI IH SCH ×3 (06:55→17:47)
[2016-07-28 07:06] LABS: HEMOGLOBIN 9.6 g/dL (12.0-15.5)
[2016-07-28 07:12] LABS: ALANINE AMINOTRANSFERASE 60 U/L (9-52); ALKALINE PHOSPHATASE 61 U/L (38-126); ANION GAP 7 (5-19); ASPARTATE AMINO TRANSFERASE 123 U/L (14-36); BILIRUBIN,TOTAL 0.5 mg/dL (0.2-1.3); BLOOD UREA NITROGEN 40 mg/dL (7-20); CALCIUM 8.2 mg/dL (8.4-10.2); CARBON DIOXIDE 27 mmol/L (22-30); CHLORIDE 105 mmol/L (98-107); CREATININE RESULT 1.58 mg/dL (0.52-1.25); GLUCOSE 126 mg/dL (75-110); MAGNESIUM 1.3 mg/dL (1.6-2.3); PHOSPHORUS 3.1 mg/dL (2.5-4.5); POTASSIUM 3.6 mmol/L (3.6-5.0); SODIUM 138.9 mmol/L (137-145); TOTAL PROTEIN 5.2 g/dL (6.3-8.2)
[2016-07-28 07:23] LABS: TROPONIN I 0.078 ng/mL
[2016-07-28] MEDS ORDERED: MAGNESIUM SULFATE/D5W 100 ML IV SCH (08:00)
[2016-07-28] MEDS: MAGNESIUM SULFATE/D5W 100 ML IV SCH ×3 (08:10→10:37)
[2016-07-28] MEDS ORDERED: PHARMACY COMMUNICATION ORDER MC NR (09:00)
[2016-07-28] MEDS: DEXTROSE 5%-1/2 NORMAL SALINE 1,000 ML IV PRN ×2 (09:23→17:42)
[2016-07-28] MEDS ORDERED: PHENYLEPHRINE HCL INJ/PF 10 MG/1 ML SDV ONE (11:20)
[2016-07-28] MEDS: DEXTROSE 5%-WATER 250 ML with NOREPINEPHRINE BITARTRATE 4 MG IV PRN ×2 (12:14)
--- NOTE | 2016-07-28 16:41 | PDOC PROGRESS REPORT ---
Subjective Progress Note for:: 07/28/16 Subjective:: reason for visit: f/u resp failure, septic shock hospital course: FLORENTINO ZHANG is a 80 year old female presents from [facility] [place] by EMS with sudden respiratory arrest. She is currently obtunded and intubated and unable to provide a review of systems her medical history. Her sister is at the bedside and tells be she arrived to find her sister sitting in the bedside chair slumped over and unresponsive. She called for help and the nursing staff attempted to assist her back into bed with a noted that she was unresponsive, initial blood pressure was reportedly 82/50, blood sugar 163 and a room air sat of 85%. EMS arrived to find her blood pressure 60 over palp, respiratory rate greater than 30 and they immediately transported across the street to the emergency department. By the time she arrived here she suddenly became apneic and had to be emergently intubated and placed on mechanical ventilation by the emergency room physician. She has now received a total of 4 L of normal saline and still hypotensive. A femoral central line was placed by the ER physician and she is now running Levophed at 12 mics per minute. Of note EMS attempted to place an I O in the right tibia unsuccessfully and they felt and heard a "crack". Her peak pressures on the ventilator are quite high at greater than 40 on vent settings of SIMV rate of 12, tidal volume of 500, pressure support 10, PEEP of 5 and FiO2 of 60%. I adjusted the rate to 15 and decrease the tidal volume with good response in her peak pressures to less than 35. Initial evaluation in the emergency department is largely still pending, and EKG does show some changes with T-wave inversions in lead 1, aVL, AVR and V3 through 6 when compared to prior. Review the record shows an echocardiogram on June 26 demonstrating an ejection fraction of 40-45% with left ventricular dilatation, 2 over 4 diastolic dysfunction and moderate left atrial enlargement but no significant valvular abnormalities. Her CBC is back and does show a leukocytosis at 16,000, 84% segmented neutrophils and chest x-ray by my interpretation shows a right upper lobe haziness that was not present previously and diffuse haziness to the right hemithorax when compared to the left and when compared to prior chest x-ray. subjective: still obtunded and unable to participate in her exam ROS: unable to obtain due to mental state Physical Exam Vital Signs: Temp Pulse Resp BP Pulse Ox 96.6 F L 57 L 18 100/49 L 100 07/28/16 12:00 07/28/16 14:00 07/28/16 14:00 07/28/16 14:00 07/28/16 15:55 Intake & Output 07/27/16 07/28/16 07/29/16 06:59 06:59 07:59 Intake Total 4761 Output Total 995 1075 Balance 3766 -1075 Weight 82.6 kg EXAM GENERAL: Obtunded; well developed, well nourished; no obese; very pale HEENT: normocephalic, atraumatic; EOMI, PERRLA though sluggish, no conjunctival injection, no scleral icterus; oral mucosa moist; neck supple, no LAD, normal ROM; ET tube in good position with fog in the tube and trachea midline RESPIRATORY: no accessory muscle use, no increased WOB in fact she is not attempting to breathe over the vent, good air entry bilaterally; no wheezes, rales, rhonchi; right-sided inspiratory crackles with opening squeaks and pops anteriorly at the apex CARDIO: no JVD; RRR; no systolic murmur; no tachycardia VASCULAR: no carotid bruit; no abdominal bruit; no pallor; 2+ radial, DP pulse ; normal capillary refill GI: Firm; mildly distended; absent bowel sounds; no rebound, involuntary guarding: No grimace on palpation; femoral line remains in place NEURO: Decreased patella reflexes; MSK: Limbs are flaccid EXTREMITIES: no palpable cords in calf; no clubbing, cyanosis; trace bilateral pedal edema PSYCH: Obtunded SKIN: Cool; nap; no petechiae; no telengectasias; no jaundice; Results Laboratory Results: 07/28/16 06:35 07/28/16 06:35 07/27/16 07/27/16 07/27/16 16:45 17:25 19:03 WBC RBC Hgb Hct MCV MCH MCHC RDW Plt Count Seg Neutrophils % Lymphocytes % Monocytes % Eosinophils % Basophils % Absolute Neutrophils Absolute Lymphocytes Absolute Monocytes Absolute Eosinophils Absolute Basophils Carbonic Acid 1.49 H HCO3/H2CO3 Ratio 16:1 ABG pH 7.30 L ABG pCO2 49.5 H ABG pO2 136.2 H ABG HCO3 24.0 ABG O2 Saturation 98.4 H ABG Base Excess -2.7 VBG pH 7.27 L VBG pCO2 56.5 VBG HCO3 25.5 VBG Base Excess -2.1 FiO2 60% Sodium Potassium Chloride Carbon Dioxide Anion Gap BUN Creatinine Est GFR ( Amer) Est GFR (Non-Af Amer) Glucose Lactic Acid 2.4 H Calcium Phosphorus Magnesium Total Bilirubin AST ALT Alkaline Phosphatase Total Protein Albumin 07/27/16 07/27/16 07/27/16 21:00 21:00 23:05 WBC RBC Hgb Hct MCV MCH MCHC RDW Plt Count Seg Neutrophils % Lymphocytes % Monocytes % Eosinophils % Basophils % Absolute Neutrophils Absolute Lymphocytes Absolute Monocytes Absolute Eosinophils Absolute Basophils Carbonic Acid HCO3/H2CO3 Ratio ABG pH ABG pCO2 ABG pO2 ABG HCO3 ABG O2 Saturation ABG Base Excess VBG pH 7.27 L VBG pCO2 52.2 VBG HCO3 23.5 VBG Base Excess -3.7 FiO2 Sodium 137.2 Potassium 3.8 D Chloride 104 Carbon Dioxide 25 Anion Gap 8 BUN 47 H Creatinine 1.83 H Est GFR ( Amer) 32 L Est GFR (Non-Af Amer) 26 L Glucose 179 H Lactic Acid 1.0 Calcium 8.2 L Phosphorus Magnesium Total Bilirubin AST ALT Alkaline Phosphatase Total Protein Albumin 07/27/16 07/28/16 07/28/16 23:05 06:20 06:35 WBC 17.8 H RBC 3.34 L Hgb 9.6 L D Hct 29.6 L MCV 89 MCH 28.9 MCHC 32.6 RDW 13.6 Plt Count 215 Seg Neutrophils % 84.3 H Lymphocytes % 7.7 L Monocytes % 7.6 Eosinophils % 0.3 Basophils % 0.1 Absolute Neutrophils 15.0 H Absolute Lymphocytes 1.4 Absolute Monocytes 1.3 Absolute Eosinophils 0.1 Absolute Basophils 0.0 Carbonic Acid 1.40 H HCO3/H2CO3 Ratio 16:1 ABG pH 7.32 L ABG pCO2 46.4 H ABG pO2 129.4 H ABG HCO3 23.3 ABG O2 Saturation 98.3 H ABG Base Excess -2.9 VBG pH VBG pCO2 VBG HCO3 VBG Base Excess FiO2 70% Sodium Potassium 3.6 Chloride Carbon Dioxide Anion Gap BUN Creatinine Est GFR ( Amer) Est GFR (Non-Af Amer) Glucose Lactic Acid Calcium Phosphorus Magnesium Total Bilirubin AST ALT Alkaline Phosphatase Total Protein Albumin 07/28/16 07/28/16 06:35 06:35 WBC RBC Hgb Hct MCV MCH MCHC RDW Plt Count Seg Neutrophils % Lymphocytes % Monocytes % Eosinophils % Basophils % Absolute Neutrophils Absolute Lymphocytes Absolute Monocytes Absolute Eosinophils Absolute Basophils Carbonic Acid HCO3/H2CO3 Ratio ABG pH ABG pCO2 ABG pO2 ABG HCO3 ABG O2 Saturation ABG Base Excess VBG pH VBG pCO2 VBG HCO3 VBG Base Excess FiO2 Sodium 138.9 Potassium 3.6 Chloride 105 Carbon Dioxide 27 Anion Gap 7 BUN 40 H Creatinine 1.58 H Est GFR ( Amer) 38 L Est GFR (Non-Af Amer) 31 L Glucose 126 H Lactic Acid 1.1 Calcium 8.2 L Phosphorus 3.1 Magnesium 1.3 L Total Bilirubin 0.5 AST 123 H ALT 60 H Alkaline Phosphatase 61 Total Protein 5.2 L Albumin 2.0 L 07/27/16 07/27/16 07/28/16 17:25 23:05 06:35 CK-MB (CK-2) 16.80 H Troponin I 0.074 0.088 0.078 NT-Pro-B Natriuret Pep 3290 H 2660 H Impressions: KUB X-Ray 07/27/16 00:00 IMPRESSION: GAS DISTENDED STOMACH COULD BE DUE TO AIR SWALLOWING OR GASTRIC OUTLET OBSTRUCTION. CORRELATE WITH SYMPTOMS. NONOBSTRUCTED BOWEL-GAS PATTERN. FREE AIR CANNOT BE EXCLUDED ON THIS SINGLE SUPINE VIEW. IF PERSISTENT CONCERN RECOMMEND UPRIGHT RADIOGRAPH OR LATERAL DECUBITUS VIEW. Chest X-Ray 07/28/16 06:00 IMPRESSION: 1. Stable support tubes and lines. 2. Increasing layering densities at both lung bases likely representing increasing pleural effusions with associated atelectasis and/or infiltrate, left greater than right. There is increased central pulmonary vascular distention. Assessment & Plan - Diagnosis (1) Acute respiratory failure with hypoxia and hypercapnia Is this a current diagnosis for this admission?: YesPlan: Unclear etiology but with a markedly elevated d-dimer and sudden onset respiratory failure requiring intubation and mechanical ventilation would be very concerned for thromboembolic disease. continue care in the ICU and continue mechanical ventilation and respiratory support. continue empiric Lovenox therapy for presumed pulmonary embolus. (2) Pneumonia Qualifiers: Pneumonia type: due to unspecified organism Laterality: right Lung location: upper lobe of lung Qualified Code(s): J18.1 - Lobar pneumonia, unspecified organism Is this a current diagnosis for this admission?: YesPlan: cxr today shows worsening bilat airspace disease. Must be considered healthcare acquired and in fact she was treated for pneumonia during her previous hospitalization that was aspiration type. continue broad-spectrum antibiotics and treated as above. (3) Septic shock Is this a current diagnosis for this admission?: YesPlan: replace central line to the subclavian or internal jugular so that we can monitor CVP and adjust her volume resuscitation accordingly. Continue vasopressors and add Yohan-Synephrine if needed. Started empiric stress dose steroids. (4) Acute kidney injury Is this a current diagnosis for this admission?: Yes (5) Elevated d-dimer Is this a current diagnosis for this admission?: Yes (6) Acute encephalopathy Is this a current diagnosis for this admission?: Yes (7) Coronary artery disease Qualifiers: Coronary Disease-Associated Artery/Lesion type: seminole artery Associated angina: angina presence unspecified Is this a current diagnosis for this admission?: Yes (8) Ischemic cardiomyopathy Is this a current diagnosis for this admission?: Yes - Time Time Spent with patient: 15-24 minutes - Plan Summary Plan Summary: case d/w dr carter at the bedside
[2016-07-28] MEDS: DEXTROSE 5%-WATER 250 ML with PHENYLEPHRINE HCL 40 MG IV PRN ×4 (17:01→21:22)
[2016-07-28] MEDS: ASPIRIN 300 MG SUPP, RECTAL PR SCH (17:47)
--- NOTE | 2016-07-28 18:06 | PDOC CONSULTATION ---
Consultation Consult Date: 07/28/16 Attending physician:: JAZMINE ROWLAND Consult reason:: resp failure History of Present Illness Admission Date/PCP: 07/27/16 16:44 RAFA VELASCO MD History of Present Illness: ALL information from chart as patient intubatedFLORENTINO ZHANG is a 80 year old female presents from [facility] by EMS with sudden respiratory arrest. She is currently obtunded and intubated and unable to provide a review of systems her medical history. Her sister is at the bedside and tells be she arrived to find her sister sitting in the bedside chair slumped over and unresponsive. She called for help and the nursing staff attempted to assist her back into bed with a noted that she was unresponsive, initial blood pressure was reportedly 82/50, blood sugar 163 and a room air sat of 85%. EMS arrived to find her blood pressure 60 over palp, respiratory rate greater than 30 and they immediately transported across the street to the emergency department. By the time she arrived here she suddenly became apneic and had to be emergently intubated and placed on mechanical ventilation by the emergency room physician. She has now received a total of 4 L of normal saline and still hypotensive. A femoral central line was placed by the ER physician and she is now running Levophed at 12 mics per minute. Past Medical History Cardiac Medical History: Reports: Myocardial Infarction - 1997 Denies: Hypertension Pulmonary Medical History: Denies: Asthma Neurological Medical History: Denies: Seizures GI Medical History: Denies: Hepatitis, Hiatal Hernia Psychiatric Medical History: Denies: Depression Hematology: Denies: Anemia, Sickle Cell Disease Past Surgical History Past Surgical History: Reports: Appendectomy, Hysterectomy Denies: Amputation, Mastectomy, Pacemaker Social History Information Source: [facility] Records Smoking Status: Never Smoker Frequency of Alcohol Use: None Hx Recreational Drug Use: No Drugs: None Hx Prescription Drug Abuse: No - Advance Directive Resuscitation Status: Full Code Family History Family History: Reviewed & Not Pertinent Parental Family History Reviewed: No Children Family History Reviewed: No Sibling(s) Family History Reviewed.: No Medication/Allergy Home Medications: Aspirin [Aspirin EC] 81 mg PO DAILY 07/27/16 Atenolol [Tenormin] 25 mg PO Q12 07/27/16 Atorvastatin Calcium [Lipitor 20 mg Tablet] 20 mg PO QHS 07/27/16 Bisacodyl [Dulcolax 5 Mg Tablet] 10 mg PO DAILYP PRN 07/27/16 Docusate Sodium [Colace 100 mg Capsule] 200 mg PO DAILY@1200 07/27/16 Lisinopril [Prinivil 10 mg Tablet] 10 mg PO DAILY 07/27/16 Mirtazapine [Remeron 15 mg Tablet] 7.5 mg PO QHS 07/27/16 Potassium Chloride [K-Sarah] 20 meq PO DAILY 07/27/16 Quetiapine Fumarate [Seroquel] 50 mg PO DAILY@1600 07/27/16 Allergies/Adverse Reactions: No Known Allergies Allergy (Unverified 09/20/14 12:59) Review of Systems ROS unobtainable: Due to endotracheal tube Physical Exam Vital Signs: Temp Pulse Resp BP Pulse Ox 97.3 F 74 15 90/50 L 100 07/28/16 06:51 07/28/16 06:00 07/28/16 06:51 07/28/16 06:51 07/28/16 06:51 Intake & Output 07/27/16 07/28/16 07/29/16 06:59 06:59 07:59 Intake Total 4761 Output Total 995 Balance 3766 Weight 82.6 kg General appearance: PRESENT: no acute distress, disheveled, obese Head exam: PRESENT: atraumatic, normocephalic Eye exam: PRESENT: conjunctiva pale Mouth exam: PRESENT: tongue midline - ET tube in place Neck exam: ABSENT: carotid bruit, JVD, lymphadenopathy, thyromegaly Respiratory exam: PRESENT: decreased breath sounds, prolonged expiratory phas, rales, rhonchi, symmetrical, unlabored Cardiovascular exam: PRESENT: RRR, +S1, +S2 Pulses: PRESENT: normal radial pulses GI/Abdominal exam: PRESENT: normal bowel sounds, soft. ABSENT: distended, guarding, mass, organolmegaly, rebound, tenderness Rectal exam: PRESENT: deferred Gentrourinary exam: PRESENT: indwelling catheter Musculoskeletal exam: PRESENT: tenderness Skin exam: PRESENT: dry, warm Results Laboratory Results: 07/28/16 06:35 07/28/16 06:35 07/27/16 07/27/16 07/27/16 16:45 17:25 19:03 WBC RBC Hgb Hct MCV MCH MCHC RDW Plt Count Seg Neutrophils % Lymphocytes % Monocytes % Eosinophils % Basophils % Absolute Neutrophils Absolute Lymphocytes Absolute Monocytes Absolute Eosinophils Absolute Basophils Carbonic Acid 1.49 H HCO3/H2CO3 Ratio 16:1 ABG pH 7.30 L ABG pCO2 49.5 H ABG pO2 136.2 H ABG HCO3 24.0 ABG O2 Saturation 98.4 H ABG Base Excess -2.7 VBG pH 7.27 L VBG pCO2 56.5 VBG HCO3 25.5 VBG Base Excess -2.1 FiO2 60% Sodium Potassium Chloride Carbon Dioxide Anion Gap BUN Creatinine Est GFR ( Amer) Est GFR (Non-Af Amer) Glucose Lactic Acid 2.4 H Calcium Phosphorus Magnesium Total Bilirubin AST ALT Alkaline Phosphatase Total Protein Albumin 07/27/16 07/27/16 07/27/16 21:00 21:00 23:05 WBC RBC Hgb Hct MCV MCH MCHC RDW Plt Count Seg Neutrophils % Lymphocytes % Monocytes % Eosinophils % Basophils % Absolute Neutrophils Absolute Lymphocytes Absolute Monocytes Absolute Eosinophils Absolute Basophils Carbonic Acid HCO3/H2CO3 Ratio ABG pH ABG pCO2 ABG pO2 ABG HCO3 ABG O2 Saturation ABG Base Excess VBG pH 7.27 L VBG pCO2 52.2 VBG HCO3 23.5 VBG Base Excess -3.7 FiO2 Sodium 137.2 Potassium 3.8 D Chloride 104 Carbon Dioxide 25 Anion Gap 8 BUN 47 H Creatinine 1.83 H Est GFR ( Amer) 32 L Est GFR (Non-Af Amer) 26 L Glucose 179 H Lactic Acid 1.0 Calcium 8.2 L Phosphorus Magnesium Total Bilirubin AST ALT Alkaline Phosphatase Total Protein Albumin 07/27/16 07/28/16 07/28/16 23:05 06:20 06:35 WBC 17.8 H RBC 3.34 L Hgb 9.6 L D Hct 29.6 L MCV 89 MCH 28.9 MCHC 32.6 RDW 13.6 Plt Count 215 Seg Neutrophils % 84.3 H Lymphocytes % 7.7 L Monocytes % 7.6 Eosinophils % 0.3 Basophils % 0.1 Absolute Neutrophils 15.0 H Absolute Lymphocytes 1.4 Absolute Monocytes 1.3 Absolute Eosinophils 0.1 Absolute Basophils 0.0 Carbonic Acid 1.40 H HCO3/H2CO3 Ratio 16:1 ABG pH 7.32 L ABG pCO2 46.4 H ABG pO2 129.4 H ABG HCO3 23.3 ABG O2 Saturation 98.3 H ABG Base Excess -2.9 VBG pH VBG pCO2 VBG HCO3 VBG Base Excess FiO2 70% Sodium Potassium 3.6 Chloride Carbon Dioxide Anion Gap BUN Creatinine Est GFR ( Amer) Est GFR (Non-Af Amer) Glucose Lactic Acid Calcium Phosphorus Magnesium Total Bilirubin AST ALT Alkaline Phosphatase Total Protein Albumin 07/28/16 07/28/16 06:35 06:35 WBC RBC Hgb Hct MCV MCH MCHC RDW Plt Count Seg Neutrophils % Lymphocytes % Monocytes % Eosinophils % Basophils % Absolute Neutrophils Absolute Lymphocytes Absolute Monocytes Absolute Eosinophils Absolute Basophils Carbonic Acid HCO3/H2CO3 Ratio ABG pH ABG pCO2 ABG pO2 ABG HCO3 ABG O2 Saturation ABG Base Excess VBG pH VBG pCO2 VBG HCO3 VBG Base Excess FiO2 Sodium 138.9 Potassium 3.6 Chloride 105 Carbon Dioxide 27 Anion Gap 7 BUN 40 H Creatinine 1.58 H Est GFR ( Amer) 38 L Est GFR (Non-Af Amer) 31 L Glucose 126 H Lactic Acid 1.1 Calcium 8.2 L Phosphorus 3.1 Magnesium 1.3 L Total Bilirubin 0.5 AST 123 H ALT 60 H Alkaline Phosphatase 61 Total Protein 5.2 L Albumin 2.0 L 07/27/16 07/27/16 07/28/16 17:25 23:05 06:35 CK-MB (CK-2) 16.80 H Troponin I 0.074 0.088 0.078 NT-Pro-B Natriuret Pep 3290 H 2660 H Impressions: KUB X-Ray 07/27/16 00:00 IMPRESSION: GAS DISTENDED STOMACH COULD BE DUE TO AIR SWALLOWING OR GASTRIC OUTLET OBSTRUCTION. CORRELATE WITH SYMPTOMS. NONOBSTRUCTED BOWEL-GAS PATTERN. FREE AIR CANNOT BE EXCLUDED ON THIS SINGLE SUPINE VIEW. IF PERSISTENT CONCERN RECOMMEND UPRIGHT RADIOGRAPH OR LATERAL DECUBITUS VIEW. Chest X-Ray 07/28/16 06:00 IMPRESSION: 1. Stable support tubes and lines. 2. Increasing layering densities at both lung bases likely representing increasing pleural effusions with associated atelectasis and/or infiltrate, left greater than right. There is increased central pulmonary vascular distention. Assessment & Plan - Diagnosis (1) Acute kidney injury Is this a current diagnosis for this admission?: YesPlan: follow closely maintainacceptable intravascular volume (2) Respiratory failure requiring intubation Is this a current diagnosis for this admission?: YesPlan: ventilate to maintain ph (3) Septic shock Is this a current diagnosis for this admission?: YesPlan: continue current vasopressor support - Time Critical Time spent with patient: 35 or more minutes - 75 min
--- NOTE | 2016-07-28 18:07 | PDOC PROGRESS REPORT ---
Bedside Procedure - Central Line Right Internal jugular Time completed: 09:18 Consent obtained: Yes Central line pre-insertion: Sterile PPE donned, Betadine prep applied, Chloraprep applied, Sterile drapes applied Central line lumen type: Triple Anesthetic type: 1% Lidocaine Ultrasound guided: Yes Line secured with sutures: Yes Central line post-insertion: Blood return from lumens, Biopatch applied, Sutured , Sterile dressing applied, Position confirmed w/ CXR Number of attempts: 1 Complications: No
[2016-07-28] MEDS ORDERED: VANCOMYCIN HCL 0 MG in DEXTROSE 5%-WATER 250 ML IV NR (18:30)
[2016-07-28] MEDS ORDERED: VANCOMYCIN HCL INJ 1000 MG VIAL IV PRN (19:30)
[2016-07-28] MEDS ORDERED: VANCOMYCIN HCL INJ 1000 MG VIAL ONE (20:32)
[2016-07-28] MEDS ORDERED: VANCOMYCIN HCL 1,250 MG in DEXTROSE 5%-WATER 250 ML IV ONE (21:00)
[2016-07-28] MEDS: ENOXAPARIN SODIUM INJ 80 MG/0.8 ML DISP.SYRIN SUBCUT SCH (21:43)
--- NOTE | 2016-07-28 23:15 | CONSULTATION REPORT E ---
Consultation Report NAME: FLORENTINO ZHANG : 1935 AGE: 80Y DATE: 07/28/2016 612 A TO: VANDANA EVANS M.D. FROM: JAZMINE ROWLAND M.D. Requesting Physician REASON FOR CONSULTATION: Elevated troponin-I. HISTORY OF PRESENT ILLNESS: The patient is intubated and sedated, hence not much history obtained from the patient. History obtained from the patient's June admission chart and the present chart and also talking to the patient's niece. The patient is an 80-year-old female with known history of coronary artery disease, old myocardial infarction, and a history of a recently diagnosed bipolar disorder and history of cholecystectomy in June which was complicated by congestive heart failure and hypoxic respiratory failure. The patient subsequently was confused and was diagnosed with bipolar disorder and was placed on antipsychotic medications. The patient was transferred to [facility] for rehabilitation. The patient's sister, who is the [id number] for the patient, saw that the patient was sitting in the bedside chair slumped over and unresponsive. She called for help, and it was noted that the initial blood pressure was 82/50, blood sugar at 163, and the room air O2 saturation of 85%. The patient was immediately transferred to the emergency department, and the patient was intubated and placed on mechanical ventilation. In spite of her fluid boluses, her blood pressure remained low, and the patient's blood pressure came up with Levophed at 12 mcg per minute. She was also on antibiotics. PAST MEDICAL HISTORY: 1. Negative for hypertension. 2. History of coronary artery disease with history of ID more than 10 years ago and no recent anginal symptoms. At that time, no stents or PTCA was done. The patient has not had any recent anginal symptoms. No history of hypertension. 3. No history of COPD or asthma. She has no history of chronic kidney disease. No history of diabetes mellitus or thyroid disease. No past history of TIA or CVA. PAST SURGICAL HISTORY: Positive for: 1. Appendectomy. 2. Hysterectomy. 3. Cardiac catheterization about 10 to 15 years ago after myocardial infarction. CURRENT MEDICATIONS: The patient is on: 1. Tylenol 650 mg per rectally q.4 h. p.r.n. 2. Albuterol sulfate 2 puffs inhalation q.6 h. 3. Aspirin 300 mg p.o. p.r.n. every evening. 4. Cefepime 2 grams IV piggyback daily. 5. Lovenox 75 mg subcutaneously at bedtime. 6. Hydrocortisone 100 mg IV q.8 h. 7. Levaquin 750 mg IV q.48 h. 8. Levophed at 12 mcg per minute. 9. Dextrose half normal saline at 125 mL per hour. 10. Diprivan drip. 11. Vancomycin 1000 mg IV daily, pharmacy to dose and adjust the dose daily. ALLERGIES: The patient has no known drug allergies. REVIEW OF SYSTEMS: Not obtainable but as per niece no symptoms of recent anginal symptoms. No history of congestive heart failure. Note, the patient's echocardiography done in June showed an LV ejection fraction of 40% to 45%. There was no significant pulmonary hypertension. It says the RVSP could not be measured due to insufficient TI jet. There was mild mitral regurgitation. There was no aortic valve disease of significance. SOCIAL HISTORY: The patient does not smoke. The patient has never smoked. There is no EtOH abuse. DISPOSITION: The patient is a FULL CODE. Her surrogate healthcare decision maker is her sister. FAMILY HISTORY: Positive for coronary artery disease. Negative for hypertension or diabetes mellitus. PHYSICAL EXAMINATION: GENERAL: On examination, at present the patient is intubated and sedated. VITAL SIGNS: She is afebrile with a temperature of 96.6 degrees Fahrenheit, pulse is 62 beats per minute, blood pressure is 99/47 on 12 mcg per minute of Levophed. Respirations are 18 per minute on the mechanical ventilator. Her O2 saturation is 100% on FIO2 of 60%. HEAD: Atraumatic/normocephalic. EYES: Pupils are equal, regular, reactive to light. EARS, NOSE, AND THROAT: Negative. NECK: Supple. There is no JVD. Carotids are equal. There is no bruit. There is no goiter. There is no lymphadenopathy. There is no JVD. LUNGS: Show dry crackles in the right upper lobe. There are no rales of CHF. HEART: S1, S2 is heard. There is no S3 gallop. There is no S4 gallop. There is a systolic murmur in the left sternal border and the apex. There is no rub. ABDOMEN: Soft, nontender. There is no hepatosplenomegaly. Bowel sounds are well heard. There are no tender areas or masses. EXTREMITIES: Femorals are diminished. There is no femoral bruit. Leg pulses are diminished. There is no pedal edema. There is no DVT or cellulitis. There is no calf tenderness. CENTRAL NERVOUS SYSTEM AND PSYCHIATRIC: Not tested since the patient is intubated and sedated. DIAGNOSTIC DATA: The chest x-ray of 07/28/2016 shows increasing AV density seen at both lung bases, likely representing layering of effusion with associated atelectasis or infiltrate left greater than right. There are no parenchymal opacities identified. The patient's second chest x-ray showed scattered atelectasis with small effusions. The patient's EKG shows sinus rhythm, abnormality consider ischemia lateral leads, LVH by voltage. There are also nonspecific T-wave inversions in the leads V3 to V6 and I and aVL. The white count is 17,800, hemoglobin is 9.6, hematocrit is 29.6, and the platelet count is 215,000. The patient's D-dimer is 13.14. Her ABGs showed a pH of 7.32, pCO2 is at 46.2, pO2 is 129.4, and O2 saturations are 98.3% on FIO2 of 70%. The patient's sodium is 138.9, potassium 3.6, chloride is 105, CO2 is 27, the patient's BUN is 40, creatinine is 0.158, GFR is reduced at 31 mL which is stage-3 disease, glucose 126, calcium is 8.2, lactic acid is 1.1. The patient's liver function tests are abnormal with an AST of 123 and ALT of 60. The alkaline phosphatase and other labs are normal. The magnesium is low at 1.3. The patient's NT-proBNP is 2660. Total protein is 5.2, albumin is 2.0. The patient's troponin-I was 0.074, CPK-MB was elevated at 16.80. Subsequently, the troponin-I was 0.88. Note that the patient's initial chest x-ray showed some congestive heart failure. IMPRESSION: 1. Borderline elevation in troponin-I most likely secondary to sepsis and hypoxemia. 2. Bibasilar pneumonia. 3. Septic shock secondary to pneumonia. 4. Hypoxic respiratory failure in a patient at present on the ventilator; the patient is slightly hypercapnic. 5. Coronary artery disease, history of old ID, no recent anginal symptoms. 6. Cardiomyopathy with slightly reduced LV ejection fraction. 7. Congestive heart failure, transient, at present compensated, most likely secondary to the patient's decrease in the ejection fraction, sepsis, septic shock, and hypoxemia. 8.Acute renal failure. 9.Hypomagnesemia. RECOMMENDATIONS: Would continue the patient on antibiotics, continue ventilator support. Would recommend starting the patient on Yohan-Synephrine and stopping the patient's Levophed. Note 45 minutes of critical care time was spent on the patient with more than 60% of the time spent in direct patient care and also review of the patient's old records and also discussions with the attending taking care of the patient. Will follow with you. This case involves at least moderately complex medical decision making as to choose which antibiotics. Consider aspirin suppository in view of the patient's CAD. Would trend the patient's enzyme. DICTATING PHYSICIAN: VANDANA EVANS M.D. [id number] Y#: [id number] ID: [id number] JOB#: [id number] ACCT: [id number] cc:VANDANA EVANS M.D. > MTDD
[2016-07-29] MEDS: CEFEPIME HCL 2 GM in DEXTROSE 5%-WATER 50 ML IV SCH ×2 (00:08→23:11)
[2016-07-29] MEDS: ALBUTEROL SULFATE HFA (90 MCG/PUFF) 200 PUFF/8.5 GM MDI IH SCH ×5 (00:09→23:12)
[2016-07-29] MEDS: DEXTROSE 5%-WATER 250 ML with PHENYLEPHRINE HCL 40 MG IV PRN ×6 (03:38→17:37)
[2016-07-29] MEDS: PROPOFOL 100 ML IV PRN ×2 (05:06→20:43)
[2016-07-29] MEDS: HYDROCORTISONE SOD SUCCINATE INJ/PF 100 MG/2 ML SDV IV SCH ×3 (05:06→23:11)
[2016-07-29] MEDS: DEXTROSE 5%-1/2 NORMAL SALINE 1,000 ML IV PRN (05:07)
[2016-07-29 05:55] LABS: ARTERIAL BLOOD BASE EXCESS -1.8 mmol/L
[2016-07-29 05:56] LABS: HEMATOCRIT 28.5 % (36.0-47.0); HEMOGLOBIN 9.4 g/dL (12.0-15.5); HGB HCT DIFFERENCE -0.3; MEAN CORPUSCULAR HEMOGLOBIN 28.8 pg (27.0-33.4); MEAN CORPUSCULAR VOLUME 87 fl (80-97); RED BLOOD COUNT 3.27 10^6/uL (3.72-5.28); RED CELL DISTRIBUTION WIDTH 13.8 % (11.5-14.0); WHITE BLOOD COUNT 16.9 10^3/uL (4.0-10.5)
[2016-07-29 06:12] LABS: ALANINE AMINOTRANSFERASE 55 U/L (9-52); ALBUMIN 1.9 g/dL (3.5-5.0); ALKALINE PHOSPHATASE 64 U/L (38-126); ANION GAP 9 (5-19); ASPARTATE AMINO TRANSFERASE 83 U/L (14-36); BILIRUBIN,TOTAL 0.2 mg/dL (0.2-1.3); BLOOD UREA NITROGEN 26 mg/dL (7-20); CALCIUM 8.1 mg/dL (8.4-10.2); CARBON DIOXIDE 23 mmol/L (22-30); CHLORIDE 108 mmol/L (98-107); CREATININE RESULT 1.14 mg/dL (0.52-1.25); GLUCOSE 229 mg/dL (75-110); MAGNESIUM 2.1 mg/dL (1.6-2.3); SODIUM 140.1 mmol/L (137-145); TOTAL PROTEIN 4.5 g/dL (6.3-8.2)
[2016-07-29 06:29] LABS: BASOPHILS % (MANUAL) 0 % (0-2); EOSINOPHILS % (MANUAL) 0 % (0-6); LYMPHOCYTES % (MANUAL) 4 % (13-45); TOTAL CELLS COUNTED 100
[2016-07-29 06:33] LABS: BURR CELLS SLIGHT; OVALOCYTES SLIGHT; TOXIC GRANULATION SLIGHT
[2016-07-29] MEDS ORDERED: POTASSI CL 20 MEQ/50 ML RIDER 50 ML IV ONE (07:07)
[2016-07-29] MEDS: POTASSI CL 20 MEQ/D5-1/2NS 1L 1,000 ML IV PRN ×2 (08:18→17:38)
--- NOTE | 2016-07-29 11:39 | PDOC PROGRESS REPORT ---
Subjective Progress Note for:: 07/29/16 Subjective:: reason for visit: f/u resp failure, septic shock hospital course: FLORENTINO ZHANG is a 80 year old female presents from [facility] [place] by EMS with sudden respiratory arrest. She is currently obtunded and intubated and unable to provide a review of systems her medical history. Her sister is at the bedside and tells be she arrived to find her sister sitting in the bedside chair slumped over and unresponsive. She called for help and the nursing staff attempted to assist her back into bed with a noted that she was unresponsive, initial blood pressure was reportedly 82/50, blood sugar 163 and a room air sat of 85%. EMS arrived to find her blood pressure 60 over palp, respiratory rate greater than 30 and they immediately transported across the street to the emergency department. By the time she arrived here she suddenly became apneic and had to be emergently intubated and placed on mechanical ventilation by the emergency room physician. She has now received a total of 4 L of normal saline and still hypotensive. A femoral central line was placed by the ER physician and she is now running Levophed at 12 mics per minute. Of note EMS attempted to place an I O in the right tibia unsuccessfully and they felt and heard a "crack". Her peak pressures on the ventilator are quite high at greater than 40 on vent settings of SIMV rate of 12, tidal volume of 500, pressure support 10, PEEP of 5 and FiO2 of 60%. I adjusted the rate to 15 and decrease the tidal volume with good response in her peak pressures to less than 35. EKG does show some changes with T-wave inversions in lead 1, aVL, AVR and V3 through 6 when compared to prior. Review the record shows an echocardiogram on June 26 demonstrating an ejection fraction of 40-45% with left ventricular dilatation, 2/4 diastolic dysfunction and moderate left atrial enlargement but no significant valvular abnormalities. Her chest x-ray by my interpretation shows a right upper lobe haziness that was not present previously and diffuse haziness to the right hemithorax when compared to the left and when compared to prior chest x-ray. repeat cxr shows worsening Rt sided airspace disease and developing effusion. she remains intubated and sedated with diprivan at 20mcg, IVFs at 125ml/hr and Yohan 100mcg. Her K is low this morning but her renal function is improving. subjective: still obtunded and unable to participate in her exam ROS: unable to obtain due to mental state Physical Exam Vital Signs: Temp Pulse Resp BP Pulse Ox 97.9 F 57 L 18 111/59 L 97 07/29/16 10:45 07/29/16 10:00 07/29/16 10:45 07/29/16 10:28 07/29/16 10:45 Intake & Output 07/28/16 07/29/16 07/30/16 05:59 06:59 06:59 Intake Total Output Total 250 Balance -250 Weight EXAM GENERAL: Obtunded; well developed, well nourished; no obese; very pale HEENT: normocephalic, atraumatic; EOMI, PERRLA though sluggish, no conjunctival injection, no scleral icterus; oral mucosa moist; neck supple, no LAD, normal ROM; ET tube in good position with fog in the tube and trachea midline RESPIRATORY: no accessory muscle use, no increased WOB, good air entry bilaterally; no wheezes, rales, rhonchi; diminished right-sided BSs with inspiratory crackles with opening squeaks and pops anteriorly at the apex CARDIO: no JVD; RRR; no systolic murmur; bradycardic VASCULAR: no pallor; 2+ radial, DP pulse; normal capillary refill GI: softer today; mildly distended; absent bowel sounds; no rebound, involuntary guarding: No grimace on palpation NEURO: Decreased patella reflexes; MSK: Limbs remain flaccid EXTREMITIES: no palpable cords in calf; no clubbing, cyanosis; trace bilateral pitting and nonpitting pedal edema PSYCH: Obtunded SKIN: Cool; nap; no petechiae; no telengectasias; no jaundice; Results Laboratory Results: 07/29/16 05:15 07/29/16 05:15 07/29/16 07/29/16 07/29/16 05:15 05:15 05:15 WBC 16.9 H RBC 3.27 L Hgb 9.4 L Hct 28.5 L MCV 87 MCH 28.8 MCHC 33.0 RDW 13.8 Plt Count 221 Seg Neutrophils % Not Reportable Lymphocytes % Not Reportable Monocytes % Not Reportable Eosinophils % Not Reportable Basophils % Not Reportable Absolute Neutrophils Not Reportable Absolute Lymphocytes Not Reportable Absolute Monocytes Not Reportable Absolute Eosinophils Not Reportable Absolute Basophils Not Reportable Carbonic Acid 0.99 L HCO3/H2CO3 Ratio 22:1 ABG pH 7.44 ABG pCO2 32.9 L ABG pO2 86.9 ABG HCO3 21.8 ABG O2 Saturation 97.0 ABG Base Excess -1.8 FiO2 50% Sodium 140.1 Potassium 3.0 L* Chloride 108 H Carbon Dioxide 23 Anion Gap 9 BUN 26 H Creatinine 1.14 Est GFR ( Amer) 55 L Est GFR (Non-Af Amer) 46 L Glucose 229 H Calcium 8.1 L Phosphorus 2.0 L Magnesium 2.1 Total Bilirubin 0.2 AST 83 H ALT 55 H Alkaline Phosphatase 64 Total Protein 4.5 L Albumin 1.9 L 07/27/16 07/27/16 07/28/16 17:25 23:05 06:35 CK-MB (CK-2) 16.80 H Troponin I 0.074 0.088 0.078 NT-Pro-B Natriuret Pep 3290 H 2660 H labas reviewed, not much change overall, lytes noted, troponins flat, BNP down Impressions: KUB X-Ray 07/28/16 08:54 IMPRESSION: Appropriate location of nasogastric tube. Decompressed stomach. Chest X-Ray 07/29/16 06:00 IMPRESSION: 1. Support tubes and lines as above. 2. Bilateral layering pleural effusions, significantly worsened comparison the prior study. Pulmonary vascular distention interstitial prominence, similar to prior study. Stable cardiomegaly. Status: Image reviewed by me - agree with rads Assessment & Plan - Diagnosis (1) Acute respiratory failure with hypoxia and hypercapnia Is this a current diagnosis for this admission?: YesPlan: Unclear etiology, showing signs of pneumonia with developing parapneumonic effusion but with a markedly elevated d-dimer and sudden onset respiratory failure requiring intubation and mechanical ventilation would be very concerned for thromboembolic disease as well. continue care in the ICU and continue mechanical ventilation and respiratory support. discussed with dr carter, will hold lovenox today and send for CTA of chest with ct guided thoracentesis in the morning and send fluid for studies including Gm stain/culx, cell count, etc. continue empiric HCAP abx. resume empiric Lovenox therapy for presumed pulmonary embolus when able. (2) Pneumonia Qualifiers: Pneumonia type: due to unspecified organism Laterality: right Lung location: upper lobe of lung Qualified Code(s): J18.1 - Lobar pneumonia, unspecified organism Is this a current diagnosis for this admission?: YesPlan: Must be considered healthcare acquired and in fact she was treated for pneumonia during her previous hospitalization that was aspiration type. continue broad-spectrum antibiotics and treated as above. (3) Septic shock Is this a current diagnosis for this admission?: YesPlan: replaced central line to internal jugular with CVP >10 (11 this morning) and continue to adjust her volume resuscitation accordingly keeping in mind her last known EF = 40%. Continue Yohan-Synephrine and if needed add dobutamine, per my conversation with Dr Dominguez. Started empiric stress dose steroids. (4) Acute kidney injury Is this a current diagnosis for this admission?: YesPlan: probably prerenal but there are hyaline casts noted on the urinalysis suggesting an acute tubular necrosis as well. responding to aggressive fluid resuscitation and treatment of her sepsis. Try to avoid any nephrotoxic medications. (5) Elevated d-dimer Is this a current diagnosis for this admission?: YesPlan: See above. Patient is to undergo CT angiography in am, continue to treat empirically for thromoembolic disease. (6) Acute encephalopathy Is this a current diagnosis for this admission?: YesPlan: Secondary to the above. Her hospital course previously was prolonged by several weeks due to an encephalopathy/delirium, this does not skye well for her recovery. (7) Coronary artery disease Qualifiers: Coronary Disease-Associated Artery/Lesion type: [place] artery Associated angina: angina presence unspecified Is this a current diagnosis for this admission?: YesPlan: She likely has some underlying coronary artery disease having suffered a type II NSTEMI during her last hospitalization a couple of weeks ago. Due to her prolonged illness and slow recovery we were treating medically and she was to follow-up with cardiology for further recommendations and investigations, clearly she has not had an opportunity to do that. treat with full dose Lovenox for the reasons noted above. We'll also give aspirin per rectum until able to take oral. The septic shock precludes the use of beta zoe at this time. No oral intake precludes the use of statin therapy at this time. (8) Ischemic cardiomyopathy Is this a current diagnosis for this admission?: YesPlan: This will most certainly complicate her recovery and volume status as the septic shock requires aggressive fluid resuscitation. This too does not skye well for her prognosis. - Time Time Spent with patient: 35 or more minutes Medications reviewed and adjusted accordingly: Yes - Plan Summary Plan Summary: prognosis poor with significant risk for morbidity and mortality
[2016-07-29] MEDS ORDERED: DOBUTAMINE HCL/D5W 500 MG/250 ML RTUINJ IV ONE (13:21)
[2016-07-29] MEDS: DOBUTAMINE HCL/D5W 250 ML IV PRN (13:59)
--- NOTE | 2016-07-29 18:25 | PDOC PROGRESS REPORT ---
Subjective Progress Note for:: 07/29/16 Subjective:: Intubated and sedated Physical Exam Vital Signs: Temp Pulse Resp BP Pulse Ox 97.9 F 57 L 18 107/94 H 97 07/29/16 08:00 07/29/16 10:00 07/29/16 10:00 07/29/16 10:00 07/29/16 10:00 Intake & Output 07/28/16 07/29/16 07/30/16 05:59 06:59 06:59 Intake Total Output Total 250 Balance -250 Weight General appearance: PRESENT: no acute distress, disheveled Head exam: PRESENT: atraumatic, normocephalic Eye exam: PRESENT: conjunctiva pale Mouth exam: PRESENT: dry mucosa, other - Endotracheal tube in place Neck exam: ABSENT: carotid bruit, JVD, lymphadenopathy, thyromegaly Respiratory exam: PRESENT: decreased breath sounds, prolonged expiratory phas, rales, rhonchi, symmetrical, unlabored Cardiovascular exam: PRESENT: RRR, +S1, +S2 Pulses: PRESENT: normal radial pulses GI/Abdominal exam: PRESENT: normal bowel sounds, soft. ABSENT: distended, guarding, mass, organolmegaly, rebound, tenderness Rectal exam: PRESENT: deferred Gentrourinary exam: PRESENT: indwelling catheter Musculoskeletal exam: PRESENT: normal inspection Skin exam: PRESENT: dry, pallor Results Laboratory Results: 07/29/16 05:15 07/29/16 05:15 07/29/16 07/29/16 07/29/16 05:15 05:15 05:15 WBC 16.9 H RBC 3.27 L Hgb 9.4 L Hct 28.5 L MCV 87 MCH 28.8 MCHC 33.0 RDW 13.8 Plt Count 221 Seg Neutrophils % Not Reportable Lymphocytes % Not Reportable Monocytes % Not Reportable Eosinophils % Not Reportable Basophils % Not Reportable Absolute Neutrophils Not Reportable Absolute Lymphocytes Not Reportable Absolute Monocytes Not Reportable Absolute Eosinophils Not Reportable Absolute Basophils Not Reportable Carbonic Acid 0.99 L HCO3/H2CO3 Ratio 22:1 ABG pH 7.44 ABG pCO2 32.9 L ABG pO2 86.9 ABG HCO3 21.8 ABG O2 Saturation 97.0 ABG Base Excess -1.8 FiO2 50% Sodium 140.1 Potassium 3.0 L* Chloride 108 H Carbon Dioxide 23 Anion Gap 9 BUN 26 H Creatinine 1.14 Est GFR ( Amer) 55 L Est GFR (Non-Af Amer) 46 L Glucose 229 H Calcium 8.1 L Phosphorus 2.0 L Magnesium 2.1 Total Bilirubin 0.2 AST 83 H ALT 55 H Alkaline Phosphatase 64 Total Protein 4.5 L Albumin 1.9 L 07/27/16 07/27/16 07/28/16 17:25 23:05 06:35 CK-MB (CK-2) 16.80 H Troponin I 0.074 0.088 0.078 NT-Pro-B Natriuret Pep 3290 H 2660 H Impressions: KUB X-Ray 07/28/16 08:54 IMPRESSION: Appropriate location of nasogastric tube. Decompressed stomach. Chest X-Ray 07/29/16 06:00 IMPRESSION: 1. Support tubes and lines as above. 2. Bilateral layering pleural effusions, significantly worsened comparison the prior study. Pulmonary vascular distention interstitial prominence, similar to prior study. Stable cardiomegaly. Assessment & Plan - Diagnosis (1) Acute kidney injury Is this a current diagnosis for this admission?: YesPlan: Improving rapidly (2) Respiratory failure requiring intubation Is this a current diagnosis for this admission?: YesPlan: Still requires elevated oxygen very sensitive to efforts to taper [id number] right sided pleural effusion discussed with the primary care who agreed that thoracentesis is needed with ultrasound guidance or CT-guided (3) Septic shock Is this a current diagnosis for this admission?: Yes - Time Critical Time spent with patient: 35 or more minutes
--- NOTE | 2016-07-29 20:04 | EKG REPORT ---
SEVERITY:- ABNORMAL ECG - SINUS RHYTHM ABNORMAL T, CONSIDER ISCHEMIA, LATERAL LEADS BORDERLINE PROLONGED QT INTERVAL : Confirmed by: Param Alberto 29-Jul-2016 20:03:00
--- NOTE | 2016-07-29 21:03 | PROGRESS NOTE E ---
Progress Note NAME: FLORENTINO ZAHNG : 1935 AGE: 80Y DATE: 07/29/2016 ROOM: 612 SUBJECTIVE: Note that the patient is intubated and sedated. There are no arrhythmias seen on the monitor. The patient appears to be comfortable and is not fighting the ventilator. OBJECTIVE: VITAL SIGNS: She is afebrile with a temperature of 98.1 degrees Fahrenheit, pulse is 67 beats/minute, blood pressure is 131/63, respirations are 18 per minute, O2 sats are 97% on mechanical ventilator with FIO2 of 50%. HEENT: Normocephalic, atraumatic. Pupils are equal, round, regular and reactive to light and accommodation. ENT is negative. NECK: Supple. There is mild JVD present. Carotids are equal. There is no bruit. There is no lymphadenopathy. LUNGS: There are absent breath sounds at the bases with a few dry crackles. There are also fine rales of CHF and pneumonia. There is also course crackles in the right upper lobe and also in the right mid zone. HEART: S1 and S2 is heard. There is no S3 gallop. There is no S4 gallop. There is systolic murmur at the left sternal border of the apex. There is no rub. ABDOMEN: Soft, nontender. There is no hepatosplenomegaly. Bowel sounds are well heard. EXTREMITIES: Femorals are diminished. There are no femoral bruits. Leg pulses are diminished. There is no pedal edema. There is no DVT or cellulitis. There is no calf tenderness. CENTRAL NERVOUS SYSTEM: Not examined. PSYCHIATRIC: Not examined. DIAGNOSTICS: The patient's chest x-ray shows some CHF and also right-sided infiltrate and also bibasilar infiltrates. The patient's white count is 16,900, hemoglobin is 9.4, hematocrit 20.5, platelet count is 221,000. The patient's sodium was 140, potassium 3.0, chloride 108, CO2 is 23, BUN 26, creatinine 1.14. GFR is reduced to 46 mL, which is still stage III, but has improved. The patient was at 126. The patient's calcium is 8.1, phosphorus is 2.0. The patient's liver function tests are abnormal with AST elevated to 833. ALT had gone up to 55. Alkaline phosphatase is 64. The patient's albumin is 1.9. Total protein is 4.5. The patient's ABG shows a pH of 7.44, pCO2 is 32.9, pO2 is 86.9 and O2 sats are 97% on FIO2 of 50%. IMPRESSION: 1. BORDERLINE ELEVATED TROPONIN MOST LIKELY SECONDARY TO SEPSIS AND HYPOXEMIA. 2. RIGHT-SIDED PNEUMONIA AND BIBASILAR PNEUMONIA ALSO. 3. SEPTIC SHOCK SECONDARY TO PNEUMONIA. The patient is on Yohan-Synephrine at 100 mcg/minute. 4. HYPOXIC RESPIRATORY FAILURE. The patient at present on the ventilator. The patient is slightly hypercapnic. 5. CORONARY ARTERY DISEASE, HISTORY OF OLD VT. NO RECENT SYMPTOMS. 6. HYPOKALEMIA. The patient's potassium is being replenished. 7. CARDIOMYOPATHY WITH SLIGHTLY REDUCED LV EJECTION FRACTION. 8. CONGESTIVE HEART FAILURE, [id number] SYSTOLIC HEART FAILURE AT PRESENT THERE ARE SIGNS OF DECOMPENSATION. 9. ACUTE KIDNEY FAILURE, AT PRESENT GFR IS IMPROVED BUT STILL STAGE III. RECOMMENDATIONS: Continue ventilator support and respiratory treatments. Continue antibiotics. Replenish the patient's potassium. Would continue diuretics. In view of the patient's congestive heart failure, we will start the patient on dobutamine along with Yohan-Synephrine. Continue the Yohan-Synephrine to keep the blood sugar up. Initially, the patient was started on dobutamine at 5 mcg/kg/minute, but the patient's heart rate went up into the 110s to 120s and this was decreased to 2.5 mcg/kg/minute. Note 40 minutes spent on this critical care patient with more than 60% of the time spent on direct patient care, review of the patient's medications, adjusting and instituting new medications. Also, discussions with the hospitalist taking care of the patient. This case was of moderate complexity and decision-making. We will follow with you. DICTATING PHYSICIAN: VANDANA EVANS M.D. [id number] MELVIN#: [id number] ID: [id number] JOB#: [id number] ACCT: [id number] cc: > [facility]
[2016-07-29] MEDS: VANCOMYCIN HCL 1,250 MG in DEXTROSE 5%-WATER 250 ML IV SCH (23:10)
[2016-07-29] MEDS: LEVOFLOXACIN 750 MG/D5W RTU 750 MG/150 ML RTUPB IV SCH (23:11)
[2016-07-30] MEDS: DEXTROSE 5%-WATER 250 ML with PHENYLEPHRINE HCL 40 MG IV PRN ×6 (01:41→18:38)
[2016-07-30] MEDS: POTASSI CL 20 MEQ/D5-1/2NS 1L 1,000 ML IV PRN ×2 (02:19→13:59)
[2016-07-30] MEDS: PROPOFOL 100 ML IV PRN ×5 (02:19→20:30)
[2016-07-30 05:09] LABS: ARTERIAL BLOOD BASE EXCESS -2.5 mmol/L; ARTERIAL BLOOD O2 SATURATION 97.5 % (94-98)
[2016-07-30] MEDS: ALBUTEROL SULFATE HFA (90 MCG/PUFF) 200 PUFF/8.5 GM MDI IH SCH ×3 (05:14→19:18)
[2016-07-30] MEDS: HYDROCORTISONE SOD SUCCINATE INJ/PF 100 MG/2 ML SDV IV SCH ×3 (05:14→22:37)
[2016-07-30 05:15] LABS: ABSOLUTE LYMPHOCYTES (AUTO) 0.9 10^3/uL (0.5-4.7); ABSOLUTE MONOCYTES (AUTO) 1.1 10^3/uL (0.1-1.4); ABSOLUTE NEUT (AUTO) 13.5 10^3/uL (1.7-8.2); BASOPHILS % (AUTO) 0.1 % (0-2); HEMATOCRIT 27.3 % (36.0-47.0); HGB HCT DIFFERENCE -0.3; LYMPHOCYTES % (AUTO) 5.6 % (13-45); MEAN CORPUSCULAR HEMOGLOBIN 28.9 pg (27.0-33.4); MEAN CORPUSCULAR HGB CONC 33.1 g/dL (32.0-36.0); MEAN CORPUSCULAR VOLUME 88 fl (80-97); MONOCYTES % (AUTO) 7.2 % (3-13); RED BLOOD COUNT 3.13 10^6/uL (3.72-5.28); RED CELL DISTRIBUTION WIDTH 13.9 % (11.5-14.0); SEGMENTED NEUTROPHILS % (AUTO) 87.1 % (42-78); WHITE BLOOD COUNT 15.5 10^3/uL (4.0-10.5)
[2016-07-30 05:25] LABS: ALANINE AMINOTRANSFERASE 54 U/L (9-52); ALKALINE PHOSPHATASE 70 U/L (38-126); ANION GAP 7 (5-19); ASPARTATE AMINO TRANSFERASE 49 U/L (14-36); BILIRUBIN,TOTAL 0.2 mg/dL (0.2-1.3); BLOOD UREA NITROGEN 16 mg/dL (7-20); CALCIUM 8.2 mg/dL (8.4-10.2); CARBON DIOXIDE 24 mmol/L (22-30); CHLORIDE 110 mmol/L (98-107); CREATININE RESULT 0.87 mg/dL (0.52-1.25); GLUCOSE 196 mg/dL (75-110); POTASSIUM 3.3 mmol/L (3.6-5.0); SODIUM 141.4 mmol/L (137-145); TOTAL PROTEIN 5.2 g/dL (6.3-8.2)
[2016-07-30 05:59] LABS: APPEARANCE,URINE CLEAR; BILIRUBIN,URINE NEGATIVE (NEGATIVE); GLUCOSE, URINE 50 mg/dL (NEGATIVE); KETONES,URINE NEGATIVE (NEGATIVE); LEUKOCYTE ESTERASE,URINE NEGATIVE (NEGATIVE); NITRITE,URINE NEGATIVE (NEGATIVE); PROTEIN,URINE NEGATIVE (NEGATIVE); URINE SPECIFIC GRAVITY 1.002; UROBILINOGEN,URINE NEGATIVE mg/dL (<2.0)
[2016-07-30] MEDS: CEFEPIME HCL 2 GM in DEXTROSE 5%-WATER 50 ML IV SCH ×2 (09:32→22:36)
[2016-07-30] MEDS ORDERED: LANSOPRAZOLE 30 MG TAB.RAP.DR NG ONE (09:45)
[2016-07-30] MEDS ORDERED: CEFEPIME 2 GM/D5W RTU 2 GM/50 ML RTUPB IV SCH (10:00)
--- NOTE | 2016-07-30 10:00 | PDOC PROGRESS REPORT ---
Subjective Progress Note for:: 07/30/16 Subjective:: Intubated and sedated Physical Exam Vital Signs: Temp Pulse Resp BP Pulse Ox 97.7 F 85 18 132/50 H 98 07/30/16 08:00 07/30/16 08:00 07/30/16 08:00 07/30/16 08:00 07/30/16 08:00 Intake & Output 07/29/16 07/30/16 07/31/16 06:59 06:59 06:59 Intake Total 4188 Output Total 2900 100 Balance 1288 -100 Weight 78.3 kg General appearance: PRESENT: no acute distress, disheveled Head exam: PRESENT: atraumatic, normocephalic Eye exam: PRESENT: conjunctiva pale Mouth exam: PRESENT: neck supple, other - E T tube Neck exam: ABSENT: carotid bruit, JVD, lymphadenopathy, thyromegaly Respiratory exam: PRESENT: decreased breath sounds, prolonged expiratory phas, rales - right binh-thorax, unlabored Cardiovascular exam: PRESENT: RRR, +S1, +S2 Pulses: PRESENT: normal radial pulses Rectal exam: PRESENT: deferred Gentrourinary exam: PRESENT: indwelling catheter Musculoskeletal exam: PRESENT: normal inspection Results Laboratory Results: 07/30/16 04:40 07/30/16 04:40 07/30/16 07/30/16 07/30/16 04:40 04:40 04:40 WBC 15.5 H RBC 3.13 L Hgb 9.0 L Hct 27.3 L MCV 88 MCH 28.9 MCHC 33.1 RDW 13.9 Plt Count 204 Seg Neutrophils % 87.1 H Lymphocytes % 5.6 L Monocytes % 7.2 Eosinophils % 0.0 Basophils % 0.1 Absolute Neutrophils 13.5 H Absolute Lymphocytes 0.9 Absolute Monocytes 1.1 Absolute Eosinophils 0.0 Absolute Basophils 0.0 Carbonic Acid 1.04 L HCO3/H2CO3 Ratio 20:1 ABG pH 7.41 ABG pCO2 34.4 L ABG pO2 95.9 ABG HCO3 21.5 ABG O2 Saturation 97.5 ABG Base Excess -2.5 FiO2 45% Sodium 141.4 Potassium 3.3 L Chloride 110 H Carbon Dioxide 24 Anion Gap 7 BUN 16 Creatinine 0.87 Est GFR ( Amer) > 60 Est GFR (Non-Af Amer) > 60 Glucose 196 H Calcium 8.2 L Total Bilirubin 0.2 AST 49 H ALT 54 H Alkaline Phosphatase 70 Total Protein 5.2 L Albumin 2.0 L Urine Color Urine Appearance Urine pH Ur Specific [place] Urine Protein Urine Glucose (UA) Urine Ketones Urine Blood Urine Nitrite Ur Leukocyte Esterase Urine WBC (Auto) 07/30/16 04:40 WBC RBC Hgb Hct MCV MCH MCHC RDW Plt Count Seg Neutrophils % Lymphocytes % Monocytes % Eosinophils % Basophils % Absolute Neutrophils Absolute Lymphocytes Absolute Monocytes Absolute Eosinophils Absolute Basophils Carbonic Acid HCO3/H2CO3 Ratio ABG pH ABG pCO2 ABG pO2 ABG HCO3 ABG O2 Saturation ABG Base Excess FiO2 Sodium Potassium Chloride Carbon Dioxide Anion Gap BUN Creatinine Est GFR ( Amer) Est GFR (Non-Af Amer) Glucose Calcium Total Bilirubin AST ALT Alkaline Phosphatase Total Protein Albumin Urine Color COLORLESS Urine Appearance CLEAR Urine pH 6.0 Ur Specific [place] 1.002 Urine Protein NEGATIVE Urine Glucose (UA) 50 H Urine Ketones NEGATIVE Urine Blood NEGATIVE Urine Nitrite NEGATIVE Ur Leukocyte Esterase NEGATIVE Urine WBC (Auto) 0 07/27/16 19:00 Tracheal Aspirate Gram Stain - Final 07/27/16 19:00 Tracheal Aspirate Sputum Culture - Final NORMAL GLADYS 07/27/16 07/27/16 07/28/16 17:25 23:05 06:35 CK-MB (CK-2) 16.80 H Troponin I 0.074 0.088 0.078 NT-Pro-B Natriuret Pep 3290 H 2660 H Impressions: KUB X-Ray 07/28/16 08:54 IMPRESSION: Appropriate location of nasogastric tube. Decompressed stomach. Chest X-Ray 07/30/16 06:00 IMPRESSION: Interval improvement as noted above Assessment & Plan - Diagnosis (1) Acute kidney injury Is this a current diagnosis for this admission?: YesPlan: bun/creat return to normal (2) Respiratory failure requiring intubation Is this a current diagnosis for this admission?: YesPlan: lg right pleural effusion thoracentesis (3) Septic shock Is this a current diagnosis for this admission?: Yes - Time Critical Time spent with patient: 35 or more minutes - 40 min
[2016-07-30] MEDS ORDERED: POTASSI CL 20 MEQ/50 ML RIDER 50 ML IV ONE (12:00)
--- NOTE | 2016-07-30 12:25 | PDOC PROGRESS REPORT ---
Subjective Progress Note for:: 07/30/16 Subjective:: reason for visit: f/u resp failure, septic shock hospital course: FLORENTINO ZHANG is a 80 year old female presents from [facility] by EMS with sudden respiratory arrest. She is currently obtunded and intubated and unable to provide a review of systems her medical history. Her sister is at the bedside and tells be she arrived to find her sister sitting in the bedside chair slumped over and unresponsive. She called for help and the nursing staff attempted to assist her back into bed with a noted that she was unresponsive, initial blood pressure was reportedly 82/50, blood sugar 163 and a room air sat of 85%. EMS arrived to find her blood pressure 60 over palp, respiratory rate greater than 30 and they immediately transported across the street to the emergency department. By the time she arrived here she suddenly became apneic and had to be emergently intubated and placed on mechanical ventilation by the emergency room physician. She remained hypotensive in spite of a total of 4 L of normal saline . A femoral central line was placed by the ER physician and she initially started on Levophed maxed at 12 mics per minute. Of note EMS attempted to place an I O in the right tibia unsuccessfully and they felt and heard a "crack". Her peak pressures on the ventilator were initially quite high at greater than 40 on vent settings of SIMV rate of 12, tidal volume of 500, pressure support 10, PEEP of 5 and FiO2 of 60%. I adjusted the rate to 15 and decrease the tidal volume with good response in her peak pressures to less than 35. Dr Rodriguez is now managing the vent and she is tolerating current settings. Dr Dominguez consulted for abnl ecg and elevated troponins and changed from levophed to yohan and added low dose dobutamine in last 24hrs. EKG does show some changes with T-wave inversions in lead 1, aVL, AVR and V3 through 6 when compared to prior. Review the record shows an echocardiogram on June 26 demonstrating an ejection fraction of 40-45% with left ventricular dilatation, 2/4 diastolic dysfunction and moderate left atrial enlargement but no significant valvular abnormalities. Her chest x-ray by my interpretation shows a right upper lobe haziness that was not present previously and diffuse haziness to the right hemithorax when compared to the left and when compared to prior chest x-ray. repeat cxr shows worsening Rt sided airspace disease and developing effusion. chest CT did not confirm PE as I suspected but does show the bilat pneumonia and parapneumonic effusions. she is to undergo thoracentesis this morning for diagnostic and therapeutic purposes. she remains intubated and sedated with diprivan at 40mcg, IVFs at 125ml/hr and Yohan 80mcg and dobutamine at 5. Her K remains low this morning but her renal function is improving. subjective: still obtunded and unable to participate in her exam ROS: unable to obtain due to mental state Physical Exam Vital Signs: Temp Pulse Resp BP Pulse Ox 97.5 F 93 17 145/65 H 98 07/30/16 10:00 07/30/16 10:00 07/30/16 10:00 07/30/16 10:00 07/30/16 10:00 Intake & Output 07/29/16 07/30/16 07/31/16 06:59 06:59 06:59 Intake Total 4188 Output Total 2900 200 Balance 1288 -200 Weight 78.3 kg EXAM GENERAL: Obtunded; well developed, well nourished; no obese; very pale HEENT: normocephalic, atraumatic; PERRLA though sluggish, no conjunctival injection, no scleral icterus; oral mucosa moist; neck supple, no LAD, ET tube in good position with fog in the tube and trachea midline RESPIRATORY: no accessory muscle use, no increased WOB, good air entry bilaterally; no wheezes, or rhonchi but bilat rales and diminished right-sided BSs with opening squeaks and pops anteriorly at the apex CARDIO: no JVD; irr irregular - looks like afib on the monitor; no systolic murmur; labile HR- yesterday azael but now tachy with dobutamine running VASCULAR: no pallor; 2+ radial, DP pulse; normal capillary refill GI: softer today; mildly distended; greatly diminished bowel sounds; no rebound , involuntary guarding: No grimace on palpation NEURO: Decreased patella reflexes; MSK: Limbs remain flaccid while sedated EXTREMITIES: no palpable cords in calf; no clubbing, cyanosis; increased bilateral pitting and nonpitting pedal edema PSYCH: Obtunded SKIN: Cool; no petechiae; no telengectasias; no jaundice; Results Laboratory Results: 07/30/16 04:40 07/30/16 04:40 07/30/16 07/30/16 07/30/16 04:40 04:40 04:40 WBC 15.5 H RBC 3.13 L Hgb 9.0 L Hct 27.3 L MCV 88 MCH 28.9 MCHC 33.1 RDW 13.9 Plt Count 204 Seg Neutrophils % 87.1 H Lymphocytes % 5.6 L Monocytes % 7.2 Eosinophils % 0.0 Basophils % 0.1 Absolute Neutrophils 13.5 H Absolute Lymphocytes 0.9 Absolute Monocytes 1.1 Absolute Eosinophils 0.0 Absolute Basophils 0.0 Carbonic Acid 1.04 L HCO3/H2CO3 Ratio 20:1 ABG pH 7.41 ABG pCO2 34.4 L ABG pO2 95.9 ABG HCO3 21.5 ABG O2 Saturation 97.5 ABG Base Excess -2.5 FiO2 45% Sodium 141.4 Potassium 3.3 L Chloride 110 H Carbon Dioxide 24 Anion Gap 7 BUN 16 Creatinine 0.87 Est GFR ( Amer) > 60 Est GFR (Non-Af Amer) > 60 Glucose 196 H Calcium 8.2 L Total Bilirubin 0.2 AST 49 H ALT 54 H Alkaline Phosphatase 70 Total Protein 5.2 L Albumin 2.0 L Urine Color Urine Appearance Urine pH Ur Specific [place] Urine Protein Urine Glucose (UA) Urine Ketones Urine Blood Urine Nitrite Ur Leukocyte Esterase Urine WBC (Auto) 07/30/16 04:40 WBC RBC Hgb Hct MCV MCH MCHC RDW Plt Count Seg Neutrophils % Lymphocytes % Monocytes % Eosinophils % Basophils % Absolute Neutrophils Absolute Lymphocytes Absolute Monocytes Absolute Eosinophils Absolute Basophils Carbonic Acid HCO3/H2CO3 Ratio ABG pH ABG pCO2 ABG pO2 ABG HCO3 ABG O2 Saturation ABG Base Excess FiO2 Sodium Potassium Chloride Carbon Dioxide Anion Gap BUN Creatinine Est GFR ( Amer) Est GFR (Non-Af Amer) Glucose Calcium Total Bilirubin AST ALT Alkaline Phosphatase Total Protein Albumin Urine Color COLORLESS Urine Appearance CLEAR Urine pH 6.0 Ur Specific [place] 1.002 Urine Protein NEGATIVE Urine Glucose (UA) 50 H Urine Ketones NEGATIVE Urine Blood NEGATIVE Urine Nitrite NEGATIVE Ur Leukocyte Esterase NEGATIVE Urine WBC (Auto) 0 07/27/16 19:00 Tracheal Aspirate Gram Stain - Final 07/27/16 19:00 Tracheal Aspirate Sputum Culture - Final NORMAL GLADYS 0307/27/16 07/28/16 17:25 23:05 06:35 CK-MB (CK-2) 16.80 H Troponin I 0.074 0.088 0.078 NT-Pro-B Natriuret Pep 3290 H 2660 H Impressions: Chest X-Ray 07/30/16 06:00 IMPRESSION: Interval improvement as noted above Chest/Abdomen CTA 07/30/16 08:00 IMPRESSION: Moderate to large right pleural effusion. Small left effusion. Bibasilar infiltrate consistent with atelectasis or pneumonia. No pulmonary emboli. Status: Imported from PACS - reports reviwed Assessment & Plan - Diagnosis (1) Acute respiratory failure with hypoxia and hypercapnia Is this a current diagnosis for this admission?: YesPlan: Unclear etiology, showing signs of pneumonia with developing parapneumonic effusions; for diagnostic thoracentesis later today. continue care in the ICU and continue mechanical ventilation and respiratory support. discussed with dr rodriguez. continue empiric HCAP abx. resume empiric full dose Lovenox therapy for presumed NSTEMI and now new afib. (2) Cardiac dysrhythmia, unspecified Qualifiers: Arrhythmia type: atrial fibrillation Atrial fibrillation type: unspecified Qualified Code(s): I48.91 - Unspecified atrial fibrillation Is this a current diagnosis for this admission?: YesPlan: suspect new afib in the setting of hypoxic resp failure, NSTEMI and septic shock while on dobutamine. ck ECG to confirm. continue full dose lovenox, defer to Dr Dominguez for further evaluation and management. (3) Pneumonia Qualifiers: Pneumonia type: due to unspecified organism Laterality: right Lung location: upper lobe of lung Qualified Code(s): J18.1 - Lobar pneumonia, unspecified organism Is this a current diagnosis for this admission?: YesPlan: Must be considered healthcare acquired and in fact she was treated for pneumonia during her previous hospitalization that was aspiration type. continue broad-spectrum antibiotics and follow up on thoracentesis fluid studies for possible empyema and to hopefully narrow abx. (4) Septic shock Is this a current diagnosis for this admission?: YesPlan: replaced central line to internal jugular with CVP >10. continue to adjust her volume resuscitation accordingly keeping in mind her last known EF = 40% and now with recurrent NSTEMI and pleural effusions. Continue Yohan-Synephrine and dobutamine, per my conversation with Dr Dominguez. Started empiric stress dose steroids. (5) Acute kidney injury Is this a current diagnosis for this admission?: YesPlan: Resolved. probably prerenal but there are hyaline casts noted on the urinalysis suggesting an acute tubular necrosis as well. responding to aggressive fluid resuscitation and treatment of her sepsis. Try to avoid any nephrotoxic medications. (6) Elevated d-dimer Is this a current diagnosis for this admission?: YesPlan: See above. CTA neg for PE. (7) Acute encephalopathy Is this a current diagnosis for this admission?: YesPlan: Secondary to the above. Her hospital course previously was prolonged by several weeks due to an encephalopathy/delirium, this does not skye well for her recovery. (8) Coronary artery disease Qualifiers: Coronary Disease-Associated Artery/Lesion type: nondalton artery Associated angina: angina presence unspecified Is this a current diagnosis for this admission?: YesPlan: She likely has some underlying coronary artery disease having suffered a type II NSTEMI during her last hospitalization a couple of weeks ago. Due to her prolonged illness and slow recovery we were treating medically as on outpatient and she was to follow-up with cardiology for further recommendations and investigations, clearly she has not had an opportunity to do that. treat with full dose Lovenox and aspirin per rectum until able to take oral. The septic shock precludes the use of beta zoe at this time. No oral intake precludes the use of statin therapy at this time. further rec's and evaluation per Dr Dominguez. (9) Ischemic cardiomyopathy Is this a current diagnosis for this admission?: YesPlan: This will most certainly complicate her recovery and volume status as the septic shock requires aggressive fluid resuscitation. This too does not skye well for her prognosis. (10) Acute on chronic systolic (congestive) heart failure Is this a current diagnosis for this admission?: YesPlan: as above. (11) Hypokalemia Is this a current diagnosis for this admission?: YesPlan: replace and monitor (12) Hypomagnesemia Is this a current diagnosis for this admission?: YesPlan: replace and monitor - Time Time Spent with patient: 35 or more minutes Medications reviewed and adjusted accordingly: Yes - Plan Summary Plan Summary: started enteral feedings today per dietary rec's. prognosis guarded at best, manager intermediate prognosis appears poor.
--- NOTE | 2016-07-30 13:45 | EKG REPORT ---
SEVERITY:- ABNORMAL ECG - SINUS TACHYCARDIA ATRIAL PREMATURE COMPLEX BORDERLINE INFERIOR Q WAVES NONSPECIFIC T ABNORMALITIES, LATERAL LEADS : Confirmed by: Param Alberto 30-Jul-2016 13:45:00
[2016-07-30 16:04] LABS: FLUID TYPE PLEURAL
[2016-07-30 16:05] LABS: FLUID APPEARANCE CLOUDY
[2016-07-30 16:06] LABS: FLUID RBC DILUENT USED SALINE; FLUID RBC DILUTION FACTOR 20; FLUID RBC SIDE 1 164; FLUID RBC SIDE 2 176; TOTAL RBC SQUARES COUNTED FLD 225
[2016-07-30] MEDS: ASPIRIN 300 MG SUPP, RECTAL PR SCH (18:38)
[2016-07-30] MEDS: DOBUTAMINE HCL/D5W 250 ML IV PRN (18:39)
[2016-07-30] MEDS: VANCOMYCIN HCL 1,250 MG in DEXTROSE 5%-WATER 250 ML IV SCH (22:37)
[2016-07-30] MEDS: ENOXAPARIN SODIUM INJ 80 MG/0.8 ML DISP.SYRIN SUBCUT SCH (22:37)
[2016-07-31] MEDS: POTASSI CL 20 MEQ/D5-1/2NS 1L 1,000 ML IV PRN ×2 (01:17→21:44)
[2016-07-31] MEDS: PROPOFOL 100 ML IV PRN ×5 (01:17→19:37)
[2016-07-31] MEDS: ALBUTEROL SULFATE HFA (90 MCG/PUFF) 200 PUFF/8.5 GM MDI IH SCH ×4 (02:14→18:23)
[2016-07-31] MEDS: DEXTROSE 5%-WATER 250 ML with PHENYLEPHRINE HCL 40 MG IV PRN ×4 (03:24→19:37)
[2016-07-31 05:07] LABS: ABSOLUTE LYMPHOCYTES (AUTO) 0.7 10^3/uL (0.5-4.7); ABSOLUTE MONOCYTES (AUTO) 0.5 10^3/uL (0.1-1.4); HEMATOCRIT 27.8 % (36.0-47.0); HEMOGLOBIN 9.1 g/dL (12.0-15.5); HGB HCT DIFFERENCE -0.5; LYMPHOCYTES % (AUTO) 5.1 % (13-45); MEAN CORPUSCULAR HEMOGLOBIN 28.8 pg (27.0-33.4); MEAN CORPUSCULAR HGB CONC 32.8 g/dL (32.0-36.0); MEAN CORPUSCULAR VOLUME 88 fl (80-97); RED BLOOD COUNT 3.16 10^6/uL (3.72-5.28); RED CELL DISTRIBUTION WIDTH 14.2 % (11.5-14.0); SEGMENTED NEUTROPHILS % (AUTO) 90.9 % (42-78); WHITE BLOOD COUNT 13.2 10^3/uL (4.0-10.5)
[2016-07-31 05:25] LABS: ALANINE AMINOTRANSFERASE 51 U/L (9-52); ALBUMIN 2.1 g/dL (3.5-5.0); ALKALINE PHOSPHATASE 81 U/L (38-126); ANION GAP 10 (5-19); ASPARTATE AMINO TRANSFERASE 39 U/L (14-36); BILIRUBIN,TOTAL 0.2 mg/dL (0.2-1.3); BLOOD UREA NITROGEN 13 mg/dL (7-20); CALCIUM 8.2 mg/dL (8.4-10.2); CARBON DIOXIDE 22 mmol/L (22-30); CHLORIDE 112 mmol/L (98-107); CREATININE RESULT 0.79 mg/dL (0.52-1.25); GLUCOSE 194 mg/dL (75-110); MAGNESIUM 1.8 mg/dL (1.6-2.3); SODIUM 143.7 mmol/L (137-145); TOTAL PROTEIN 5.5 g/dL (6.3-8.2)
[2016-07-31] MEDS: HYDROCORTISONE SOD SUCCINATE INJ/PF 100 MG/2 ML SDV IV SCH ×3 (05:36→21:43)
[2016-07-31 08:19] LABS: ARTERIAL BLOOD BASE EXCESS -2.6 mmol/L
[2016-07-31] MEDS: CEFEPIME HCL 2 GM in DEXTROSE 5%-WATER 50 ML IV SCH ×2 (09:50→21:43)
[2016-07-31] MEDS: LANSOPRAZOLE 30 MG TAB.RAP.DR NG SCH (09:50)
--- NOTE | 2016-07-31 13:45 | PDOC PROGRESS REPORT ---
Subjective Progress Note for:: 07/31/16 Subjective:: Intubated and sedated Physical Exam Vital Signs: Temp Pulse Resp BP Pulse Ox 96.6 F L 94 17 137/63 H 96 07/31/16 06:15 07/30/16 20:00 07/31/16 06:15 07/31/16 06:04 07/31/16 06:15 Intake & Output 07/30/16 07/31/16 08/01/16 06:59 06:59 06:59 Intake Total 4188 4345 Output Total 2900 3120 Balance 1288 1225 Weight 78.3 kg 80.3 kg General appearance: PRESENT: no acute distress, thin, well-developed Head exam: PRESENT: atraumatic, normocephalic Eye exam: PRESENT: conjunctiva pale Mouth exam: PRESENT: neck supple, other - ET in place Neck exam: PRESENT: carotid bruit Respiratory exam: PRESENT: decreased breath sounds, prolonged expiratory phas, rales, rhonchi, symmetrical Cardiovascular exam: PRESENT: RRR, +S1, +S2 Pulses: PRESENT: normal radial pulses GI/Abdominal exam: PRESENT: normal bowel sounds, soft. ABSENT: distended, guarding, mass, organolmegaly, rebound, tenderness Rectal exam: PRESENT: deferred Musculoskeletal exam: PRESENT: normal inspection Skin exam: PRESENT: dry, intact, warm Results Laboratory Results: 07/31/16 04:45 07/31/16 04:45 07/30/16 07/31/16 07/31/16 14:20 04:45 04:45 WBC 13.2 H RBC 3.16 L Hgb 9.1 L Hct 27.8 L MCV 88 MCH 28.8 MCHC 32.8 RDW 14.2 H Plt Count 201 Seg Neutrophils % 90.9 H Lymphocytes % 5.1 L Monocytes % 4.0 Eosinophils % 0.0 Basophils % 0.0 Absolute Neutrophils 12.0 H Absolute Lymphocytes 0.7 Absolute Monocytes 0.5 Absolute Eosinophils 0.0 Absolute Basophils 0.0 Carbonic Acid HCO3/H2CO3 Ratio ABG pH ABG pCO2 ABG pO2 ABG HCO3 ABG O2 Saturation ABG Base Excess FiO2 Sodium 143.7 Potassium 4.0 Chloride 112 H Carbon Dioxide 22 Anion Gap 10 BUN 13 Creatinine 0.79 Est GFR ( Amer) > 60 Est GFR (Non-Af Amer) > 60 Glucose 194 H Calcium 8.2 L Magnesium 1.8 Total Bilirubin 0.2 AST 39 H ALT 51 Alkaline Phosphatase 81 Total Protein 5.5 L Albumin 2.1 L Fluid Type PLEURAL Fluid Source LUNG Fluid Color YELLOW Fluid Appearance CLOUDY Fluid Viscosity LIQUID Fluid WBC 3144 Fluid RBC 3777 07/31/16 07:50 WBC RBC Hgb Hct MCV MCH MCHC RDW Plt Count Seg Neutrophils % Lymphocytes % Monocytes % Eosinophils % Basophils % Absolute Neutrophils Absolute Lymphocytes Absolute Monocytes Absolute Eosinophils Absolute Basophils Carbonic Acid 1.30 HCO3/H2CO3 Ratio 17:1 ABG pH 7.35 ABG pCO2 43.1 ABG pO2 96.6 ABG HCO3 23.0 ABG O2 Saturation 97.0 ABG Base Excess -2.6 FiO2 35% Sodium Potassium Chloride Carbon Dioxide Anion Gap BUN Creatinine Est GFR ( Amer) Est GFR (Non-Af Amer) Glucose Calcium Magnesium Total Bilirubin AST ALT Alkaline Phosphatase Total Protein Albumin Fluid Type Fluid Source Fluid Color Fluid Appearance Fluid Viscosity Fluid WBC Fluid RBC 07/27/16 07/27/16 07/28/16 17:25 23:05 06:35 CK-MB (CK-2) 16.80 H Troponin I 0.074 0.088 0.078 NT-Pro-B Natriuret Pep 3290 H 2660 H 07/31/16 04:45 CK-MB (CK-2) Troponin I NT-Pro-B Natriuret Pep 6350 H Impressions: KUB X-Ray 07/28/16 08:54 IMPRESSION: Appropriate location of nasogastric tube. Decompressed stomach. Thoracentesis Ultrasound 07/30/16 00:00 IMPRESSION: SUCCESSFUL THORACENTESIS USING ULTRASOUND GUIDANCE. Chest X-Ray 07/30/16 06:00 IMPRESSION: Interval improvement as noted above Chest/Abdomen CTA 07/30/16 08:00 IMPRESSION: Moderate to large right pleural effusion. Small left effusion. Bibasilar infiltrate consistent with atelectasis or pneumonia. No pulmonary emboli. Assessment & Plan - Diagnosis (1) Acute kidney injury Is this a current diagnosis for this admission?: YesPlan: bun/creat return to normal (2) Respiratory failure requiring intubation Is this a current diagnosis for this admission?: YesPlan: lg right pleural effusion thoracentesis (3) Septic shock Is this a current diagnosis for this admission?: YesPlan: continue current vasopressor support - Time Critical Time spent with patient: 25-34 minutes
--- NOTE | 2016-07-31 15:28 | PDOC PROGRESS REPORT ---
Subjective Progress Note for:: 07/31/16 Subjective:: Patient still intubated mechanically ventilated and on pressors She appears quite comfortable in no distress Physical Exam Vital Signs: Temp Pulse Resp BP Pulse Ox 98.4 F 95 17 69/41 L 100 07/31/16 12:35 07/31/16 10:00 07/31/16 12:35 07/31/16 12:35 07/31/16 14:04 Intake & Output 07/30/16 07/31/16 08/01/16 00:59 00:59 00:59 Intake Total 4246 2229 Output Total 175 3395 1450 Balance -175 851 779 Weight 78.3 kg 80.3 kg General appearance: PRESENT: no acute distress Head exam: PRESENT: atraumatic, normocephalic Eye exam: PRESENT: conjunctiva pink, EOMI, PERRLA. ABSENT: scleral icterus Neck exam: ABSENT: carotid bruit, JVD, lymphadenopathy, thyromegaly Respiratory exam: PRESENT: decreased breath sounds. ABSENT: accessory muscle use, prolonged expiratory phas, rhonchi, wheezes Cardiovascular exam: PRESENT: RRR. ABSENT: diastolic murmur, rubs, systolic murmur GI/Abdominal exam: PRESENT: normal bowel sounds, soft. ABSENT: distended, guarding, mass, organolmegaly, rebound, tenderness Extremities exam: PRESENT: full ROM. ABSENT: calf tenderness, clubbing, pedal edema Results Laboratory Results: 07/31/16 04:45 07/31/16 04:45 07/30/16 07/31/16 07/31/16 14:20 04:45 04:45 WBC 13.2 H RBC 3.16 L Hgb 9.1 L Hct 27.8 L MCV 88 MCH 28.8 MCHC 32.8 RDW 14.2 H Plt Count 201 Seg Neutrophils % 90.9 H Lymphocytes % 5.1 L Monocytes % 4.0 Eosinophils % 0.0 Basophils % 0.0 Absolute Neutrophils 12.0 H Absolute Lymphocytes 0.7 Absolute Monocytes 0.5 Absolute Eosinophils 0.0 Absolute Basophils 0.0 Carbonic Acid HCO3/H2CO3 Ratio ABG pH ABG pCO2 ABG pO2 ABG HCO3 ABG O2 Saturation ABG Base Excess FiO2 Sodium 143.7 Potassium 4.0 Chloride 112 H Carbon Dioxide 22 Anion Gap 10 BUN 13 Creatinine 0.79 Est GFR ( Amer) > 60 Est GFR (Non-Af Amer) > 60 Glucose 194 H Calcium 8.2 L Magnesium 1.8 Total Bilirubin 0.2 AST 39 H ALT 51 Alkaline Phosphatase 81 Total Protein 5.5 L Albumin 2.1 L Fluid Type PLEURAL Fluid Source LUNG Fluid Color YELLOW Fluid Appearance CLOUDY Fluid Viscosity LIQUID Fluid WBC 3144 Fluid RBC 3777 07/31/16 07:50 WBC RBC Hgb Hct MCV MCH MCHC RDW Plt Count Seg Neutrophils % Lymphocytes % Monocytes % Eosinophils % Basophils % Absolute Neutrophils Absolute Lymphocytes Absolute Monocytes Absolute Eosinophils Absolute Basophils Carbonic Acid 1.30 HCO3/H2CO3 Ratio 17:1 ABG pH 7.35 ABG pCO2 43.1 ABG pO2 96.6 ABG HCO3 23.0 ABG O2 Saturation 97.0 ABG Base Excess -2.6 FiO2 35% Sodium Potassium Chloride Carbon Dioxide Anion Gap BUN Creatinine Est GFR ( Amer) Est GFR (Non-Af Amer) Glucose Calcium Magnesium Total Bilirubin AST ALT Alkaline Phosphatase Total Protein Albumin Fluid Type Fluid Source Fluid Color Fluid Appearance Fluid Viscosity Fluid WBC Fluid RBC 07/27/16 07/27/16 07/28/16 17:25 23:05 06:35 CK-MB (CK-2) 16.80 H Troponin I 0.074 0.088 0.078 NT-Pro-B Natriuret Pep 3290 H 2660 H 07/31/16 04:45 CK-MB (CK-2) Troponin I NT-Pro-B Natriuret Pep 6350 H Impressions: KUB X-Ray 07/28/16 08:54 IMPRESSION: Appropriate location of nasogastric tube. Decompressed stomach. Thoracentesis Ultrasound 07/30/16 00:00 IMPRESSION: SUCCESSFUL THORACENTESIS USING ULTRASOUND GUIDANCE. Chest/Abdomen CTA 07/30/16 08:00 IMPRESSION: Moderate to large right pleural effusion. Small left effusion. Bibasilar infiltrate consistent with atelectasis or pneumonia. No pulmonary emboli. Chest X-Ray 07/31/16 07:52 IMPRESSION: No change compared to 07/30/2016. 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
[2016-07-31] MEDS: ASPIRIN 300 MG SUPP, RECTAL PR SCH (18:20)
--- NOTE | 2016-07-31 19:40 | PDOC PROGRESS REPORT ---
Subjective Progress Note for:: 07/31/16 Subjective:: Patient about the same and has made very little progress. There is no significant change in general condition. Patient remains intubated, sedated, patient however looks comfortable and in acute distress. Patient remains on dobutamine and Yohan-Synephrine drip. Blood pressure was noted to be stable. Telemetry shows sinus tachycardia with occasional APCs and VPCs. Medications reviewed. Physical Exam Vital Signs: Temp Pulse Resp BP Pulse Ox 97.5 F 69 18 148/73 H 100 07/31/16 17:50 07/31/16 19:21 07/31/16 19:21 07/31/16 19:21 07/31/16 19:21 Intake & Output 07/30/16 07/31/16 08/01/16 06:59 06:59 06:59 Intake Total 4188 4345 1775 Output Total 2900 3120 3075 Balance 1288 1225 -1300 Weight 78.3 kg 80.3 kg Exam: GENERAL: well-nourished and in no acute distress. Patient is intubated and sedated. Orientation cannot be checked HEAD: Atraumatic, normocephalic. EYES: Pupils equal round and reactive to light, extraocular movements could not be checked, sclera anicteric, conjunctiva are normal. ENT: TMs normal, nares patent, oropharynx clear without exudates. Moist mucous membranes. No oral ulcerations or bleeding gums noted NECK: supple without lymphadenopathy or JVD. Trachea is central. No cervical or axillary lymphadenopathy noted. Carotids are 2+ LUNGS: Breath sounds mostly clear to auscultation patient is noted to have bibasal crackles at the extreme bases CHEST: Palpation of the chest wall shows no significant chest wall tenderness or abnormalities. HEART: [place] [employer], No PSH, 2/6 BILL aortic area, 1/6 pearson systolic murmur mitral area , no rubs or gallops. ABDOMEN: Soft, no significant tenderness appreciated, normoactive bowel sounds. No guarding, no rebound. No rigidity noted . No masses appreciated. EXTREMITIES: Pedal pulses are 1-2+, no calf tenderness noted, 1+ pedal edema noted. No clubbing or cyanosis. NEUROLOGICAL: The patient cannot participate in the neurological exam but no facial asymmetry noted. Extremities slightly hypotonic PSYCH: This cannot be evaluated. Patient cannot participate. SKIN: No significant ecchymosis, rash, or signs of pruritus noted. MUSCULOSKELETAL EXAM: No significant joint swelling noted. Patient cannot participate in musculoskeletal exam Results Laboratory Results: 07/31/16 04:45 07/31/16 04:45 07/31/16 07/31/16 07/31/16 04:45 04:45 07:50 WBC 13.2 H RBC 3.16 L Hgb 9.1 L Hct 27.8 L MCV 88 MCH 28.8 MCHC 32.8 RDW 14.2 H Plt Count 201 Seg Neutrophils % 90.9 H Lymphocytes % 5.1 L Monocytes % 4.0 Eosinophils % 0.0 Basophils % 0.0 Absolute Neutrophils 12.0 H Absolute Lymphocytes 0.7 Absolute Monocytes 0.5 Absolute Eosinophils 0.0 Absolute Basophils 0.0 Carbonic Acid 1.30 HCO3/H2CO3 Ratio 17:1 ABG pH 7.35 ABG pCO2 43.1 ABG pO2 96.6 ABG HCO3 23.0 ABG O2 Saturation 97.0 ABG Base Excess -2.6 FiO2 35% Sodium 143.7 Potassium 4.0 Chloride 112 H Carbon Dioxide 22 Anion Gap 10 BUN 13 Creatinine 0.79 Est GFR ( Amer) > 60 Est GFR (Non-Af Amer) > 60 Glucose 194 H Calcium 8.2 L Magnesium 1.8 Total Bilirubin 0.2 AST 39 H ALT 51 Alkaline Phosphatase 81 Total Protein 5.5 L Albumin 2.1 L 07/27/16 07/27/16 07/28/16 17:25 23:05 06:35 CK-MB (CK-2) 16.80 H Troponin I 0.074 0.088 0.078 NT-Pro-B Natriuret Pep 3290 H 2660 H 07/31/16 04:45 CK-MB (CK-2) Troponin I NT-Pro-B Natriuret Pep 6350 H Impressions: KUB X-Ray 07/28/16 08:54 IMPRESSION: Appropriate location of nasogastric tube. Decompressed stomach. Thoracentesis Ultrasound 07/30/16 00:00 IMPRESSION: SUCCESSFUL THORACENTESIS USING ULTRASOUND GUIDANCE. Chest/Abdomen CTA 07/30/16 08:00 IMPRESSION: Moderate to large right pleural effusion. Small left effusion. Bibasilar infiltrate consistent with atelectasis or pneumonia. No pulmonary emboli. Chest X-Ray 07/31/16 07:52 IMPRESSION: No change compared to 07/30/2016. 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 Qualifiers: Congestive heart failure chronicity: acute on chronic Qualified Code (s): I50.43 - Acute on chronic combined systolic (congestive) and diastolic ( congestive) heart failure Is this a current diagnosis for this admission?: Yes (4) Cardiac dysrhythmia, unspecified Qualifiers: Arrhythmia type: atrial fibrillation Atrial fibrillation type: paroxysmal Qualified Code(s): I48.0 - Paroxysmal atrial fibrillation Is this a current diagnosis for this admission?: Yes (5) Sepsis Qualifiers: Sepsis type: sepsis due to unspecified organism Qualified Code(s): A41.9 - Sepsis, unspecified organism Is this a current diagnosis for this admission?: Yes - Notes Notes: Hypotension: Continue current therapy with vasopressors both vasoconstrictor and inotropes. Currently maintaining blood pressure in satisfactory range. Hypotension combination of metabolic, sepsis and cardiac cause. Respiratory failure: Continue current ventilator management. Telemetry Monitor following. Heart failure: Acute on chronic, diastolic versus systolic, currently seems euvolemic. Observe patient very closely. Cardiac dysrhythmia: Patient has history of paroxysmal atrial fibrillation and also other cardiac dysrhythmia. Currently stable. Will continue to monitor. Keep electrolytes within normal range. Sepsis: Continue antibiotic therapy. Overall prognosis guarded. - Time Time with patient: Greater than 35 minutes - CODE STATUS was discussed, patient remains full code. Surrogate decision-maker unchanged. Multiple medical problems were addressed.More than 50% of the time spent coordinating care, discussing management plans with involved caregivers. Management plans discussed with involved personnels. Medical decision making was of moderate complexity. Medications reviewed and adjusted accordingly: Yes
[2016-07-31] MEDS: LEVOFLOXACIN 750 MG/D5W RTU 750 MG/150 ML RTUPB IV SCH (21:43)
[2016-07-31] MEDS: ENOXAPARIN SODIUM INJ 80 MG/0.8 ML DISP.SYRIN SUBCUT SCH (21:45)
[2016-07-31] MEDS: VANCOMYCIN HCL 1,250 MG in DEXTROSE 5%-WATER 250 ML IV SCH (23:03)
[2016-08-01] MEDS: ALBUTEROL SULFATE HFA (90 MCG/PUFF) 200 PUFF/8.5 GM MDI IH SCH ×4 (01:31→17:50)
[2016-08-01 05:03] LABS: HEMATOCRIT 28.3 % (36.0-47.0); HEMOGLOBIN 9.5 g/dL (12.0-15.5); HGB HCT DIFFERENCE 0.2; MEAN CORPUSCULAR HEMOGLOBIN 29.4 pg (27.0-33.4); MEAN CORPUSCULAR HGB CONC 33.6 g/dL (32.0-36.0); MEAN CORPUSCULAR VOLUME 87 fl (80-97); RED BLOOD COUNT 3.23 10^6/uL (3.72-5.28); RED CELL DISTRIBUTION WIDTH 14.1 % (11.5-14.0); WHITE BLOOD COUNT 17.5 10^3/uL (4.0-10.5)
[2016-08-01 05:05] LABS: ARTERIAL BLOOD O2 SATURATION 96.8 % (94-98)
[2016-08-01] MEDS: HYDROCORTISONE SOD SUCCINATE INJ/PF 100 MG/2 ML SDV IV SCH ×3 (05:21→22:12)
[2016-08-01] MEDS: DEXTROSE 5%-WATER 250 ML with PHENYLEPHRINE HCL 40 MG IV PRN ×2 (05:22)
[2016-08-01 05:34] LABS: ALANINE AMINOTRANSFERASE 45 U/L (9-52); ALBUMIN 2.3 g/dL (3.5-5.0); ALKALINE PHOSPHATASE 100 U/L (38-126); ANION GAP 8 (5-19); ASPARTATE AMINO TRANSFERASE 34 U/L (14-36); BILIRUBIN,TOTAL 0.4 mg/dL (0.2-1.3); BLOOD UREA NITROGEN 17 mg/dL (7-20); CALCIUM 8.4 mg/dL (8.4-10.2); CARBON DIOXIDE 27 mmol/L (22-30); CHLORIDE 110 mmol/L (98-107); CREATININE RESULT 0.75 mg/dL (0.52-1.25); GLUCOSE 153 mg/dL (75-110); MAGNESIUM 1.8 mg/dL (1.6-2.3); POTASSIUM 3.9 mmol/L (3.6-5.0); TOTAL PROTEIN 5.5 g/dL (6.3-8.2)
[2016-08-01] MEDS: LANSOPRAZOLE 30 MG TAB.RAP.DR NG SCH (10:20)
[2016-08-01] MEDS ORDERED: FUROSEMIDE INJ/PF 20 MG/2 ML SDV IV ONE (11:00)
[2016-08-01] MEDS: ALBUMIN HUMAN 50 ML IV SCH ×2 (12:23→22:13)
[2016-08-01] MEDS: CEFEPIME HCL 2 GM in DEXTROSE 5%-WATER 50 ML IV SCH ×2 (12:25→22:11)
--- NOTE | 2016-08-01 14:11 | PDOC PROGRESS REPORT ---
Subjective Progress Note for:: 08/01/16 Subjective:: Intubated and sedated Physical Exam Vital Signs: Temp Pulse Resp BP Pulse Ox 98.6 F 82 17 145/69 H 98 08/01/16 08:00 08/01/16 08:00 08/01/16 08:00 08/01/16 08:00 08/01/16 08:00 Intake & Output 07/31/16 08/01/16 08/02/16 06:59 06:59 06:59 Intake Total 4345 5194 Output Total 3120 4675 500 Balance 1225 519 -500 Weight 80.3 kg 79.1 kg General appearance: PRESENT: no acute distress, disheveled Head exam: PRESENT: atraumatic, normocephalic Eye exam: PRESENT: conjunctiva pale Mouth exam: PRESENT: neck supple, tongue midline, other - ET tube in place Neck exam: ABSENT: carotid bruit, JVD, lymphadenopathy, thyromegaly Respiratory exam: PRESENT: decreased breath sounds, prolonged expiratory phas, rales, rhonchi, unlabored - Right hemithorax predominant Cardiovascular exam: PRESENT: RRR, +S1, +S2 Pulses: PRESENT: normal radial pulses GI/Abdominal exam: PRESENT: normal bowel sounds, soft. ABSENT: distended, guarding, mass, organolmegaly, rebound, tenderness Rectal exam: PRESENT: deferred Gentrourinary exam: PRESENT: indwelling catheter Musculoskeletal exam: PRESENT: normal inspection Skin exam: PRESENT: dry, warm Results Laboratory Results: 08/01/16 04:50 08/01/16 04:50 08/01/16 08/01/16 08/01/16 04:50 04:50 04:50 WBC 17.5 H RBC 3.23 L Hgb 9.5 L Hct 28.3 L MCV 87 MCH 29.4 MCHC 33.6 RDW 14.1 H Plt Count 244 Carbonic Acid 1.42 H HCO3/H2CO3 Ratio 18:1 ABG pH 7.37 ABG pCO2 47.3 H ABG pO2 92.7 ABG HCO3 26.7 H ABG O2 Saturation 96.8 ABG Base Excess 1.0 FiO2 35% Sodium 145.0 Potassium 3.9 Chloride 110 H Carbon Dioxide 27 Anion Gap 8 BUN 17 Creatinine 0.75 Est GFR ( Amer) > 60 Est GFR (Non-Af Amer) > 60 Glucose 153 H Calcium 8.4 Phosphorus 3.0 Magnesium 1.8 Total Bilirubin 0.4 AST 34 ALT 45 Alkaline Phosphatase 100 Total Protein 5.5 L Albumin 2.3 L 07/27/16 07/27/16 07/28/16 17:25 23:05 06:35 CK-MB (CK-2) 16.80 H Troponin I 0.074 0.088 0.078 NT-Pro-B Natriuret Pep 3290 H 2660 H 07/31/16 04:45 CK-MB (CK-2) Troponin I NT-Pro-B Natriuret Pep 6350 H Impressions: KUB X-Ray 07/28/16 08:54 IMPRESSION: Appropriate location of nasogastric tube. Decompressed stomach. Thoracentesis Ultrasound 07/30/16 00:00 IMPRESSION: SUCCESSFUL THORACENTESIS USING ULTRASOUND GUIDANCE. Chest/Abdomen CTA 07/30/16 08:00 IMPRESSION: Moderate to large right pleural effusion. Small left effusion. Bibasilar infiltrate consistent with atelectasis or pneumonia. No pulmonary emboli. Chest X-Ray 08/01/16 06:00 IMPRESSION: Increasing density on the right as noted above with interval increase in size of the right pleural effusion. I cannot exclude some underlying atelectasis or infiltrate in the right mid and lower lung field. Other findings as noted above. Assessment & Plan - Diagnosis (1) Acute kidney injury Is this a current diagnosis for this admission?: No (2) Respiratory failure requiring intubation Is this a current diagnosis for this admission?: YesPlan: FiO2 minute ventilation respiratory rate stable unfortunately white count is increasing poor response to pressure support and CPAP (3) Septic shock Is this a current diagnosis for this admission?: YesPlan: continue current vasopressor support - Time Critical Time spent with patient: 25-34 minutes
[2016-08-01] MEDS: APIXABAN 2.5 MG TABLET PO SCH (17:47)
[2016-08-01] MEDS: ASPIRIN 300 MG SUPP, RECTAL PR SCH (17:50)
--- NOTE | 2016-08-01 18:38 | PDOC PROGRESS REPORT ---
Subjective Progress Note for:: 08/01/16 Subjective:: Patient's condition is unchanged She still on pressors Still intubated sedated Physical Exam Vital Signs: Temp Pulse Resp BP Pulse Ox 97.2 F 62 10 L 128/65 H 94 08/01/16 16:00 08/01/16 16:00 08/01/16 16:00 08/01/16 16:00 08/01/16 16:10 Intake & Output 07/31/16 08/01/16 08/02/16 00:59 00:59 00:59 Intake Total 4246 4004 3419 Output Total 3390 8409 3300 Balance 851 -821 119 Weight 78.3 kg 80.3 kg 79.1 kg General appearance: PRESENT: no acute distress Head exam: PRESENT: atraumatic, normocephalic Eye exam: PRESENT: conjunctiva pale Respiratory exam: PRESENT: decreased breath sounds. ABSENT: accessory muscle use Cardiovascular exam: PRESENT: RRR. ABSENT: diastolic murmur, rubs, systolic murmur Pulses: PRESENT: normal dorsalis pedis pul GI/Abdominal exam: PRESENT: normal bowel sounds, soft. ABSENT: distended, guarding, mass, organolmegaly, rebound, tenderness Extremities exam: PRESENT: +2 edema Results Laboratory Results: 08/01/16 04:50 08/01/16 04:50 07/30/16 07/30/16 07/30/16 14:20 14:20 14:20 WBC RBC Hgb Hct MCV MCH MCHC RDW Plt Count Carbonic Acid HCO3/H2CO3 Ratio ABG pH ABG pCO2 ABG pO2 ABG HCO3 ABG O2 Saturation ABG Base Excess FiO2 Sodium Potassium Chloride Carbon Dioxide Anion Gap BUN Creatinine Est GFR ( Amer) Est GFR (Non-Af Amer) Glucose Calcium Phosphorus Magnesium Total Bilirubin AST ALT Alkaline Phosphatase Total Protein Albumin Fluid Glucose Fluid Total Protein 3.2 Fluid LDH 216 Fluid Amylase 16 07/30/16 08/01/16 08/01/16 14:20 04:50 04:50 WBC 17.5 H RBC 3.23 L Hgb 9.5 L Hct 28.3 L MCV 87 MCH 29.4 MCHC 33.6 RDW 14.1 H Plt Count 244 Carbonic Acid 1.42 H HCO3/H2CO3 Ratio 18:1 ABG pH 7.37 ABG pCO2 47.3 H ABG pO2 92.7 ABG HCO3 26.7 H ABG O2 Saturation 96.8 ABG Base Excess 1.0 FiO2 35% Sodium Potassium Chloride Carbon Dioxide Anion Gap BUN Creatinine Est GFR ( Amer) Est GFR (Non-Af Amer) Glucose Calcium Phosphorus Magnesium Total Bilirubin AST ALT Alkaline Phosphatase Total Protein Albumin Fluid Glucose 108 Fluid Total Protein Fluid LDH Fluid Amylase 08/01/16 04:50 WBC RBC Hgb Hct MCV MCH MCHC RDW Plt Count Carbonic Acid HCO3/H2CO3 Ratio ABG pH ABG pCO2 ABG pO2 ABG HCO3 ABG O2 Saturation ABG Base Excess FiO2 Sodium 145.0 Potassium 3.9 Chloride 110 H Carbon Dioxide 27 Anion Gap 8 BUN 17 Creatinine 0.75 Est GFR ( Amer) > 60 Est GFR (Non-Af Amer) > 60 Glucose 153 H Calcium 8.4 Phosphorus 3.0 Magnesium 1.8 Total Bilirubin 0.4 AST 34 ALT 45 Alkaline Phosphatase 100 Total Protein 5.5 L Albumin 2.3 L Fluid Glucose Fluid Total Protein Fluid LDH Fluid Amylase 07/27/16 16:45 Blood Blood Culture - Final NO GROWTH IN 5 DAYS 07/27/16 07/27/16 07/28/16 17:25 23:05 06:35 CK-MB (CK-2) 16.80 H Troponin I 0.074 0.088 0.078 NT-Pro-B Natriuret Pep 3290 H 2660 H 07/31/16 04:45 CK-MB (CK-2) Troponin I NT-Pro-B Natriuret Pep 6350 H Impressions: KUB X-Ray 07/28/16 08:54 IMPRESSION: Appropriate location of nasogastric tube. Decompressed stomach. Thoracentesis Ultrasound 07/30/16 00:00 IMPRESSION: SUCCESSFUL THORACENTESIS USING ULTRASOUND GUIDANCE. Chest/Abdomen CTA 07/30/16 08:00 IMPRESSION: Moderate to large right pleural effusion. Small left effusion. Bibasilar infiltrate consistent with atelectasis or pneumonia. No pulmonary emboli. Chest X-Ray 08/01/16 06:00 IMPRESSION: Increasing density on the right as noted above with interval increase in size of the right pleural effusion. I cannot exclude some underlying atelectasis or infiltrate in the right mid and lower lung field. Other findings as noted above. Assessment & Plan - Diagnosis (1) Sepsis Qualifiers: Sepsis type: sepsis due to unspecified organism Qualified Code(s): A41.9 - Sepsis, unspecified organism Is this a current diagnosis for this admission?: Yes (2) Parapneumonic effusion Is this a current diagnosis for this admission?: Yes (3) Ischemic cardiomyopathy Is this a current diagnosis for this admission?: Yes (4) Pneumonia Qualifiers: Pneumonia type: due to unspecified organism Laterality: bilateral Lung location: unspecified part of lung Qualified Code(s): J18.9 - Pneumonia, unspecified organism (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 Qualifiers: Congestive heart failure chronicity: acute on chronic Qualified Code (s): I50.43 - Acute on chronic combined systolic (congestive) and diastolic ( congestive) heart failure Is this a current diagnosis for this admission?: Yes (6) Fluid overload Is this a current diagnosis for this admission?: Yes (7) Hypoalbuminemia Is this a current diagnosis for this admission?: Yes - Time Time Spent with patient: Continue the present management Reevaluate patient in a.m. She may not be extubated before she is weaned off pressors Initiated albumin IV and small doses of Lasix Critical Time spent with patient: 15-24 minutes
--- NOTE | 2016-08-01 19:54 | PDOC PROGRESS REPORT ---
Subjective Progress Note for:: 08/01/16 Subjective:: Patient about the same and has made very little progress. There is no significant change in general condition. Patient remains intubated, sedated, patient however looks comfortable and in acute distress. Patient remains Yohan-Synephrine drip. Blood pressure was noted to be stable. Telemetry shows sinus tachycardia with occasional APCs and VPCs. Patient being switched over to ELIQUIS. 2.5 mg by mouth twice a day dose suggested to the hospitalist. Medications reviewed. Physical Exam Vital Signs: Temp Pulse Resp BP Pulse Ox 97.3 F 72 17 141/64 H 100 08/01/16 18:40 08/01/16 18:00 08/01/16 18:40 08/01/16 18:34 08/01/16 18:40 Intake & Output 07/31/16 08/01/16 08/02/16 06:59 06:59 06:59 Intake Total 4345 5194 1610 Output Total 3120 4675 2825 Balance 1225 519 -1215 Weight 80.3 kg 79.1 kg Exam: GENERAL: well-nourished and in no acute distress. Patient is intubated and sedated. Orientation cannot be checked HEAD: Atraumatic, normocephalic. EYES: Pupils equal round and reactive to light, extraocular movements could not be checked, sclera anicteric, conjunctiva are normal. ENT: TMs normal, nares patent, oropharynx clear without exudates. Moist mucous membranes. No oral ulcerations or bleeding gums noted NECK: supple without lymphadenopathy or JVD. Trachea is central. No cervical or axillary lymphadenopathy noted. Carotids are 2+ LUNGS: Breath sounds mostly clear to auscultation patient is noted to have bibasal crackles at the extreme bases CHEST: Palpation of the chest wall shows no significant chest wall tenderness or abnormalities. 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 ABDOMEN: Soft, no significant tenderness appreciated, normoactive bowel sounds. No guarding, no rebound. No rigidity noted . No masses appreciated. EXTREMITIES: Pedal pulses are 1-2+, no calf tenderness noted, 1+ pedal edema noted. No clubbing or cyanosis. NEUROLOGICAL: The patient cannot participate in the neurological exam but no facial asymmetry noted. Extremities slightly hypotonic PSYCH: This cannot be evaluated. Patient cannot participate. SKIN: No significant ecchymosis, rash, or signs of pruritus noted. MUSCULOSKELETAL EXAM: No significant joint swelling noted. Patient cannot participate in musculoskeletal exam Results Laboratory Results: 08/01/16 04:50 08/01/16 04:50 07/30/16 07/30/16 07/30/16 14:20 14:20 14:20 WBC RBC Hgb Hct MCV MCH MCHC RDW Plt Count Carbonic Acid HCO3/H2CO3 Ratio ABG pH ABG pCO2 ABG pO2 ABG HCO3 ABG O2 Saturation ABG Base Excess FiO2 Sodium Potassium Chloride Carbon Dioxide Anion Gap BUN Creatinine Est GFR ( Amer) Est GFR (Non-Af Amer) Glucose Calcium Phosphorus Magnesium Total Bilirubin AST ALT Alkaline Phosphatase Total Protein Albumin Fluid Glucose Fluid Total Protein 3.2 Fluid LDH 216 Fluid Amylase 16 07/30/16 08/01/16 08/01/16 14:20 04:50 04:50 WBC 17.5 H RBC 3.23 L Hgb 9.5 L Hct 28.3 L MCV 87 MCH 29.4 MCHC 33.6 RDW 14.1 H Plt Count 244 Carbonic Acid 1.42 H HCO3/H2CO3 Ratio 18:1 ABG pH 7.37 ABG pCO2 47.3 H ABG pO2 92.7 ABG HCO3 26.7 H ABG O2 Saturation 96.8 ABG Base Excess 1.0 FiO2 35% Sodium Potassium Chloride Carbon Dioxide Anion Gap BUN Creatinine Est GFR ( Amer) Est GFR (Non-Af Amer) Glucose Calcium Phosphorus Magnesium Total Bilirubin AST ALT Alkaline Phosphatase Total Protein Albumin Fluid Glucose 108 Fluid Total Protein Fluid LDH Fluid Amylase 08/01/16 04:50 WBC RBC Hgb Hct MCV MCH MCHC RDW Plt Count Carbonic Acid HCO3/H2CO3 Ratio ABG pH ABG pCO2 ABG pO2 ABG HCO3 ABG O2 Saturation ABG Base Excess FiO2 Sodium 145.0 Potassium 3.9 Chloride 110 H Carbon Dioxide 27 Anion Gap 8 BUN 17 Creatinine 0.75 Est GFR ( Amer) > 60 Est GFR (Non-Af Amer) > 60 Glucose 153 H Calcium 8.4 Phosphorus 3.0 Magnesium 1.8 Total Bilirubin 0.4 AST 34 ALT 45 Alkaline Phosphatase 100 Total Protein 5.5 L Albumin 2.3 L Fluid Glucose Fluid Total Protein Fluid LDH Fluid Amylase 07/27/16 16:45 Blood Blood Culture - Final NO GROWTH IN 5 DAYS 07/27/16 07/27/16 07/28/16 17:25 23:05 06:35 CK-MB (CK-2) 16.80 H Troponin I 0.074 0.088 0.078 NT-Pro-B Natriuret Pep 3290 H 2660 H 07/31/16 04:45 CK-MB (CK-2) Troponin I NT-Pro-B Natriuret Pep 6350 H Impressions: KUB X-Ray 07/28/16 08:54 IMPRESSION: Appropriate location of nasogastric tube. Decompressed stomach. Thoracentesis Ultrasound 07/30/16 00:00 IMPRESSION: SUCCESSFUL THORACENTESIS USING ULTRASOUND GUIDANCE. Chest/Abdomen CTA 07/30/16 08:00 IMPRESSION: Moderate to large right pleural effusion. Small left effusion. Bibasilar infiltrate consistent with atelectasis or pneumonia. No pulmonary emboli. Chest X-Ray 08/01/16 06:00 IMPRESSION: Increasing density on the right as noted above with interval increase in size of the right pleural effusion. I cannot exclude some underlying atelectasis or infiltrate in the right mid and lower lung field. Other findings as noted above. 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 Currently maintaining blood pressure in satisfactory range. Hypotension combination of metabolic, sepsis and cardiac cause. Respiratory failure: Continue current ventilator management. Recorder Helper Seismograph following. Heart failure: Acute on chronic, diastolic versus systolic, currently seems euvolemic. Observe patient very closely. Cardiac dysrhythmia: Patient has history of paroxysmal atrial fibrillation and also other cardiac dysrhythmia. Currently stable. Will continue to monitor. Keep electrolytes within normal range. Patient started on ELIQUIS therapy. Sepsis: Continue antibiotic therapy. Overall prognosis guarded. - Time Time with patient: 15-25 minutes - CODE STATUS was discussed, patient remains full code. Surrogate decision-maker unchanged. Multiple medical problems were addressed.More than 50% of the time spent coordinating care, discussing management plans with involved caregivers. Management plans discussed with involved personnels. Medical decision making was of moderate complexity.
[2016-08-01 20:19] LABS: APPEARANCE,URINE SLIGHTLY-CLOUDY; BILIRUBIN,URINE NEGATIVE (NEGATIVE); GLUCOSE, URINE 50 mg/dL (NEGATIVE); KETONES,URINE NEGATIVE (NEGATIVE); LEUKOCYTE ESTERASE,URINE NEGATIVE (NEGATIVE); NITRITE,URINE NEGATIVE (NEGATIVE); PROTEIN,URINE NEGATIVE (NEGATIVE); URINE SPECIFIC GRAVITY 1.006; UROBILINOGEN,URINE NEGATIVE mg/dL (<2.0)
[2016-08-01] MEDS: POTASSI CL 20 MEQ/D5-1/2NS 1L 1,000 ML IV PRN (22:08)
[2016-08-01] MEDS: VANCOMYCIN HCL 1,250 MG in DEXTROSE 5%-WATER 250 ML IV SCH (22:09)
[2016-08-01] MEDS: LEVOFLOXACIN 750 MG/D5W RTU 750 MG/150 ML RTUPB IV SCH (22:11)
[2016-08-01] MEDS: FUROSEMIDE INJ/PF 20 MG/2 ML SDV IV SCH (22:12)
[2016-08-02] MEDS: ALBUTEROL SULFATE HFA (90 MCG/PUFF) 200 PUFF/8.5 GM MDI IH SCH ×5 (00:31→23:11)
[2016-08-02] MEDS: HYDROCORTISONE SOD SUCCINATE INJ/PF 100 MG/2 ML SDV IV SCH ×3 (05:31→21:37)
[2016-08-02 05:38] LABS: HEMATOCRIT 25.7 % (36.0-47.0); HEMOGLOBIN 8.6 g/dL (12.0-15.5); HGB HCT DIFFERENCE 0.1; MEAN CORPUSCULAR HEMOGLOBIN 29.2 pg (27.0-33.4); MEAN CORPUSCULAR HGB CONC 33.5 g/dL (32.0-36.0); MEAN CORPUSCULAR VOLUME 87 fl (80-97); RED BLOOD COUNT 2.95 10^6/uL (3.72-5.28); RED CELL DISTRIBUTION WIDTH 13.9 % (11.5-14.0); WHITE BLOOD COUNT 13.9 10^3/uL (4.0-10.5)
[2016-08-02 05:41] LABS: ARTERIAL BLOOD BASE EXCESS 6.7 mmol/L; ARTERIAL BLOOD O2 SATURATION 95.4 % (94-98)
[2016-08-02 05:54] LABS: ALANINE AMINOTRANSFERASE 51 U/L (9-52); ALBUMIN 2.6 g/dL (3.5-5.0); ALKALINE PHOSPHATASE 86 U/L (38-126); ANION GAP 9 (5-19); ASPARTATE AMINO TRANSFERASE 44 U/L (14-36); BILIRUBIN,TOTAL 0.3 mg/dL (0.2-1.3); BLOOD UREA NITROGEN 21 mg/dL (7-20); CALCIUM 8.5 mg/dL (8.4-10.2); CARBON DIOXIDE 32 mmol/L (22-30); CHLORIDE 103 mmol/L (98-107); CREATININE RESULT 0.79 mg/dL (0.52-1.25); GLUCOSE 196 mg/dL (75-110); MAGNESIUM 1.7 mg/dL (1.6-2.3); POTASSIUM 3.1 mmol/L (3.6-5.0); SODIUM 144.1 mmol/L (137-145); TOTAL PROTEIN 5.8 g/dL (6.3-8.2)
[2016-08-02] MEDS: POTASSIUM CHLORIDE 20 MEQ/50 ML RTU IV SCH ×3 (06:31→11:47)
[2016-08-02] MEDS: LANSOPRAZOLE 30 MG TAB.RAP.DR NG SCH (07:53)
--- NOTE | 2016-08-02 08:21 | PDOC PROGRESS REPORT ---
Subjective Progress Note for:: 08/02/16 Subjective:: Patient is still a intubated mechanically ventilated She appears quite stable No fever She still somewhat fluid overloaded Physical Exam Vital Signs: Temp Pulse Resp BP Pulse Ox 98.4 F 83 19 127/65 H 99 08/02/16 08:00 08/02/16 08:00 08/02/16 08:00 08/02/16 08:00 08/02/16 08:00 Intake & Output 08/01/16 08/02/16 08/03/16 00:59 00:59 00:59 Intake Total 4004 5029 2042 Output Total 4825 4550 2150 Balance -821 479 -108 Weight 80.3 kg 79.1 kg 77.6 kg General appearance: PRESENT: no acute distress Eye exam: PRESENT: conjunctiva pale Ear exam: PRESENT: normal external ear exam Neck exam: ABSENT: carotid bruit, JVD, lymphadenopathy, thyromegaly Respiratory exam: PRESENT: decreased breath sounds. ABSENT: rales, rhonchi Cardiovascular exam: PRESENT: RRR. ABSENT: diastolic murmur, rubs, systolic murmur GI/Abdominal exam: PRESENT: normal bowel sounds, soft. ABSENT: distended, guarding, mass, organolmegaly, rebound, tenderness Neurological exam: PRESENT: other - Patient is sedated, unable to evaluate Results Laboratory Results: 08/02/16 05:20 08/02/16 05:20 07/30/16 07/30/16 07/30/16 14:20 14:20 14:20 WBC RBC Hgb Hct MCV MCH MCHC RDW Plt Count Carbonic Acid HCO3/H2CO3 Ratio ABG pH ABG pCO2 ABG pO2 ABG HCO3 ABG O2 Saturation ABG Base Excess FiO2 Sodium Potassium Chloride Carbon Dioxide Anion Gap BUN Creatinine Est GFR ( Amer) Est GFR (Non-Af Amer) Glucose Calcium Magnesium Total Bilirubin AST ALT Alkaline Phosphatase Total Protein Albumin Urine Color Urine Appearance Urine pH Ur Specific [place] Urine Protein Urine Glucose (UA) Urine Ketones Urine Blood Urine Nitrite Ur Leukocyte Esterase Urine WBC (Auto) Urine RBC (Auto) Fluid Glucose Fluid Total Protein 3.2 Fluid LDH 216 Fluid Amylase 16 07/30/16 08/01/16 08/02/16 14:20 19:55 05:20 WBC RBC Hgb Hct MCV MCH MCHC RDW Plt Count Carbonic Acid 1.36 H HCO3/H2CO3 Ratio 23:1 ABG pH 7.46 H ABG pCO2 45.3 H ABG pO2 74.0 L ABG HCO3 31.3 H ABG O2 Saturation 95.4 ABG Base Excess 6.7 FiO2 35% Sodium Potassium Chloride Carbon Dioxide Anion Gap BUN Creatinine Est GFR ( Amer) Est GFR (Non-Af Amer) Glucose Calcium Magnesium Total Bilirubin AST ALT Alkaline Phosphatase Total Protein Albumin Urine Color YELLOW Urine Appearance SLIGHTLY-CLOUDY Urine pH 6.[address] Ur Specific [place] 1.006 Urine Protein NEGATIVE Urine Glucose (UA) 50 H Urine Ketones NEGATIVE Urine Blood SMALL H Urine Nitrite NEGATIVE Ur Leukocyte Esterase NEGATIVE Urine WBC (Auto) 14 Urine RBC (Auto) 8 Fluid Glucose 108 Fluid Total Protein Fluid LDH Fluid Amylase 08/02/16 08/02/16 05:20 05:20 WBC 13.9 H RBC 2.95 L Hgb 8.6 L Hct 25.7 L MCV 87 MCH 29.2 MCHC 33.5 RDW 13.9 Plt Count 205 Carbonic Acid HCO3/H2CO3 Ratio ABG pH ABG pCO2 ABG pO2 ABG HCO3 ABG O2 Saturation ABG Base Excess FiO2 Sodium 144.1 Potassium 3.1 L Chloride 103 Carbon Dioxide 32 H Anion Gap 9 BUN 21 H Creatinine 0.79 Est GFR ( Amer) > 60 Est GFR (Non-Af Amer) > 60 Glucose 196 H Calcium 8.5 Magnesium 1.7 Total Bilirubin 0.3 AST 44 H ALT 51 Alkaline Phosphatase 86 Total Protein 5.8 L Albumin 2.6 L Urine Color Urine Appearance Urine pH Ur Specific [place] Urine Protein Urine Glucose (UA) Urine Ketones Urine Blood Urine Nitrite Ur Leukocyte Esterase Urine WBC (Auto) Urine RBC (Auto) Fluid Glucose Fluid Total Protein Fluid LDH Fluid Amylase 07/27/16 16:45 Blood Blood Culture - Final NO GROWTH IN 5 DAYS 07/27/16 07/27/16 07/28/16 17:25 23:05 06:35 CK-MB (CK-2) 16.80 H Troponin I 0.074 0.088 0.078 NT-Pro-B Natriuret Pep 3290 H 2660 H 07/31/16 04:45 CK-MB (CK-2) Troponin I NT-Pro-B Natriuret Pep 6350 H Impressions: KUB X-Ray 07/28/16 08:54 IMPRESSION: Appropriate location of nasogastric tube. Decompressed stomach. Thoracentesis Ultrasound 07/30/16 00:00 IMPRESSION: SUCCESSFUL THORACENTESIS USING ULTRASOUND GUIDANCE. Chest/Abdomen CTA 07/30/16 08:00 IMPRESSION: Moderate to large right pleural effusion. Small left effusion. Bibasilar infiltrate consistent with atelectasis or pneumonia. No pulmonary emboli. Chest X-Ray 08/02/16 06:00 IMPRESSION: Bibasilar opacity -effusion. Lines and tubes. 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 Rodriguez;
[2016-08-02] MEDS: PROPOFOL 100 ML IV PRN (08:34)
[2016-08-02] MEDS: CEFEPIME HCL 2 GM in DEXTROSE 5%-WATER 50 ML IV SCH ×2 (09:54→21:34)
[2016-08-02] MEDS: APIXABAN 2.5 MG TABLET PO SCH ×2 (09:55→17:58)
[2016-08-02] MEDS: FUROSEMIDE INJ/PF 20 MG/2 ML SDV IV SCH ×2 (09:56→21:36)
--- NOTE | 2016-08-02 11:49 | PDOC PROGRESS REPORT ---
Subjective Progress Note for:: 08/02/16 Subjective:: Intubated and sedated Physical Exam Vital Signs: Temp Pulse Resp BP Pulse Ox 98.4 F 83 19 127/65 H 99 08/02/16 08:00 08/02/16 08:00 08/02/16 08:00 08/02/16 08:00 08/02/16 08:00 Intake & Output 08/01/16 08/02/16 08/03/16 06:59 06:59 06:59 Intake Total 5194 3652 Output Total 4663 5900 Balance 519 -2246 Weight 79.1 kg 77.6 kg General appearance: PRESENT: no acute distress, disheveled, obese Head exam: PRESENT: atraumatic, normocephalic Eye exam: PRESENT: conjunctiva pale Mouth exam: PRESENT: moist, neck supple, tongue midline, other - Endotracheal tube in place Neck exam: ABSENT: carotid bruit, JVD, lymphadenopathy, thyromegaly Respiratory exam: PRESENT: decreased breath sounds, prolonged expiratory phas, rhonchi, symmetrical, unlabored Cardiovascular exam: PRESENT: RRR, +S1, +S2 Pulses: PRESENT: normal radial pulses GI/Abdominal exam: PRESENT: normal bowel sounds, soft. ABSENT: distended, guarding, mass, organolmegaly, rebound, tenderness Rectal exam: PRESENT: deferred Gentrourinary exam: PRESENT: indwelling catheter Musculoskeletal exam: PRESENT: normal inspection Skin exam: PRESENT: dry, warm Results Laboratory Results: 08/02/16 05:20 08/02/16 05:20 07/30/16 07/30/16 07/30/16 14:20 14:20 14:20 WBC RBC Hgb Hct MCV MCH MCHC RDW Plt Count Carbonic Acid HCO3/H2CO3 Ratio ABG pH ABG pCO2 ABG pO2 ABG HCO3 ABG O2 Saturation ABG Base Excess FiO2 Sodium Potassium Chloride Carbon Dioxide Anion Gap BUN Creatinine Est GFR ( Amer) Est GFR (Non-Af Amer) Glucose Calcium Magnesium Total Bilirubin AST ALT Alkaline Phosphatase Total Protein Albumin Urine Color Urine Appearance Urine pH Ur Specific [place] Urine Protein Urine Glucose (UA) Urine Ketones Urine Blood Urine Nitrite Ur Leukocyte Esterase Urine WBC (Auto) Urine RBC (Auto) Fluid Glucose Fluid Total Protein 3.2 Fluid LDH 216 Fluid Amylase 16 07/30/16 08/01/16 08/02/16 14:20 19:55 05:20 WBC RBC Hgb Hct MCV MCH MCHC RDW Plt Count Carbonic Acid 1.36 H HCO3/H2CO3 Ratio 23:1 ABG pH 7.46 H ABG pCO2 45.3 H ABG pO2 74.0 L ABG HCO3 31.3 H ABG O2 Saturation 95.4 ABG Base Excess 6.7 FiO2 35% Sodium Potassium Chloride Carbon Dioxide Anion Gap BUN Creatinine Est GFR ( Amer) Est GFR (Non-Af Amer) Glucose Calcium Magnesium Total Bilirubin AST ALT Alkaline Phosphatase Total Protein Albumin Urine Color YELLOW Urine Appearance SLIGHTLY-CLOUDY Urine pH 6.0 Ur Specific [place] 1.006 Urine Protein NEGATIVE Urine Glucose (UA) 50 H Urine Ketones NEGATIVE Urine Blood SMALL H Urine Nitrite NEGATIVE Ur Leukocyte Esterase NEGATIVE Urine WBC (Auto) 14 Urine RBC (Auto) 8 Fluid Glucose 108 Fluid Total Protein Fluid LDH Fluid Amylase 08/02/16 08/02/16 05:20 05:20 WBC 13.9 H RBC 2.95 L Hgb 8.6 L Hct 25.7 L MCV 87 MCH 29.2 MCHC 33.5 RDW 13.9 Plt Count 205 Carbonic Acid HCO3/H2CO3 Ratio ABG pH ABG pCO2 ABG pO2 ABG HCO3 ABG O2 Saturation ABG Base Excess FiO2 Sodium 144.1 Potassium 3.1 L Chloride 103 Carbon Dioxide 32 H Anion Gap 9 BUN 21 H Creatinine 0.79 Est GFR ( Amer) > 60 Est GFR (Non-Af Amer) > 60 Glucose 196 H Calcium 8.5 Magnesium 1.7 Total Bilirubin 0.3 AST 44 H ALT 51 Alkaline Phosphatase 86 Total Protein 5.8 L Albumin 2.6 L Urine Color Urine Appearance Urine pH Ur Specific [place] Urine Protein Urine Glucose (UA) Urine Ketones Urine Blood Urine Nitrite Ur Leukocyte Esterase Urine WBC (Auto) Urine RBC (Auto) Fluid Glucose Fluid Total Protein Fluid LDH Fluid Amylase 07/27/16 16:45 Blood Blood Culture - Final NO GROWTH IN 5 DAYS 07/27/16 07/27/16 07/28/16 17:25 23:05 06:35 CK-MB (CK-2) 16.80 H Troponin I 0.074 0.088 0.078 NT-Pro-B Natriuret Pep 3290 H 2660 H 07/31/16 04:45 CK-MB (CK-2) Troponin I NT-Pro-B Natriuret Pep 6350 H Impressions: KUB X-Ray 07/28/16 08:54 IMPRESSION: Appropriate location of nasogastric tube. Decompressed stomach. Thoracentesis Ultrasound 07/30/16 00:00 IMPRESSION: SUCCESSFUL THORACENTESIS USING ULTRASOUND GUIDANCE. Chest/Abdomen CTA 07/30/16 08:00 IMPRESSION: Moderate to large right pleural effusion. Small left effusion. Bibasilar infiltrate consistent with atelectasis or pneumonia. No pulmonary emboli. Chest X-Ray 08/02/16 06:00 IMPRESSION: Bibasilar opacity -effusion. Lines and tubes. Assessment & Plan - Diagnosis (1) Acute kidney injury Is this a current diagnosis for this admission?: NoPlan: Improved (2) Respiratory failure requiring intubation Is this a current diagnosis for this admission?: YesPlan: Respiratory rate, FiO2, minute ventilation and airway pressures all suggest a successful extubation we will proceed with extubation (3) Septic shock Is this a current diagnosis for this admission?: YesPlan: continue vasopressor support - Time Critical Time spent with patient: 35 or more minutes - 55 minutes extubation
[2016-08-02] MEDS: POTASSI CL 20 MEQ/D5-1/2NS 1L 1,000 ML IV PRN (13:18)
[2016-08-02] MEDS: ASPIRIN 300 MG SUPP, RECTAL PR SCH (17:58)
--- NOTE | 2016-08-02 20:24 | PDOC PROGRESS REPORT ---
Subjective Progress Note for:: 08/02/16 Subjective:: Patient has made significant improvement in her general condition. She is currently extubated and tolerating extubation well. She is off Yohan-Synephrine and dopamine drip.. Telemetry shows mild sinus tachycardia with occasional APCs and VPCs. Patient was switched over to ELIQUIS. 2.5 mg by mouth twice a day, which she seems to be tolerating well. Medications reviewed. Physical Exam Vital Signs: Temp Pulse Resp BP Pulse Ox 98.6 F 93 15 116/60 100 08/02/16 19:36 08/02/16 18:00 08/02/16 18:00 08/02/16 18:00 08/02/16 18:00 Intake & Output 08/01/16 08/02/16 08/03/16 06:59 06:59 06:59 Intake Total 5194 3652 1285 Output Total 4675 5900 5 Balance 887 -0097 -740 Weight 79.1 kg 77.6 kg Exam: GENERAL: well-nourished and in no acute distress. Patient is alert but seems confused HEAD: Atraumatic, normocephalic. EYES: Pupils equal round and reactive to light, extraocular movements intact, sclera anicteric, conjunctiva are normal. ENT: TMs normal, nares patent, oropharynx clear without exudates. Moist mucous membranes. No oral ulcerations or bleeding gums noted NECK: supple without lymphadenopathy or JVD. Trachea is central. No cervical or axillary lymphadenopathy noted. Carotids are 2+ LUNGS: Breath sounds bibasilar fine crackles at bases. Mild bilateral basal dullness noted. CHEST: Palpation of chest wall shows no significant chest wall tenderness. 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 ABDOMEN: Soft, no significant tenderness appreciated, normoactive bowel sounds. No guarding, no rebound. No rigidity noted . No masses appreciated. EXTREMITIES: Pedal pulses are 1-2+, no calf tenderness noted, Trace + pedal edema noted. No clubbing or cyanosis. NEUROLOGICAL: Patient is alert but is not able to participate in neurological exam because of patient's current mental status PSYCH: Patient cannot participate in a neurologic and psych exam because of the patient's current mental status SKIN: No significant ecchymosis, rash, ulcerations or signs of pruritus noted. MUSCULOSKELETAL EXAM: No significant joint swelling noted. Results Laboratory Results: 08/02/16 05:20 08/02/16 05:20 08/01/16 08/02/16 08/02/16 19:55 05:20 05:20 WBC RBC Hgb Hct MCV MCH MCHC RDW Plt Count Carbonic Acid 1.36 H HCO3/H2CO3 Ratio 23:1 ABG pH 7.46 H ABG pCO2 45.3 H ABG pO2 74.0 L ABG HCO3 31.3 H ABG O2 Saturation 95.4 ABG Base Excess 6.7 FiO2 35% Sodium 144.1 Potassium 3.1 L Chloride 103 Carbon Dioxide 32 H Anion Gap 9 BUN 21 H Creatinine 0.79 Est GFR ( Amer) > 60 Est GFR (Non-Af Amer) > 60 Glucose 196 H Calcium 8.5 Magnesium 1.7 Total Bilirubin 0.3 AST 44 H ALT 51 Alkaline Phosphatase 86 Total Protein 5.8 L Albumin 2.6 L Urine Color YELLOW Urine Appearance SLIGHTLY-CLOUDY Urine pH 6.0 Ur Specific [place] 1.006 Urine Protein NEGATIVE Urine Glucose (UA) 50 H Urine Ketones NEGATIVE Urine Blood SMALL H Urine Nitrite NEGATIVE Ur Leukocyte Esterase NEGATIVE Urine WBC (Auto) 14 Urine RBC (Auto) 8 08/02/16 05:20 WBC 13.9 H RBC 2.95 L Hgb 8.6 L Hct 25.7 L MCV 87 MCH 29.2 MCHC 33.5 RDW 13.9 Plt Count 205 Carbonic Acid HCO3/H2CO3 Ratio ABG pH ABG pCO2 ABG pO2 ABG HCO3 ABG O2 Saturation ABG Base Excess FiO2 Sodium Potassium Chloride Carbon Dioxide Anion Gap BUN Creatinine Est GFR ( Amer) Est GFR (Non-Af Amer) Glucose Calcium Magnesium Total Bilirubin AST ALT Alkaline Phosphatase Total Protein Albumin Urine Color Urine Appearance Urine pH Ur Specific [place] Urine Protein Urine Glucose (UA) Urine Ketones Urine Blood Urine Nitrite Ur Leukocyte Esterase Urine WBC (Auto) Urine RBC (Auto) 07/27/16 16:45 Blood Blood Culture - Final NO GROWTH IN 5 DAYS 07/27/16 07/27/16 07/28/16 17:25 23:05 06:35 CK-MB (CK-2) 16.80 H Troponin I 0.074 0.088 0.078 NT-Pro-B Natriuret Pep 3290 H 2660 H 07/31/16 04:45 CK-MB (CK-2) Troponin I NT-Pro-B Natriuret Pep 6350 H Impressions: KUB X-Ray 07/28/16 08:54 IMPRESSION: Appropriate location of nasogastric tube. Decompressed stomach. Thoracentesis Ultrasound 07/30/16 00:00 IMPRESSION: SUCCESSFUL THORACENTESIS USING ULTRASOUND GUIDANCE. Chest/Abdomen CTA 07/30/16 08:00 IMPRESSION: Moderate to large right pleural effusion. Small left effusion. Bibasilar infiltrate consistent with atelectasis or pneumonia. No pulmonary emboli. Chest X-Ray 08/02/16 06:00 IMPRESSION: Bibasilar opacity -effusion. Lines and tubes. 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 Qualifiers: Congestive heart failure chronicity: acute on chronic Qualified Code (s): I50.43 - Acute on chronic combined systolic (congestive) and diastolic ( congestive) heart failure Is this a current diagnosis for this admission?: Yes (4) Cardiac dysrhythmia, unspecified Qualifiers: Arrhythmia type: atrial fibrillation Atrial fibrillation type: paroxysmal Qualified Code(s): I48.0 - Paroxysmal atrial fibrillation Is this a current diagnosis for this admission?: Yes (5) Sepsis Qualifiers: Sepsis type: sepsis due to unspecified organism Qualified Code(s): A41.9 - Sepsis, unspecified organism Is this a current diagnosis for this admission?: Yes - Notes Notes: Hypotension: Resolved. Patient off vasopressors. Respiratory failure: Improved. Patient post extubation and is noted to have easy breathing. Monitor oxygenation and respiration. CHF: Currently compensated. Continue baseline diuretics, monitor intake output , daily fluid balance, weight and also salt and fluid restriction. Cardiac dysrhythmia: Currently stable. Sepsis: This has improved. - Time Time with patient: 15-25 minutes - CODE STATUS was discussed, patient remains full code. Surrogate decision-maker unchanged. Multiple medical problems were addressed.More than 50% of the time spent coordinating care, discussing management plans with involved caregivers. Management plans discussed with involved personnels. Medical decision making was of moderate complexity.
[2016-08-02] MEDS: LEVOFLOXACIN 750 MG/D5W RTU 750 MG/150 ML RTUPB IV SCH (21:35)
[2016-08-02] MEDS: VANCOMYCIN HCL 1,250 MG in DEXTROSE 5%-WATER 250 ML IV SCH (21:36)
[2016-08-03] MEDS: POTASSI CL 20 MEQ/D5-1/2NS 1L 1,000 ML IV PRN ×2 (04:35→18:13)
[2016-08-03 05:17] LABS: ARTERIAL BLOOD BASE EXCESS 7.3 mmol/L; ARTERIAL BLOOD O2 SATURATION 97.9 % (94-98); HEMATOCRIT 25.9 % (36.0-47.0); HEMOGLOBIN 8.6 g/dL (12.0-15.5); HGB HCT DIFFERENCE -0.1; MEAN CORPUSCULAR HGB CONC 33.1 g/dL (32.0-36.0); MEAN CORPUSCULAR VOLUME 87 fl (80-97); RED BLOOD COUNT 2.96 10^6/uL (3.72-5.28); RED CELL DISTRIBUTION WIDTH 13.8 % (11.5-14.0); WHITE BLOOD COUNT 14.2 10^3/uL (4.0-10.5)
[2016-08-03 05:40] LABS: ANION GAP 7 (5-19); BLOOD UREA NITROGEN 25 mg/dL (7-20); CALCIUM 8.5 mg/dL (8.4-10.2); CARBON DIOXIDE 33 mmol/L (22-30); CHLORIDE 103 mmol/L (98-107); GLUCOSE 127 mg/dL (75-110); MAGNESIUM 1.7 mg/dL (1.6-2.3); PHOSPHORUS 2.7 mg/dL (2.5-4.5); POTASSIUM 3.8 mmol/L (3.6-5.0); SODIUM 143.3 mmol/L (137-145)
[2016-08-03] MEDS: HYDROCORTISONE SOD SUCCINATE INJ/PF 100 MG/2 ML SDV IV SCH ×3 (05:48→22:21)
[2016-08-03] MEDS: ALBUTEROL SULFATE HFA (90 MCG/PUFF) 200 PUFF/8.5 GM MDI IH SCH ×4 (05:49→23:58)
[2016-08-03] MEDS: LANSOPRAZOLE 30 MG TAB.RAP.DR NG SCH (08:18)
--- NOTE | 2016-08-03 08:39 | PDOC PROGRESS REPORT ---
Subjective Progress Note for:: 08/03/16 Subjective:: Patient was successfully extubated yesterday She still cannot swallow adequately and coughs She was kept nothing by mouth a swallow and speech evaluation will take place She seems still quite drowsy or speech is slurred but she appears in no respiratory distress comfortable And is oxygenating adequately on the nasal cannula no fever no chills Central line has to be pulled about 6 cm Physical Exam Vital Signs: Temp Pulse Resp BP Pulse Ox 98.8 F 93 15 108/67 100 08/03/16 08:05 08/02/16 20:00 08/03/16 08:05 08/03/16 07:36 08/03/16 08:05 Intake & Output 08/02/16 08/03/16 08/04/16 00:59 00:59 00:59 Intake Total 5025 3329 1148 Output Total 7220 4875 575 Balance 479 -2549 573 Weight 79.1 kg 77.6 kg 75.1 kg General appearance: PRESENT: no acute distress Head exam: PRESENT: atraumatic, normocephalic Eye exam: PRESENT: conjunctiva pale Neck exam: ABSENT: carotid bruit, JVD, lymphadenopathy, thyromegaly Respiratory exam: PRESENT: decreased breath sounds, symmetrical, other. ABSENT : accessory muscle use, chest wall tenderness, tachypnea, wheezes Cardiovascular exam: PRESENT: tachycardia. ABSENT: diastolic murmur, systolic murmur Pulses: PRESENT: normal dorsalis pedis pul Extremities exam: PRESENT: +1 edema Neurological exam: PRESENT: awake, CN II-XII grossly intact Results Laboratory Results: 08/03/16 04:55 08/03/16 04:55 08/03/16 08/03/16 08/03/16 02:05 04:55 04:55 WBC RBC Hgb Hct MCV MCH MCHC RDW Plt Count Carbonic Acid 1.43 H HCO3/H2CO3 Ratio 22:1 ABG pH 7.45 ABG pCO2 47.4 H ABG pO2 102.9 H ABG HCO3 32.2 H ABG O2 Saturation 97.9 ABG Base Excess 7.3 FiO2 3L Sodium 143.3 Potassium 3.8 Chloride 103 Carbon Dioxide 33 H Anion Gap 7 BUN 25 H Creatinine 0.80 Est GFR ( Amer) > 60 Est GFR (Non-Af Amer) > 60 Glucose 127 H Calcium 8.5 Phosphorus 2.7 Magnesium 1.7 Stool Occult Blood POSITIVE 08/03/16 04:55 WBC 14.2 H RBC 2.96 L Hgb 8.6 L Hct 25.9 L MCV 87 MCH 29.0 MCHC 33.1 RDW 13.8 Plt Count 173 Carbonic Acid HCO3/H2CO3 Ratio ABG pH ABG pCO2 ABG pO2 ABG HCO3 ABG O2 Saturation ABG Base Excess FiO2 Sodium Potassium Chloride Carbon Dioxide Anion Gap BUN Creatinine Est GFR ( Amer) Est GFR (Non-Af Amer) Glucose Calcium Phosphorus Magnesium Stool Occult Blood 07/27/16 07/27/16 07/28/16 17:25 23:05 06:35 CK-MB (CK-2) 16.80 H Troponin I 0.074 0.088 0.078 NT-Pro-B Natriuret Pep 3290 H 2660 H 07/31/16 04:45 CK-MB (CK-2) Troponin I NT-Pro-B Natriuret Pep 6350 H Impressions: KUB X-Ray 07/28/16 08:54 IMPRESSION: Appropriate location of nasogastric tube. Decompressed stomach. Thoracentesis Ultrasound 07/30/16 00:00 IMPRESSION: SUCCESSFUL THORACENTESIS USING ULTRASOUND GUIDANCE. Chest/Abdomen CTA 07/30/16 08:00 IMPRESSION: Moderate to large right pleural effusion. Small left effusion. Bibasilar infiltrate consistent with atelectasis or pneumonia. No pulmonary emboli. Chest X-Ray 08/03/16 06:00 IMPRESSION: Stable moderate bibasilar opacity/fluid. Assessment & Plan - Diagnosis (1) Sepsis Qualifiers: Sepsis type: sepsis due to unspecified organism Qualified Code(s): A41.9 - Sepsis, unspecified organism Is this a current diagnosis for this admission?: YesPlan: Has resolved Sepsis was secondary to pneumonia No cultures came back positive We discontinued vancomycin as there was no evidence of MRSA infection (2) Parapneumonic effusion Is this a current diagnosis for this admission?: YesPlan: there is a large right pleural effusion Likely pneumonia and effusion We will increase Lasix as the patient is fluid overloaded And follow-up chest x-rays Patient may need a thoracentesis if the effusion does not clear (3) Ischemic cardiomyopathy Is this a current diagnosis for this admission?: YesPlan: Patient's blood pressure is still was soft to resume beta blockers and LUIS inhibitors ; patient is still somewhat tachycardic At this time she still fluid overloaded (4) Pneumonia Qualifiers: Pneumonia type: due to unspecified organism Laterality: bilateral Lung location: unspecified part of lung Qualified Code(s): J18.9 - Pneumonia, unspecified organism Is this a current diagnosis for this admission?: YesPlan: Continue cefepime and Levaquin (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 Qualifiers: Congestive heart failure chronicity: acute on chronic Qualified Code (s): I50.43 - Acute on chronic combined systolic (congestive) and diastolic ( congestive) heart failure Is this a current diagnosis for this admission?: Yes (6) Fluid overload Is this a current diagnosis for this admission?: YesPlan: Continue Lasix IV We will add IV albumin to increase diuresis (7) Hypoalbuminemia Is this a current diagnosis for this admission?: YesPlan: Secondary to malnutrition Unfortunately patient's has to be nothing by mouth today she's not able to swallow (8) Chronic a-fib Is this a current diagnosis for this admission?: YesPlan: Continue anticoagulation If patient cannot take by mouth Eliquis we will consider switching her to Lovenox subcutaneous; awaiting speech evaluation - Time Time Spent with patient: 25-34 minutes
--- NOTE | 2016-08-03 09:09 | PDOC PROGRESS REPORT ---
Subjective Progress Note for:: 08/03/16 Subjective:: 24 hrs s/p extubation doing ok Physical Exam Vital Signs: Temp Pulse Resp BP Pulse Ox 98.8 F 93 15 108/67 100 08/03/16 08:05 08/02/16 20:00 08/03/16 08:05 08/03/16 07:36 08/03/16 08:05 Intake & Output 08/02/16 08/03/16 08/04/16 06:59 06:59 06:59 Intake Total 3652 2433 Output Total 590 3300 Balance -2248 -867 Weight 77.6 kg 75.1 kg General appearance: PRESENT: no acute distress, disheveled, obese Head exam: PRESENT: atraumatic, normocephalic Eye exam: PRESENT: conjunctiva pale, EOMI Neck exam: ABSENT: carotid bruit, JVD, lymphadenopathy, thyromegaly Respiratory exam: PRESENT: decreased breath sounds, prolonged expiratory phas, rhonchi, symmetrical, unlabored Cardiovascular exam: PRESENT: RRR, +S1 Pulses: PRESENT: normal radial pulses GI/Abdominal exam: PRESENT: normal bowel sounds, soft. ABSENT: distended, guarding, mass, organolmegaly, rebound, tenderness Rectal exam: PRESENT: deferred Gentrourinary exam: PRESENT: indwelling catheter Musculoskeletal exam: PRESENT: normal inspection Neurological exam: PRESENT: awake Psychiatric exam: PRESENT: flat affect Skin exam: PRESENT: dry, intact, warm Results Laboratory Results: 08/03/16 04:55 08/03/16 04:55 08/03/16 08/03/16 08/03/16 02:05 04:55 04:55 WBC RBC Hgb Hct MCV MCH MCHC RDW Plt Count Carbonic Acid 1.43 H HCO3/H2CO3 Ratio 22:1 ABG pH 7.45 ABG pCO2 47.4 H ABG pO2 102.9 H ABG HCO3 32.2 H ABG O2 Saturation 97.9 ABG Base Excess 7.3 FiO2 3L Sodium 143.3 Potassium 3.8 Chloride 103 Carbon Dioxide 33 H Anion Gap 7 BUN 25 H Creatinine 0.80 Est GFR ( Amer) > 60 Est GFR (Non-Af Amer) > 60 Glucose 127 H Calcium 8.5 Phosphorus 2.7 Magnesium 1.7 Stool Occult Blood POSITIVE 08/03/16 04:55 WBC 14.2 H RBC 2.96 L Hgb 8.6 L Hct 25.9 L MCV 87 MCH 29.0 MCHC 33.1 RDW 13.8 Plt Count 173 Carbonic Acid HCO3/H2CO3 Ratio ABG pH ABG pCO2 ABG pO2 ABG HCO3 ABG O2 Saturation ABG Base Excess FiO2 Sodium Potassium Chloride Carbon Dioxide Anion Gap BUN Creatinine Est GFR ( Amer) Est GFR (Non-Af Amer) Glucose Calcium Phosphorus Magnesium Stool Occult Blood 07/27/16 07/27/16 07/28/16 17:25 23:05 06:35 CK-MB (CK-2) 16.80 H Troponin I 0.074 0.088 0.078 NT-Pro-B Natriuret Pep 3290 H 2660 H 07/31/16 04:45 CK-MB (CK-2) Troponin I NT-Pro-B Natriuret Pep 6350 H Impressions: KUB X-Ray 07/28/16 08:54 IMPRESSION: Appropriate location of nasogastric tube. Decompressed stomach. Thoracentesis Ultrasound 07/30/16 00:00 IMPRESSION: SUCCESSFUL THORACENTESIS USING ULTRASOUND GUIDANCE. Chest/Abdomen CTA 07/30/16 08:00 IMPRESSION: Moderate to large right pleural effusion. Small left effusion. Bibasilar infiltrate consistent with atelectasis or pneumonia. No pulmonary emboli. Chest X-Ray 08/03/16 06:00 IMPRESSION: Stable moderate bibasilar opacity/fluid. Assessment & Plan - Diagnosis (1) Acute kidney injury Is this a current diagnosis for this admission?: No (2) Respiratory failure requiring intubation Is this a current diagnosis for this admission?: YesPlan: 24 h s/p extubation failed swallow test (3) Septic shock Is this a current diagnosis for this admission?: YesPlan: continue vasopressor support - Time Critical Time spent with patient: 25-34 minutes
[2016-08-03] MEDS: APIXABAN 2.5 MG TABLET PO SCH ×2 (09:29→17:19)
[2016-08-03] MEDS: FUROSEMIDE INJ/PF 20 MG/2 ML SDV IV SCH ×2 (09:29→22:21)
[2016-08-03] MEDS: ALBUMIN HUMAN 50 ML IV SCH ×2 (09:30→22:21)
[2016-08-03] MEDS: CEFEPIME HCL 2 GM in DEXTROSE 5%-WATER 50 ML IV SCH ×2 (09:30→22:22)
[2016-08-03] MEDS ORDERED: ASPIRIN 81 MG TABLET, ENT COATED PO ONE (14:00)
[2016-08-03] MEDS: NORMAL SALINE INJ/PF 0.9% 10 ML SDV IV PRN ×2 (14:19→14:20)
[2016-08-03 16:03] LABS: APPEARANCE,URINE SLIGHTLY-CLOUDY; BILIRUBIN,URINE NEGATIVE (NEGATIVE); GLUCOSE, URINE NEGATIVE (NEGATIVE); KETONES,URINE NEGATIVE (NEGATIVE); LEUKOCYTE ESTERASE,URINE TRACE (NEGATIVE); NITRITE,URINE NEGATIVE (NEGATIVE); PROTEIN,URINE 100 mg/dL (NEGATIVE); UROBILINOGEN,URINE NEGATIVE mg/dL (<2.0)
--- NOTE | 2016-08-03 20:14 | PDOC PROGRESS REPORT ---
Subjective Progress Note for:: 08/03/16 Subjective:: Patient has made significant improvement in her general condition. She is currently extubated and tolerating extubation well. She is off Yohan-Synephrine and dopamine drip.. Telemetry shows mild sinus tachycardia with occasional APCs and VPCs. Patient was switched over to ELIQUIS. 2.5 mg by mouth twice a day, which she seems to be tolerating well. Telemetry strips this morning showed a short run of wide-complex tachycardia, 6 beat run most likely nonsustained ventricular. Medications reviewed. Rest of the system review negative Physical Exam Vital Signs: Temp Pulse Resp BP Pulse Ox 98.6 F 103 H 13 121/58 L 99 08/03/16 18:00 08/03/16 08:00 08/03/16 18:00 08/03/16 17:45 08/03/16 18:00 Intake & Output 08/02/16 08/03/16 08/04/16 06:59 06:59 06:59 Intake Total 3652 2433 982 Output Total 5900 3300 1530 Balance -2248 -867 -548 Weight 77.6 kg 75.1 kg Exam: GENERAL: well-nourished and in no acute distress. Patient is alert but she is verbally responsive and seems to answer questions appropriately.. HEAD: Atraumatic, normocephalic. EYES: Pupils equal round and reactive to light, extraocular movements intact, sclera anicteric, conjunctiva are normal. ENT: TMs normal, nares patent, oropharynx clear without exudates. Moist mucous membranes. No oral ulcerations or bleeding gums noted NECK: supple without lymphadenopathy or JVD. Trachea is central. No cervical or axillary lymphadenopathy noted. Carotids are 2+ LUNGS: Breath sounds bibasilar fine crackles at bases. Mild bilateral basal dullness noted.dullness noted. CHEST: Palpation of chest wall shows no significant chest wall tenderness. 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 ABDOMEN: Soft, no significant tenderness appreciated, normoactive bowel sounds. No guarding, no rebound. No rigidity noted . No masses appreciated. EXTREMITIES: Pedal pulses are 1-2+, no calf tenderness noted, Trace + pedal edema noted. No clubbing or cyanosis. NEUROLOGICAL: Patient is alert and is noted to move all 4 extremities equally well. Speech is normal. PSYCH: Patient affects a little flat but mood probably normal. SKIN: No significant ecchymosis, rash, ulcerations or signs of pruritus noted. MUSCULOSKELETAL EXAM: No significant joint swelling noted. Results Laboratory Results: 08/03/16 04:55 08/03/16 04:55 08/03/16 08/03/16 08/03/16 02:05 04:55 04:55 WBC RBC Hgb Hct MCV MCH MCHC RDW Plt Count Carbonic Acid 1.43 H HCO3/H2CO3 Ratio 22:1 ABG pH 7.45 ABG pCO2 47.4 H ABG pO2 102.9 H ABG HCO3 32.2 H ABG O2 Saturation 97.9 ABG Base Excess 7.3 FiO2 3L Sodium 143.3 Potassium 3.8 Chloride 103 Carbon Dioxide 33 H Anion Gap 7 BUN 25 H Creatinine 0.80 Est GFR ( Amer) > 60 Est GFR (Non-Af Amer) > 60 Glucose 127 H Calcium 8.5 Phosphorus 2.7 Magnesium 1.7 Urine Color Urine Appearance Urine pH Ur Specific [place] Urine Protein Urine Glucose (UA) Urine Ketones Urine Blood Urine Nitrite Ur Leukocyte Esterase Urine WBC (Auto) Urine RBC (Auto) Stool Occult Blood POSITIVE 08/03/16 08/03/16 04:55 15:40 WBC 14.2 H RBC 2.96 L Hgb 8.6 L Hct 25.9 L MCV 87 MCH 29.0 MCHC 33.1 RDW 13.8 Plt Count 173 Carbonic Acid HCO3/H2CO3 Ratio ABG pH ABG pCO2 ABG pO2 ABG HCO3 ABG O2 Saturation ABG Base Excess FiO2 Sodium Potassium Chloride Carbon Dioxide Anion Gap BUN Creatinine Est GFR ( Amer) Est GFR (Non-Af Amer) Glucose Calcium Phosphorus Magnesium Urine Color YELLOW Urine Appearance SLIGHTLY-CLOUDY Urine pH 6.0 Ur Specific [place] 1.020 Urine Protein 100 H Urine Glucose (UA) NEGATIVE Urine Ketones NEGATIVE Urine Blood NEGATIVE Urine Nitrite NEGATIVE Ur Leukocyte Esterase TRACE H Urine WBC (Auto) 8 Urine RBC (Auto) 1 Stool Occult Blood 07/30/16 14:20 Pleural Fluid - Right Pleural Effusion Gram Stain - Final 07/30/16 14:20 Pleural Fluid - Right Pleural Effusion Body Fluid Culture - Final NO AEROBIC OR ANAEROBIC ORGANISMS RECOVERED 07/27/16 07/27/16 07/28/16 17:25 23:05 06:35 CK-MB (CK-2) 16.80 H Troponin I 0.074 0.088 0.078 NT-Pro-B Natriuret Pep 3290 H 2660 H 07/31/16 04:45 CK-MB (CK-2) Troponin I NT-Pro-B Natriuret Pep 6350 H Impressions: KUB X-Ray 07/28/16 08:54 IMPRESSION: Appropriate location of nasogastric tube. Decompressed stomach. Thoracentesis Ultrasound 07/30/16 00:00 IMPRESSION: SUCCESSFUL THORACENTESIS USING ULTRASOUND GUIDANCE. Chest/Abdomen CTA 07/30/16 08:00 IMPRESSION: Moderate to large right pleural effusion. Small left effusion. Bibasilar infiltrate consistent with atelectasis or pneumonia. No pulmonary emboli. Chest X-Ray 08/03/16 06:00 IMPRESSION: Stable moderate bibasilar opacity/fluid. 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 Qualifiers: Congestive heart failure chronicity: acute on chronic Qualified Code (s): I50.43 - Acute on chronic combined systolic (congestive) and diastolic ( congestive) heart failure Is this a current diagnosis for this admission?: Yes (4) Cardiac dysrhythmia, unspecified Qualifiers: Arrhythmia type: atrial fibrillation Atrial fibrillation type: paroxysmal Qualified Code(s): I48.0 - Paroxysmal atrial fibrillation Is this a current diagnosis for this admission?: Yes (5) Sepsis Qualifiers: Sepsis type: sepsis due to unspecified organism Qualified Code(s): A41.9 - Sepsis, unspecified organism Is this a current diagnosis for this admission?: Yes - Notes Notes: Nonsustained ventricular tachycardia: Recommend beta zoe and maintaining electrolytes within normal limit. Maintain oxygenation. Hypotension: Resolved CHF: Seems compensated. Sepsis: Seems improved. Patient seems very debilitated. May benefit from rehabilitation. - Time Time with patient: 15-25 minutes - CODE STATUS was discussed, patient remains full code. Surrogate decision-maker unchanged. Multiple medical problems were addressed.More than 50% of the time spent coordinating care, discussing management plans with involved caregivers. Management plans discussed with involved personnels. Medical decision making was of moderate complexity.
[2016-08-04] MEDS: ALBUTEROL SULFATE HFA (90 MCG/PUFF) 200 PUFF/8.5 GM MDI IH SCH ×3 (05:13→17:00)
[2016-08-04] MEDS: POTASSI CL 20 MEQ/D5-1/2NS 1L 1,000 ML IV PRN ×2 (06:13→22:10)
[2016-08-04] MEDS: LANSOPRAZOLE 30 MG TAB.RAP.DR NG SCH (07:50)
[2016-08-04] MEDS ORDERED: DILTIAZEM HCL 30 MG TABLET PO ONE (10:00)
[2016-08-04] MEDS: FUROSEMIDE INJ/PF 20 MG/2 ML SDV IV SCH ×2 (10:14→22:06)
[2016-08-04] MEDS: ASPIRIN 81 MG TABLET, ENT COATED PO SCH (10:14)
[2016-08-04] MEDS: HYDROCORTISONE SOD SUCCINATE INJ/PF 100 MG/2 ML SDV IV SCH (10:14)
[2016-08-04] MEDS: APIXABAN 2.5 MG TABLET PO SCH ×2 (10:15→17:01)
[2016-08-04] MEDS: ALBUMIN HUMAN 50 ML IV SCH ×2 (10:15→22:04)
[2016-08-04 10:49] LABS: ANION GAP 8 (5-19); BLOOD UREA NITROGEN 27 mg/dL (7-20); CARBON DIOXIDE 34 mmol/L (22-30); CHLORIDE 101 mmol/L (98-107); CREATININE RESULT 0.75 mg/dL (0.52-1.25); GLUCOSE 122 mg/dL (75-110); MAGNESIUM 1.8 mg/dL (1.6-2.3); POTASSIUM 3.1 mmol/L (3.6-5.0); SODIUM 142.8 mmol/L (137-145)
--- NOTE | 2016-08-04 15:38 | PDOC PROGRESS REPORT ---
Subjective Progress Note for:: 08/04/16 Subjective:: Patient has made significant improvement in her general condition. She is currently extubated and tolerating extubation well. Currently Patient day 2 post extubation She is off Yohan-Synephrine and dopamine drip now for several days telemetry shows mild sinus tachycardia with occasional APCs and VPCs. No recurrence of NSVT. Medications reviewed. Rest of the system review negative Physical Exam Vital Signs: Temp Pulse Resp BP Pulse Ox 98.8 F 115 H 18 107/57 L 95 08/04/16 15:00 08/04/16 08:00 08/04/16 15:00 08/04/16 14:47 08/04/16 15:00 Intake & Output 08/03/16 08/04/16 08/05/16 06:59 06:59 06:59 Intake Total 2433 2119 390 Output Total 3300 2930 1300 Balance -867 -811 -910 Weight 75.1 kg 74.7 kg Exam: GENERAL: well-nourished and in no acute distress. Alert and oriented x3 HEAD: Atraumatic, normocephalic. EYES: Pupils equal round and reactive to light, extraocular movements intact, sclera anicteric, conjunctiva are normal. ENT: TMs normal, nares patent, oropharynx clear without exudates. Moist mucous membranes. No oral ulcerations or bleeding gums noted NECK: supple without lymphadenopathy. Trachea is central. No cervical or axillary lymphadenopathy noted. Carotids are 2+, JVD WNL LUNGS: Respiration seems nonlabored, no significant accessory muscle action noted. Breath sounds clear to auscultation bilaterally and equal noted. No wheezes rales or rhonchi noted. Mild bilateral basal dullness noted. dullness noted on percussion. CHEST: Palpation of the chest wall shows no significant chest wall tenderness. No other significant abnormalities noted. 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 ABDOMEN: Soft, no significant tenderness appreciated, normoactive bowel sounds. No guarding, no rebound. No rigidity noted . No masses appreciated. EXTREMITIES: Pedal pulses are 1-2+, no calf tenderness noted. No clubbing or cyanosis.trace to 1+ pedal edema noted NEUROLOGICAL: Focused neurological exam showed no significant neurologic deficit. Normal speech, no focal weakness appreciated. PSYCH: Normal mood, normal affect. Judgment and insight within normal limits. SKIN: No significant ecchymosis, rash, ulcerations or signs of pruritus noted. MUSCULOSKELETAL EXAM: No significant joint swelling noted. Results Laboratory Results: 08/03/16 04:55 08/04/16 10:07 08/03/16 08/04/16 15:40 10:07 Sodium 142.8 Potassium 3.1 L Chloride 101 Carbon Dioxide 34 H Anion Gap 8 BUN 27 H Creatinine 0.75 Est GFR ( Amer) > 60 Est GFR (Non-Af Amer) > 60 Glucose 122 H Calcium 9.0 Magnesium 1.8 Urine Color YELLOW Urine Appearance SLIGHTLY-CLOUDY Urine pH 6.0 Ur Specific [place] 1.020 Urine Protein 100 H Urine Glucose (UA) NEGATIVE Urine Ketones NEGATIVE Urine Blood NEGATIVE Urine Nitrite NEGATIVE Ur Leukocyte Esterase TRACE H Urine WBC (Auto) 8 Urine RBC (Auto) 1 07/27/16 07/27/16 07/28/16 17:25 23:05 06:35 CK-MB (CK-2) 16.80 H Troponin I 0.074 0.088 0.078 NT-Pro-B Natriuret Pep 3290 H 2660 H 07/31/16 04:45 CK-MB (CK-2) Troponin I NT-Pro-B Natriuret Pep 6350 H Impressions: KUB X-Ray 07/28/16 08:54 IMPRESSION: Appropriate location of nasogastric tube. Decompressed stomach. Thoracentesis Ultrasound 07/30/16 00:00 IMPRESSION: SUCCESSFUL THORACENTESIS USING ULTRASOUND GUIDANCE. Chest/Abdomen CTA 07/30/16 08:00 IMPRESSION: Moderate to large right pleural effusion. Small left effusion. Bibasilar infiltrate consistent with atelectasis or pneumonia. No pulmonary emboli. Chest X-Ray 08/04/16 13:33 IMPRESSION: Good position of support apparatus. No pneumothorax. 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 Qualifiers: Congestive heart failure chronicity: acute on chronic Qualified Code (s): I50.43 - Acute on chronic combined systolic (congestive) and diastolic ( congestive) heart failure Is this a current diagnosis for this admission?: Yes (4) Cardiac dysrhythmia, unspecified Qualifiers: Arrhythmia type: atrial fibrillation Atrial fibrillation type: paroxysmal Qualified Code(s): I48.0 - Paroxysmal atrial fibrillation Is this a current diagnosis for this admission?: Yes (5) Sepsis Qualifiers: Sepsis type: sepsis due to unspecified organism Qualified Code(s): A41.9 - Sepsis, unspecified organism Is this a current diagnosis for this admission?: Yes - Notes Notes: Hypotension: Resolved Currently maintaining blood pressure in satisfactory range. Hypotension combination of metabolic, sepsis and cardiac cause. Respiratory failure: Patient maintaining good oxygenation. Livestock Sales Representative following. Heart failure: Acute on chronic, diastolic versus systolic, patient has significant bilateral pleural effusion indicative of volume overload. Will optimize diuretic therapy. Will add spironolactone. Cardiac dysrhythmia: Patient has history of paroxysmal atrial fibrillation and also other cardiac dysrhythmia. Currently stable. Will continue to monitor. Keep electrolytes within normal range. Recommend switch to beta zoe and digoxin for rate control. We will consider chronic amiodarone therapy in this patient. Patient on ELIQUIS therapy. Sepsis: Continue antibiotic therapy. Overall prognosis guarded. - Time Time with patient: 15-25 minutes - CODE STATUS was discussed, patient remains full code. Surrogate decision-maker unchanged. Multiple medical problems were addressed.More than 50% of the time spent coordinating care, discussing management plans with involved caregivers. Management plans discussed with involved personnels. Medical decision making was of moderate complexity.
[2016-08-04] MEDS ORDERED: SPIRONOLACTONE 25 MG TABLET PO ONE (16:00)
[2016-08-04] MEDS: DILTIAZEM HCL 30 MG TABLET PO SCH (17:00)
[2016-08-05] MEDS: ALBUTEROL SULFATE HFA (90 MCG/PUFF) 200 PUFF/8.5 GM MDI IH SCH ×5 (00:07→23:25)
[2016-08-05] MEDS: DILTIAZEM HCL 30 MG TABLET PO SCH ×2 (00:09→05:23)
[2016-08-05] MEDS: NORMAL SALINE INJ/PF 0.9% 10 ML SDV IV PRN ×2 (05:19→14:00)
[2016-08-05] MEDS: LANSOPRAZOLE 30 MG TAB.RAP.DR NG SCH (05:25)
[2016-08-05 07:33] LABS: ANION GAP 11 (5-19); BLOOD UREA NITROGEN 23 mg/dL (7-20); CALCIUM 8.7 mg/dL (8.4-10.2); CARBON DIOXIDE 32 mmol/L (22-30); CHLORIDE 102 mmol/L (98-107); CREATININE RESULT 0.64 mg/dL (0.52-1.25); GLUCOSE 96 mg/dL (75-110); MAGNESIUM 1.8 mg/dL (1.6-2.3); SODIUM 144.8 mmol/L (137-145)
[2016-08-05] MEDS: POTASSI CL 20 MEQ/D5-1/2NS 1L 1,000 ML IV PRN (09:53)
[2016-08-05] MEDS ORDERED: POTASSIUM CHLORIDE 10 MEQ TABLET.SA PO ONE ×2 (10:15→11:05)
[2016-08-05] MEDS: ASPIRIN 81 MG TABLET, ENT COATED PO SCH (10:50)
[2016-08-05] MEDS: APIXABAN 2.5 MG TABLET PO SCH ×2 (10:50→17:41)
[2016-08-05] MEDS: SPIRONOLACTONE 25 MG TABLET PO SCH (10:50)
[2016-08-05] MEDS: HYDROCORTISONE SOD SUCCINATE INJ/PF 100 MG/2 ML SDV IV SCH (10:51)
[2016-08-05] MEDS: FUROSEMIDE INJ/PF 20 MG/2 ML SDV IV SCH (10:52)
[2016-08-05] MEDS ORDERED: DILTIAZEM HCL 120 MG CAP.SR.24H PO ONE (12:00)
--- NOTE | 2016-08-05 17:36 | PDOC PROGRESS REPORT ---
Subjective Progress Note for:: 08/05/16 Subjective:: Patient has made significant improvement in her general condition. No recurrence of NSVT. Medications reviewed. Rest of the system review negative. Short PAT runs are noted. Physical Exam Vital Signs: Temp Pulse Resp BP Pulse Ox 98.8 F 113 H 18 119/62 97 08/05/16 15:05 08/05/16 15:05 08/05/16 15:05 08/05/16 15:05 08/05/16 15:05 Intake & Output 08/04/16 08/05/16 08/06/16 06:59 06:59 06:59 Intake Total 2119 2325 480 Output Total 2930 2460 300 Balance -811 -135 180 Weight 74.7 kg 74.7 kg Exam: GENERAL: well-nourished and in no acute distress. Alert and oriented 2, with intermittent confusion noted. HEAD: Atraumatic, normocephalic. EYES: Pupils equal round and reactive to light, extraocular movements intact, sclera anicteric, conjunctiva are normal. ENT: TMs normal, nares patent, oropharynx clear without exudates. Moist mucous membranes. No oral ulcerations or bleeding gums noted NECK: supple without lymphadenopathy. Trachea is central. No cervical or axillary lymphadenopathy noted. Carotids are 2+, JVD WNL LUNGS: Respiration seems nonlabored, no significant accessory muscle action noted. Bibasal a fine crackles with right basal dullness noted. CHEST: Palpation of the chest wall shows no significant chest wall tenderness. No other significant abnormalities noted. 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 ABDOMEN: Soft, no significant tenderness appreciated, normoactive bowel sounds. No guarding, no rebound. No rigidity noted . No masses appreciated. EXTREMITIES: Pedal pulses are 1-2+, no calf tenderness noted. No clubbing or cyanosis.trace to 1+ pedal edema noted NEUROLOGICAL: Focused neurological exam showed no significant neurologic deficit. Normal speech, no focal weakness appreciated. PSYCH: Normal mood, normal affect. Judgment and insight within normal limits. SKIN: No significant ecchymosis, rash, ulcerations or signs of pruritus noted. MUSCULOSKELETAL EXAM: No significant joint swelling noted. Results Laboratory Results: 08/03/16 04:55 08/05/16 06:00 08/05/16 06:00 Sodium 144.8 Potassium 3.0 L* Chloride 102 Carbon Dioxide 32 H Anion Gap 11 BUN 23 H Creatinine 0.64 Est GFR ( Amer) > 60 Est GFR (Non-Af Amer) > 60 Glucose 96 Calcium 8.7 Magnesium 1.8 07/27/16 07/27/16 07/28/16 17:25 23:05 06:35 CK-MB (CK-2) 16.80 H Troponin I 0.074 0.088 0.078 NT-Pro-B Natriuret Pep 3290 H 2660 H 07/31/16 04:45 CK-MB (CK-2) Troponin I NT-Pro-B Natriuret Pep 6350 H Impressions: KUB X-Ray 07/28/16 08:54 IMPRESSION: Appropriate location of nasogastric tube. Decompressed stomach. Thoracentesis Ultrasound 07/30/16 00:00 IMPRESSION: SUCCESSFUL THORACENTESIS USING ULTRASOUND GUIDANCE. Chest/Abdomen CTA 07/30/16 08:00 IMPRESSION: Moderate to large right pleural effusion. Small left effusion. Bibasilar infiltrate consistent with atelectasis or pneumonia. No pulmonary emboli. Chest X-Ray 08/04/16 13:33 IMPRESSION: Good position of support apparatus. No pneumothorax. 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 Qualifiers: Congestive heart failure chronicity: acute on chronic Qualified Code (s): I50.43 - Acute on chronic combined systolic (congestive) and diastolic ( congestive) heart failure Is this a current diagnosis for this admission?: Yes (4) Cardiac dysrhythmia, unspecified Qualifiers: Arrhythmia type: atrial fibrillation Atrial fibrillation type: paroxysmal Qualified Code(s): I48.0 - Paroxysmal atrial fibrillation Is this a current diagnosis for this admission?: Yes (5) Sepsis Qualifiers: Sepsis type: sepsis due to unspecified organism Qualified Code(s): A41.9 - Sepsis, unspecified organism Is this a current diagnosis for this admission?: Yes - Notes Notes: Hypotension, resolved ex Respiratory failure: Resolved CHF: Combined systolic and diastolic heart failure. Patient on diuretic therapy. Did add spironolactone yesterday. Continue IV Lasix. May consider switch to torsemide if needed. Will recommend switch from Cardizem to metoprolol XL gradually. Cardiac dysrhythmia: Patient has nonsustained wide-complex tachycardia/VT, PAT etc. Will consider amiodarone if patient continues to have these. Recommend electrolytes to be maintained within normal limits. Sepsis: Resolved. - Time Time with patient: 15-25 minutes - CODE STATUS was discussed, patient remains full code. Surrogate decision-maker unchanged. Multiple medical problems were addressed. Will continue to follow with you Medications reviewed and adjusted accordingly: Yes
--- NOTE | 2016-08-05 17:57 | PDOC PROGRESS REPORT ---
Subjective Progress Note for:: 08/05/16 Subjective:: Patient's mentation is excellent Her she is oxygenating well on room air and is in no respiratory distress She's been eating better PT evaluation will occur tomorrow The Ryan catheter will be removed today Patient has tachycardia at rate 100 -110 with multiple PACs Physical Exam Vital Signs: Temp Pulse Resp BP Pulse Ox 98.8 F 108 H 18 119/62 97 08/05/16 15:05 08/05/16 17:34 08/05/16 15:05 08/05/16 15:05 08/05/16 15:05 Intake & Output 08/04/16 08/05/16 08/06/16 00:59 00:59 00:59 Intake Total 2160 2632 1280 Output Total 2580 2585 1100 Balance -420 47 180 Weight 75.1 kg 74.7 kg 74.7 kg General appearance: PRESENT: no acute distress, thin, other - Pale chronically ill-looking Head exam: PRESENT: atraumatic, normocephalic Eye exam: PRESENT: conjunctiva pink, EOMI, PERRLA. ABSENT: scleral icterus Ear exam: PRESENT: normal external ear exam Mouth exam: PRESENT: moist, tongue midline Neck exam: ABSENT: carotid bruit, JVD, lymphadenopathy, thyromegaly Respiratory exam: PRESENT: decreased breath sounds. ABSENT: rales, rhonchi, wheezes Cardiovascular exam: PRESENT: RRR. ABSENT: diastolic murmur, rubs, systolic murmur Pulses: PRESENT: normal dorsalis pedis pul Vascular exam: PRESENT: normal capillary refill GI/Abdominal exam: PRESENT: normal bowel sounds, soft. ABSENT: distended, guarding, mass, organolmegaly, rebound, tenderness Rectal exam: PRESENT: deferred Extremities exam: PRESENT: full ROM. ABSENT: calf tenderness, clubbing, pedal edema Neurological exam: PRESENT: alert, awake, CN II-XII grossly intact. ABSENT: motor sensory deficit Psychiatric exam: PRESENT: appropriate affect, normal mood. ABSENT: homicidal ideation, suicidal ideation Skin exam: PRESENT: dry, intact, warm. ABSENT: cyanosis, rash Results Laboratory Results: 08/03/16 04:55 08/05/16 06:00 08/05/16 06:00 Sodium 144.8 Potassium 3.0 L* Chloride 102 Carbon Dioxide 32 H Anion Gap 11 BUN 23 H Creatinine 0.64 Est GFR ( Amer) > 60 Est GFR (Non-Af Amer) > 60 Glucose 96 Calcium 8.7 Magnesium 1.8 07/27/16 07/27/16 07/28/16 17:25 23:05 06:35 CK-MB (CK-2) 16.80 H Troponin I 0.074 0.088 0.078 NT-Pro-B Natriuret Pep 3290 H 2660 H 07/31/16 04:45 CK-MB (CK-2) Troponin I NT-Pro-B Natriuret Pep 6350 H Impressions: KUB X-Ray 07/28/16 08:54 IMPRESSION: Appropriate location of nasogastric tube. Decompressed stomach. Thoracentesis Ultrasound 07/30/16 00:00 IMPRESSION: SUCCESSFUL THORACENTESIS USING ULTRASOUND GUIDANCE. Chest/Abdomen CTA 07/30/16 08:00 IMPRESSION: Moderate to large right pleural effusion. Small left effusion. Bibasilar infiltrate consistent with atelectasis or pneumonia. No pulmonary emboli. Chest X-Ray 08/04/16 13:33 IMPRESSION: Good position of support apparatus. No pneumothorax. Assessment & Plan - Diagnosis (1) Sepsis Qualifiers: Sepsis type: sepsis due to unspecified organism Qualified Code(s): A41.9 - Sepsis, unspecified organism Is this a current diagnosis for this admission?: Yes (2) Parapneumonic effusion Is this a current diagnosis for this admission?: Yes (3) Ischemic cardiomyopathy Is this a current diagnosis for this admission?: YesPlan: Cardizem was discontinued as per Dr. 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 ; evaluate patient for [facility] to [facility] Time Spent with patient: 15-24 minutes
[2016-08-05] MEDS ORDERED: DILTIAZEM HCL 120 MG CAP.SR.24H PO SCH (22:00)
[2016-08-05] MEDS: METOPROLOL SUCCINATE 25 MG TAB.SR.24H PO SCH (22:18)
[2016-08-06] MEDS: ALBUTEROL SULFATE HFA (90 MCG/PUFF) 200 PUFF/8.5 GM MDI IH SCH ×3 (06:35→17:32)
[2016-08-06] MEDS: LANSOPRAZOLE 30 MG TAB.RAP.DR NG SCH (07:22)
[2016-08-06 07:43] LABS: HEMATOCRIT 26.3 % (36.0-47.0); HEMOGLOBIN 8.9 g/dL (12.0-15.5); HGB HCT DIFFERENCE 0.4; MEAN CORPUSCULAR HEMOGLOBIN 29.6 pg (27.0-33.4); MEAN CORPUSCULAR HGB CONC 33.7 g/dL (32.0-36.0); MEAN CORPUSCULAR VOLUME 88 fl (80-97); RED CELL DISTRIBUTION WIDTH 14.1 % (11.5-14.0); WHITE BLOOD COUNT 11.5 10^3/uL (4.0-10.5)
--- NOTE | 2016-08-06 09:48 | PDOC PROGRESS REPORT ---
Subjective Progress Note for:: 08/04/16 Subjective:: 48 hrs s/p extubation Physical Exam Vital Signs: Temp Pulse Resp BP Pulse Ox 98.8 F 115 H 17 131/74 H 93 08/04/16 08:00 08/04/16 08:00 08/04/16 06:00 08/04/16 06:00 08/04/16 06:00 Intake & Output 08/03/16 08/04/16 08/05/16 06:59 06:59 06:59 Intake Total 2433 2119 240 Output Total 3300 2930 400 Balance -867 -811 -160 Weight 75.1 kg 74.7 kg General appearance: PRESENT: no acute distress, disheveled Head exam: PRESENT: atraumatic, normocephalic Eye exam: PRESENT: conjunctiva pale, EOMI Mouth exam: PRESENT: moist, neck supple Neck exam: ABSENT: carotid bruit, JVD, lymphadenopathy, thyromegaly Respiratory exam: PRESENT: decreased breath sounds, prolonged expiratory phas, rhonchi, unlabored Cardiovascular exam: PRESENT: irregular rhythm Pulses: PRESENT: normal radial pulses GI/Abdominal exam: PRESENT: normal bowel sounds, soft. ABSENT: distended, guarding, mass, organolmegaly, rebound, tenderness Rectal exam: PRESENT: deferred Gentrourinary exam: PRESENT: indwelling catheter Musculoskeletal exam: PRESENT: normal inspection Neurological exam: PRESENT: awake Psychiatric exam: PRESENT: flat affect Skin exam: PRESENT: dry, warm Results Laboratory Results: 08/03/16 04:55 08/04/16 10:07 08/03/16 08/04/16 15:40 10:07 Sodium 142.8 Potassium 3.1 L Chloride 101 Carbon Dioxide 34 H Anion Gap 8 BUN 27 H Creatinine 0.75 Est GFR ( Amer) > 60 Est GFR (Non-Af Amer) > 60 Glucose 122 H Calcium 9.0 Magnesium 1.8 Urine Color YELLOW Urine Appearance SLIGHTLY-CLOUDY Urine pH 6.0 Ur Specific [place] 1.020 Urine Protein 100 H Urine Glucose (UA) NEGATIVE Urine Ketones NEGATIVE Urine Blood NEGATIVE Urine Nitrite NEGATIVE Ur Leukocyte Esterase TRACE H Urine WBC (Auto) 8 Urine RBC (Auto) 1 07/30/16 14:20 Pleural Fluid - Right Pleural Effusion Gram Stain - Final 07/30/16 14:20 Pleural Fluid - Right Pleural Effusion Body Fluid Culture - Final NO AEROBIC OR ANAEROBIC ORGANISMS RECOVERED 07/27/16 07/27/16 07/28/16 17:25 23:05 06:35 CK-MB (CK-2) 16.80 H Troponin I 0.074 0.088 0.078 NT-Pro-B Natriuret Pep 3290 H 2660 H 07/31/16 04:45 CK-MB (CK-2) Troponin I NT-Pro-B Natriuret Pep 6350 H Impressions: KUB X-Ray 07/28/16 08:54 IMPRESSION: Appropriate location of nasogastric tube. Decompressed stomach. Thoracentesis Ultrasound 07/30/16 00:00 IMPRESSION: SUCCESSFUL THORACENTESIS USING ULTRASOUND GUIDANCE. Chest/Abdomen CTA 07/30/16 08:00 IMPRESSION: Moderate to large right pleural effusion. Small left effusion. Bibasilar infiltrate consistent with atelectasis or pneumonia. No pulmonary emboli. Chest X-Ray 08/03/16 06:00 IMPRESSION: Stable moderate bibasilar opacity/fluid. Assessment & Plan - Diagnosis (1) Acute kidney injury Is this a current diagnosis for this admission?: No (2) Respiratory failure requiring intubation Is this a current diagnosis for this admission?: YesPlan: resolved (3) Septic shock Is this a current diagnosis for this admission?: YesPlan: resolved
[2016-08-06] MEDS: APIXABAN 2.5 MG TABLET PO SCH (09:53)
[2016-08-06] MEDS: ASPIRIN 81 MG TABLET, ENT COATED PO SCH (09:56)
[2016-08-06] MEDS: METOPROLOL SUCCINATE 25 MG TAB.SR.24H PO SCH ×2 (09:57→22:04)
[2016-08-06] MEDS: SPIRONOLACTONE 25 MG TABLET PO SCH (09:57)
[2016-08-06] MEDS: FUROSEMIDE INJ/PF 20 MG/2 ML SDV IV SCH (09:58)
--- NOTE | 2016-08-06 11:17 | PDOC PROGRESS REPORT ---
Subjective Progress Note for:: 08/06/16 Subjective:: Patient is doing well She is not complaining of any pain Mentation is appropriate most of the time she still has sundowning She was in urinary retention this morning and about 1000 ml were drained A Saunders catheter was inserted Chest x-ray shows persistence of the right pleural effusion; pleural tap will be performed today We did hold Eliquis prior to the procedure Physical Exam Vital Signs: Temp Pulse Resp BP Pulse Ox 97.8 F 108 H 18 124/65 97 08/06/16 07:54 08/06/16 07:54 08/06/16 07:54 08/06/16 07:54 08/06/16 07:54 Intake & Output 08/05/16 08/06/16 08/07/16 00:59 00:59 00:59 Intake Total 2632 1505 20 Output Total 2585 1100 Balance 47 405 20 Weight 74.7 kg 74.7 kg 74.7 kg General appearance: PRESENT: no acute distress, thin, other - Pale looks chronically ill Head exam: PRESENT: atraumatic, normocephalic Eye exam: PRESENT: conjunctiva pink, EOMI, PERRLA. ABSENT: scleral icterus Ear exam: PRESENT: normal external ear exam Mouth exam: PRESENT: moist, tongue midline Neck exam: ABSENT: carotid bruit, JVD, lymphadenopathy, thyromegaly Respiratory exam: PRESENT: decreased breath sounds - Right base. ABSENT: rales , rhonchi, wheezes Cardiovascular exam: PRESENT: RRR. ABSENT: diastolic murmur, rubs, systolic murmur Pulses: PRESENT: normal dorsalis pedis pul Vascular exam: PRESENT: normal capillary refill GI/Abdominal exam: PRESENT: normal bowel sounds, soft. ABSENT: distended, guarding, mass, organolmegaly, rebound, tenderness Rectal exam: PRESENT: deferred Extremities exam: PRESENT: full ROM. ABSENT: calf tenderness, clubbing, pedal edema Neurological exam: PRESENT: alert, awake, CN II-XII grossly intact. ABSENT: motor sensory deficit Psychiatric exam: PRESENT: appropriate affect, normal mood Skin exam: PRESENT: dry, intact, warm. ABSENT: cyanosis, rash Results Laboratory Results: 08/06/16 06:40 08/05/16 06:00 08/06/16 06:40 WBC 11.5 H RBC 3.00 L Hgb 8.9 L Hct 26.3 L MCV 88 MCH 29.6 MCHC 33.7 RDW 14.1 H Plt Count 191 07/27/16 07/27/16 07/28/16 17:25 23:05 06:35 CK-MB (CK-2) 16.80 H Troponin I 0.074 0.088 0.078 NT-Pro-B Natriuret Pep 3290 H 2660 H 07/31/16 04:45 CK-MB (CK-2) Troponin I NT-Pro-B Natriuret Pep 6350 H Impressions: KUB X-Ray 07/28/16 08:54 IMPRESSION: Appropriate location of nasogastric tube. Decompressed stomach. Thoracentesis Ultrasound 07/30/16 00:00 IMPRESSION: SUCCESSFUL THORACENTESIS USING ULTRASOUND GUIDANCE. Chest/Abdomen CTA 07/30/16 08:00 IMPRESSION: Moderate to large right pleural effusion. Small left effusion. Bibasilar infiltrate consistent with atelectasis or pneumonia. No pulmonary emboli. Chest X-Ray 08/06/16 06:00 IMPRESSION: Stable appearance. Continued right basilar density. Assessment & Plan - Diagnosis (1) Sepsis Qualifiers: Sepsis type: sepsis due to unspecified organism Qualified Code(s): A41.9 - Sepsis, unspecified organism Is this a current diagnosis for this admission?: YesPlan: resolved all cultures were negative patient is now off antibiotics pleural fluid culture was negative (2) Parapneumonic effusion Is this a current diagnosis for this admission?: YesPlan: persistent moderate size pleural tap today (3) Ischemic cardiomyopathy Is this a current diagnosis for this admission?: YesPlan: stable systolic failure well compensated . 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 Qualifiers: Congestive heart failure chronicity: acute on chronic Qualified Code (s): I50.43 - Acute on chronic combined systolic (congestive) and diastolic ( congestive) heart failure Is this a current diagnosis for this admission?: Yes (6) Fluid overload Is this a current diagnosis for this admission?: YesPlan: improved (7) Hypoalbuminemia Is this a current diagnosis for this admission?: Yes (8) Chronic a-fib Is this a current diagnosis for this admission?: YesPlan: rate controlled anticoagulated with eliquis (9) Urinary retention Is this a current diagnosis for this admission?: YesPlan: discharge patient with a saunders catheter follow up with urology as outpatient - Time Time Spent with patient: perform thoracentesis today if stable [facility] Time Spent with patient: 25-34 minutes
[2016-08-06 11:34] LABS: ANION GAP 7 (5-19); BLOOD UREA NITROGEN 19 mg/dL (7-20); CALCIUM 8.9 mg/dL (8.4-10.2); CARBON DIOXIDE 35 mmol/L (22-30); CHLORIDE 100 mmol/L (98-107); CREATININE RESULT 0.73 mg/dL (0.52-1.25); GLUCOSE 157 mg/dL (75-110); POTASSIUM 3.6 mmol/L (3.6-5.0); SODIUM 141.7 mmol/L (137-145)
[2016-08-06] MEDS: NORMAL SALINE INJ/PF 0.9% 10 ML SDV IV PRN (13:05)
[2016-08-06 13:43] LABS: APPEARANCE,URINE CLEAR; BILIRUBIN,URINE NEGATIVE (NEGATIVE); GLUCOSE, URINE NEGATIVE (NEGATIVE); KETONES,URINE NEGATIVE (NEGATIVE); LEUKOCYTE ESTERASE,URINE NEGATIVE (NEGATIVE); NITRITE,URINE NEGATIVE (NEGATIVE); PROTEIN,URINE NEGATIVE (NEGATIVE); URINE SPECIFIC GRAVITY 1.006; UROBILINOGEN,URINE NEGATIVE mg/dL (<2.0)
--- NOTE | 2016-08-06 16:30 | PDOC PROGRESS REPORT ---
Subjective Progress Note for:: 08/06/16 Subjective:: Stable Physical Exam Vital Signs: Temp Pulse Resp BP Pulse Ox 98.7 F 100 16 118/67 97 08/06/16 13:08 08/06/16 13:08 08/06/16 13:08 08/06/16 13:08 08/06/16 13:08 Intake & Output 08/05/16 08/06/16 08/07/16 06:59 06:59 06:59 Intake Total 2325 725 320 Output Total 2460 300 1850 Balance -135 425 -1530 Weight 74.7 kg 74.7 kg General appearance: PRESENT: no acute distress, disheveled, obese Head exam: PRESENT: atraumatic, normocephalic Eye exam: PRESENT: conjunctiva pale Mouth exam: PRESENT: moist, neck supple Neck exam: ABSENT: carotid bruit, JVD, lymphadenopathy, thyromegaly Respiratory exam: PRESENT: decreased breath sounds, prolonged expiratory phas, rhonchi, symmetrical, unlabored Cardiovascular exam: PRESENT: RRR, +S1, +S2 Pulses: PRESENT: normal radial pulses GI/Abdominal exam: PRESENT: normal bowel sounds, soft. ABSENT: distended, guarding, mass, organolmegaly, rebound, tenderness Rectal exam: PRESENT: deferred Extremities exam: PRESENT: +1 edema Neurological exam: PRESENT: awake Skin exam: PRESENT: dry, warm Results Laboratory Results: 08/06/16 06:40 08/06/16 11:00 08/06/16 08/06/16 08/06/16 06:40 11:00 12:20 WBC 11.5 H RBC 3.00 L Hgb 8.9 L Hct 26.3 L MCV 88 MCH 29.6 MCHC 33.7 RDW 14.1 H Plt Count 191 Sodium 141.7 Potassium 3.6 Chloride 100 Carbon Dioxide 35 H Anion Gap 7 BUN 19 Creatinine 0.73 Est GFR ( Amer) > 60 Est GFR (Non-Af Amer) > 60 Glucose 157 H Calcium 8.9 Urine Color COLORLESS Urine Appearance CLEAR Urine pH 7.0 Ur Specific [place] 1.006 Urine Protein NEGATIVE Urine Glucose (UA) NEGATIVE Urine Ketones NEGATIVE Urine Blood SMALL H Urine Nitrite NEGATIVE Ur Leukocyte Esterase NEGATIVE Urine WBC (Auto) 1 Urine RBC (Auto) 0 07/30/16 14:20 Pleural Fluid - Right Pleural Effusion AFB Smear Concentration - Final 07/30/16 14:20 Pleural Fluid - Right Pleural Effusion Acid Fast Bacilli Smear - Final 07/27/16 07/27/16 07/28/16 17:25 23:05 06:35 CK-MB (CK-2) 16.80 H Troponin I 0.074 0.088 0.078 NT-Pro-B Natriuret Pep 3290 H 2660 H 07/31/16 04:45 CK-MB (CK-2) Troponin I NT-Pro-B Natriuret Pep 6350 H Impressions: KUB X-Ray 07/28/16 08:54 IMPRESSION: Appropriate location of nasogastric tube. Decompressed stomach. Thoracentesis Ultrasound 07/30/16 00:00 IMPRESSION: SUCCESSFUL THORACENTESIS USING ULTRASOUND GUIDANCE. Chest/Abdomen CTA 07/30/16 08:00 IMPRESSION: Moderate to large right pleural effusion. Small left effusion. Bibasilar infiltrate consistent with atelectasis or pneumonia. No pulmonary emboli. Chest X-Ray 08/06/16 06:00 IMPRESSION: Stable appearance. Continued right basilar density. Assessment & Plan - Diagnosis (1) Acute kidney injury Is this a current diagnosis for this admission?: No (2) Respiratory failure requiring intubation Is this a current diagnosis for this admission?: YesPlan: resolved (3) Septic shock Is this a current diagnosis for this admission?: YesPlan: resolved
--- NOTE | 2016-08-06 19:50 | PDOC PROGRESS REPORT ---
Subjective Progress Note for:: 08/06/16 Subjective:: Patient has made significant improvement in her general condition. No recurrence of NSVT. Medications reviewed. Rest of the system review negative. Intermittent short runs of paroxysmal atrial tachycardia noted. Yesterday patient was started on beta zoe which she seems to be tolerating well. Aim will be to gradually switch her over to beta zoe and digoxin for rate control. Patient currently intermittently confused but generally improved. Physical Exam Vital Signs: Temp Pulse Resp BP Pulse Ox 98.4 F 77 16 114/58 L 94 08/06/16 16:39 08/06/16 16:39 08/06/16 16:39 08/06/16 16:39 08/06/16 16:39 Intake & Output 08/05/16 08/06/16 08/07/16 06:59 06:59 06:59 Intake Total 2325 725 560 Output Total 2460 300 2250 Balance -135 425 -1690 Weight 74.7 kg 74.7 kg Exam: GENERAL: well-nourished and in no acute distress. Patient is alert but not oriented to place time or person. HEAD: Atraumatic, normocephalic. EYES: Pupils equal round and reactive to light, extraocular movements intact, sclera anicteric, conjunctiva are normal. ENT: TMs normal, nares patent, oropharynx clear without exudates. Moist mucous membranes. No oral ulcerations or bleeding gums noted NECK: supple without lymphadenopathy or JVD. Trachea is central. No cervical or axillary lymphadenopathy noted. Carotids are 2+ LUNGS: Breath sounds bibasilar fine crackles at bases. No significant dullness noted. CHEST: Palpation of chest wall shows no significant chest wall tenderness. 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 ABDOMEN: Soft, no significant tenderness appreciated, normoactive bowel sounds. No guarding, no rebound. No rigidity noted . No masses appreciated. EXTREMITIES: Pedal pulses are 1-2+, no calf tenderness noted, Trace + pedal edema noted. No clubbing or cyanosis. NEUROLOGICAL: Patient is alert but and is able to move all 4 extremities equally well. PSYCH: Patient cannot participate in a neurologic and psych exam because of the patient's current mental status SKIN: No significant ecchymosis, rash, ulcerations or signs of pruritus noted. MUSCULOSKELETAL EXAM: No significant joint swelling noted. Results Laboratory Results: 08/06/16 06:40 08/06/16 11:00 08/06/16 08/06/16 08/06/16 06:40 11:00 12:20 WBC 11.5 H RBC 3.00 L Hgb 8.9 L Hct 26.3 L MCV 88 MCH 29.6 MCHC 33.7 RDW 14.1 H Plt Count 191 Sodium 141.7 Potassium 3.6 Chloride 100 Carbon Dioxide 35 H Anion Gap 7 BUN 19 Creatinine 0.73 Est GFR ( Amer) > 60 Est GFR (Non-Af Amer) > 60 Glucose 157 H Calcium 8.9 Urine Color COLORLESS Urine Appearance CLEAR Urine pH 7.0 Ur Specific [place] 1.006 Urine Protein NEGATIVE Urine Glucose (UA) NEGATIVE Urine Ketones NEGATIVE Urine Blood SMALL H Urine Nitrite NEGATIVE Ur Leukocyte Esterase NEGATIVE Urine WBC (Auto) 1 Urine RBC (Auto) 0 07/30/16 14:20 Pleural Fluid - Right Pleural Effusion AFB Smear Concentration - Final 07/30/16 14:20 Pleural Fluid - Right Pleural Effusion Acid Fast Bacilli Smear - Final 07/27/16 07/27/16 07/28/16 17:25 23:05 06:35 CK-MB (CK-2) 16.80 H Troponin I 0.074 0.088 0.078 NT-Pro-B Natriuret Pep 3290 H 2660 H 07/31/16 04:45 CK-MB (CK-2) Troponin I NT-Pro-B Natriuret Pep 6350 H Impressions: KUB X-Ray 07/28/16 08:54 IMPRESSION: Appropriate location of nasogastric tube. Decompressed stomach. Thoracentesis Ultrasound 07/30/16 00:00 IMPRESSION: SUCCESSFUL THORACENTESIS USING ULTRASOUND GUIDANCE. Chest/Abdomen CTA 07/30/16 08:00 IMPRESSION: Moderate to large right pleural effusion. Small left effusion. Bibasilar infiltrate consistent with atelectasis or pneumonia. No pulmonary emboli. Chest X-Ray 08/06/16 06:00 IMPRESSION: Stable appearance. Continued right basilar density. 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 Qualifiers: Congestive heart failure chronicity: acute on chronic Qualified Code (s): I50.43 - Acute on chronic combined systolic (congestive) and diastolic ( congestive) heart failure Is this a current diagnosis for this admission?: Yes (4) Cardiac dysrhythmia, unspecified Qualifiers: Arrhythmia type: atrial fibrillation Atrial fibrillation type: paroxysmal Qualified Code(s): I48.0 - Paroxysmal atrial fibrillation Is this a current diagnosis for this admission?: Yes (5) Sepsis Qualifiers: Sepsis type: sepsis due to unspecified organism Qualified Code(s): A41.9 - Sepsis, unspecified organism Is this a current diagnosis for this admission?: Yes - Notes Notes: Hypertension: Resolved Respiratory failure: Resolved CHF: Patient still has bilateral pleural effusion. Continue baseline diuretic therapy. Patient has systolic plus diastolic dysfunction. Continue IV Lasix. Consider switch to torsemide 20 mg by mouth daily on discharge. Patient will benefit from close cardiology follow-up. Cardiac dysrhythmia: No sustained rhythm disorder noted. sepsis: Improved - Time Time with patient: 15-25 minutes - CODE STATUS was discussed, patient remains full code. Surrogate decision-maker unchanged. Multiple medical problems were addressed.More than 50% of the time spent coordinating care, discussing management plans with involved caregivers. Management plans discussed with involved personnels. Medical decision making was of moderate complexity.
[2016-08-07] MEDS: ALBUTEROL SULFATE HFA (90 MCG/PUFF) 200 PUFF/8.5 GM MDI IH SCH ×5 (04:15→23:07)
[2016-08-07 07:34] LABS: PARTIAL THROMBOPLASTIN TIME 30.3 SEC (23.5-35.8); PROTHROMBIN TIME 13.8 SEC (11.4-15.4)
[2016-08-07] MEDS: LANSOPRAZOLE 30 MG TAB.RAP.DR PO SCH (09:14)
[2016-08-07] MEDS: METOPROLOL SUCCINATE 25 MG TAB.SR.24H PO SCH ×2 (09:15→21:15)
[2016-08-07] MEDS: FUROSEMIDE INJ/PF 20 MG/2 ML SDV IV SCH (09:16)
[2016-08-07] MEDS: SPIRONOLACTONE 25 MG TABLET PO SCH (09:16)
[2016-08-07] MEDS: ASPIRIN 81 MG TABLET, ENT COATED PO SCH (09:16)
[2016-08-07] MEDS: NORMAL SALINE INJ/PF 0.9% 10 ML SDV IV PRN ×3 (09:23→21:43)
[2016-08-07 13:16] LABS: FLUID TYPE PLEURAL
[2016-08-07 13:17] LABS: FLUID APPEARANCE CLOUDY; FLUID RBC DILUENT USED NONE USED; FLUID RBC DILUTION FACTOR 1; FLUID RBC SIDE 1 98; FLUID RBC SIDE 2 104; TOTAL RBC SQUARES COUNTED FLD 225
--- NOTE | 2016-08-07 13:27 | PDOC PROGRESS REPORT ---
Subjective Progress Note for:: 08/07/16 Subjective:: Reason for visit: Follow-up pneumonia, parapneumonic effusion, respiratory failure Hospital course: Per H&P "FLORENTINO ZHANG is a 80 year old female presents from [facility] by EMS with sudden respiratory arrest. She is currently obtunded and intubated and unable to provide a review of systems her medical history. Her sister is at the bedside and tells be she arrived to find her sister sitting in the bedside chair slumped over and unresponsive. She called for help and the nursing staff attempted to assist her back into bed with a noted that she was unresponsive, initial blood pressure was reportedly 82/50, blood sugar 163 and a room air sat of 85%. EMS arrived to find her blood pressure 60 over palp, respiratory rate greater than 30 and they immediately transported across the street to the emergency department. By the time she arrived here she suddenly became apneic and had to be emergently intubated and placed on mechanical ventilation by the emergency room physician. She has now received a total of 4 L of normal saline and still hypotensive. A femoral central line was placed by the ER physician and she is now running Levophed at 12 mics per minute. Of note EMS attempted to place an I O in the right tibia unsuccessfully and they felt and heard a "crack". Her peak pressures on the ventilator are quite high at greater than 40 on vent settings of SIMV rate of 12, tidal volume of 500, pressure support 10, PEEP of 5 and FiO2 of 60%. I adjusted the rate to 15 and decrease the tidal volume with good response in her peak pressures to less than 35. Initial evaluation in the emergency department is largely still pending, and EKG does show some changes with T-wave inversions in lead 1, aVL, AVR and V3 through 6 when compared to prior. Review the record shows an echocardiogram on June 26 demonstrating an ejection fraction of 40-45% with left ventricular dilatation, 2 over 4 diastolic dysfunction and moderate left atrial enlargement but no significant valvular abnormalities. Her CBC is back and does show a leukocytosis at 16,000, 84% segmented neutrophils and chest x-ray by my interpretation shows a right upper lobe haziness that was not present previously and diffuse haziness to the right hemithorax when compared to the left and when compared to prior chest x-ray." She was admitted to the ICU intubated on mechanical ventilation and was successfully extubated on 08/02/2016. She underwent thoracentesis that was nondiagnostic. She remained on broad-spectrum antibiotics with good improvement in her overall condition. 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 Subjective: She remains intermittently confused, she remembers meeting me but cannot remember what circumstances. She now she is at [facility] but cannot remember why. She has some recognition of previously seen at [facility] for rehabilitation though she really was only there for days prior to readmission. She denies chest pain, palpitations, shortness of breath, fever, chills, nausea, vomiting, diarrhea. Her only complaint is that she wants to go home. ROS: per HPI plus a total of 10 systems reviewed, pertinent positives and negatives noted above, remaining systems negative. Physical Exam Vital Signs: Temp Pulse Resp BP Pulse Ox 98.1 F 113 H 18 126/61 H 94 08/07/16 08:43 08/07/16 08:43 08/07/16 08:43 08/07/16 08:43 08/07/16 08:43 Intake & Output 08/06/16 08/07/16 08/08/16 06:59 06:59 06:59 Intake Total 725 560 Output Total 300 2950 Balance 425 -2390 Weight 74.7 kg 75.1 kg EXAM GENERAL: NAD; well developed; no obese; alert and oriented to person & place HEENT: normocephalic, atraumatic; no conjunctival injection, no scleral icterus ; oral mucosa moist; RESPIRATORY: no accessory muscle use, no increased WOB, decreased air entry Rt base; no wheezes, rales, rhonchi; bilat R>L inspiratory crackles CARDIO: no JVD; irregular; no systolic murmur; tachycardia GI: soft; nondistended; normal bowel sounds; no rebound, rigidity, guarding; nontender to palpatoin VASCULAR: no pallor; 2+ radial, DP pulse; normal capillary refill EXTREMITIES: no calf tender; no palpable cords in calf; no clubbing, cyanosis , pedal edema PSYCH: normal affect, normal mood SKIN: warm; moist; no petechiae; no telengectasias; no jaundice; no rash; very pale Results Laboratory Results: 08/06/16 06:40 08/06/16 11:00 08/06/16 12:20 Urine Color COLORLESS Urine Appearance CLEAR Urine pH 7.0 Ur Specific [place] 1.006 Urine Protein NEGATIVE Urine Glucose (UA) NEGATIVE Urine Ketones NEGATIVE Urine Blood SMALL H Urine Nitrite NEGATIVE Ur Leukocyte Esterase NEGATIVE Urine WBC (Auto) 1 Urine RBC (Auto) 0 07/30/16 14:20 Pleural Fluid - Right Pleural Effusion Fungal Smear - Final 07/30/16 14:20 Pleural Fluid - Right Pleural Effusion Fungal Smear - Final 07/30/16 14:20 Pleural Fluid - Right Pleural Effusion Fungal Smear - Final 07/30/16 14:20 Pleural Fluid - Right Pleural Effusion AFB Smear Concentration - Final 07/30/16 14:20 Pleural Fluid - Right Pleural Effusion Acid Fast Bacilli Smear - Final 07/27/16 07/27/16 07/28/16 17:25 23:05 06:35 CK-MB (CK-2) 16.80 H Troponin I 0.074 0.088 0.078 NT-Pro-B Natriuret Pep 3290 H 2660 H 07/31/16 04:45 CK-MB (CK-2) Troponin I NT-Pro-B Natriuret Pep 6350 H Assessment & Plan - Diagnosis (1) Parapneumonic effusion Is this a current diagnosis for this admission?: YesPlan: Likely related to volume overload and Heart failure, culture negative for infectious etiology. Scheduled for repeat thoracentesis today. Assuming no copy patient postprocedure she can likely be discharged as early as tomorrow back to [facility] for ongoing rehabilitation. (2) Cardiac dysrhythmia, unspecified Qualifiers: Arrhythmia type: atrial fibrillation Atrial fibrillation type: paroxysmal Qualified Code(s): I48.0 - Paroxysmal atrial fibrillation Is this a current diagnosis for this admission?: YesPlan: Currently rate and rhythm controlled at less than 120, appreciate cardiology input; continue current regimen (3) Acute encephalopathy Is this a current diagnosis for this admission?: YesPlan: Multifactorial, continues with confusion predominantly at night consistent with sundowner's. I have suspected for some time that she has underdiagnosed probable vascular dementia as she exhibited similar problems during a previous admission just last month. (4) Acute on chronic systolic (congestive) heart failure Is this a current diagnosis for this admission?: YesPlan: Volume status has improved dramatically, will change Lasix to oral. (5) Coronary artery disease Qualifiers: Coronary Disease-Associated Artery/Lesion type: [place] artery Associated angina: angina presence unspecified Is this a current diagnosis for this admission?: YesPlan: Appreciate cardiology input, medical management only for now. (6) Ischemic cardiomyopathy Is this a current diagnosis for this admission?: Yes (7) Hypokalemia Is this a current diagnosis for this admission?: Yes (8) Hypomagnesemia Is this a current diagnosis for this admission?: Yes (9) Acute respiratory failure with hypoxia and hypercapnia Is this a current diagnosis for this admission?: YesPlan: Resolved. (10) Pneumonia Qualifiers: Pneumonia type: due to unspecified organism Laterality: right Lung location: upper lobe of lung Qualified Code(s): J18.1 - Lobar pneumonia, unspecified organism Is this a current diagnosis for this admission?: YesPlan: Resolved. Completed a course of antibiotics. Cultures negative. (11) Septic shock Is this a current diagnosis for this admission?: YesPlan: Resolved. (12) Acute kidney injury Is this a current diagnosis for this admission?: NoPlan: Resolved. (13) Elevated d-dimer Is this a current diagnosis for this admission?: YesPlan: Likely secondary to sepsis, CTA negative for pulmonary embolus - Time Time Spent with patient: 25-34 minutes Anticipated discharge: SNF - [facility] Within: within 24 hours
[2016-08-07] MEDS: APIXABAN 2.5 MG TABLET PO SCH (17:07)
--- NOTE | 2016-08-07 18:38 | PDOC PROGRESS REPORT ---
Subjective Progress Note for:: 08/07/16 Subjective:: Patient has made significant improvement in her general condition. No recurrence of NSVT. Medications reviewed. Rest of the system review negative. Intermittent short runs of paroxysmal atrial tachycardia noted. Patient on beta zoe which she seems to be tolerating well. Aim will be to gradually switch her over to beta zoe and digoxin for rate control. Patient currently intermittently confused but generally improved. Patient today had thoracentesis right chest. Post thoracentesis chest x-ray shows resolution of pleural effusion and no CHF noted. Physical Exam Vital Signs: Temp Pulse Resp BP Pulse Ox 98.2 F 55 L 18 116/71 96 08/07/16 15:34 08/07/16 15:34 08/07/16 15:34 08/07/16 15:34 08/07/16 15:34 Intake & Output 08/06/16 08/07/16 08/08/16 06:59 06:59 06:59 Intake Total 725 560 490 Output Total 300 2950 1100 Balance 425 -2390 -610 Weight 74.7 kg 75.1 kg Exam: GENERAL: well-nourished and in no acute distress. Alert and oriented 2 with intermittent confusion HEAD: Atraumatic, normocephalic. EYES: Pupils equal round and reactive to light, extraocular movements intact, sclera anicteric, conjunctiva are normal. ENT: TMs normal, nares patent, oropharynx clear without exudates. Moist mucous membranes. No oral ulcerations or bleeding gums noted NECK: supple without lymphadenopathy. Trachea is central. No cervical or axillary lymphadenopathy noted. Carotids are 2+, JVD WNL LUNGS: Respiration seems nonlabored, no significant accessory muscle action noted. Breath sounds clear to auscultation bilaterally and equal noted. No wheezes rales or rhonchi noted. No significant dullness noted on percussion. CHEST: Palpation of the chest wall shows no significant chest wall tenderness. No other significant abnormalities noted. 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 ABDOMEN: Soft, no significant tenderness appreciated, normoactive bowel sounds. No guarding, no rebound. No rigidity noted . No masses appreciated. EXTREMITIES: Pedal pulses are 1-2+, no calf tenderness noted. No clubbing or cyanosis.trace to 1+ pedal edema noted NEUROLOGICAL: Focused neurological exam showed no significant neurologic deficit. Normal speech, no focal weakness appreciated. PSYCH: Normal mood, normal affect. Judgment and insight not checked today. SKIN: No significant ecchymosis, rash, ulcerations or signs of pruritus noted. MUSCULOSKELETAL EXAM: No significant joint swelling noted. Results Laboratory Results: 08/06/16 06:40 08/06/16 11:00 08/07/16 11:45 Fluid Type PLEURAL Fluid Source THORACENTESIS Fluid Color YELLOW Fluid Appearance CLOUDY Fluid Viscosity LIQUID Fluid WBC 152 Fluid RBC 112 07/30/16 14:20 Pleural Fluid - Right Pleural Effusion Fungal Smear - Final 07/30/16 14:20 Pleural Fluid - Right Pleural Effusion Fungal Smear - Final 07/30/16 14:20 Pleural Fluid - Right Pleural Effusion Fungal Smear - Final 07/27/16 07/27/16 07/28/16 17:25 23:05 06:35 CK-MB (CK-2) 16.80 H Troponin I 0.074 0.088 0.078 NT-Pro-B Natriuret Pep 3290 H 2660 H 07/31/16 04:45 CK-MB (CK-2) Troponin I NT-Pro-B Natriuret Pep 6350 H Impressions: KUB X-Ray 07/28/16 08:54 IMPRESSION: Appropriate location of nasogastric tube. Decompressed stomach. Chest/Abdomen CTA 07/30/16 08:00 IMPRESSION: Moderate to large right pleural effusion. Small left effusion. Bibasilar infiltrate consistent with atelectasis or pneumonia. No pulmonary emboli. Chest X-Ray 08/07/16 00:00 IMPRESSION: No pneumothorax 2 hours post right thoracentesis. No acute infiltrates. Thoracentesis Ultrasound 08/07/16 11:00 IMPRESSION: SUCCESSFUL THORACENTESIS USING ULTRASOUND GUIDANCE. 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 Qualifiers: Congestive heart failure chronicity: acute on chronic Qualified Code (s): I50.43 - Acute on chronic combined systolic (congestive) and diastolic ( congestive) heart failure Is this a current diagnosis for this admission?: Yes (4) Cardiac dysrhythmia, unspecified Qualifiers: Arrhythmia type: atrial fibrillation Atrial fibrillation type: paroxysmal Qualified Code(s): I48.0 - Paroxysmal atrial fibrillation Is this a current diagnosis for this admission?: Yes (5) Sepsis Qualifiers: Sepsis type: sepsis due to unspecified organism Qualified Code(s): A41.9 - Sepsis, unspecified organism Is this a current diagnosis for this admission?: Yes - Notes Notes: Hypotension: Resolved Respiratory failure: Stable on current FiO2. Congestive heart failure: Seems compensated clinically now. Will obtain a BNP level for baseline purposes. Patient seems to be reasonably stable and on a stable regimen. Cardiac dysrhythmia with paroxysmal atrial fibrillation, nonsustained V. tach: Currently stable without any recurrence. Patient seems to be in its stable regimen. Sepsis: Improved. - Time Time with patient: 15-25 minutes - CODE STATUS was discussed, patient remains full code. Surrogate decision-maker unchanged. Multiple medical problems were addressed.More than 50% of the time spent coordinating care, discussing management plans with involved caregivers. Management plans discussed with involved personnels. Medical decision making was of moderate complexity.
[2016-08-08 02:20] LABS: APPEARANCE,URINE CLEAR; BILIRUBIN,URINE NEGATIVE (NEGATIVE); GLUCOSE, URINE NEGATIVE (NEGATIVE); KETONES,URINE NEGATIVE (NEGATIVE); LEUKOCYTE ESTERASE,URINE NEGATIVE (NEGATIVE); NITRITE,URINE NEGATIVE (NEGATIVE); PROTEIN,URINE 30 mg/dL (NEGATIVE); URINE SPECIFIC GRAVITY 1.008; UROBILINOGEN,URINE NEGATIVE mg/dL (<2.0)
[2016-08-08 04:46] LABS: HEMATOCRIT 26.1 % (36.0-47.0); HEMOGLOBIN 8.8 g/dL (12.0-15.5); HGB HCT DIFFERENCE 0.3; MEAN CORPUSCULAR HEMOGLOBIN 29.3 pg (27.0-33.4); MEAN CORPUSCULAR HGB CONC 33.5 g/dL (32.0-36.0); MEAN CORPUSCULAR VOLUME 88 fl (80-97); RED BLOOD COUNT 2.99 10^6/uL (3.72-5.28); WHITE BLOOD COUNT 12.2 10^3/uL (4.0-10.5)
[2016-08-08 04:52] LABS: ANION GAP 11 (5-19); BLOOD UREA NITROGEN 15 mg/dL (7-20); CALCIUM 8.8 mg/dL (8.4-10.2); CARBON DIOXIDE 33 mmol/L (22-30); CHLORIDE 100 mmol/L (98-107); CREATININE RESULT 0.68 mg/dL (0.52-1.25); GLUCOSE 112 mg/dL (75-110); POTASSIUM 3.5 mmol/L (3.6-5.0); SODIUM 143.8 mmol/L (137-145)
[2016-08-08] MEDS: ALBUTEROL SULFATE HFA (90 MCG/PUFF) 200 PUFF/8.5 GM MDI IH SCH ×3 (05:13→17:26)
[2016-08-08] MEDS: LANSOPRAZOLE 30 MG TAB.RAP.DR PO SCH (07:38)
[2016-08-08] MEDS: METOPROLOL SUCCINATE 25 MG TAB.SR.24H PO SCH (09:07)
[2016-08-08] MEDS: ASPIRIN 81 MG TABLET, ENT COATED PO SCH (09:08)
[2016-08-08] MEDS: APIXABAN 2.5 MG TABLET PO SCH ×2 (09:08→17:25)
[2016-08-08] MEDS: SPIRONOLACTONE 25 MG TABLET PO SCH (09:08)
[2016-08-08] MEDS ORDERED: FUROSEMIDE 20 MG TABLET PO SCH (10:00)
[2016-08-08] MEDS ORDERED: TORSEMIDE 20 MG TABLET PO SCH (10:00)
--- NOTE | 2016-08-08 10:56 | PDOC TRANSFER SUMMARY ---
General - Admit/Disc Date/PCP Admission Date/Primary Care Provider: 07/27/16 16:44 RAFA VELASCO MD Discharge Date: 08/08/16 - Discharge Diagnosis (1) Parapneumonic effusion Is this a current diagnosis for this admission?: YesSummary: Likely related to volume overload and Heart failure, culture negative for infectious etiology. S/p repeat thoracentesis with removal of another 800ml serous fluid that is Gm stain neg. she suffered no postprocedure complications andshe can likely be discharged back to [facility] for ongoing [facility]. (2) Cardiac dysrhythmia, unspecified Is this a current diagnosis for this admission?: YesSummary: Currently rate and rhythm controlled at less than 120, appreciate cardiology input; continue current regimen including anticoagulation for the PAF. (3) Acute encephalopathy Is this a current diagnosis for this admission?: YesSummary: Multifactorial, continues with confusion predominantly at night consistent with sundowner's. I have suspected for some time that she has underdiagnosed probable vascular dementia as she exhibited similar problems during a previous admission just last month. she is slow to orient in the morning but did not require any Rx treatment for the last 2 nights and is stable to discharge; hopefully she will continue to clear the further removed she gets from these past 2 hospitalizations. (4) Acute on chronic systolic (congestive) heart failure Is this a current diagnosis for this admission?: YesSummary: Volume status has improved dramatically, will change to torsemide at cardiology' s recommendations (5) Coronary artery disease Is this a current diagnosis for this admission?: YesSummary: Appreciate cardiology input, medical management only for now. (6) Ischemic cardiomyopathy Is this a current diagnosis for this admission?: YesSummary: stable (7) Hypokalemia Is this a current diagnosis for this admission?: YesSummary: continue supplement, defer to PCP or facility MD to f/u labs in one week (8) Hypomagnesemia Is this a current diagnosis for this admission?: YesSummary: continue oral replacement (9) Acute respiratory failure with hypoxia and hypercapnia Is this a current diagnosis for this admission?: YesSummary: resolved. (10) Pneumonia Is this a current diagnosis for this admission?: YesSummary: finished an adequate course of appropriate antibiotics; f/u with PCP as needed. continue to increase activity as tolerated, continue IS at the facility. (11) Septic shock Is this a current diagnosis for this admission?: YesSummary: resolved (12) Acute kidney injury Is this a current diagnosis for this admission?: YesSummary: resolved (13) Elevated d-dimer Is this a current diagnosis for this admission?: YesSummary: related to the acute infection - Additional Information Resuscitation Status: Full Code Discharge Diet: Cardiac Discharge Activity: Activity As Tolerated, Balance Activity w/Rest, Weigh Daily Home Medications: Aspirin [Aspirin EC] 81 mg PO DAILY 07/27/16 Atorvastatin Calcium [Lipitor 20 mg Tablet] 20 mg PO QHS 07/27/16 Bisacodyl [Dulcolax 5 mg Tablet] 10 mg PO DAILYP PRN 07/27/16 Docusate Sodium [Colace 100 mg Capsule] 200 mg PO DAILY@1200 07/27/16 Potassium Chloride [K-Sarah] 20 meq PO DAILY 07/27/16 Acetaminophen [Tylenol 650 mg Supp] 650 mg MT Q4HP PRN supp.rect 08/08/16 Albuterol Sulfate [Proair HFA Inhalation Aerosol 8.5 gm MDI] 2 puff IH Q6 hfa.aer.ad 08/08/16 Apixaban [Eliquis 2.5 mg Tablet] 2.5 mg PO BID tablet 08/08/16 Lactobacillus Acidophilus [Acidophilus Lactobacilli] 1 each PO BIDACBS #60 capsule 08/08/16 Metoprolol Succinate [Toprol Xl 25 mg Tab.sr] 25 mg PO Q12 tab.sr.24h 08/08/16 Spironolactone [Aldactone 25 mg Tablet] 25 mg PO DAILY tablet 08/08/16 Torsemide [Demadex 20 mg Tablet] 20 mg PO DAILY tablet 08/08/16 History of Present Illness Admission Date/PCP: 07/27/16 16:44 RAFA VELASCO MD Patient complains of: obtunded; resp arrest History of Present Illness: "FLORENTINO ZHANG is a 80 year old female presents from [facility] by EMS with sudden respiratory arrest. She is currently obtunded and intubated and unable to provide a review of systems her medical history. Her sister is at the bedside and tells be she arrived to find her sister sitting in the bedside chair slumped over and unresponsive. She called for help and the nursing staff attempted to assist her back into bed with a noted that she was unresponsive, initial blood pressure was reportedly 82 /50, blood sugar 163 and a room air sat of 85%. EMS arrived to find her blood pressure 60 over palp, respiratory rate greater than 30 and they immediately transported across the street to the emergency department. By the time she arrived here she suddenly became apneic and had to be emergently intubated and placed on mechanical ventilation by the emergency room physician. Hospital Course Hospital Course: She has now received a total of 4 L of normal saline and still hypotensive. A femoral central line was placed by the ER physician and she is now running Levophed at 12 mics per minute. Of note EMS attempted to place an I O in the right tibia unsuccessfully and they felt and heard a "crack". Her peak pressures on the ventilator are quite high at greater than 40 on vent settings of SIMV rate of 12, tidal volume of 500, pressure support 10, PEEP of 5 and FiO2 of 60%. I adjusted the rate to 15 and decrease the tidal volume with good response in her peak pressures to less than 35. Initial evaluation in the emergency department is largely still pending, and EKG does show some changes with T-wave inversions in lead 1, aVL, AVR and V3 through 6 when compared to prior. Review the record shows an echocardiogram on June 26 demonstrating an ejection fraction of 40-45% with left ventricular dilatation, 2 over 4 diastolic dysfunction and moderate left atrial enlargement but no significant valvular abnormalities. Her CBC is back and does show a leukocytosis at 16,000, 84% segmented neutrophils and chest x-ray by my interpretation shows a right upper lobe haziness that was not present previously and diffuse haziness to the right hemithorax when compared to the left and when compared to prior chest x-ray." She was admitted to the ICU intubated on mechanical ventilation and was successfully extubated on 08/02/2016. She underwent thoracentesis that was nondiagnostic. She remained on broad-spectrum antibiotics with good improvement in her overall condition. 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 She remains intermittently confused, she remembers meeting me by name and knows she now she is at [facility] but cannot remember why. She has some recognition of previously seen at [facility] for rehabilitation though she really was only there for days prior to readmission. She denies chest pain, palpitations, shortness of breath, fever, chills, nausea, vomiting, diarrhea. Her only complaint is that she wants to go home. her oral intake has improved, her mentation is improved, she is hemodynamically stable and not requiring supplemental O2; therefore she is stable for transfer to [facility] to continue her rehab. recommend f/u with facility MD or her PCP in one week to make sure she continues to progress. Physical Exam Vital Signs: Temp Pulse Resp BP Pulse Ox 97.9 F 108 H 16 138/74 H 97 08/08/16 07:31 08/08/16 07:31 08/08/16 07:31 08/08/16 07:31 08/08/16 07:31 Intake & Output 08/07/16 08/08/16 08/09/16 06:59 06:59 06:59 Intake Total 560 550 Output Total 2950 2100 Balance -2390 -1550 Weight 75.1 kg 71.6 kg EXAM GENERAL: NAD; well developed; no obese; alert and oriented to person & place HEENT: normocephalic, atraumatic; no conjunctival injection, no scleral icterus ; oral mucosa moist; RESPIRATORY: no accessory muscle use, no increased WOB, decreased air entry Rt base; no wheezes, rales, rhonchi; no inspiratory crackles CARDIO: no JVD; irregular; no systolic murmur; tachycardia GI: soft; nondistended; normal bowel sounds; no rebound, rigidity, guarding; nontender to palpatoin VASCULAR: no pallor; 2+ radial, DP pulse; normal capillary refill EXTREMITIES: no calf tender; no palpable cords in calf; no clubbing, cyanosis , pedal edema PSYCH: normal affect, normal mood SKIN: warm; moist; no petechiae; no telengectasias; no jaundice; no rash; very pale Results Laboratory Results: 08/08/16 04:30 08/08/16 04:30 08/07/16 08/08/16 08/08/16 11:45 01:45 01:45 WBC RBC Hgb Hct MCV MCH MCHC RDW Plt Count Sodium Potassium Chloride Carbon Dioxide Anion Gap BUN Creatinine Est GFR ( Amer) Est GFR (Non-Af Amer) Glucose Calcium Urine Color YELLOW Urine Appearance CLEAR Urine pH 9.0 Ur Specific [place] 1.008 Urine Protein 30 H Urine Glucose (UA) NEGATIVE Urine Ketones NEGATIVE Urine Blood NEGATIVE Urine Nitrite NEGATIVE Ur Leukocyte Esterase NEGATIVE Urine WBC (Auto) 3 Urine RBC (Auto) 0 Fluid Type PLEURAL Fluid Source THORACENTESIS Fluid Color YELLOW Fluid Appearance CLOUDY Fluid Viscosity LIQUID Fluid WBC 152 Fluid RBC 112 Stool Occult Blood POSITIVE 08/08/16 08/08/16 04:30 04:30 WBC 12.2 H RBC 2.99 L Hgb 8.8 L Hct 26.1 L MCV 88 MCH 29.3 MCHC 33.5 RDW 14.0 Plt Count 199 Sodium 143.8 Potassium 3.5 L Chloride 100 Carbon Dioxide 33 H Anion Gap 11 BUN 15 Creatinine 0.68 Est GFR ( Amer) > 60 Est GFR (Non-Af Amer) > 60 Glucose 112 H Calcium 8.8 Urine Color Urine Appearance Urine pH Ur Specific [place] Urine Protein Urine Glucose (UA) Urine Ketones Urine Blood Urine Nitrite Ur Leukocyte Esterase Urine WBC (Auto) Urine RBC (Auto) Fluid Type Fluid Source Fluid Color Fluid Appearance Fluid Viscosity Fluid WBC Fluid RBC Stool Occult Blood 07/30/16 14:20 Pleural Fluid - Right Pleural Effusion Fungal Smear - Final 07/30/16 14:20 Pleural Fluid - Right Pleural Effusion Fungal Smear - Final 07/30/16 14:20 Pleural Fluid - Right Pleural Effusion Fungal Smear - Final 07/27/16 07/27/16 07/28/16 17:25 23:05 06:35 CK-MB (CK-2) 16.80 H Troponin I 0.074 0.088 0.078 NT-Pro-B Natriuret Pep 3290 H 2660 H 07/31/16 08/08/16 04:45 04:30 CK-MB (CK-2) Troponin I NT-Pro-B Natriuret Pep 6350 H 2840 H Impressions: KUB X-Ray 07/28/16 08:54 IMPRESSION: Appropriate location of nasogastric tube. Decompressed stomach. Chest/Abdomen CTA 07/30/16 08:00 IMPRESSION: Moderate to large right pleural effusion. Small left effusion. Bibasilar infiltrate consistent with atelectasis or pneumonia. No pulmonary emboli. Chest X-Ray 08/07/16 00:00 IMPRESSION: No pneumothorax 2 hours post right thoracentesis. No acute infiltrates. Thoracentesis Ultrasound 08/07/16 11:00 IMPRESSION: SUCCESSFUL THORACENTESIS USING ULTRASOUND GUIDANCE. Transfer Plan - Disposition Transfer Plan: continue current medical regimen; stop centrally acting meds as she has not required them for the past 2 nights and defer to PCP or facility MD for prn meds depending on her clinical course. Qualifiers PATEINT BEING DISCHARGED WITH ANY OF THE FOLLOWING DIAGNOSIS?: No VTE patient discharged on overlapping Therapy?: Yes
--- NOTE | 2016-08-08 20:19 | PDOC PROGRESS REPORT ---
Subjective Progress Note for:: 08/08/16 Subjective:: Patient has made significant improvement in her general condition. No recurrence of NSVT. Medications reviewed. Rest of the system review negative. Intermittent short runs of paroxysmal atrial tachycardia noted. 6 beat run of narrow complex tachycardia noted. Patient on beta zoe which she seems to be tolerating well. Patient currently intermittently confused but generally improved. BNP level obtained showed significant improvement. Physical Exam Vital Signs: Temp Pulse Resp BP Pulse Ox 98.6 F 99 20 118/84 97 08/08/16 16:11 08/08/16 16:11 08/08/16 16:11 08/08/16 16:11 08/08/16 16:11 Intake & Output 08/07/16 08/08/16 08/09/16 06:59 06:59 06:59 Intake Total 560 550 604 Output Total 2950 2100 200 Balance -2390 -1550 404 Weight 75.1 kg 71.6 kg Exam: GENERAL: well-nourished and in no acute distress. Alert and oriented 2 with intermittent confusion HEAD: Atraumatic, normocephalic. EYES: Pupils equal round and reactive to light, extraocular movements intact, sclera anicteric, conjunctiva are normal. ENT: TMs normal, nares patent, oropharynx clear without exudates. Moist mucous membranes. No oral ulcerations or bleeding gums noted NECK: supple without lymphadenopathy. Trachea is central. No cervical or axillary lymphadenopathy noted. Carotids are 2+, JVD WNL LUNGS: Respiration seems nonlabored, no significant accessory muscle action noted. Breath sounds clear to auscultation bilaterally and equal noted. No wheezes rales or rhonchi noted. No significant dullness noted on percussion. CHEST: Palpation of the chest wall shows no significant chest wall tenderness. No other significant abnormalities noted. 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 ABDOMEN: Soft, no significant tenderness appreciated, normoactive bowel sounds. No guarding, no rebound. No rigidity noted . No masses appreciated. EXTREMITIES: Pedal pulses are 1-2+, no calf tenderness noted. No clubbing or cyanosis.trace to 1+ pedal edema noted NEUROLOGICAL: Focused neurological exam showed no significant neurologic deficit. Normal speech, no focal weakness appreciated. PSYCH: Normal mood, normal affect. Judgment and insight seems intact SKIN: No significant ecchymosis, rash, ulcerations or signs of pruritus noted. MUSCULOSKELETAL EXAM: No significant joint swelling noted. Results Laboratory Results: 08/08/16 04:30 08/08/16 04:30 08/08/16 08/08/16 08/08/16 01:45 01:45 04:30 WBC RBC Hgb Hct MCV MCH MCHC RDW Plt Count Sodium 143.8 Potassium 3.5 L Chloride 100 Carbon Dioxide 33 H Anion Gap 11 BUN 15 Creatinine 0.68 Est GFR ( Amer) > 60 Est GFR (Non-Af Amer) > 60 Glucose 112 H Calcium 8.8 Urine Color YELLOW Urine Appearance CLEAR Urine pH 9.0 Ur Specific [place] 1.008 Urine Protein 30 H Urine Glucose (UA) NEGATIVE Urine Ketones NEGATIVE Urine Blood NEGATIVE Urine Nitrite NEGATIVE Ur Leukocyte Esterase NEGATIVE Urine WBC (Auto) 3 Urine RBC (Auto) 0 Stool Occult Blood POSITIVE 08/08/16 04:30 WBC 12.2 H RBC 2.99 L Hgb 8.8 L Hct 26.1 L MCV 88 MCH 29.3 MCHC 33.5 RDW 14.0 Plt Count 199 Sodium Potassium Chloride Carbon Dioxide Anion Gap BUN Creatinine Est GFR ( Amer) Est GFR (Non-Af Amer) Glucose Calcium Urine Color Urine Appearance Urine pH Ur Specific [place] Urine Protein Urine Glucose (UA) Urine Ketones Urine Blood Urine Nitrite Ur Leukocyte Esterase Urine WBC (Auto) Urine RBC (Auto) Stool Occult Blood 07/30/16 14:20 Pleural Fluid - Right Pleural Effusion Viral Culture - Final 07/27/16 07/27/16 07/28/16 17:25 23:05 06:35 CK-MB (CK-2) 16.80 H Troponin I 0.074 0.088 0.078 NT-Pro-B Natriuret Pep 3290 H 2660 H 07/31/16 08/08/16 04:45 04:30 CK-MB (CK-2) Troponin I NT-Pro-B Natriuret Pep 6350 H 2840 H Impressions: KUB X-Ray 07/28/16 08:54 IMPRESSION: Appropriate location of nasogastric tube. Decompressed stomach. Chest/Abdomen CTA 07/30/16 08:00 IMPRESSION: Moderate to large right pleural effusion. Small left effusion. Bibasilar infiltrate consistent with atelectasis or pneumonia. No pulmonary emboli. Chest X-Ray 08/07/16 00:00 IMPRESSION: No pneumothorax 2 hours post right thoracentesis. No acute infiltrates. Thoracentesis Ultrasound 08/07/16 11:00 IMPRESSION: SUCCESSFUL THORACENTESIS USING ULTRASOUND GUIDANCE. 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 Qualifiers: Congestive heart failure chronicity: acute on chronic Qualified Code (s): I50.43 - Acute on chronic combined systolic (congestive) and diastolic ( congestive) heart failure Is this a current diagnosis for this admission?: Yes (4) Cardiac dysrhythmia, unspecified Qualifiers: Arrhythmia type: atrial fibrillation Atrial fibrillation type: paroxysmal Qualified Code(s): I48.0 - Paroxysmal atrial fibrillation Is this a current diagnosis for this admission?: Yes (5) Sepsis Qualifiers: Sepsis type: sepsis due to unspecified organism Qualified Code(s): A41.9 - Sepsis, unspecified organism Is this a current diagnosis for this admission?: Yes - Notes Notes: Patient has been noted to have short nonsustained narrow complex and also wide complex tachycardia. Currently stable. Continue beta zoe therapy. Patient will benefit from outpatient follow-up. Patient has shown significant gradual improvement. CHF seems clinically compensated on current diuretic regimen. Sepsis has improved. - Time Time with patient: 15-25 minutes - CODE STATUS was discussed, patient remains full code. Surrogate decision-maker unchanged. Multiple medical problems were addressed.More than 50% of the time spent coordinating care, discussing management plans with involved caregivers. Management plans discussed with involved personnels. Medical decision making was of moderate complexity.
[2016-08-08 20:29] VITALS: BP 109/64
--- NOTE | 2016-08-12 03:23 | PROGRESS NOTE E ---
Progress Note NAME: FLORENTINO ZHANG : 1935 AGE: 80Y DATE: 07/30/2016 ROOM: 407 Note the first dictation was lost in the system and so I am re-dictating it for my notes. SUBJECTIVE: The patient is intubated and sedated. There are a few PVCs seen. The patient continues to be on dobutamine and Yohan-Synephrine with a stable blood pressure. OBJECTIVE: VITAL SIGNS: She is afebrile with a temperature of 97.7, pulse is 99 beats per minute, blood pressure is 130/66, O2 sat is 98%, respiratory rate of 17 per minute, FiO2 is 35%. The patient has a few PVCs, but no significant arrhythmias. The patient appears to be comfortable and is not fighting the ventilator. She is intubated and sedated. HEENT: Head is normocephalic, atraumatic. Pupils are equal, round and regular, reactive to light and accommodation. ENT is negative. NECK: Supple. There is some mild JVD present. Carotids are equal. There is no bruit. There is no lymphadenopathy. LUNGS: There are absent breath sounds in the bases, more on the right side than the left and a few dry crackles. There are no fine rales of CHF today. There are also coarse crackles in the right upper lobe and also in the right middle lobe. HEART: S1 and S2 are heard. There is no S3 gallop. There is no S4 gallop. There is a systolic murmur in the left sternal border and the apex. There is no rub. ABDOMEN: Soft. Nontender. There is no hepatosplenomegaly. Bowel sounds are well heard. EXTREMITIES: Femorals are diminished. There are no femoral bruits. Leg pulses are diminished. There is no pedal edema. There is no DVT or cellulitis. There is no calf tenderness. CENTRAL NERVOUS SYSTEM AND PSYCHIATRIC: Not examined. LABORATORY: The patient' white count is 15,500; hemoglobin is 9; hematocrit is 27.3; and platelet count is 204,000. The patient's sodium is 141.4, potassium is 3.3, chloride is 110, CO2 of 24, BUN 16, creatinine is 0.87, and GFR has now come back to normal at greater than 60, calcium is 8.2. Liver function tests are abnormal with an AST of 40, ALT of 54, and alk phos is 70. LDH is 642. NT-proBNP is 6350. The patient's ABG show pH of 7.41, pO2 is 86.9, pCO2 is 32.9, and O2 sat is 97%. This is on FiO2 of 50% yesterday. Today, the patient's pH is 7.41. The patient's pCO2 is 34.4, pO2 is 95.9, and the O2 sat is 97.5% on FiO2 of 45%. The patient's 24-hour intake is 4188, output is 2900. The patient's CTA of the chest shows [id number] right pleural effusion, small left effusion, bibasilar infiltrates consistent with atelectasis or pneumonia. No pulmonary emboli. The patient's chest x-ray shows previously described hazy opacities of both lung bases show overall improvement with decreasing concerns. Residual changes identified in mediastinal and hilar *------* structures. There are no masses and contour is normal. The configuration of the heart to mediastinal structures is unchanged. No other significant findings. IMPRESSION: 1. BORDERLINE ELEVATED TROPONIN, MOST LIKELY SECONDARY TO SEPSIS AND HYPOXEMIA. This has trended down. 2. BIBASILAR PNEUMONIA WITH [id number] RIGHT PLEURAL EFFUSION. 3. SEPTIC SHOCK SECONDARY TO PNEUMONIA. Blood pressure is stable on two pressors at present, which is dobutamine and Yohan-Synephrine. 4. HYPOXIC RESPIRATORY FAILURE. The patient is presently on a ventilator. The patient's O2 saturation is good. 5. HYPOKALEMIA. This is being replenished. 6. CORONARY ARTERY DISEASE, HISTORY OF OLD [place]. No recent symptoms. 7. CARDIOMYOPATHY WITH SLIGHTLY REDUCED LV EJECTION FRACTION. 8. CONGESTIVE HEART FAILURE, [id number] SYSTOLIC HEART FAILURE. At present, there are no signs of decompensation. 9. ACUTE KIDNEY DISEASE. At present, GFR is improved and is back to normal, greater than 60. RECOMMENDATIONS: Continue ventilatory support and respiratory treatments. Continue antibiotics. Replace the patient's potassium. Continue diuretics. Continue the patient on dobutamine and Yohan-Synephrine and try to wean this off. Watch for any arrhythmias. Note, this critical care time involved was 35 minutes of which more than 50% of the time was spent in direct patient care and also review of the patient's medication and also discussions with the other physicians in the case. Note, this progress note is for July 30, 2016. DICTATING PHYSICIAN: VANDANA EVANS M.D. [id number] PHY#: [id number] ID: [id number] JOB#: [id number] ACCT: [id number] cc: >
== END 2016-08-08 20:43 | DRG 870 ==
LOC: ER 14:36 → EH 16:44 → UNDOADMIN 17:05 → EH 17:05 → ICU 18:33 → EH 18:33 → 4N 08-04 20:12
PROVIDERS: ADMIT Internal Medicine; ATTEND Internal Medicine
PROC: 0BH17EZ Insertion of Endotracheal Airway into Trachea, Via Natural or Artificial Opening (ICD-10-PCS; principal; 2016-07-27)
PROC: 5A1955Z Respiratory Ventilation, Greater than 96 Consecutive Hours (ICD-10-PCS; 2016-07-27)
PROC: 0D9670Z Drainage of Stomach with Drainage Device, Via Natural or Artificial Opening (ICD-10-PCS; 2016-07-27)
PROC: 02HV33Z Insertion of Infusion Device into Superior Vena Cava, Percutaneous Approach (ICD-10-PCS; 2016-07-27)
PROC: B54BZZA Ultrasonography of Right Lower Extremity Veins, Guidance (ICD-10-PCS; 2016-07-27)
PROC: 06HM33Z Insertion of Infusion Device into Right Femoral Vein, Percutaneous Approach (ICD-10-PCS; 2016-07-27)
PROC: 0W993ZZ Drainage of Right Pleural Cavity, Percutaneous Approach (ICD-10-PCS; 2016-07-30)
PROC: 0W993ZZ Drainage of Right Pleural Cavity, Percutaneous Approach (ICD-10-PCS; 2016-08-07)
DX: A41.9 Sepsis, unspecified organism (principal); R65.21 Severe sepsis with septic shock; G93.40 Encephalopathy, unspecified; I50.23 Acute on chronic systolic (congestive) heart failure; J18.9 Pneumonia, unspecified organism; J96.02 Acute respiratory failure with hypercapnia; J96.01 Acute respiratory failure with hypoxia; N17.9 Acute kidney failure, unspecified; F05 Delirium due to known physiological condition; I48.0 Paroxysmal atrial fibrillation; I25.10 Atherosclerotic heart disease of native coronary artery without angina pectoris; I25.5 Ischemic cardiomyopathy; E87.6 Hypokalemia; E83.42 Hypomagnesemia; F31.9 Bipolar disorder, unspecified; Z79.82 Long term (current) use of aspirin; Z79.899 Other long term (current) drug therapy; I25.2 Old myocardial infarction; Z90.49 Acquired absence of other specified parts of digestive tract
CPT/HCPCS: 32555; 36415; 51702; 71010; 71275; 74000; 80048; 80053; 80202; 81001; 82150; 82272; 82550; 82553; 82803; 82945; 82962; 83605; 83615; 83735; 83880; 84100; 84132; 84157; 84484; 85025; 85027; 85379; 85610; 85730; 87015; 87040; 87070; 87075; 87086; 87101; 87116; 87205; 87206; 87252; 88305; 88341; 88342; 89050; 93005; 93010; 94002; 94003; 94799; 99291; C1751; G8978-GP; G8979-GP; G8996-GN; G8997-GN; J0330; J0692; J0696; J1250; J1642; J1650; J1720; J1940; J1956; J2370; J2704; J3370; J3475; J3480; J3490; J7060; J7120; P9047

== ENCOUNTER 2016-11-15 21:05 | Emergency (ER) | payer MEDICARE ==
--- NOTE | 2016-11-15 21:31 | EKG REPORT ---
SEVERITY:- ABNORMAL ECG - SINUS RHYTHM ABNORMAL T, CONSIDER ISCHEMIA, LATERAL LEADS : Confirmed by: Param Alberto 15-Nov-2016 21:31:01
--- NOTE | 2016-11-15 21:52 | RADIOLOGY REPORT (SQ) ---
EXAM DESCRIPTION: CHEST SINGLE VIEW COMPLETED DATE/TIME: 11/15/2016 9:40 pm REASON FOR STUDY: chest pain COMPARISON: 08/07/2016. NUMBER OF VIEWS: One view. TECHNIQUE: Single frontal radiographic view of the chest acquired. LIMITATIONS: None. FINDINGS: LUNGS AND PLEURA: No opacities, masses or pneumothorax. No pleural effusion. MEDIASTINUM AND HILAR STRUCTURES: No masses. Contour normal. HEART AND VASCULAR STRUCTURES: Heart enlarged without failure. Normal vasculature. BONES: No acute findings. HARDWARE: None in the chest. OTHER: No other significant finding. IMPRESSION: HEART ENLARGED WITHOUT FAILURE. NO OTHER SIGNIFICANT RADIOGRAPHIC FINDING IN THE CHEST. TECHNICAL DOCUMENTATION: JOB ID: [id number] [employer]- All Rights Reserved
[2016-11-15 22:21] LABS: ABSOLUTE MONOCYTES (AUTO) 1.8 10^3/uL (0.1-1.4); BASOPHILS % (AUTO) 0.2 % (0-2); HEMATOCRIT 34.9 % (36.0-47.0); HEMOGLOBIN 11.1 g/dL (12.0-15.5); HGB HCT DIFFERENCE -1.6; LYMPHOCYTES % (AUTO) 13.7 % (13-45); MEAN CORPUSCULAR HEMOGLOBIN 28.9 pg (27.0-33.4); MEAN CORPUSCULAR HGB CONC 31.8 g/dL (32.0-36.0); MEAN CORPUSCULAR VOLUME 91 fl (80-97); MONOCYTES % (AUTO) 11.8 % (3-13); RED BLOOD COUNT 3.84 10^6/uL (3.72-5.28); RED CELL DISTRIBUTION WIDTH 14.2 % (11.5-14.0); SEGMENTED NEUTROPHILS % (AUTO) 74.3 % (42-78); WHITE BLOOD COUNT 14.8 10^3/uL (4.0-10.5)
[2016-11-15 22:36] LABS: ALANINE AMINOTRANSFERASE 21 U/L (9-52); ALBUMIN 3.6 g/dL (3.5-5.0); ALKALINE PHOSPHATASE 90 U/L (38-126); ANION GAP 12 (5-19); ASPARTATE AMINO TRANSFERASE 20 U/L (14-36); BILIRUBIN,DIRECT 0.3 mg/dL (0.0-0.4); BILIRUBIN,TOTAL 0.9 mg/dL (0.2-1.3); BLOOD UREA NITROGEN 19 mg/dL (7-20); CALCIUM 9.1 mg/dL (8.4-10.2); CARBON DIOXIDE 21 mmol/L (22-30); CHLORIDE 105 mmol/L (98-107); CREATINE KINASE 40 U/L (30-135); GLUCOSE 100 mg/dL (75-110); LIPASE 59.1 U/L (23-300); POTASSIUM 4.1 mmol/L (3.6-5.0); SODIUM 137.9 mmol/L (137-145); TOTAL PROTEIN 7.4 g/dL (6.3-8.2)
--- NOTE | 2016-11-15 23:03 | ER Document Report ---
ED Cardiac - General Chief Complaint: Chest Pain > 30 Stated Complaint: CHEST PAIN Time Seen by Provider: 11/15/16 21:16 Notes: Patient is an 80-year-old female, past medical history cholecystectomy 3 months ago, "heart attack in 1997", presents with 1 day of constant right sided chest pain that is worse when she twists. When at rest, she is not having any pain. She was given aspirin by EMS and a nitro, which dropped her pressure. On arrival to the emergency room, her blood pressure returned to normal and she is not having any symptoms. Her [id number] and sister made her come to the emergency room, although she does not want to be here. She denies shortness of breath, nausea, vomiting, back pain, numbness, tingling, fever, rash, leg swelling or abdominal pain. TRAVEL OUTSIDE OF THE [place] IN LAST 30 DAYS: No - Related Data Allergies/Adverse Reactions: No Known Allergies Allergy (Unverified 09/20/14 12:59) Past Medical History - General Information source: Patient - Social History Smoking Status: Never Smoker Family History: Reviewed & Not Pertinent Patient has suicidal ideation: No Patient has homicidal ideation: No - Past Medical History Cardiac Medical History: Reports: Hx Heart Attack - 1997 Denies: Hx Hypertension Pulmonary Medical History: Denies: Hx Asthma Neurological Medical History: Denies: Hx Cerebrovascular Accident, Hx Seizures Renal/ Medical History: Denies: Hx Peritoneal Dialysis GI Medical History: Denies: Hx Hepatitis, Hx Hiatal Hernia, Hx Ulcer Psychiatric Medical History: Denies: Hx Depression Infectious Medical History: Denies: Hx Hepatitis Past Surgical History: Reports: Hx Appendectomy, Hx Hysterectomy. Denies: Hx Mastectomy, Hx Open Heart Surgery, Hx Pacemaker Review of Systems - Review of Systems Notes: REVIEW OF SYSTEMS: CONSTITUTIONAL: -fevers, -chills EENT: -eye pain, -difficulty swallowing, -nasal congestion CARDIOVASCULAR: +chest pain, -syncope. RESPIRATORY: -cough, -SOB GASTROINTESTINAL: -abdominal pain, - nausea, -vomiting, -diarrhea GENITOURINARY: -dysuria, -hematuria MUSCULOSKELETAL: -back pain, -neck pain SKIN: -rash or skin lesions. HEMATOLOGIC: -easy bruising or bleeding. LYMPHATIC: -swollen, enlarged glands. NEUROLOGICAL: -altered mental status or loss of consciousness, -headache, - neurologic symptoms PSYCHIATRIC: -anxiety, -depression. ALL OTHER SYSTEMS REVIEWED AND NEGATIVE. Physical Exam - Vital signs Vitals: Temp Pulse Resp BP Pulse Ox 99 F 96 15 109/54 L 98 11/15/16 21:06 11/15/16 21:06 11/15/16 21:06 11/15/16 21:06 11/15/16 21:06 - Notes Notes: PHYSICAL EXAMINATION: GENERAL: Well-appearing, well-nourished and in no acute distress. HEAD: Atraumatic, normocephalic. EYES: Pupils equal round and reactive to light, extraocular movements intact, sclera anicteric, conjunctiva are normal. ENT: nares patent, oropharynx clear without exudates. Moist mucous membranes. NECK: Normal range of motion, supple without lymphadenopathy LUNGS: Breath sounds clear to auscultation bilaterally and equal. No wheezes rales or rhonchi. HEART: Regular rate and rhythm without murmurs. Tenderness over right lower chest wall. ABDOMEN: Soft, nontender, normoactive bowel sounds. No guarding, no rebound. No masses appreciated. EXTREMITIES: Normal range of motion, no pitting or edema. No cyanosis. NEUROLOGICAL: Cranial nerves grossly intact. Normal speech, normal gait. Normal sensory and motor exams. PSYCH: Normal mood, normal affect. SKIN: Warm, Dry, normal turgor, no rashes or lesions noted. Course - Re-evaluation Re-evalutation: Pt's chest pain is atypical in nature for ACS, dissection or PE at this time. Pain is worse when she twists her torso. Patient's troponin and EKG did not show any active ischemia. She always has a chronic leukocytosis and her white count is decreased from her baseline. Spoke to patient and offered her admission for further evaluation of her chest pain due to her age and risk factors, but the patient is adamant that she does not want to be admitted to the hospital. She says she has a appointment with her equity manager this week. She understands the risks of leaving, including full heart attack and . She also knows to return immediately to the emergency room she has worsening pain. Sister and [id number] are at bedside and understand the plan. Patient is of sound mind and able to make her own decisions. Will discharge patient home in the care of her sister and [id number]. - Vital Signs Vital signs: Temp Pulse Resp BP Pulse Ox 99.1 F 103 H 12 115/54 L 98 11/15/16 23:51 11/15/16 23:51 11/15/16 23:51 11/15/16 23:51 11/15/16 23:51 - Laboratory Result Diagrams: 11/15/16 21:57 11/15/16 21:57 Laboratory results interpreted by me: 11/15/16 11/15/16 21:57 21:57 WBC 14.8 H Hgb 11.1 L Hct 34.9 L MCHC 31.8 L RDW 14.2 H Absolute Neutrophils 11.0 H Absolute Monocytes 1.8 H Carbon Dioxide 21 L - Diagnostic Test Radiology reviewed: Image reviewed, Reports reviewed Radiology results interpreted by me: CXR: NAD - EKG Interpretation by Me EKG shows normal: Sinus rhythm, [place], Intervals, QRS Complexes, ST-T Waves Rate: Normal When compared to previous EKG there are: No significant change Discharge - Discharge Clinical Impression: Chest pain Qualifiers: Chest pain type: unspecified Qualified Code(s): R07.9 - Chest pain, unspecified Condition: Stable Disposition: HOME, SELF-CARE Additional Instructions: CHEST PAIN OF UNCLEAR CAUSE: The exact cause of your chest pain isn't clear. Fortunately, there is no evidence of a dangerous medical condition. Further testing may be required to find the source of the pain. Most often, we find that this pain is coming from the chest wall -- the muscles or rib joints in the chest. But chest pain can come from the lung and lung lining, the esophagus, the heart valves or heart lining, and even the stomach or gallbladder. Rest. Eat lightly until the pain is gone. We may prescribe medicine for pain and inflammation. You should call the physician immediately if the pain radiates to the shoulder, jaw or arms; if you start to run a fever or develop a cough; or if you develop shortness of breath, or other new or alarming symptoms. NORMAL EXAM AND WORKUP: At this time, your examination and workup show no significant abnormality. No significant abnormal physical findings were noted. All laboratory, EKG, and imaging (x-ray, CT scans, ultrasound) studies that were ordered show no significant abnormality. Although your examination and all studies that were ordered showed no significant abnormal finding, there are no examinations and no studies that are 100% accurate. There is always the possibility that some abnormality could exist and not be detected with physical examination or within the limits and capabilities of laboratory and other studies. You should return or follow up as you were instructed on your visit today for further evaluation if your symptoms do not resolve. CHEST WALL PAIN: Your chest pain may be coming from the chest wall. This is often caused by straining the muscles or joints in the chest during physical activity, direct trauma, coughing, or vigorous vomiting. Persons with arthritis are especially prone to this type of pain, due to inflammation of the cartilage joints near the breast bone. Occasionally, no cause can be found. Rest from strenuous physical activity. This kind of chest pain is usually made worse by movement of the chest. Depending on the symptoms, we may prescribe medicine for pain, muscle relaxation, and antiinflammatory effects. If the pain is new, and seems to be due to muscle strain, cold packs can help. Otherwise, apply gentle warmth to the painful area for 15 minutes every hour or two. You should call contact the doctor immediately if things change. Further evaluation is needed if you develop a fever or cough, if the nature of the pain changes, or if you become short of breath. ANGINA EPISODE: Your physician has diagnosed the pain you experienced as an episode of angina. Angina occurs when a portion of the heart muscle temporarily lacks oxygen. It does not cause any permanent heart damage, but serves as a warning. Hospitalization is not necessary now. Evaluation of your cardiac condition , and medical therapy for angina will be necessary. It's important you be sure to keep all appointments and take medication exactly as prescribed. Angina is usually treated with a type of "nitrate" medication. This is available as ointment, pills, or sublingual (under the tongue) tablets. Depending on your clinical situation, other medications may be added to help control angina. These may include beta blockers or calcium blockers. If episodes of angina are occurring with increased frequency, or if chest pain lasts longer than 15 minutes or does not respond to nitroglycerin, you must seek emergency medical care immediately. ASPIRIN: Aspirin has been shown to have a beneficial effect on blood circulation by reducing the clotting effect of platelets in the blood. These beneficial effects can be achieved by taking just a single baby (81 mg) aspirin a day. It is recommended that any person over the age of forty take a single baby aspirin every day for heart and brain circulation, unless you are allergic to aspirin or have some significant bleeding disorder. It is strongly recommended that people who have proven cardiac or blood circulation disturbances should take a baby aspirin every day. NITRATES: Nitroglycerin and related longer-acting nitrate medications are used to prevent or treat attacks of angina. These medicines dilate blood vessels, decreasing the work of the heart, and improving its supply of oxygen. Many different forms are available, including sublingual tablets (used under the tongue), sprays, skin patches, and long-acting pills. If the particular form of medication you have been given is not working well for you, contact your doctor. Long-acting forms: Take exactly as prescribed. Sudden stopping of medication can provoke increased attacks. Sublingual tabs or spray: A headache will usually occur with use. Sit or lie while waiting for the pain to go away. If angina doesn't respond to three doses (five minutes apart), call for emergency assistance. FOLLOW-UP CARE: If you have been referred to a physician for follow-up care, call the physician s office for an appointment as you were instructed or within the next two days. If you experience worsening or a significant change in your symptoms, notify the physician immediately or return to the Emergency Department at any time for re-evaluation. Referrals: KASSIDY PAYTON MD [Primary Care Provider] - Follow up as needed
[2016-11-15 23:53] VITALS: BP 115/54
== END 2016-11-15 23:51 | disposition home or self-care (01) ==
LOC: ER 21:05
DX: R07.89 Other chest pain (principal); I25.2 Old myocardial infarction; D72.829 Elevated white blood cell count, unspecified
CPT/HCPCS: 36415; 71010; 80053; 82550; 83690; 84484; 85025; 93005; 93010; 99285

== ENCOUNTER → 2018-08-27 | Outpatient (CLI) | payer MEDICARE ==
--- NOTE | 2018-08-27 16:18 | XCELERA REPORT ---
[address] [facility] [address] Lower Extremity Venous Evaluation Procedure: Color flow and duplex imaging bilaterally of the veins of the lower extremities as well as the Common Femoral veins. Right Sided Venous Evaluation Normal vessel filling wall to wall, compression and augmentation as well as Colour flow down to the infrageniculate veins. Left Sided Venous Evaluation Normal vessel filling wall to wall, compression and augmentation as well as Colour flow down to the infrageniculate veins. Interpretation Summary No duplex evidence of DVT or obstruction in the bilateral lower extremities. Name: FLORENTINO ZHANG Age: 82 yrs Gender: Female : 1935 Patient Status: Outpatient Patient Location: Study Date: 08/27/2018 11:11 AM Reason For Study: PAIN IN LEGS Ordering Physician: KASSIDY PAYTON Performed By: Braxton Riojas : KASSIDY PAYTON > Madhu Adams
== END ==
LOC: SP 10:35
PROVIDERS: ATTEND Internal Medicine
DX: M79.609 Pain in unspecified limb (principal)
CPT/HCPCS: 93970

== ENCOUNTER 2018-11-14 04:41 | Emergency (ER) | payer MEDICARE ==
--- NOTE | 2018-11-14 05:03 | ER Document Report ---
ED Cardiac - General Chief Complaint: Chest Pain Stated Complaint: CHEST PAIN Time Seen by Provider: 11/14/18 04:52 Primary Care Provider: KASSIDY PAYTON MD [Primary Care Provider] - Follow up as needed Notes: Patient is an 82-year-old female that comes to the emergency department for chief complaint of discomfort in the center of her chest and difficulty breathing. She states she woke up tonight with a vague discomfort in her chest and called the ambulance. She personally took 324 mg of aspirin prior to EMS arriving. EMS states that when they tried to walk her to the stretcher she became extremely short of breath and dropped down into the upper 80s on her pulse oxygen saturation. They placed her on oxygen and this resolved. Patient states that she has no current symptoms as she is lying on the stretcher. Patient reports a history of hypertension and an MT in 1997 where she had a cardiac catheterization, she is treated with metoprolol and lisinopril but no other medications. She denies history of CHF or COPD. She comes from home. TRAVEL OUTSIDE OF THE [place] IN LAST 30 DAYS: No - Related Data Allergies/Adverse Reactions: No Known Allergies Allergy (Unverified 11/14/18 05:22) Past Medical History - General Information source: Patient - Social History Smoking Status: Never Smoker Frequency of alcohol use: None Drug Abuse: None Lives with: Alone Family History: Reviewed & Not Pertinent - Past Medical History Cardiac Medical History: Reports: Hx Heart Attack - 1997, Hx Hypertension Pulmonary Medical History: Denies: Hx Asthma Neurological Medical History: Denies: Hx Cerebrovascular Accident, Hx Seizures Renal/ Medical History: Denies: Hx Peritoneal Dialysis GI Medical History: Denies: Hx Hepatitis, Hx Hiatal Hernia, Hx Ulcer Psychiatric Medical History: Denies: Hx Depression Infectious Medical History: Denies: Hx Hepatitis Past Surgical History: Reports: Hx Appendectomy, Hx Hysterectomy. Denies: Hx Mastectomy, Hx Open Heart Surgery, Hx Pacemaker - Immunizations Immunizations up to date: Yes Hx Diphtheria, Pertussis, Tetanus Vaccination: Yes Review of Systems - Review of Systems Constitutional: No symptoms reported EENT: No symptoms reported Cardiovascular: See HPI Respiratory: See HPI Gastrointestinal: No symptoms reported Genitourinary: No symptoms reported Female Genitourinary: No symptoms reported Musculoskeletal: No symptoms reported Skin: No symptoms reported Hematologic/Lymphatic: No symptoms reported Neurological/Psychological: No symptoms reported Physical Exam - Vital signs Vitals: Resp 21 H 11/14/18 05:17 - Notes Notes: GENERAL: Alert, interacts well. No acute distress. HEAD: Normocephalic, atraumatic. EYES: Pupils equal, round, and reactive to light. Extraocular movements intact. ENT: Oral mucosa moist, tongue midline. Oropharynx unremarkable. Airway patent NECK: Full range of motion. Supple. Trachea midline. LUNGS: Soft rales heard in the left lung bases, otherwise unremarkable. HEART: Regular rate and rhythm. No murmur ABDOMEN: Soft, non-tender. Non-distended. Bowel sounds present in all 4 quadrants. GENITOURINARY: Deferred EXTREMITIES: Moves all 4 extremities spontaneously. 1+ pitting edema bilaterally, normal radial and dorsalis pedis pulses bilaterally. No cyanosis. BACK: no cervical, thoracic, lumbar midline tenderness. No saddle anesthesia, normal distal neurovascular exam. Moves all extremities in full range of motion. NEUROLOGICAL: Alert and oriented x3. Normal speech. Cranial nerves II through XII grossly intact. PSYCH: Normal affect, normal mood. SKIN: Warm, dry, normal turgor. No rashes or lesions noted. Course - Re-evaluation Re-evalutation: On initial evaluation patient is chest pain-free but she does have soft rales in the left lower lung turk, she also has bilateral 1+ pitting edema. She does not have a history of heart failure. She becomes very short of breath with short ambulation. At rest she is asymptomatic. EKG with no acute changes. CBC and chemistry unremarkable. Creatinine is normal. Chest x-ray with no overt abnormality, however BNP is greater than 2000 with no reported history of heart failure. Troponin is also elevated at 2.09. Reported the patient, she is very upset initially, however she does agree to treatment. Discussed with Dr. Sigala. Patient will be given Lovenox, small dose of Lasix, because of suspected new onset heart failure component patient does not meet criteria to remain here (per our NSTEMI criteria) and she will require transfer. Patient is very youthful for her age, she lives at home, she does want full treatment. She requests [facility] transfer. 11/14/18 07:50 Patient has been accepted by Dr. Demetrio Zayas at [facility]. I did update the patient, she remains chest pain-free, no significant change in vital signs. She states satisfaction and agreement with plan. She does request that I call her niece, Kevin, at [phone]. She is going to come see and be with the patient. 11/14/18 08:11 Introduced to Cyril Alberts NP at bedside for handoff. - Vital Signs Vital signs: Temp Pulse Resp BP Pulse Ox 98.3 F 21 H 146/86 H 98 11/14/18 05:18 11/14/18 06:01 11/14/18 06:00 11/14/18 06:01 - Laboratory Result Diagrams: 11/14/18 05:09 11/14/18 05:09 Laboratory results interpreted by me: 11/14/18 11/14/18 05:09 05:09 Glucose 133 H AST 42 H NT-Pro-B Natriuret Pep 2320 H - EKG Interpretation by Me Additional EKG results interpreted by me: EKG shows sinus tachycardia at a rate of 102, PVCs are present, QTC slightly prolonged at 506, no T wave inversions or ST segment changes in consecutive leads. No significant change from prior. Discharge - Discharge Clinical Impression: NSTEMI (non-ST elevated myocardial infarction) Chest pain Qualifiers: Chest pain type: unspecified Qualified Code(s): R07.9 - Chest pain, unspecified Condition: Stable Disposition: [facility] Referrals: KASSIDY PAYTON MD [Primary Care Provider] - Follow up as needed
[2018-11-14 05:24] LABS: ABSOLUTE EOSINOPHILS # (AUTO) 0.2 10^3/uL (0.0-0.6); ABSOLUTE LYMPHOCYTES (AUTO) 2.2 10^3/uL (0.5-4.7); ABSOLUTE MONOCYTES (AUTO) 0.6 10^3/uL (0.1-1.4); BASOPHILS % (AUTO) 0.4 % (0-2); HEMATOCRIT 38.9 % (36.0-47.0); LYMPHOCYTES % (AUTO) 24.2 % (13-45); MEAN CORPUSCULAR HEMOGLOBIN 29.9 pg (27.0-33.4); MEAN CORPUSCULAR HGB CONC 33.4 g/dL (32.0-36.0); MEAN CORPUSCULAR VOLUME 89 fl (80-97); MONOCYTES % (AUTO) 6.6 % (3-13); PLATELET COUNT 271 10^3/uL (150-450); RED BLOOD COUNT 4.35 10^6/uL (3.72-5.28); RED CELL DISTRIBUTION WIDTH 13.3 % (11.5-14.0); SEGMENTED NEUTROPHILS % (AUTO) 66.8 % (42-78); TOTAL CELLS COUNTED % (AUTO) 100 %
[2018-11-14 05:47] LABS: ALANINE AMINOTRANSFERASE 18 U/L (9-52); ALKALINE PHOSPHATASE 118 U/L (38-126); ANION GAP 10 (5-19); ASPARTATE AMINO TRANSFERASE 42 U/L (14-36); BILIRUBIN,DIRECT 0.2 mg/dL (0.0-0.4); BILIRUBIN,TOTAL 0.5 mg/dL (0.2-1.3); BLOOD UREA NITROGEN 17 mg/dL (7-20); CALCIUM 9.5 mg/dL (8.4-10.2); CARBON DIOXIDE 26 mmol/L (22-30); CHLORIDE 106 mmol/L (98-107); GLUCOSE 133 mg/dL (75-110); POTASSIUM 4.2 mmol/L (3.6-5.0); SODIUM 141.8 mmol/L (137-145); TOTAL PROTEIN 7.7 g/dL (6.3-8.2)
[2018-11-14 06:05] LABS: TROPONIN I 2.09 ng/mL
--- NOTE | 2018-11-14 06:24 | RADIOLOGY REPORT (SQ) ---
EXAM DESCRIPTION: X-ray single view chest. CLINICAL HISTORY: 82 years Female, shortness of breath, chest pain COMPARISON: The previous studies were not available for comparison. TECHNIQUE: Single portable x-ray view of the chest performed on 11/14/2018 at 5:51 AM FINDINGS: The lungs are well expanded. There is mild patchy parenchymal opacification in the right inferior hemithorax likely due to atelectasis. The lungs are otherwise grossly clear. The lateral costophrenic sulci are clear. There is no evidence of a pneumothorax. There is mild focal eventration of the right hemidiaphragm. The cardiac silhouette is enlarged. The mediastinal contours are normal. No acute osseous abnormality is identified. No focal soft tissue abnormalities are seen. Lines and tubes: None. IMPRESSION: 1. Suspect mild right basilar atelectasis. The lungs are otherwise grossly clear. 2. Prominence of the cardiac silhouette which may be partly accentuated by the portable technique.
[2018-11-14] MEDS ORDERED: ENOXAPARIN SODIUM INJ 80 MG/0.8 ML DISP.SYRIN SUBCUT SCH ×2 (06:45→19:00)
[2018-11-14] MEDS ORDERED: FUROSEMIDE INJ/PF 20 MG/2 ML SDV IV ONE (07:07)
[2018-11-14 11:04] VITALS: BP 130/81
--- NOTE | 2018-11-15 23:49 | EKG REPORT ---
SEVERITY:- ABNORMAL ECG - SINUS RHYTHM NONSPECIFIC T ABNORMALITIES, LATERAL LEADS BORDERLINE PROLONGED QT INTERVAL : Confirmed by: Param Alberto 15-Nov-2018 23:48:21
--- NOTE | 2018-11-15 23:49 | EKG REPORT ---
SEVERITY:- ABNORMAL ECG - SINUS TACHYCARDIA VENTRICULAR PREMATURE COMPLEX BORDERLINE T ABNORMALITIES, DIFFUSE LEADS BORDERLINE PROLONGED QT INTERVAL : Confirmed by: Param Alberto 15-Nov-2018 23:48:35
== END 2018-11-14 11:10 | disposition short-term general hospital (02) ==
LOC: ER 04:41
DX: I21.4 Non-ST elevation (NSTEMI) myocardial infarction (principal); R07.9 Chest pain, unspecified; R06.09 Other forms of dyspnea; I10 Essential (primary) hypertension; Z90.710 Acquired absence of both cervix and uterus
CPT/HCPCS: 93005; 99285; 96372; 96374; 36415; 85025; 80053; 84484; 83880; 71045; 93010; J1940; J1650